=== PATIENT | female | born 1965 | race Caucasian/White ===

== ENCOUNTER 2023-06-09 09:38 | Outpatient (CLI) | payer BC, SELFPAY | END 2023-06-09 09:39 | disposition home or self-care (01) | LOC: AMB 07-14 14:54 | PROVIDERS: Visit Provider Emergency Medicine | DX: R10.9 Unspecified abdominal pain (principal) | CPT/HCPCS: A0425; A0433 ==

== ENCOUNTER 2023-11-09 19:38 | Emergency (ER) | payer BC, SELFPAY ==
[2023-11-09 19:45] VITALS: BP 164/90; PULSE 73; RESP 18; TEMP 37.6; O2SAT 96; BMI 34.8
--- NOTE | 2023-11-09 20:10 | ED_ITS ---
HPI - General Adult General Chief complaint: Nausea/Vomiting Stated complaint: vomiting Time Seen by Provider: 11/09/23 19:54 Source: patient Mode of arrival: ambulatory Limitations: no limitations History of Present Illness HPI narrative: Female presents the emergency department with significant other. Reports that she has had nausea vomiting since 0830 this morning. Did not have her phone by her and could not call her family for assistance. Significant other reports that he came home from work to find her with vomit all over the house in a path from the bed to the bathroom as well as loose stool. Have right-sided patient had a similar episode back in May where she was hospitalized for intractable nausea and vomiting at [facility] and was ultimately discharged. Was then admitted up at [facility] under similar circumstances a few days later. It sounds as though she had an endoscopy, followed up with GI, had a small bowel capsule endoscopy was diagnosed with Crohn's disease but it did not seem as though that was necessarily the cause for nausea and vomiting. She is a regular marijuana user and does have prescription marijuana for chronic pain related to breast cancer. Reports that she just returned from the [facility]. Denies blood in her vomit or stools. Reports that she does take blood thinners for history of blood clots, is not able to list her medications for me. Reports that she has a list at the nurse's station that they are still entering into the computer. We do not have much for outside records on her. Her only prior abdominal surgery is a hysterectomy related to her previous breast cancer. Denies history of other GI surgeries. Denies blood in her stools, bloody vomit. Is uncertain what medications have worked for her for this condition in the past. States her past medical history is notable for hypertension, prior blood clot, breast cancer. Related Data Home Medications Medication Instructions Recorded Confirmed amlodipine 5 mg tablet 5 mg PO DAILY 11/09/23 11/09/23 apixaban 5 mg tablet (Eliquis) 5 mg PO BID 11/09/23 11/09/23 atenolol 100 mg tablet 100 mg PO DAILY 11/09/23 11/09/23 dicyclomine 10 mg capsule 10 mg PO 3XD 11/09/23 11/09/23 exemestane 25 mg tablet 25 mg PO DAILY 11/09/23 11/09/23 gabapentin 300 mg capsule 600 mg PO 3XD 11/09/23 11/09/23 lansoprazole 30 mg capsule,delayed 30 mg PO DAILY 11/09/23 11/09/23 release lisinopril 40 mg tablet 40 mg PO DAILY 11/09/23 11/09/23 methocarbamol 500 mg tablet 500 mg PO Q6H 11/09/23 11/09/23 olanzapine 5 mg disintegrating PO 11/09/23 tablet oxycodone-acetaminophen 5 mg-325 1 tab PO Q4-6H chronic pain 11/09/23 11/09/23 mg tablet prochlorperazine maleate 10 mg PO 11/09/23 tablet sertraline 100 mg tablet 100 mg PO BID 11/09/23 11/09/23 sumatriptan succinate 100 mg tablet 100 mg PO Q2-4H PRN 11/09/23 11/09/23 valacyclovir 1 gram tablet PO 11/09/23 Previous Rx's Medication Instructions Recorded olanzapine 5 mg tablet 5 - 10 mg (1 - 2 x 5 mg) PO QHS 11/09/23 PRN #30 tabs prochlorperazine maleate 5 mg 5 mg PO TID PRN nausea #30 tabs 11/09/23 tablet (Compazine) Allergies Allergy/AdvReac Type Severity Reaction Status Date / Time No Known Drug Allergies Allergy Verified 11/09/23 19:51 PFSH PFS Social History Smoking Status: Current some day smoker Non-prescribed substance use: marijuana (any form) Exam Const: Vital Signs, click to edit/add: Vital Signs - 24 hr 11/09/23 19:45 11/09/23 21:20 Temperature 99.7 F H Pulse Rate [Pulse Oximeter] 73 92 Respiratory Rate 18 Blood Pressure [Le ft Upper Arm] 164/90 H 110/70 Pulse Oximetry 96 94 Oxygen Delivery Me thod Room Air Room Air Documenting provider has reviewed patient's vital signs: yes Common normals: alert General appearance: well kempt Orientation/consciousness: Yes awake Other: Restless but fully alert. Retching but no active vomiting at the time my exam. Does have an emesis bag with about 150 mL of serous appearing vomit, no food particles. Anxious. HENMT: Common normals: normocephalic Head and scalp: normocephalic Face and sinus: normal facial exam Mouth: oral and palatal mucosa normal Throat: posterior oropharynx normal Eye: Common normals: conjunctivae normal General eye: normal appearance of both eyes Conjunctiva: conjunctiva(e) normal Neck & C-Spine: Common normals: full ROM and no lymphadenopathy Resp: Common normals: normal respiratory effort, no use of accessory muscles and clear to auscultation bilaterally Effort & inspection: able to speak in complete sentences Auscultation: clear to auscultation bilaterally Cardio: Common normals: regular rate, regular rhythm, S1 normal heart sound and S2 normal heart sound Rate: regular rate Rhythm: regular rhythm Heart sounds: S1 normal and S2 normal GI: Other: Abdomen appears nondistended. No significant scarring, bruising or signs of trauma. Bowel sounds do sound normoactive throughout. Belly is diffusely soft, mildly diffusely tender but I cannot elicit any focal tenderness. No rebound tenderness or guarding. Organs do not seem enlarged, no obvious mass. Extremity: Common normals: normal to inspection, normal capillary refill and no pedal edema Neuro: Sensorium/orientation: awake and alert Motor exam: strength 5/5 throughout and no movement abnormalities noted Psych: Common normals: speech normal Appearance: well kempt Speech: normal speech Other: Anxious and a bit irritable. Insight and judgment seem fair. Skin: Common normals: no rashes or lesions noted General skin exam: no rashes or lesions noted Course Course ED Course: Intractable nausea and vomiting with history of Crohn's disease, does have a low-grade fever. There are no signs of hypotension or tachycardia. Similar previous episodes are suspicious for cyclic vomiting syndrome based on her description. I am somewhat reassured by the fact that she reports she prior GI workup, endoscopy and small bowel workup. I recommend starting with a L of normal saline, 4 mg of Zofran, 0.5 mg of lorazepam and 5 mg of Zyprexa. Basic labs to look for pancreatitis, years signs of bleeding, electrolyte abnormalities, kidney disease. I am going to hold off on imaging, await clinical response and findings from blood work 1st. Initial exam is not suggestive of obstruction, bacterial infection, pancreatitis, gallbladder disease or appendicitis. Reevaluation(s) Time of Reevaluation #1: 21:28 Reevaluation #1: Counseled patient on lab findings. Her AST is a little elevated, especially compared to ALT. Her bili is normal. I suspect that this is related to alcohol use. She states that she just returned from [facility] and has been drinking quite heavily socially for the last few days. She is feeling markedly better from the Zyprexa and lorazepam and does not think that we need to pursue additional imaging. I discussed this with her and she does not think that looking at her gallbladder, biliary tree or liver more closely will be helpful. She is thankful to be feeling much better. We discussed cyclic vomiting synd estiven. She was surprised by this diagnosis and did not seem very accepting of it but was not agitated or argumentative about the diagnosis. Counseled that I do suspect other providers have suspected this as well seeing as she has a prescription for Zyprexa on her paperwork. Counseled patient that the only prevention for this for most patients is complete elimination of all cannabis. She does not think she wants to do that at this time as she has been using marijuana for decades and is only now having vomiting episodes. I did deputy general counsel her that this is often the case. I will be giving a 2 L of IV fluid, this time LR to correct for the mild acid- base abnormalities and hypokalemia. Counseled on Zyprexa nightly for to help prevent nausea and vomiting for the next 5 nights. Compazine as needed for nausea and vomiting, pushing fluids. Hot showers for symptomatic relief. Alarm symptoms reviewed that would warrant ED presentation, especially any signs of GI bleeding. She is tolerating liquids after medications here in the ED. she is now calm. Significant other does seem receptive to diagnosis. She has previously had endoscopy and a small-bowel workup for this condition. This is a lso encouraging. I would encourage her to make a follow-up appointment to have her liver enzymes rechecked in about a month with her primary care team. Vital Signs Vital signs: Initial Vital Signs Temperature 99.7 F H 11/09/23 19:45 Temperature Source Temporal Artery Scan 11/09/23 19:45 Pulse Rate 73 11/09/23 19:45 Respiratory Rate 18 11/09/23 19:45 Blood Pressure 164/90 H 11/09/23 19:45 Blood Pressure Mean 114 H 11/09/23 19:45 Blood Pressure Position Supine 11/09/23 19:45 Pulse Oximetry 96 11/09/23 19:45 Oxygen Delivery Method Room Air 11/09/23 19:45 Vital Signs Temperature 99.7 F H 11/09/23 19:45 Pulse Rate 73 11/09/23 19:45 Respiratory Rate 18 11/09/23 19:45 Blood Pressure 164/90 H 11/09/23 19:45 Pulse Oximetry 96 11/09/23 19:45 Oxygen Delivery Method Room Air 11/09/23 19:45 Temperature 99.7 F H 11/09/23 19:45 Pulse Rate 92 11/09/23 21:20 Respiratory Rate 18 11/09/23 19:45 Blood Pressure 110/70 11/09/23 21:20 Pulse Oximetry 94 11/09/23 21:20 Oxygen Delivery Method Room Air 11/09/23 21:20 Medications Administered Medications: Generic Name Dose Route Start Last Admin Trade Name Freq PRN Reason Stop Dose Admin Gabapentin 600 mg 11/09/23 21:27 11/09/23 21:41 Gabapentin 300 Mg Capsule PO 11/09/23 21:28 Not Given ONCE ONE Lactated Ringer's 1,000 mls @ 1,000 mls/hr 11/09/23 21:19 11/09/23 21:30 Lactated Ringers 1000 Ml IV 11/09/23 22:18 1,000 mls/hr .Q1H ONE Administration Oxycodone HCl 5 mg 11/09/23 21:27 11/09/23 21:40 Oxycodone 5 Mg Tablet PO 11/09/23 21:28 5 mg ONCE ONE Administration Discontinued Medications Generic Name Dose Route Start Last Admin Trade Name Freq PRN Reason Stop Dose Admin Sodium Chloride 1,000 mls @ 1,000 mls/hr 11/09/23 20:07 11/09/23 21:30 0.9 % Sodium Chloride 1000 Ml IV 11/09/23 21:06 Infused .Q1H JUANI Infusion Lorazepam 0.5 mg 11/09/23 20:08 11/09/23 20:15 Lorazepam 2 Mg/Ml Inj IVP 11/09/23 20:09 0.5 mg ONCE ONE Administration Olanzapine 5 mg 11/09/23 20:07 11/09/23 20:45 Olanzapine 5 Mg/Ml Inj IVP 11/09/23 20:08 5 mg ONCE ONE Administration Ondansetron HCl 4 mg 11/09/23 20:07 11/09/23 20:15 Ondansetron 2 Mg/Ml Inj IVP 11/09/23 20:08 4 mg ONCE ONE Administration Medical Decision Making Lab Data Lab results reviewed: Yes I reviewed the patient's lab results Lab results narrative: Mild leukocytosis and elevation of AST. No signs of biliary obstruction with elevated bilirubin. Lactate is elevated consistent with dehydration. C- reactive protein normal. Labs: Lab Results 11/09/23 Range/Units 20:00 WBC 12.70 H (4.50-11.00) K/uL RBC 4.98 (4.00-5.20) m/uL Hgb 14.8 (12.0-16.0) gm/dL Hct 45.3 (33.0-51.0) % MCV 91 (80-100) fL MCH 30 (26-34) pg MCHC 33 (32-36) gm/dL RDW Coeff of Betsy 16.2 H (11.5-15.5) % Plt Count 382 (140-440) K/uL Neut % (Auto) 91.2 H (42.0-72.0) % Lymph % (Auto) 6.0 L (20-44) % Tama % (Auto) 1.8 (0.0-11.0) % Eos % (Auto) 0.0 (0.0-7.0) % Baso % (Auto) 0.1 (0.0-3.0) % Neut # (Auto) 11.60 H (1.7-7.0) K/uL Lymph # (Auto) 0.80 L (0.90-2.90) K/uL Tama # (Auto) 0.20 (0.00-0.90) K/UL Eos # (Auto) 0.00 (0.00-0.50) K/uL Baso # (Auto) 0.00 (0.00-0.30) K/uL Abs Immat Gran (auto) 0.10 (0.00-0.30) K/uL Imm/Tot Granulo (auto) 0.9 % Sodium 145 (135-149) mmol/L Potassium 3.7 (3.6-5.1) mmol/L Chloride 108 (96-114) mmol/L Carbon Dioxide 19 L (20-32) mmol/L Anion Gap 18 H (7-15) mEq/L BUN 15 (7-30) mg/dL Creatinine 0.9 (0.5-1.5) mg/dL Estimated Creat Clear 53.23 Estimated GFR 74 ml/min Glucose 139 H (60-115) mg/dL Lactate 3.4 H (0.5-1.9) mmol/L Calcium 10.6 (8.4-10.6) mg/dL Total Bilirubin 1.0 (0.1-1.5) mg/dL AST 222 H (12-35) U/L ALT 56 H (4-35) U/L Alkaline Phosphatase 72 (40-150) U/L C-Reactive Protein 0.7 (0.5-1.0) mg/dL Total Protein 8.0 (6.0-8.3) g/dL Albumin 4.7 (3.3-5.0) g/dL Lipase 59 (23-300) U/L Discharge Plan Discharge Clinical Impression: Cyclic vomiting syndrome Patient Disposition: Home w/ Parent or Adult Condition: Improved Instructions: Cyclic Vomiting Syndrome (ED) Additional Instructions: As we discussed, your symptoms seem consistent with cyclic vomiting syndrome, also known as cannabis emesis syndrome. These are intense bouts of vomiting that come on suddenly and tend to last for 3-5 days and are often associated with chronic marijuana use. This is not a condition that begins suddenly after starting to use marijuana but tends to be something that people age into and once it starts, is very difficult to treat. The only real treatment is complete elimination of all THC, cannabis and similar products from your life. I suspect that your other providers may have also suspected this conditions since they prescribed you olanzapine, also known as Zyprexa at some point. You can decide if elimination of cannabis from your chronic pain regimen is right for you. As we discussed, Zofran does not tend to be terribly effective for this. I recommend using olanzapine every night at bedtime for the next 5 nights to help prevent these episodes. This does not work to treat acute nausea and vomiting but is a better medication used for preventing. You may use 1-2 tablets at bedt alvina. For acute nausea and vomiting, I will give you a prescription for some Compazine. You may use this up to every 8 hours. Drink lots of fluids. Your likely be symptomatic for the next 3-5 days. Very hot showers often help. Patients with this condition will find taking hot showers 2-3 times per day markedly helpful. Follow-up with your GI doctor if you continue to have symptoms. And as yolanda coulter, consider complete elimination of cannabis. I would recommend that you make a follow-up appointment with your primary care team in 3-4 weeks to recheck your liver enzymes and to further discuss symptomatic treatment for these episodes for you to have at home. You may need refills on the medications that I have provided if these are helpful. You should ask their in site regarding the marijuana use as well. They will have your complete medical records which I am not privy to. If you start having bloody stools, bloody vomit, please come back to the emergency department. You may continue all of your other medications as prescribed. Activity Level: Activity as Tolerated Discharge Diet: Regular Prescriptions: New olanzapine 5 mg tablet 5 - 10 mg PO QHS PRNQty: 30 0RF prochlorperazine maleate [Compazine] 5 mg tablet 5 mg PO TID PRN (Reason: nausea) Qty: 30 0RF No Action atenolol 100 mg tablet 100 mg PO DAILY valacyclovir 1 gram tablet PO sertraline 100 mg tablet 100 mg PO BID amlodipine 5 mg tablet 5 mg PO DAILY prochlorperazine maleate 10 mg tablet PO oxycodone-acetaminophen 5-325 mg tablet 1 tab PO Q4-6H exemestane 25 mg tablet 25 mg PO DAILY lansoprazole 30 mg capsule,delayed release(DR/EC) 30 mg PO DAILY lisinopril 40 mg tablet 40 mg PO DAILY olanzapine 5 mg tablet,disintegrating PO Eliquis 5 mg tablet 5 mg PO BID methocarbamol 500 mg tablet 500 mg PO Q6H sumatriptan succinate 100 mg tablet 100 mg PO Q2-4H PRN Rx Instructions: do not exceed 2 doses per 24 hrs dicyclomine 10 mg capsule 10 mg PO 3XD gabapentin 300 mg capsule 600 mg PO 3XD Follow Up/Referrals: Provider,Not a Local [Primary Care Provider] - Stand Alone Forms: [employer] Info Instructions
[2023-11-09] MEDS: LORazepam 2 MG/ML inj 0.5 MG IVP (20:15)
[2023-11-09] MEDS: ONDANSETRON 2 MG/ML inj 4 MG IVP (20:15)
[2023-11-09] MEDS: 0.9 % SODIUM CHLORIDE 1000 ml 1,000 ML IV (20:20)
[2023-11-09 20:31] LABS: Lactate* 3.4 mmol/L (0.5-1.9)
[2023-11-09 20:32] LABS: Albumin* 4.7 g/dL (3.3-5.0); Chloride* 108 mmol/L (96-114); Sodium* 145 mmol/L (135-149)
[2023-11-09 20:33] LABS: Potassium* 3.7 mmol/L (3.6-5.1)
[2023-11-09 20:35] LABS: Anion Gap 18 mEq/L (7-15); Carbon Dioxide* 19 mmol/L (20-32); Creatinine* 0.9 mg/dL (0.5-1.5); Est. Creatinine Clearance* 53.23; Estimated Glomerular Filt Rate 74 ml/min
[2023-11-09 20:36] LABS: Alanine Aminotransferase* 56 U/L (4-35); Alkaline Phosphatase* 72 U/L (40-150); Aspartate Amino Transferase* 222 U/L (12-35); Blood Urea Nitrogen* 15 mg/dL (7-30); Calcium* 10.6 mg/dL (8.4-10.6); Glucose* 139 mg/dL (60-115); Lipase* 59 U/L (23-300)
[2023-11-09 20:39] LABS: C Reactive Protein* 0.7 mg/dL (0.5-1.0)
[2023-11-09] MEDS: OLANZapine 5 MG/ML inj IVP (20:45)
[2023-11-09 20:47] LABS: Basophils Percent Auto 0.1 % (0.0-3.0); Hematocrit 45.3 % (33.0-51.0); Hemoglobin* 14.8 gm/dL (12.0-16.0); Immature Granulocytes Pct Auto 0.9 %; Mean Corpuscular HGB Conc 33 gm/dL (32-36); Mean Corpuscular Hemoglobin 30 pg (26-34); Mean Corpuscular Volume 91 fL (80-100); Monocytes Percent Auto 1.8 % (0.0-11.0); Neutrophils Percent Auto 91.2 % (42.0-72.0); Platelet Count* 382 K/uL (140-440); RDW Coefficient of Variation % 16.2 % (11.5-15.5); Red Blood Count 4.98 m/uL (4.00-5.20)
[2023-11-09 20:49] LABS: Slide Review Reflex No
[2023-11-09 21:20] VITALS: BP 110/70; PULSE 92; O2SAT 94
[2023-11-09] MEDS: LACTATED RINGERS 1000 ML 1,000 ML IV (21:30)
[2023-11-09] MEDS: OXYCODONE 5 MG TABLET PO (21:40)
== END 2023-11-09 22:43 | disposition home or self-care (01) ==
PROVIDERS: Emergency Provider Family Medicine
DX: R11.15 Cyclical vomiting syndrome unrelated to migraine (principal)
CPT/HCPCS: 36415; 80053; 80306; 81003; 83605; 83690; 85025; 86140; 96374; 96375; 99283; 99284; A9270; J2060; J2405; J7030; J7120

== ENCOUNTER 2025-07-04 12:18 | Outpatient (CLI) | payer OTHER, SELFPAY | END 2025-07-04 12:19 | disposition home or self-care (01) | LOC: AMB 07-05 10:25 | PROVIDERS: Visit Provider Family Medicine | DX: R11.2 Nausea with vomiting, unspecified (principal) | CPT/HCPCS: A0425; A0427 ==

== ENCOUNTER 2025-07-04 12:45 | Emergency (ER) | payer OTHER, SELFPAY ==
[2025-07-04] VITALS (41 sets, daily range): BP systolic 101–190; BP diastolic 62–99; PULSE 59–80; RESP 12–18; TEMP 37.5; O2SAT 86–99; BMI 30.2
--- NOTE | 2025-07-04 13:19 | ED.GENADULT ---
HPI - General Adult General Chief complaint: Nausea/Vomiting Stated complaint: Nausea, vomiting Time Seen by Provider: 07/04/25 13:01 Source: patient Mode of arrival: EMS Limitations: no limitations History of Present Illness HPI narrative: 59-year-old female presenting today with vomiting going on for 4 days. Patient has history of Crohn's disease and cyclic vomiting syndrome. She was last in the ER in October of 2023 for this. She states that between then and now she has had shorter episodes of vomiting that have resolved without needing intervention. His patient denies fevers but does feel chills. No blood in her vomit. She does have chronic diarrhea which is unchanged. No urinary symptoms. She has had a thorough GI workup in the past. Past milk history significant for hypertension, breast cancer and previous blood clot. She is anticoagulated. And she is a chronic marijuana user secondary to pain-has been using marijuana for several years. Related Data Home Medications ?Medication ?Instructions ?Recorded ?Confirmed amlodipine 5 mg tablet 5 mg PO DAILY 11/09/23 07/04/25 Held on 07/04/25. Instructions: Doctor's Order apixaban 5 mg tablet (Eliquis) 5 mg PO BID 11/09/23 11/09/23 atenolol 100 mg tablet 100 mg PO DAILY 11/09/23 07/04/25 Held on 07/04/25. Instructions: Doctor's Order dicyclomine 10 mg capsule 10 mg PO 3XD 11/09/23 07/04/25 Held on 07/04/25. Instructions: Doctor's Order exemestane 25 mg tablet 25 mg PO DAILY 11/09/23 11/09/23 gabapentin 300 mg capsule 600 mg PO 3XD 11/09/23 11/09/23 lansoprazole 30 mg capsule,delayed 30 mg PO DAILY 11/09/23 11/09/23 release lisinopril 40 mg tablet 40 mg PO DAILY 11/09/23 07/04/25 Held on 07/04/25. Instructions: Doctor's Order methocarbamol 500 mg tablet 500 mg PO Q6H 11/09/23 11/09/23 olanzapine 5 mg disintegrating PO 11/09/23 tablet oxycodone-acetaminophen 5 mg-325 1 tab PO Q4-6H chronic pain 11/09/23 11/09/23 mg tablet prochlorperazine maleate 10 mg PO 11/09/23 tablet sertraline 100 mg tablet 100 mg PO BID 11/09/23 11/09/23 sumatriptan succinate 100 mg tablet 100 mg PO Q2-4H PRN 11/09/23 11/09/23 valacyclovir 1 gram tablet PO 11/09/23 Previous Rx's ?Medication ?Instructions ?Recorded olanzapine 5 mg tablet 5 - 10 mg (1 - 2 x 5 mg) PO QHS 11/09/23 PRN #30 tabs prochlorperazine maleate 5 mg 5 mg PO TID PRN nausea #30 tabs 11/09/23 tablet (Compazine) ondansetron 4 mg disintegrating 4 mg PO Q8H PRN nausea and 07/04/25 tablet vomiting #10 tabs Allergies Allergy/AdvReac Type Severity Reaction Status Date / Time No Known Drug Allergies Allergy Verified 07/04/25 12:58 Review of Systems Status of ROS: Reports: 10 or more systems reviewed and unremarkable except as noted in History and below PFSH PFS Social History Smoking Status: Current some day smoker How often do you have a drink containing alcohol: never AUDIT-C Alcohol total score: 0 Non-prescribed substance use: marijuana (any form) Exam Narrative: Exam Narrative: Well-nourished well-developed patient in no acute distress. Significant other does all of the talking for her. HEENT: Normocephalic atraumatic. Pupils are equally round reactive to light. Extraocular muscles are intact. Conjunctivae are moist without any icterus noted. Dry mucous membranes. Neck is supple. Cardiovascular: Heart is regular rate and rhythm. Lungs: Clear to auscultation bilaterally no wheezes rhonchi or rales are appreciated. Patient takes deep breaths without any discomfort. Abdomen: Soft and nontender nondistended with normal bowel sounds. No guarding or rebound. Extremities: Bilateral lower extremities are without edema. Skin: Well perfused without any obvious rashes. Const: Vital Signs, click to edit/add: Vital Signs - 24 hr 07/04/25 12:52 07/04/25 13:07 07/04/25 13:15 Temperature 99.5 F Pulse Rate 74 64 Pulse Rate [Right Pulse Oximeter] 71 Respiratory Rate 18 Blood Pressure Blood Pressure [Le ft Upper Arm] 178/96 H Pulse Oximetry 96 97 99 Oxygen Delivery Me thod Room Air Oxygen Flow Rate 07/04/25 13:21 07/04/25 13:37 07/04/25 13:42 Temperature Pulse Rate 66 67 Pulse Rate [Right Pulse Oximeter] Respiratory Rate Blood Pressure 190/99 H Blood Pressure [Le ft Upper Arm] Pulse Oximetry 96 95 90 Oxygen Delivery Me thod Oxygen Flow Rate 07/04/25 13:45 07/04/25 13:58 07/04/25 13:59 Temperature Pulse Rate 65 72 73 Pulse Rate [Right Pulse Oximeter] Respiratory Rate 16 Blood Pressure Blood Pressure [Le ft Upper Arm] Pulse Oximetry 97 95 94 Oxygen Delivery Me thod Oxygen Flow Rate 07/04/25 14:00 07/04/25 14:01 07/04/25 14:02 Temperature Pulse Rate 60 61 65 Pulse Rate [Right Pulse Oximeter] Respiratory Rate 12 12 Blood Pressure 150/88 H 159/98 H Blood Pressure [Le ft Upper Arm] Pulse Oximetry 97 97 96 Oxygen Delivery Me thod Oxygen Flow Rate 07/04/25 14:13 07/04/25 14:14 07/04/25 14:15 Temperature Pulse Rate Pulse Rate [Right Pulse Oximeter] Respiratory Rate Blood Pressure Blood Pressure [Le ft Upper Arm] Pulse Oximetry 86 L 94 96 Oxygen Delivery Me thod Room Air Nasal Cannula Nasal Cannula Oxygen Flow Rate 2 2 07/04/25 14:15 07/04/25 14:22 07/04/25 14:30 Temperature Pulse Rate 64 75 66 Pulse Rate [Right Pulse Oximeter] Respiratory Rate 15 13 12 Blood Pressure 111/62 Blood Pressure [Le ft Upper Arm] Pulse Oximetry 99 99 98 Oxygen Delivery Me thod Oxygen Flow Rate 07/04/25 14:42 07/04/25 14:45 07/04/25 15:00 Temperature Pulse Rate 66 80 73 Pulse Rate [Right Pulse Oximeter] Respiratory Rate 12 17 Blood Pressure 101/62 Blood Pressure [Le ft Upper Arm] Pulse Oximetry 97 97 96 Oxygen Delivery Me thod Oxygen Flow Rate 07/04/25 15:02 07/04/25 15:15 07/04/25 16:38 Temperature Pulse Rate 75 66 Pulse Rate [Right Pulse Oximeter] Respiratory Rate 13 17 Blood Pressure 115/75 131/69 Blood Pressure [Le ft Upper Arm] Pulse Oximetry 98 98 Oxygen Delivery Me thod Oxygen Flow Rate 07/04/25 16:40 07/04/25 16:42 07/04/25 16:45 Temperature Pulse Rate 76 66 66 Pulse Rate [Right Pulse Oximeter] Respiratory Rate Blood Pressure 126/68 Blood Pressure [Le ft Upper Arm] Pulse Oximetry 95 95 95 Oxygen Delivery Me thod Oxygen Flow Rate 07/04/25 17:00 07/04/25 17:02 Temperature Pulse Rate 68 70 Pulse Rate [Right Pulse Oximeter] Respiratory Rate 12 Blood Pressure 121/74 Blood Pressure [Le ft Upper Arm] Pulse Oximetry 96 96 Oxygen Delivery Me thod Nasal Cannula Oxygen Flow Rate 2 Course Course ED Course: Patient is no longer vomiting. She did receive 500 mL of normal saline and droperidol in the ambulance. One L of normal saline and IV Zofran ordered. Lactate is elevated at 2.9. EKG, read by me, shows normal sinus rhythm with a pulse of 64. Normal QRS, QTC and VT intervals. CBC appears to be hemoconcentrated. Potassium is low at 2.5 and magnesium is low at 1.3-both will be replenished today. 1 g of IV magnesium ordered as well as 3 bumps of 10 mEq of potassium. LFTs are elevated with an AST of 143 and ALT of 136. This is not necessarily new for the patient. Normal CRP. Normal lipase and procalcitonin. Urine drug screen positive for oxycodone and marijuana. Negative for acetaminophen, alcohol or salicylates. Urinalysis showing trace leukocyte esterase. Will await urine cultures at this time but patient is asymptomatic from a urinary symptom standpoint. Patient was feeling significantly better after treatment. She was tolerating p.o. liquids without vomiting. Patient will be discharged home at this time with oral disintegrating Zofran. She states that the meds she has gotten in the past when she has this do not stay down so they do not work. Vital Signs Vital signs: Initial Vital Signs Temperature 99.5 F 07/04/25 12:52 Temperature Source Temporal Artery Scan 07/04/25 12:52 Pulse Rate 71 07/04/25 12:52 Respiratory Rate 18 07/04/25 12:52 Blood Pressure 178/96 H 07/04/25 12:52 Blood Pressure Mean 123 H 07/04/25 12:52 Blood Pressure Position Semi-Fowlers 07/04/25 12:52 Pulse Oximetry 96 07/04/25 12:52 Oxygen Delivery Method Room Air 07/04/25 12:52 Vital Signs Temperature 99.5 F 07/04/25 12:52 Pulse Rate 71 07/04/25 12:52 Respiratory Rate 18 07/04/25 12:52 Blood Pressure 178/96 H 07/04/25 12:52 Pulse Oximetry 96 07/04/25 12:52 Oxygen Delivery Method Room Air 07/04/25 12:52 Temperature 99.5 F 07/04/25 12:52 Pulse Rate 70 07/04/25 17:02 Respiratory Rate 12 07/04/25 17:02 Blood Pressure 121/74 07/04/25 17:02 Pulse Oximetry 96 07/04/25 17:02 Oxygen Delivery Method Nasal Cannula 07/04/25 17:02 Oxygen Flow Rate 2 07/04/25 17:02 Medications Administered Medications: Discontinued Medications Generic Name Dose Route Start Last Admin Trade Name Freq PRN Reason Stop Dose Admin Sodium Chloride 1,000 mls @ 1,000 mls/hr 07/04/25 13:15 07/04/25 17:03 0.9 % Sodium Chloride 1000 Ml IV 07/04/25 14:14 Infused .Q1H JUANI Infusion Potassium Chloride 10 meq in 100 mls @ 100 mls/hr 07/04/25 14:45 07/04/25 18:48 Potassium Chloride IVPB 07/04/25 18:44 100 mls/hr Q90M JUANI Administration Magnesium Sulfate/Dextrose 1 gm in 100 mls @ 100 mls/hr 07/04/25 15:23 07/04/25 17:43 Magnesium Sulf 1 G/100 Ml IVPB 07/04/25 16:22 Infused ONCE ONE Infusion Ondansetron HCl 4 mg 07/04/25 13:08 07/04/25 13:48 Ondansetron 2 Mg/Ml Inj IVP 07/04/25 13:09 4 mg ONCE ONE Administration Medical Decision Making MDM Narrative Medical decision making narrative: 59-year-old female with vomiting. Treatment per above. Lab Data Lab results reviewed: Yes I reviewed the patient's lab results Labs: Lab Results 07/04/25 07/04/25 07/04/25 Range/Units 13:34 13:46 Unknown WBC 7.68 (4.50-11.00) K/uL RBC 5.66 H (4.00-5.20) m/uL Hgb 16.6 H (12.0-16.0) gm/dL Hct 50.9 (33.0-51.0) % MCV 90 (80-100) fL MCH 29 (26-34) pg MCHC 33 (32-36) gm/dL RDW Coeff of Betsy 12.8 (11.5-15.5) % Plt Count 292 (140-440) K/uL Neut % (Auto) 89.0 H (42.0-72.0) % Lymph % (Auto) 8.1 L (20-44) % [place] % (Auto) 2.3 (0.0-11.0) % Eos % (Auto) 0.0 (0.0-7.0) % Baso % (Auto) 0.3 (0.0-3.0) % Neut # (Auto) 6.80 (1.7-7.0) K/uL Lymph # (Auto) 0.60 L (0.90-2.90) K/uL [place] # (Auto) 0.20 (0.00-0.90) K/UL Eos # (Auto) 0.00 (0.00-0.50) K/uL Baso # (Auto) 0.02 (0.00-0.30) K/uL Abs Immat Gran (auto) 0.02 (0.00-0.30) K/uL Imm/Tot Granulo (auto) 0.3 % ESR 5 (2-20) mm/hr Sodium 140 (135-149) mmol/L Potassium 2.5 L* (3.6-5.1) mmol/L Chloride 103 (96-114) mmol/L Carbon Dioxide 27 (20-32) mmol/L Anion Gap 10 (7-15) mEq/L BUN 14 (7-30) mg/dL Creatinine 0.8 (0.5-1.5) mg/dL Estimated Creat Clear 59.15 Estimated GFR 84 ml/min Glucose 106 (60-115) mg/dL Lactate 2.9 H (0.5-1.9) mmol/L Calcium 9.4 (8.4-10.6) mg/dL Magnesium 1.3 L (1.5-2.6) mg/dL Total Bilirubin 0.9 (0.1-1.5) mg/dL Direct Bilirubin 0.4 (0.0-0.5) mg/dL AST 143 H (12-35) U/L ALT 136 H (4-35) U/L Alkaline Phosphatase 88 (40-150) U/L Troponin I < 0.01 (0.01-0.04) ng/mL C-Reactive Protein < 0.5 L (0.5-1.0) mg/dL Total Protein 7.1 (6.0-8.3) g/dL Albumin 4.0 (3.3-5.0) g/dL Lipase 188 (23-300) U/L Procalcitonin 0.06 (<0.50) ng/mL Urine Color Yellow (Yellow) Urine Appearance Clear (Clear) Urine pH 7.5 (5.0-8.5) Ur Specific [place] 1.020 (1.000-1.030) Urine Protein Negative (Negative) Urine Glucose (UA) Negative (Negative) Urine Ketones Trace A (Negative) Urine Blood Trace-intact A (Negative) Urine Nitrite Negative (Negative) Urine Bilirubin Negative (Negative) Urine Urobilinogen 0.2 (0.2-1.0) Ur Leukocyte Esterase Trace A (Negative) Urine RBC 0-2 (0-2) Urine WBC 2-5 (0-5) Ur Squamous Epith Cells Few (None-Few) Urine Bacteria None (None) Urine Mucus Few A (None) Salicylates < 1.0 L (1.0-10) mg/dL Urine Opiates Screen Negative (Negative) Ur Oxycodone Screen POSITIVE A (Negative) Urine Methadone Screen Negative (Negative) Acetaminophen < 10.0 (10.0-30.0) ug/mL Ur Barbiturates Screen Negative (Negative) U Tricyclic Antidepress Negative (Negative) Ur Phencyclidine Scrn Negative (Negative) Ur Amphetamines Screen Negative (Negative) U Methamphetamines Scrn Negative (Negative) U Benzodiazepines Scrn Negative (Negative) Urine Cocaine Screen Negative (Negative) U Marijuana (THC) Screen POSITIVE A (Negative) Ur Drug Screen Comment See Note Ethyl Alcohol < 0.01 (0.01-0.03) % ECG Data Attestation: I personally reviewed and interpreted this ECG as follows: Discharge Plan Discharge Clinical Impression: Vomiting, Dehydration, Hypokalemia, Hypomagnesemia Patient Disposition: Home, Self-Care Condition: Improved Additional Instructions: Follow-up as needed. Prescriptions: New ondansetron 4 mg tablet,disintegrating 4 mg PO Q8H PRN (Reason: nausea and vomiting) Qty: 10 0RF No Action atenolol 100 mg tablet 100 mg PO DAILY valacyclovir 1 gram tablet PO sertraline 100 mg tablet 100 mg PO BID amlodipine 5 mg tablet 5 mg PO DAILY prochlorperazine maleate 10 mg tablet PO oxycodone-acetaminophen 5-325 mg tablet 1 tab PO Q4-6H exemestane 25 mg tablet 25 mg PO DAILY lansoprazole 30 mg capsule,delayed release(DR/EC) 30 mg PO DAILY lisinopril 40 mg tablet 40 mg PO DAILY olanzapine 5 mg tablet,disintegrating PO Eliquis 5 mg tablet 5 mg PO BID methocarbamol 500 mg tablet 500 mg PO Q6H sumatriptan succinate 100 mg tablet 100 mg PO Q2-4H PRN Rx Instructions: do not exceed 2 doses per 24 hrs dicyclomine 10 mg capsule 10 mg PO 3XD gabapentin 300 mg capsule 600 mg PO 3XD olanzapine 5 mg tablet 5 - 10 mg PO QHS PRNQty: 30 0RF prochlorperazine maleate [Compazine] 5 mg tablet 5 mg PO TID PRN (Reason: nausea) Qty: 30 0RF Follow Up/Referrals: Provider,Not a Local [Primary Care Provider, Family Practice] Stand Alone Forms: [employer] Info Instructions
[2025-07-04 13:36] LABS: Appearance Urine Clear (Clear)
[2025-07-04 13:42] LABS: Lactate* 2.9 mmol/L (0.5-1.9)
[2025-07-04 13:46] LABS: Cannabinoid Screen Urine POSITIVE (Negative); Methamphetamines Screen Urine Negative (Negative); Tricyclic Antidepressant Urine Negative (Negative)
[2025-07-04] MEDS: ONDANSETRON 2 MG/ML inj 4 MG IVP (13:48)
[2025-07-04 14:00] LABS: Hematocrit* 50.9 % (33.0-51.0); Hemoglobin* 16.6 gm/dL (12.0-16.0); Immature Granulocytes Abs Auto 0.02 K/uL (0.00-0.30); Immature Granulocytes Pct Auto 0.3 %; Mean Corpuscular HGB Conc 33 gm/dL (32-36); Mean Corpuscular Hemoglobin 29 pg (26-34); Mean Corpuscular Volume 90 fL (80-100); RDW Coefficient of Variation % 12.8 % (11.5-15.5); Red Blood Count* 5.66 m/uL (4.00-5.20); White Blood Count* 7.68 K/uL (4.50-11.00)
[2025-07-04 14:05] LABS: Lymphocytes Absolute Auto 0.60 K/uL (0.90-2.90); Slide Review Reflex No
--- OUTSIDE RECORDS SUMMARY | 2025-07-04 14:22 | XMS_ITS | Encounter Summary ---
Author Organization [place] Address [address] [facility] [place] [address] Care Team Providers Care Low Vision Therapist Name Role Phone Tyesha Perez PA-C Unavailable [phone] Grace Jewell PA-C Primary Care Provid er Fermin Rainey MD Unavailable [phone] Tyesha Perez PA-C Unavailable [phone] Tyesha Perez PA-C Unavailable [phone] Fermin Rainey MD Unavailable [phone] Encounter Details Date Type Department Care Team (Late st Contact Info) Description 07/11/2024 [facility] [facility] [place] [address] [address] Tess Bae, RN Social History Tobacco Use Types Packs/Day Years Used Date Smoking Tobacco: Never Smokeless Tobacco: Never Alcohol Use Standard Drinks/Week Comments Yes 0 (1 standard drink = 0.6 oz pur e alcohol) socially--3x week PHQ-2 Answer Date Recorded PHQ-2 Score 0 06/28/2024 Adolescent Education Answer Date Record ed Getting School Help Needed Not on file 06/12 Comments No Sex and Gender Information Value Date Recorded Sex Assigned at Not on file 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 Gender Identity Not on file Sexual Orientation Not on file documented as of this encounter Plan of Treatment Not on file documented as of this encounter Visit Diagnoses Not on filedocumented in this encounter Care Teams Low Vision Therapist Relationship Specialty Start Date End Date Grace Jewell PA-C [address] [facility] [address] [address] PCP - General 11/12/23 Tyesha Perez PA-C [address] [place] [address] Physician Teenage Program Director Dermatology 04/21/23 Fermin Rainey MD [address] [place] [address] Assigned Surgical Provider 01/12/24 Tyesha Perez PA-C [address] [place] [id number] Assigned Surgical Provider 07/13/24 Tyesha Perez PA-C [address] [place] [address] Assigned Dermatology Provider 12/11/24 03/12/25 Fermin Rainey MD [address] [place] [address] Assigned Dermatology Provider 03/13/25 documented as of this encounter
--- OUTSIDE RECORDS SUMMARY | 2025-07-04 14:22 | XMS_ITS | Encounter Summary ---
Author Organization [facility] Address [address] [place] [address] Care Team Providers Care Organic Extractions Technician Name Role Phone [facility] Pr ovider Deirdre Cao Primary Care Provider Unavaila ble Tyesha Perez PA-C Unavailable Grace Jewell PA-C Primary Care Provid er Tyesha Perez PA-C Unavailable [phone] Fermin Rainey MD Unavailable [phone] Tyesha Perez PA-C Unavailable [phone] Tyesha Perez PA-C Unavailable [phone] Fermin Rainey MD Unavailable [phone] Encounter Details Date Type Department Care Team (Late st Contact Info) Description 05/09/2015 Abstract [facility] [place] [address] [place] [address] Fermin Reyna MD [facility] [address] [facility] [address] [place] [address] [facility], OPERATIVE NOTE, 05/09/15 Social History Tobacco Use Types Packs/Day Years Used Date Smoking Tobacco: Never Alcohol Use Standard Drinks/Week Comments Yes 0 (1 standard drink = 0.6 oz pur e alcohol) socially Comments No Sex and Gender Information Value Date Recorded Sex Assigned at Not on file 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 [address] PCP - General 10/12/14 08/31/17 Deirdre Cao [address] [facility] [place] [address] PCP - General 09/01/17 11/11/23 Grace Jewell PA-C [address] [place] [address] PCP - General 11/12/23 Tyesha Perez PA-C [address] [place] [address] Physician Zone Maintenance Technician Dermatology 04/21/23 Tyesha Perez PA-C [address] [place] [id number] Assigned Surgical Provider 12/04/23 Fermin Rainey MD [address] [place] [id number] Assigned Surgical Provider 01/12/24 Tyesha Perez PA-C [address] [place] [address] Assigned Surgical Provider 07/13/24 Tyesha Perez PA-C [address] [address] Assigned Dermatology Provider 12/11/24 03/12/25 Fermin Rainey MD [facility] [place] [address] Assigned Dermatology Provider 03/13/25 documented as of this encounter
--- OUTSIDE RECORDS SUMMARY | 2025-07-04 14:22 | XMS_ITS | Clinical Summary ---
Author Organization [facility] Address [address] [place] [address] Care Team Providers Care Geological Specialist Name Role Phone Deirdre Grant PA-C Primary Care Provider Source Comments You are receiving this document as you are listed as the primary care provider,follow-up provider, or the patient has been referred to you for consultation.This is in compliance with the Medicare andMedicaid EHR Incentive Program,which states Providers who transition their patient to another setting of careor provider of care or refers their patient to another provider of care shouldprovide summary care record for each transition of care or referral. [facility] Allergies Active Allergy Reactions Criticality Noted Date Comments Hydrocodone Itching 08/15/2015 Medications triamcinolone acetonide (AKA KENALOG) 0.1 % cream Apply 1 Application topically 3 times daily. for eczema. 80 g 3 5 Active Fexofenadine-Pse udoephedrine (FEXOFENADINE-PS EUDOEPHED ER OR)Indications:O ther seasonal allergic rhinitis Take 1 tablet by mouth daily (every 24 hours). 100 tablet 1 5 Active hydrochlorothiaz lanette 12.5 MG capsuleIndicatio ns:Essential hypertension (HRC) Take 1 capsule by mouth daily (every 24 hours). 90 capsule 4 5 Active naproxen (AKA NAPROSYN) 500 MG tabletIndication s:Right knee pain Take 1 tablet by mouth 2 times daily (with meals). 180 tablet 3 5 Active Additional Information Patient not taking.Reported on 07/23/2022 triamcinolone acetonide (AKA KENALOG) 0.1 % cream APPLY TO AFFECTED AREA(S) THREE TIMES A DAY FOR ECZEMA 80 g 3 6 Active Additional Information Patient not taking.Reported on 07/23/2022 ATENolol (TENORMIN) 100 MG tablet TAKE ONE TABLET BY MOUTH ONCE DAILY 90 tablet 2 6 Active omeprazole (PRILOSEC) 40 MG capsule Take 1 capsule by mouth daily (every 24 hours). 90 capsule 0 6 Active LORazepam (ATIVAN) 0.5 MG tabletIndication s:Situational anxiety (HRC) Take 1 tablet by mouth every 8 hours as needed for Anxiety. 20 tablet 0 6 Active Additional Information Patient not taking.Reported on 07/23/2022 SUMAtriptan (IMITREX) 100 MG tablet TAKE 1 TABLET BY MOUTH AT ONSET OF MIGRAINE. MAY REPEAT AFTER 2 HOURS IF NEEDED. MAXIMUM OF 2 TABS/24 HOURS AND 9 DAYS/MONTH. 27 Tab 0 6 Active valACYclovir (VALTREX) 1 G tablet Take 2 Tabs by mouth two times daily as needed. 12 Tab 0 7 Active hydroCHLOROthiaz lanette (ORETIC) 12.5 MG tablet Take 1 Tab by mouth every morning. 30 Tab 7 Active Additional Information Patient not taking.Reported on 07/23/2022 morphine (MS IR) 15 MG tablet Take 15 mg by mouth daily as needed. 2 Active methocarbamol (ROBAXIN) 750 MG tablet Take 750 mg by mouth. 2 Active lisinopril (ZESTRIL) 10 MG tablet Take 10 mg by mouth daily. 2 Active anastrozole (ARIMIDEX) 1 MG tablet Take 1 mg by mouth daily. 2 Active Active Problems Problem Noted Date Diagnosed Date Colon polyp 11/08/2015 Overview (04/24/2016): [place] - multiple polyps. erosions in the terminal ileum Pap smear of cervix shows high risk HPV present 06/06/2015 Overview (04/24/2016): Redo Pap in 05/2016; patient refuses colposcopy Right knee pain 08/18/2014 CTS (carpal tunnel syndrome) 11/28/2013 Melanoma 07/17/2011 Eczema 07/17/2011 Anxiety 07/17/2011 Migraines 07/07/2011 HTN (hypertension) 07/07/2011 Allergic rhinitis 02/25/2003 Overview (05/13/2017): Rhinitis Allergic NOS Resolved Problems Problem Noted Date Diagnosed Date Resolved Date Yeast infection of the skin 07/17/2011 11/28/2013 Major depressive disorder, single episode 08/18/2008 04/05/2012 Overview (05/13/2017): Depression Major NOS Herpes simplex virus (HSV) infection 08/18/2008 07/17/2011 Overview (05/13/2017): Herpes Simplex Labialis Obesity 02/25/2003 08/18/2014 Immunizations Immunization Administration Dates Next Due Flu Vac Preserv Free (3+yrs) 06/25/2012,07/03/20 11,08/18/2008 Influenza IIV4 (Quadrivalent) 0.5mL (72459) 05/23,06/05/2014,07/01/2013 TDAP (BOOSTRIX) 07/01/2013 Td 05/13/2004 Family History * Patient is adopted Medical History Relation Name Comments DVT/PE Negative Family History Relation Name Status Comments Father adoptive Mother adoptive Daughter Alive Son Alive Social History Tobacco Use Types Packs/Day Years Used Date Smoking Tobacco: Never Smokeless Tobacco: Never Tobacco Cessation:Counseling Given: Not Answered Alcohol Use Standard Drinks/Week Comments Yes 2 (1 standard drink = 0.6 oz pur e alcohol) Comments No Sex and Gender Information Value Date Recorded Sex Assigned at Not on file Legal Sex Female 4:56 AM CDT Gender Identity Not on file Sexual Orientation Not on file Occupation Industry Job Start Date Job End Date [employer] Not on file Not on file Not on file Last Filed Vital Signs Vital Sign Reading Time Taken Comments Blood Pressure 137/94 07/23/2022 8:02 AM CDT Pulse 74 07/23/2022 8:02 AM CDT Temperature 36.7 C (98 F) 07/23/2022 8:02 AM CDT Respiratory Rate 17 07/23/2022 8:02 AM CDT Oxygen Saturation 98% 07/23/2022 8:02 AM CDT Inhaled Oxygen Concentration - - Weight 89.6 kg (197 lb 8 oz) 08/28/2015 9:10 AM FIRE EXTINGUISHER TECHNICIAN Height 157 cm (5' 1.8) 08/28/2015 9:10 AM FIRE EXTINGUISHER TECHNICIAN Body Mass Index 36.36 08/28/2015 9:10 AM FIRE EXTINGUISHER TECHNICIAN Plan of Treatment Health Maintenance Due Date Last Done Comments Hep C Screening (Preventive Services) 1964 HIV Screening (Preventive Services) 1980 Adult Preventive Visit 1982 Pneumococcal Vaccine 50+ Yrs (1 of 1 - PCV) 2014 Cervical Cancer Screening Due 06/07/2015 06/06/2015, 04/01/2012, 08/18/2008, Additional history exists Colonoscopy 11/08/2018 11/08/2015 (Completed) Mammogram 07/16/2019 07/16/2018, 01/2016 (Completed), 08/15/2014, Additional history exists Cholesterol 06/06/2020 06/06/2015, 06/22, 08/18/2008, Additional history exists DTaP/Tdap/Td Vaccine (2 - Tdap) 07/01/2023 07/01/2013, 05/13/2004 COVID-19 Vaccine ( - season) 2025 03/06/2022, 06/27/2021, 12/26/2020, Additional history exists Influenza Vaccine (#1) 2025 , 08/08/2020, 06/16/2019, Additional history exists RSV Vaccine (1 - 1-dose 75+ series) 2039 Zoster/Shingles Vaccine Completed 11/19/2018, 09/16 HepA Vaccine Aged Out No longer eligi ble based on patient's age to complete this topic HepB Vaccine Aged Out No longer eligi ble based on patient's age to complete this topic Hib Vaccine Aged Out No longer eligi ble based on patient's age to complete this topic IPV (Polio) Vaccine Aged Out No longe r eligible based on patient's age to complete this topic MCV4 Vaccine Aged Out No longer eligi ble based on patient's age to complete this topic Meningococcal B Vaccine Aged Out No l onger eligible based on patient's age to complete this topic Procedures Procedure Name Priority Date/Time Associated Diagnosis Comments LIPID PANEL & DIRECT LDL (IF NEEDED) Routine 06/06/2015 12:15 PM CDT Routine general medical examination at a health care facility ANATOMICAL PATH LIQUID BASED Routine 06/06/2015 11:46 AM CDT MM MAMMOGRAM SCREENING BILAT W CAD Routine 08/15/2014 1:05 PM FIRE EXTINGUISHER TECHNICIAN Other screening mammogram from Last 3 Months or Most Recently Relevant to Health Maintenance Results * Lipid Panel and Direct LDL(If Needed) (06/06/2015 12:15 PM CDT) Cholesterol 164 0 - 200 mg/dL HP CONVERSION Triglycerides 109 0 - 149 mg/dL HP CONVERSION HDL Cholesterol 49 >39 mg/dL HP CONVERSION Cholesterol/HDL Ratio Screen 3.3 HP CONVERSION LDL Calculated 93 19 - 130 mg/dL HP CONVERSION Hours Fasting 17.0 HP CONVERSION 06/06/2015 12:1 5 PM CDT 06/06/2015 2:47 PM CDT Narrative HP CONVERSION - 06/06/2015 3:41 PM CDT Performed at [facility], [address] [place] [address] Jenny Morin PA-C LAB_[email or web address] Final Resu lt HP CONVERSION * Pap Smear (06/06/2015 11:46 AM CDT) 06/06/2015 11:4 6 AM CDT Narrative HP CONVERSION - 06/11/2015 2:47 PM CDT Performed at [facility] [id number] FINAL GYNECOLOGICAL CYTOLOGY REPORT Pathology #: [id number] Date Obtained: 06/06/2015 Date Received: 06/07/2015 INTERPRETATION/RESULTS: Negative for Intraepithelial Lesion or Malignancy. SPECIMEN ADEQUACY: Satisfactory for Evaluation. Endocervical cells/transformation zone component present. Verified on 06/11/2015 by DILIA SINHA(ASCP) (electronic signature) CLINICAL NOTES: Abnormal bleeding: No, LMP: amenorrheic on , Menstrual status: None Apply, Current form of therapy: Hormone Therapy LIQUID BASED PAP SMEAR SPECIMEN TYPE: ROUTINE CERVICAL PAP TEST PLEASE NOTE: The pap smear is a screening test designed to aid in the detection of cervical cancer and its precursor lesions. It is not a diagnostic procedure and should not be used as the sole means of detecting cervical cancer. Both false-positive and false-negative reports may occur. End of Report Transcriptions 10/30/2016 3:18 AM CSTNotes Recorded by Patria Hoyos RN on 06/15/2015 at 10:05 AMPhone note started 06/15 us Jenny Morin PA-C LAB_1 Final Resu lt HP CONVERSION * MM Mammogram Screening Bilat W CAD (08/15/2014 1:05 PM FIRE EXTINGUISHER TECHNICIAN) Anatomical Region Laterality Modality Breast Bilateral Mammography Impressions 08/15/2014 1:45 PM FIRE EXTINGUISHER TECHNICIAN : BIRADS 1 Negative (overall) Follow Up Mammogram in 1 year - Bilateral The results and recommendations of this examination will be communicated to the patient by the [facility] and we will attempt to schedule any recommended imaging follow up with the patient. Narrative 08/15/2014 1:45 PM FIRE EXTINGUISHER TECHNICIAN Compared to: 09/19/2013 MM Mammogram Screening Bilateral W Cad, 08/24/2008 MM MAMMOGRAM SCREENING W CAD, 07/04/2004 MM MAMMOGRAM SCREENING W CAD Bilateral Breast Findings: There are scattered fibroglandular densities (25-50%) in the breasts. No significant mass, calcifications or other abnormalities are seen in either breast. Procedure Note India Kendrick MD - 05/21/2016 Compared to: 09/19/2013 MM Mammogram Screening Bilateral W Cad,08/24/2008 MM MAMMOGRAM SCREENING W CAD, 07/04/2004 MM MAMMOGRAM SCREENING W CAD Bilateral Breast Findings: There are scattered fibroglandular densities (25-50%) in the breasts. No significant mass, calcifications or other abnormalities are seen in either breast. IMPRESSION : BIRADS 1 Negative (overall) Follow Up Mammogram in 1 year - Bilateral The results and recommendations of this examination will be communicated to the patient by the [facility] and we will attempt to schedule any recommended imaging follow up with the patient. Jenny Morin PA-C RAD M[facility] Final Resu lt from Last 3 Months or Most Recently Relevant to Health Maintenance Insurance [facility] Advance Directives * Full Code (Latest Code Status on File) Date Activated Date Inactivated Comments 12/09/2013 4:23 PM 12/09/2013 8:27 PM Care Teams Geological Specialist Relationship Specialty Start Date End Date Deirdre Grant PA-C [address] [facility] [address] [id number] PCP - General Physician Refrigeration Supervisor 07/21/18
--- OUTSIDE RECORDS SUMMARY | 2025-07-04 14:22 | XMS_ITS | Encounter Summary ---
Author Organization [facility] Address [address] [facility] [place] [address] Care Team Providers Care Interactive Media Project Manager Name Role Phone Tyesha Perez PA-C Unavailable Grace Jewell PA-C Primary Care Provid er Tyesha Perez PA-C Unavailable [phone] Fermin Rainey MD Unavailable Tyesha Perez PA-C Unavailable Tyesha Perez PA-C Unavailable Fermin Rainey MD Unavailable Encounter Details Date Type Department Care Team (Late st Contact Info) Description 11/20/2023 [facility]ice [facility] [address] [phone] Tyesha Perez PA-C [address] [place] [address] Social History Tobacco Use Types Packs/Day Years Used Date Smoking Tobacco: Never Smokeless Tobacco: Never Alcohol Use Standard Drinks/Week Comments Yes 0 (1 standard drink = 0.6 oz pur e alcohol) socially--3x week Adolescent Education Answer Date Record ed Getting School Help Needed Not on file 06/12 Comments No Sex and Gender Information Value Date Recorded Sex Assigned at Not on file Legal Sex Female 2:58 AM PRISON GUARD SUPERVISOR Gender Identity Not on file Sexual Orientation Not on file documented as of this encounter Plan of Treatment Not on file documented as of this encounter Visit Diagnoses Not on filedocumented in this encounter Care Teams Interactive Media Project Manager Relationship Specialty Start Date End Date Grace Jewell PA-C [address] [address] PCP - General 11/12/23 Tyesha Perez PA-C [address] [place] [address] Physician Horticultural Specialty Grower Dermatology 04/21/23 Tyesha Perez PA-C [address] [place] [address] Assigned Surgical Provider 12/04/23 Fermin Rainey MD [address] [place] [address] Assigned Surgical Provider 01/12/24 Tyesha Perez PA-C [address] [place] [address] Assigned Surgical Provider 07/13/24 Tyesha Perez PA-C [address] [place] [address] Assigned Dermatology Provider 12/11/24 03/12/25 Fermin Rainey MD [address] [place] [address], [place] [address] Assigned Dermatology Provider 03/13/25 documented as of this encounter
--- OUTSIDE RECORDS SUMMARY | 2025-07-04 14:22 | XMS_ITS | Encounter Summary ---
Author Organization [facility] Address [address] [place] [address] Care Team Providers Care Sewing Machine Adjuster Name Role Phone [facility], [facility] Primary Care Pr ovider Deirdre Cao Primary Care Provider Unavaila ble Tyesha ePrez PA-C Unavailable Grace Jewell PA-C Primary Care Provid er Tyesha Perez PA-C Unavailable [phone] Fermin Rainey MD Unavailable [phone] Tyesha Perez PA-C Unavailable [phone] Tyesha Perez PA-C Unavailable [phone] Fermin Rainey MD Unavailable [phone] Encounter Details Date Type Department Care Team (Late st Contact Info) Description 03/14/2015 Abstract M [facility] [address] [place], [place] [id number] Fermin Reyna MD [facility] [place] [address] [facility] [address] [place] [address] [facility], OPERATIVE REPORT, 03/14/15 Social History Tobacco Use Types Packs/Day Years Used Date Smoking Tobacco: Never Alcohol Use Standard Drinks/Week Comments Yes 0 (1 standard drink = 0.6 oz pur e alcohol) socially Comments No Sex and Gender Information Value Date Recorded Sex Assigned at Not on file Legal Sex Female 2:58 AM MAINSPRING STRIP INSPECTOR Gender Identity Not on file Sexual Orientation Not on file documented as of this encounter Plan of Treatment Not on file documented as of this encounter Visit Diagnoses Not on filedocumented in this encounter Care Teams Sewing Machine Adjuster Relationship Specialty Start Date End Date Clinic, [facility] [address] [place] [address] PCP - General 10/12/14 08/31/17 Deirder Cao [address] [facility] [place] [address] PCP - General 09/01/17 11/11/23 Grace Jewell PA-C [address] [place] [address] PCP - General 11/12/23 Tyesha Perez PA-C [address] [place] [address] Physician Abrading Machine Tender Dermatology 04/21/23 Tyesha Perez PA-C [address] [place] [address] Assigned Surgical Provider 12/04/23 Fermin Rainey MD [address] [place] [address] Assigned Surgical Provider 01/12/24 Tyesha Perez PA-C [address] [place] [address] Assigned Surgical Provider 07/13/24 Tyesha Perez PA-C [address] [address] Assigned Dermatology Provider 12/11/24 03/12/25 Fermin Rainey MD [facility] [place] [address] Assigned Dermatology Provider 03/13/25 documented as of this encounter
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
--- OUTSIDE RECORDS SUMMARY | 2025-07-04 14:22 | XMS_ITS | Encounter Summary ---
Author Organization [place] Address [address] [place] [address] Care Team Providers Care Hot Press Operator Name Role Phone Clinic, [facility] Pr ovider Deirdre Cao Primary Care Provider Unavaila ble Tyesha Perez PA-C Unavailable Grace Jewell PA-C Primary Care Provid er Tyesha Perez PA-C Unavailable [phone] Fermin Rainey MD Unavailable [phone] Tyesha Perez PA-C Unavailable [phone] Tyesha Perez PA-C Unavailable [phone] Fermin Rainey MD Unavailable [phone] Encounter Details Date Type Department Care Team (Late st Contact Info) Description 03/14/2015 Abstract [facility] [place] [address] [place] [address] [place], [place] [address] Fermin Reyna MD [facility] [place] [address] [facility] [address] [place] [address] [facility], OP REPORT, 03/14/15 Social History Tobacco Use Types Packs/Day Years Used Date Smoking Tobacco: Never Alcohol Use Standard Drinks/Week Comments Yes 0 (1 standard drink = 0.6 oz pur e alcohol) socially Comments No Sex and Gender Information Value Date Recorded Sex Assigned at Not on file Legal Sex Female 2:58 AM REGULAR SENIOR CARE PROVIDER Gender Identity Not on file Sexual Orientation Not on file documented as of this encounter Plan of Treatment Not on file documented as of this encounter Visit Diagnoses Not on filedocumented in this encounter Care Teams Hot Press Operator Relationship Specialty Start Date End Date Clinic, [facility] [address] [facility] [place] [address] PCP - General 10/12/14 08/31/17 Deirdre Cao [address] [facility] [place] [address] PCP - General 09/01/17 11/11/23 Grace Jewell PA-C [address] [place] [address] PCP - General 11/12/23 Tyesha Perez PA-C [address] [place] [address] Physician Manager [facility] 04/21/23 Tyesha Perez PA-C [address] [place] [address] Assigned Surgical Provider 12/04/23 Fermin Rainey MD [address] [place] [address] Assigned Surgical Provider 01/12/24 Tyesha Perez PA-C [address] [place] [address] Assigned Surgical Provider 07/13/24 Tyesha Perez PA-C [address] [address] Assigned Dermatology Provider 12/11/24 03/12/25 Fermin Rainey MD [facility] [place] [address] Assigned Dermatology Provider 03/13/25 documented as of this encounter
--- OUTSIDE RECORDS SUMMARY | 2025-07-04 14:22 | XMS_ITS | Clinical Summary ---
Author Organization [place] Address [facility] [place] [address] Care Team Providers Care Certified Orthotist Practice Manager Name Role Phone Tyesha Perez PA-C Unavailable [phone] Grace Jewell PA-C Primary Care Provid er Fermin Rainey MD Unavailable [phone] Allergies Active Allergy Reactions Criticality Noted Date Comments Hydrocodone Itching 08/20/2015 Nsaids GI Disturbance 09/04/2017 Medications ValACYclovir HCl (VALTREX PO) Take 1,000 mg by mouth 2 times daily as needed (cold sores) Active triamcinolone (KENALOG) 0.1 % cream Apply topically 3 times daily as needed Active ATENOLOL PO Take 100 mg by mouth daily Active HYDROCHLOROTHIAZID E PO Take 12.5 mg by mouth daily Active SUMAtriptan (IMITREX) 100 MG tablet Take 100 mg by mouth at onset of headache for migraine Active Cholecalciferol (VITAMIN D3 PO) Take 1 tablet by mouth daily Active fexofenadine-pseud oePHEDrine (MIGUEL-D) 60-120 MG per 12 hr tablet Take 1 tablet by mouth daily as needed Active CYCLOBENZAPRINE HCL PO Take 10 mg by mouth nightly as needed for muscle spasms Active LANSOPRAZOLE PO Take 30 mg by mouth daily Active Ondansetron (ZOFRAN ODT PO) Take 4 mg by mouth every 8 hours as needed for nausea Active SERTRALINE HCL PO Take 50 mg by mouth daily Active Ferrous Sulfate (IRON SUPPLEMENT PO) Take 1 tablet by mouth daily Active Ascorbic Acid (VITAMIN C PO) Take 1 tablet by mouth daily Active oxyCODONE IR (ROXICODONE) 5 MG tabletIndications: Total knee replacement status, right 1 every 4 Hrs 1 - 2 Every 6 Hrs prn 80 tablet 7 Active acetaminophen (TYLENOL) 325 MG tabletIndications: Total knee replacement status, right Take 3 tablets (975 mg) by mouth every 8 hours 100 tablet 7 Active senna-docusate (SENOKOT-S;PERICOL RENETTA) 8.6-50 MG per tabletIndications: Total knee replacement status, right Take 1-2 tablets by mouth 2 times daily 100 tablet 7 Active cyclobenzaprine (FLEXERIL) 5 MG tabletIndications: Total knee replacement status, right Take 1 tablet (5 mg) by mouth 2 times daily as needed for muscle spasms 30 tablet 7 Active potassium chloride SA (K-DUR/KLOR-CON M) 10 MEQ CR tabletIndications: Hypokalemia Take 1 tablet (10 mEq) by mouth daily 30 tablet 1 7 Active warfarin (COUMADIN) 2.5 MG tabletIndications: Total knee replacement status, right Dose 5mg thu, And Thursday This weeknend , 2.5 Mg thu , thu Then Call office Wed For New dosing Based on inr 40 tablet 7 Active amLODIPine (NORVASC) 5 MG tablet Take 1 tablet by mouth daily 3 Active dicyclomine (BENTYL) 10 MG capsule Take 10 mg by mouth 4 Active apixaban ANTICOAGULANT (ELIQUIS) 5 MG tablet Take 5 mg by mouth 4 Active exemestane (AROMASIN) 25 MG tablet Take 25 mg by mouth 3 Active ketoconazole (NIZORAL) 2 % external shampoo Apply topically. 2 Active lisinopril (ZESTRIL) 40 MG tablet Take 1 tablet by mouth daily 3 Active methocarbamol (ROBAXIN) 500 MG tablet Take 1,000 mg by mouth 2 Active morphine (MSIR) 15 MG IR tablet Take 15 mg by mouth at bedtime Active oxyCODONE-acetamin ophen (PERCOCET) 5-325 MG tablet TAKE ONE TABLET BY MOUTH EVERY 4 TO 6 HOURS FOR CHRONIC PAIN. MAX 4 PER DAY. Active prochlorperazine (COMPAZINE) 10 MG tablet Take 10 mg by mouth 3 Active sertraline (ZOLOFT) 100 MG tablet 4 Active ketoconazole (NIZORAL) 2 % external creamIndications:P erleche Apply to corners of mouth BID PRN 15 g 5 4 Active clobetasol propionate (CLOBEX) 0.05 % external shampooIndications :Psoriasis Use 1-2 times weekly 118 mL 5 4 Active fluocinolone acetonide (DERMA SMOOTHE/FS BODY) 0.01 % external oilIndications:Pso riasis Apply to scalp at bedtime x 1-2 weeks then PRN 118 mL 5 4 Active valACYclovir (VALTREX) 1000 mg tabletIndications: HSV infection 2 tabs at sx onset; 2 more 12 hours later PRN cold sores 30 tablet 3 4 Active COMPOUNDED NON-CONTROLLED SUBSTANCE (CMPD RX) - PHARMACY TO MIX COMPOUNDED MEDICATIONIndicati ons:Verruca plantaris Wart peel in remedium sig apply to warts at HS as tolerated 5 g 5 4 Active triamcinolone (KENALOG) 0.1 % external creamIndications:P soriasis Apply to AA BID x 1-2 week then PRN only 80 g 2 5 Active Active Problems Problem Noted Date Diagnosed Date Total knee replacement status, right 09/07/2017 Abdominal pain 10/16/2015 Immunizations Immunization Administration Dates Next Due COVID-19 MONOVALENT 12+ ([place]) 06/27/2021,04/0 03/2021,12/05/2020 Family History Medical History Relation Comments Unknown/Adopted Brother Unknown/Adopted Daughter Unknown/Adopted Father Unknown/Adopted Maternal Grandfather Unknown/Adopted Maternal Grandmother Unknown/Adopted Maternal Half-Brother Unknown/Adopted Maternal Half-Sister Unknown/Adopted Mother Unknown/Adopted Paternal Grandfather Unknown/Adopted Paternal Grandmother Unknown/Adopted Paternal Half-Brother Unknown/Adopted Sister Unknown/Adopted Son Relation Status Comments Brother Daughter Father Maternal Grandfather Maternal Grandmother Maternal Half-Brother Maternal Half-Sister Mother Paternal Grandfather Paternal Grandmother Paternal Half-Brother Sister Son Social History Tobacco Use Types Packs/Day Years Used Date Smoking Tobacco: Never Smokeless Tobacco: Never Tobacco Cessation:Counseling Given: Yes Alcohol Use Standard Drinks/Week Comments Yes 0 (1 standard drink = 0.6 oz pur e alcohol) socially--3x week PHQ-2 Answer Date Recorded PHQ-2 Score 0 12/30/2024 Adolescent Education Answer Date Record ed Getting School Help Needed Not on file 06/12 Comments No Sex and Gender Information Value Date Recorded Sex Assigned at Not on file Legal Sex Female 2:58 AM BEHAVIORAL SCIENCES DEPARTMENT CHAIR Gender Identity Not on file Sexual Orientation Not on file Last Filed Vital Signs Vital Sign Reading Time Taken Comments Blood Pressure 123/77 09/09/2017 11:00 AM BEHAVIORAL SCIENCES DEPARTMENT CHAIR Pulse 69 09/08/2017 11:28 PM BEHAVIORAL SCIENCES DEPARTMENT CHAIR Temperature 36.7 C (98.1 F) 09/09/2017 7:46 AM BEHAVIORAL SCIENCES DEPARTMENT CHAIR Respiratory Rate 16 09/09/2017 7:46 AM BEHAVIORAL SCIENCES DEPARTMENT CHAIR Oxygen Saturation 96% 09/09/2017 7:46 AM BEHAVIORAL SCIENCES DEPARTMENT CHAIR Inhaled Oxygen Concentration - - Weight 91.6 kg (202 lb) 09/07/2017 9:04 AM BEHAVIORAL SCIENCES DEPARTMENT CHAIR Height 157.5 cm (5' 2) 09/07/2017 9:20 AM BEHAVIORAL SCIENCES DEPARTMENT CHAIR Body Mass Index 36.95 09/07/2017 9:04 AM BEHAVIORAL SCIENCES DEPARTMENT CHAIR Plan of Treatment Health Maintenance Due Date Last Done Comments ADVANCE CARE PLANNING 1965 ANNUAL REVIEW OF HM ORDERS 1965 CT COLONOGRAPHY 1965 FIT 1965 FLEX SIG 1965 sDNA (Cologuard) 1965 LIPID 2004 PAP 05/14/2019 05/14/2016 DIABETES SCREENING 09/09/2020 09/09/2017, 1 11/09/2016, 10/18/2015, Additional history exists YEARLY PREVENTIVE VISIT 08/08/2021 08/08/2020 MAMMO SCREENING 08/21/2022 08/21/2020, 07/24, 07/23/2019, Additional history exists COVID-19 VACCINE ( season) 2025 09/01/2024, 08/26/2022, 03/06/2022, Additional history exists INFLUENZA VACCINE (#1) 2025 , 08/26/2022, 08/06/2021, Additional history exists COLONOSCOPY 11/08/2025 11/08/2015, 10/22, 11/08/2015 COLORECTAL CANCER SCREENING 11/08/2025 DTAP/TDAP/TD VACCINE (3 - Td or Tdap) 09/01/2034 09/01/2024, 07/01/2013, 05/13/2004 HEPATITIS C SCREENING Completed 05/14/2016 ZOSTER VACCINE Completed 11/19/2018, 09/16/2018 HIV SCREENING Completed 09/01/2024 PNEUMOCOCCAL VACCINE 50+ YEARS Completed 12/26/2024 RSV VACCINE Completed 12/26/2024 PHQ-2 (once per calendar year) Completed 12/30/2024, 06/28/2024 HPV VACCINE (No Doses Required) Completed MENINGITIS VACCINE Aged Out No longer eligible based on patient's age to complete this topic Medical Devices Implanted Type Area Assembly Machine Tool Setter Device Identifier Shelf Expiration Date Model / Serial / Lot Bone Cement Simplex W/Gentamicin 6195-1-001 Implanted:Qty: 1 on 09/07/2017 by Logan Viera MD at [facility] Cement, Bone Right: Knee [employer] 02/18/2019 6195-1-001 / / [id number] Imp Comp Tibial Knee Ascent 67mm [id number] Implanted:Qty: 1 on 09/07/2017 by Logan Viera MD at [facility] Total Joint Component /Insert Right: Knee [employer] 06/01/2027 [id number] / / [id number] Imp Comp Femoral Vangard Biom Ps Rt 60mm [id number] Implanted:Qty: 1 on 09/07/2017 by Logan Viera MD at [facility] Total Joint Component /Insert Right: Knee [employer] 12/25/2026 [id number] / / [id number] Imp Comp Femoral Vangard Bi[employer] Fixation [id number] Implanted:Qty: 1 on 09/07/2017 by Logan Viera MD at [facility] Total Joint Component /Insert Right: Knee [employer] 07/29/2027 [id number] / / [id number] Imp Comp Patella Biom 3 Peg 31mm Std [id number] Implanted:Qty: 1 on 09/07/2017 by Logan Viera MD at [facility] Total Joint Component /Insert Right: Knee [employer] 07/07/2022 [id number] / / [id number] Vanguard Tibial Bearing, 16mm Ps+ Implanted:Qty: 1 on 09/07/2017 by Logan Viera MD at [facility] Right: Knee 04/20/2019 -[id number] / / [id number] Procedures Procedure Name Priority Date/Time Associated Diagnosis Comments GLUCOSE Routine 09/09/2017 7:12 AM BEHAVIORAL SCIENCES DEPARTMENT CHAIR Hypokalemia COLONOSCOPY Routine 11/08/2015 7:27 AM BEHAVIORAL SCIENCES DEPARTMENT CHAIR from Last 3 Months or Most Recently Relevant to Health Maintenance Results * (ABNORMAL) Glucose (09/09/2017 7:12 AM BEHAVIORAL SCIENCES DEPARTMENT CHAIR) Glucose 112(H) 70 - 99 mg/dL 09/09/2017 7:47 AM BEHAVIORAL SCIENCES DEPARTMENT CHAIR [facility] Blood specimen (specimen) 09/09/2017 7:12 AM BEHAVIORAL SCIENCES DEPARTMENT CHAIR 09/09/2017 7:27 AM BEHAVIORAL SCIENCES DEPARTMENT CHAIR Logan Viera MD LAB - BLOOD ORDERABLES Final Result [facility] [address] [place] [address], [facility] [phone] * COLONOSCOPY (11/08/2015 7:27 AM BEHAVIORAL SCIENCES DEPARTMENT CHAIR) COLONOSCOPY [facility] Patient Name: Michael Palacio Procedure Date: 11/08/2015 7:27 AM Date of : 1965 Admit Type: Outpatient Age: 50 Gender: Female Attending MD: Deshawn Mcallister MD Instrument Name: [id number] Procedure: Colonoscopy Indications: Abnormal CT of the GI tract Providers: Deshawn Mcallister MD, Sebastien Cummins RN (Nurse) Referring MD: Elizabeth Mahan [facility] Medicines: Propofol per Anesthesia Complications: No immediate complications. Procedure: Pre-Anesthesia Assessment: - Prior to the procedure, a History and Physical was performed, and patient medications and allergies were reviewed. The patient is competent. The risks and benefits of the procedure and the sedation options and risks were discussed with the patient. All questions were answered and informed consent was obtained. Patient identification and proposed procedure were verified by the physician in the pre-procedure area. Mental Status Examination: alert and oriented. Airway Examination: normal oropharyngeal airway and neck mobility. Respiratory Examination: clear to auscultation. CV Examination: normal. Prophylactic Antibiotics: The patient does not require prophylactic antibiotics. Prior Anticoagulants: The patient has taken no previous anticoagulant or antiplatelet agents. ASA Grade Assessment: III - A patient with severe systemic disease. After reviewing the risks and benefits, the patient was deemed in satisfactory condition to undergo the procedure. The anesthesia plan was to use monitored anesthesia care (MAC). Immediately prior to administration of medications, the patient was re-assessed for adequacy to receive sedatives. The heart rate, respiratory rate, oxygen saturations, blood pressure, adequacy of pulmonary ventilation, and response to care were monitored throughout the procedure. The physical status of the patient was re-assessed after the procedure. After obtaining informed consent, the colonoscope was passed under direct vision. Throughout the procedure, the patient's blood pressure, pulse, and oxygen saturations were monitored continuously. The [id number] was introduced through the anus and advanced to the cecum, identified by appendiceal orifice and ileocecal valve. The colonoscopy was performed without difficulty. Findings: The perianal exam was abnormal. Findings include a skin tag. The terminal ileum contained a few scattered non-bleeding erosions. Biopsies were taken with a cold forceps for histology. The terminal ileum contained multiple diffuse pedunculated, non-bleeding polyps. The polyps were 3 to 8 mm in diameter. These polyps were removed with a hot snare. Resection and retrieval were complete. The terminal ileum contained multiple diffuse pedunculated polyps. Fulguration to stop the bleeding that was caused by the procedure by snare was successful. A sessile polyp was found in the descending colon. The polyp was 2 mm in size. The polyp was removed with a hot snare. Resection and retrieval were complete. A few small-mouthed diverticula were found in the sigmoid colon. The retroflexed view of the distal rectum and anal verge was normal and showed no anal or rectal abnormalities. Impression: - Perianal skin tag found on perianal exam. - A few erosions in the terminal ileum. Biopsied. - Multiple polyps in the terminal ileum. Resected and retrieved. - Multiple polyps in the terminal ileum. Treated by fulguration. - One 2 mm polyp in the descending colon. Resected and retrieved. - Diverticulosis in the sigmoid colon. - The distal rectum and anal verge are normal on retroflexion view. Recommendation: - Discharge patient to home (ambulatory). - Use fiber, for example Citrucel, Fibercon, Konsyl or Metamucil. - Await pathology results. - Repeat colonoscopy (date not yet determined) for surveillance based on pathology results. Procedure Code(s): --- Professional --- 98826, Colonoscopy, flexible, proximal to splenic flexure; with removal of tumor(s), polyp(s), or other lesion(s) by snare technique [id number], 59, Colonoscopy, flexible, proximal to splenic flexure; with biopsy, single or multiple CPT copyright 2013 [employer]. All rights reserved. The codes documented in this report are preliminary and upon ciaio lumite injector review may be revised to meet current compliance requirements. Deshawn Mcallister MD 11/08/2015 8:37 AM I was physically present for the entire viewing portion of the exam. Number of Addenda: 0 Note Initiated On: 11/08/2015 7:27 AM Procedure Date: 11/08/2015 7:27:45 AM Scope Withdrawal Time: 0 hours 29 minutes 43 seconds Total Procedure Duration: 0 hours 35 minutes 27 seconds Estimated Blood Loss: Scope In: 7:51:32 AM Scope Out: 8:26:59 AM RADIOLOGY RESULTS 11/08/2015 7:27 AM BEHAVIORAL SCIENCES DEPARTMENT CHAIR Elizabeth Mahan [facility] PROCEDURES Edited Result - Final RADIOLOGY RESULTS from Last 3 Months or Most Recently Relevant to Health Maintenance Insurance [facility] [place] Directives For more information, please contact: [phone] Documents on File Type Date Recorded Patient Spd Manager Expl anation Advance Directives and Living Will 09/07/2017 4:49 PM Health Care Directiv e 09/07/17 * Full Code (Latest Code Status on File) Date Activated Date Inactivated Comments 09/07/2017 4:13 PM 09/09/2017 5:25 PM * Full Code Date Activated Date Inactivated Comments 10/19/2015 10:54 AM 09/07/2017 4:13 PM * Full Code Date Activated Date Inactivated Comments 10/16/2015 4:41 PM 10/19/2015 10:54 AM Care Teams Certified Orthotist Practice Manager Relationship Specialty Start Date End Date Grace Jewell PA-C [address] [address] [place] [address] PCP - General 11/12/23 Tyesha Perez PA-C [address] [place] [address] Physician Pipe Fitter Dermatology 04/21/23 Fermin Rainey MD [address] [place] [address] Assigned Dermatology Provider 03/13/25
[2025-07-04 14:36] LABS: Albumin* 4.0 g/dL (3.3-5.0); Chloride* 103 mmol/L (96-114); Sodium* 140 mmol/L (135-149)
[2025-07-04 14:38] LABS: Blood Urea Nitrogen* 14 mg/dL (7-30); Creatinine* 0.8 mg/dL (0.5-1.5); Est. Creatinine Clearance* 59.15; Estimated Glomerular Filt Rate 84 ml/min
[2025-07-04 14:39] LABS: Alanine Aminotransferase* 136 U/L (4-35); Alkaline Phosphatase* 88 U/L (40-150); Anion Gap 10 mEq/L (7-15); Aspartate Amino Transferase* 143 U/L (12-35); Bilirubin Direct* 0.4 mg/dL (0.0-0.5); Bilirubin Total* 0.9 mg/dL (0.1-1.5); Calcium* 9.4 mg/dL (8.4-10.6); Carbon Dioxide* 27 mmol/L (20-32); Glucose* 106 mg/dL (60-115); Total Protein* 7.1 g/dL (6.0-8.3)
[2025-07-04 14:43] LABS: Potassium* 2.5 mmol/L (3.6-5.1)
--- NOTE | 2025-07-04 14:57 | ED.NURSE ---
Call from lab, critical K. Care nurse and MD notified.
[2025-07-04 15:09] LABS: Procalcitonin* 0.06 ng/mL (<0.50)
[2025-07-04 15:21] LABS: Acetaminophen* < 10.0 ug/mL (10.0-30.0); Ethanol* < 0.01 % (0.01-0.03); Salicylate* < 1.0 mg/dL (1.0-10)
[2025-07-04 15:39] LABS: Erythrocyte SedimentationRate* 5 mm/hr (2-20)
[2025-07-04] MEDS: POTASSIUM CHLORIDE 10 MEQ/100 ML PIGGYBACK 100 MEQ IVPB ×3 (16:37→18:48)
[2025-07-04] MEDS: MAGNESIUM SULF 1 G/100 ML 1 GM/100 ML PIGGYBACK IVPB (16:38)
== END 2025-07-04 20:00 | disposition home or self-care (01) ==
PROVIDERS: Emergency Provider Family Medicine
DX: R11.2 Nausea with vomiting, unspecified (principal); E86.0 Dehydration; E87.6 Hypokalemia; E83.42 Hypomagnesemia; F17.210 Nicotine dependence, cigarettes, uncomplicated
CPT/HCPCS: 36415; 80048; 80076; 80143; 80179; 80306; 81001; 82077; 83605; 83690; 83735; 84145; 84484; 85025; 85651; 86140; 87086; 93005; 94761; 96361; 96365; 96368; 96375; 99285; J2405; J3475; J3480; J7030

== ENCOUNTER 2025-09-18 23:27 | Emergency (ER) | payer OTHER, SELFPAY ==
--- OUTSIDE RECORDS SUMMARY | 2024-07-15 02:13 | XMS_ITS | Continuity of Care Document ---
Author Organization [facility] Address [address] [place] [id number] Care Team Providers Care Foreman Or Supervisor And Operator Name Role Phone Jaylon Wheeler CRNA Unavailable Unavailable Procedures Procedure Date ANESTH, HEAD/NECK/PTRUNK Percutaneous Image guided neuromodulatio n or intra Advance Directives Directive Yes / No Effective Date File Name No Information Encounters Encounter Description Practice Location Reason(s) For Visit Diagnoses Date Provider Providers Copied on Encounter [facility], [address] [place] [address], [id number], [facility] No Information 4 Liam Iyer. [address] [place] [address] [place], [id number] , . [phone] Referring Provider: Madina Spicer, [address] [place], [address] . tel:[phone] [facility], [address] [place] [address], [id number], [facility] No Information 4 Liam Iyer. [address], [place], [place], [id number] , . [phone] Referring Provider: Madina Spicer, [address] [place] [address], [id number] . tel:[phone] Family History Family Member Type Diagnosis Age At Onset No Information Payers Payer name Insurance type Covered democrat ID Authoriza timichael(s) No Information Social History Type Description Quantity Date Captured Comments Sex Female Smoking Status No Information Chief Complaint And Reason For Visit No Information Reason For Referral Reason For Referral No Information History Of Present Illness Encounter Date Complaint History Of Prese nt Illness No Information Functional Status Date Functional Assessmen t No Information Instructions Date Instruction Additional Infor mation No Information Assessments Type Assessment Date No Information Patient Care Teams Name Effective Dates (start - stop) Status Members No Information
--- OUTSIDE RECORDS SUMMARY | 2025-08-23 12:20 | XMS_ITS | Encounter Summary ---
Author Organization [facility] Address [address] [place] [address] Care Team Providers Care Material Mixer Name Role Phone Deirdre Grant PA-C Primary Care Provider Reason for Referral * Procedure/Equipment (Routine) - IncompleteSpecialtyDiagnoses / Procedures Referred By ContactReferred To Contact Diagnoses Pain of right upper extremity Procedures XR Forearm Rt 2 Views Eduarda Cristobal PA-C [address] [place] [address] Phone: tel: fax: Referral IDStatusReasonStart DateExpiration DateVisits RequestedVisits [id number]/3/20253/ TESY BOOTH CASHIER Reason for Visit * ReasonCommentsANIMAL BITE--DOG--EDInfection (Suspected) Encounter Details DateTypeDepartmentCare Team (Latest Contact Info)Rkfmikzcqbl38/03/2025 12:20 PM CSTOffice Visit [facility] [address] [place] [address] Eduarda Cristobal PA-C [address] [place] [address] Closed fracture of right forearm, initial encounter; Dog bite, initial encounter Social History Tobacco UseTypesPacks/DayYears UsedDateSmoking Tobacco: NeverSmokeless Tobacco: NeverAlcohol UseStandard Drinks/WeekCommentsYes2 (1 standard drink = 0.6 oz pure alcohol)CommentsNoSex and Gender InformationValueDate RecordedSex Assigned at BirthNot on fileLegal PfzUszvzn03/10/2012 4:56 AM CDTGender Identity Not on fileSexual OrientationNot on fileOccupationIndustryJob Start DateJob End DateVFWNot on fileNot on fileNot on filedocumented as of this encounter Last Filed Vital Signs Vital SignReadingTime TakenCommentsBlood Cjngeoeq218/9232108/23/2025 12:03 PM COURTESY BOOTH CASHIER Szsqo238208/23/2025 12:03 PM AVNRnpgompqwvg37.8 ??C (98.2 ??F)08/23/2025 12:03 PM CSTRespiratory Ljim276710/24/2024 12:03 PM CSTOxygen Mxjrxdlolk563%08/23/2025 12:03 PM CSTInhaled Oxygen Concentration--Weight--Height--Body Mass Index-- [...] History: Family History[2] Smoking or Smoke Exposure: [facility][3] Adverse Drug Reactions: Allergies Allergen Reactions Hydrocodone [...] Resource Strain: Low Risk (06/22/2023) Received from [facility] Financial Resource Strain Difficulty of Paying Living Expenses: 3 Food Insecurity: No Food Insecurity (04/11/2024) [facility] Food Insecurity Do you worry your food will run out before you are able to buy more?: 1 Transportation Needs: No Transportation Needs (04/11/2024) [facility] Transportation Needs Does lack of transportation keep you from medical appointments?: 1 Does lack of transportation keep you from work, meetings or getting things that you need?: 1 Social Connections: Socially Integrated (04/11/2024) [facility] Social Connections Do you often feel lonely or isolated from those around you?: 0 Depression: Not at risk (05/24/2024) Re[facility] from [facility] PHQ-2 PHQ-2 TOTAL SCORE: 1 Housing Stability: Low Risk (04/11/2024) [facility] Housing Stability What is your housing situation today?: 1 Utilities: Not At Risk (04/11/2024) [facility] Utilities Do you have trouble paying [...] No current facility-administered medications for this visit. TESY BOOTH CASHIER documented in this encounter Nursing Notes * Priscilla Zhang RN - 08/23/2025 12:20 PM CST Michael Palacio is a 59 y.o.female presents to the Urgent Care for ANIMAL BITE--DOG--ED . Pt bit by her dog 08/14/25 in her right forearm. Pt now had increased swelling, and pain. Pt has swelling from her wrist to elbow. Pt denies fever. TESY BOOTH CASHIER documented in this encounter Plan of Treatment DateTypeDepartmentCare Team (Latest Contact Info)Qqkarlbzawv15/20/2026 8:30 AM CSTAppointment [facility] [address] [place] [id number] Nereida Butcher MD [address] [place] [address] documented as of this encounter Results * XR Forearm Rt 2 Views (08/23/2025 12:51 PM COURTESY BOOTH CASHIER)Anatomical RegionLaterality ModalityUpper Extremity, Forearm, ArmDigital RadiographySpecimen (Source) Anatomical Location / LateralityCollection Method / VolumeCollection Time Received Time Narrative 08/23/2025 1:06 PM COURTESY BOOTH CASHIER EXAM: XR FOREARM RT 2 VIEWS INDICATION: [...] Date Deirdre Grant PA-C [address] [place] [address] [place] [address] PCP - GeneralPhysician Dwoakvxny93/31/18documented as of this encounter
--- OUTSIDE RECORDS SUMMARY | 2025-08-23 12:20 | XMS_ITS | Encounter Summary ---
Author Organization [facility] Address [address] [place] [address] Care Team Providers Care Interstate Planner Name Role Phone Deirdre Grant PA-C Primary Care Provider Reason for Referral * Procedure/Equipment (Routine) - IncompleteSpecialtyDiagnoses / Procedures Referred By ContactReferred To Contact Diagnoses Pain of right upper extremity Procedures XR Forearm Rt 2 Views Eduarda Cristobal PA-C [address] [place] [address] Phone: tel: fax: Referral IDStatusReasonStart DateExpiration DateVisits RequestedVisits [id number]/3/20253/ ICAL AIDE Reason for Visit * ReasonCommentsANIMAL BITE--DOG--EDInfection (Suspected) Encounter Details DateTypeDepartmentCare Team (Latest Contact Info)Lfcvaudsjiu18/03/2025 12:20 PM CSTOffice Visit [facility] [address] [place] [address] Eduarda Cristobal PA-C [address] [place] [address] Closed fracture of right forearm, initial encounter; Dog bite, initial encounter Social History Tobacco UseTypesPacks/DayYears UsedDateSmoking Tobacco: NeverSmokeless Tobacco: NeverAlcohol UseStandard Drinks/WeekCommentsYes2 (1 standard drink = 0.6 oz pure alcohol)CommentsNoSex and Gender InformationValueDate RecordedSex Assigned at BirthNot on fileLegal KdzCtlnry09/10/2012 4:56 AM CDTGender Identity Not on fileSexual OrientationNot on fileOccupationIndustryJob Start DateJob End DateVFWNot on fileNot on fileNot on filedocumented as of this encounter Last Filed Vital Signs Vital SignReadingTime TakenCommentsBlood Wlfxwqns299/1476408/23/2025 12:03 PM SURGICAL AIDE Hvzwy637508/23/2025 12:03 PM EMFUihddzcqfec01.8 ??C (98.2 ??F)08/23/2025 12:03 PM CSTRespiratory Jwpz843610/24/2024 12:03 PM CSTOxygen Ojmipmmuye737%08/23/2025 12:03 PM CSTInhaled Oxygen Concentration--Weight--Height--Body Mass Index-- [...] History: Family History[2] Smoking or Smoke Exposure: [facility][3] Adverse Drug Reactions: Allergies Allergen Reactions Hydrocodone [...] Resource Strain: Low Risk (06/22/2023) Received from [facility] Financial Resource Strain Difficulty of Paying Living Expenses: 3 Food Insecurity: No Food Insecurity (04/11/2024) [facility] Insecurity Do you worry your food will run out before you are able to buy more?: 1 Transportation Needs: No Transportation Needs (04/11/2024) [facility] Transportation Needs Does lack of transportation keep you from medical appointments?: 1 Does lack of transportation keep you from work, meetings or getting things that you need?: 1 Social Connections: Socially Integrated (04/11/2024) [facility] Social Connections Do you often feel lonely or isolated from those around you?: 0 Depression: Not at risk (05/24/2024) [facility] PHQ-2 PHQ-2 TOTAL SCORE: 1 Housing Stability: Low Risk (04/11/2024) [facility] Housing Stability What is your housing situation today?: 1 Utilities: Not At Risk (04/11/2024) [facility] Utilities Do you have trouble paying [...] No current facility-administered medications for this visit. ICAL AIDE documented in this encounter Nursing Notes * Priscilla Zhang RN - 08/23/2025 12:20 PM CST Michael Palacio is a 59 y.o.female presents to the Urgent Care for ANIMAL BITE--DOG--ED . Pt bit by her dog 08/14/25 in her right forearm. Pt now had increased swelling, and pain. Pt has swelling from her wrist to elbow. Pt denies fever. ICAL AIDE documented in this encounter Plan of Treatment DateTypeDepartmentCare Team (Latest Contact Info)Kzpaknfkide30/20/2026 8:30 AM CSTAppointment [facility] [address] [place] [address] Nereida Butcher MD [address] [place] [address] documented as of this encounter Results * XR Forearm Rt 2 Views (08/23/2025 12:51 PM SURGICAL AIDE)Anatomical RegionLaterality ModalityUpper Extremity, Forearm, ArmDigital RadiographySpecimen (Source) Anatomical Location / LateralityCollection Method / VolumeCollection Time Received Time Narrative 08/23/2025 1:06 PM SURGICAL AIDE EXAM: XR FOREARM RT 2 VIEWS INDICATION: [...] Date Deirdre Grant PA-C [address] [place] [address] [place] [address] PCP - GeneralPhysician Iemrvihef91/31/18documented as of this encounter
--- OUTSIDE RECORDS SUMMARY | 2025-08-23 12:40 | XMS_ITS | Encounter Summary ---
Author Organization [employer] Address [address] [place] [address] Care Team Providers Care Knifeman Name Role Phone Deirdre Grant PA-C Primary Care Provider Reason for Visit * Procedure/Equipment (Routine) - IncompleteSpecialtyDiagnoses / Procedures Referred By ContactReferred To Contact Diagnoses Pain of right upper extremity Procedures XR Forearm Rt 2 Views Eduarda Cristobal PA-C [address] [place] [address] Phone: tel: fax: Referral IDStatusReasonStart DateExpiration DateVisits RequestedVisits [id number]/3/20253/ Encounter Details DateTypeDepartmentCare Team (Latest Contact Info)Hekhedkqhts68/03/2025 12:40 PM CSTAncillary Procedure [facility] [address] Radiology [address] [place] [address] Eduarda Cristobal PA-C [address] [place] [address] Pain of right upper extremity Social History Tobacco UseTypesPacks/DayYears UsedDateSmoking Tobacco: NeverSmokeless Tobacco: NeverAlcohol UseStandard Drinks/WeekCommentsYes2 (1 standard drink = 0.6 oz pure alcohol)CommentsNoSex and Gender InformationValueDate RecordedSex Assigned at BirthNot on fileLegal JqtMscbjp26/10/2012 4:56 AM CDTGender Identity Not on fileSexual OrientationNot on fileOccupationIndustryJob Start DateJob End DateVFWNot on fileNot on fileNot on filedocumented as of this encounter Plan of Treatment DateTypeDepartmentCare Team (Latest Contact Info)Sgbfgwtrcnd29/20/2026 8:30 AM CSTAppointment [facility] Orthopedic [facility] [address] [place] [address] [place] [address] Nereida Butcher MD [address] [facility] [place] [address] documented as of this encounter Procedures Procedure NamePriorityDate/TimeAssociated DiagnosisCommentsXR FOREARM RT 2 VIEWS STAT110/24/2024 12:51 PM TURBO OPERATOR Pain of right upper extremity documented in this encounter Results * XR Forearm Rt 2 Views (08/23/2025 12:51 PM TURBO OPERATOR)Anatomical RegionLaterality ModalityUpper Extremity, Forearm, ArmDigital RadiographySpecimen (Source) Anatomical Location / LateralityCollection Method / VolumeCollection Time Received Time Narrative 08/23/2025 1:06 PM TURBO OPERATOR EXAM: XR FOREARM RT 2 VIEWS INDICATION: [...] 08/23/2025 1:06 PM Authorizing ProviderResult TypeResult StatusEduarda WHITTEN GDFinal Result documented in this encounter Visit Diagnoses Diagnosis Pain of right upper extremity documented in this encounter Care Teams Team MemberRelationshipSpecialtyStart DateEnd Date Deirdre Grant PA-C [address] [facility] [address] [place] [address] PCP - GeneralPhysician Uxefowjfd24/31/18documented as of this encounter
--- OUTSIDE RECORDS SUMMARY | 2025-08-23 12:40 | XMS_ITS | Encounter Summary ---
Author Organization [employer] Address [address] [place] [address] Care Team Providers Care Box Sealing Machine Feeder Name Role Phone Deirdre Grant PA-C Primary Care Provider Reason for Visit * Procedure/Equipment (Routine) - IncompleteSpecialtyDiagnoses / Procedures Referred By ContactReferred To Contact Diagnoses Pain of right upper extremity Procedures XR Forearm Rt 2 Views Eduarda Cristobal PA-C [address] [place] [address] Phone: tel: fax: Referral IDStatusReasonStart DateExpiration DateVisits RequestedVisits [id number]/3/20253/ Encounter Details DateTypeDepartmentCare Team (Latest Contact Info)Akoaqhstakv70/03/2025 12:40 PM CSTAncillary Procedure [facility] [address] Radiology [address] [place] [address] Eduarda Cristobal PA-C [address] [place] [address] Pain of right upper extremity Social History Tobacco UseTypesPacks/DayYears UsedDateSmoking Tobacco: NeverSmokeless Tobacco: NeverAlcohol UseStandard Drinks/WeekCommentsYes2 (1 standard drink = 0.6 oz pure alcohol)CommentsNoSex and Gender InformationValueDate RecordedSex Assigned at BirthNot on fileLegal AxaRtfzsu32/10/2012 4:56 AM CDTGender Identity Not on fileSexual OrientationNot on fileOccupationIndustryJob Start DateJob End DateVFWNot on fileNot on fileNot on filedocumented as of this encounter Plan of Treatment DateTypeDepartmentCare Team (Latest Contact Info)Dbzhkedvrad49/20/2026 8:30 AM CSTAppointment [facility] Orthopedic [facility] [address] [place] [address] [place] [address] Nereida Butcher MD [address] [facility] [place] [address] documented as of this encounter Procedures Procedure NamePriorityDate/TimeAssociated DiagnosisCommentsXR FOREARM RT 2 VIEWS STAT110/24/2024 12:51 PM PERSONNEL SPECIALIST Pain of right upper extremity documented in this encounter Results * XR Forearm Rt 2 Views (08/23/2025 12:51 PM PERSONNEL SPECIALIST)Anatomical RegionLaterality ModalityUpper Extremity, Forearm, ArmDigital RadiographySpecimen (Source) Anatomical Location / LateralityCollection Method / VolumeCollection Time Received Time Narrative 08/23/2025 1:06 PM PERSONNEL SPECIALIST EXAM: XR FOREARM RT 2 VIEWS INDICATION: [...] DateEnd Date Deirdre Grant PA-C [address] [facility] [address] [place] [address] PCP - GeneralPhysician Xyqkjjxih89/31/18documented as of this encounter
--- OUTSIDE RECORDS SUMMARY | 2025-08-23 13:10 | XMS_ITS | Encounter Summary ---
Author Organization [employer] Address [address] [place] [address] Care Team Providers Care Mechanical And Auto Body Car Checker Name Role Phone Deirdre Grant PA-C Primary Care Provider Reason for Referral * Consult/Transfer Care (Routine) - New RequestSpecialtyDiagnoses / Procedures Referred By ContactReferred To Contact Diagnoses Dog bite, initial encounter Puncture wound of multiple sites of right upper extremity, initial encounter Other closed fracture of distal end of right ulna, initial encounter Arya Lloyd MD [address] [place] [address] Phone: tel: fax: Referral IDStatusReasonStart DateExpiration DateVisits RequestedVisits [id number] Scheduling Instructions Your clinician has recommended an appointment with [facility]. You can quickly schedule your appointment by signing in to your online account at [email or web address] or through the text message you may have received. You can also make an appointment by calling [phone]. We also suggest you call your health insurance provider about your benefits and coverage for this appointment. QuestionAnswer Appointment Urgency? Non-Urgent Reason for visit? Right hand - bit by dog The patient should be seen by: Orthopaedic Surgeon Comments Scheduled with Ba STICK MAN Reason for Visit * ReasonCommentsARM PAINRight Arm FractureSeen at urgent care today 08/23/25DOI: 08/14/25MOI: Breaking up dogs fighting and got bit Encounter Details DateTypeDepartmentCare Team (Latest Contact Info)Aliantekgob11/03/2025 1:10 PM CSTOffice Visit [facility] [address] [address] [place] [phone] Arya Lloyd MD [address] [place] [address] Dog bite, initial encounter (Primary Dx); Puncture wound of multiple sites of right upper extremity, initial encounter; Other closed fracture of distal end of right ulna, initial encounter Social History Tobacco UseTypesPacks/DayYears UsedDateSmoking Tobacco: NeverSmokeless Tobacco: NeverAlcohol UseStandard Drinks/WeekCommentsYes2 (1 standard drink = 0.6 oz pure alcohol)CommentsNoSex and Gender InformationValueDate RecordedSex Assigned at BirthNot on fileLegal PvrBggmjh72/10/2012 4:56 AM CDTGender Identity Not on fileSexual OrientationNot on fileOccupationIndustryJob Start DateJob End DateVFWNot on fileNot on fileNot on filedocumented as of this encounter Last Filed Vital Signs Vital SignReadingTime TakenCommentsBlood Pressure--Pulse--Lcsmppqtfth48.8 ??C (98.2 ??F)08/23/2025 1:12 PM CSTRespiratory Rate--Oxygen Saturation--Inhaled Oxygen Concentration--Znkkqk99 kg (150 lb)08/23/2025 1:12 PM FYMLohpkb402.5 cm (5' 2)08/23/2025 1:12 PM CSTBody Mass Index27.44110/24/2024 1:12 PM HOT STICK MAN documented in this encounter Patient Instructions * Patient Instructions* Yissel Bullard RN - 08/23/2025 1:10 PM HOT STICK MAN Thank you for choosing [facility] for your health care visit today. Arya Lloyd MD Diagnosis: Encounter Diagnoses Name Primary? Dog bite, initial encounter Yes Puncture wound of multiple sites of right upper extremity, initial encounter Other closed fracture of distal end of right ulna, initial encounter Plan: Follow Up: Schedule an appointment with Jose Cosme, Hand Specialist, for further care. Scheduled for Aug 30 at 840a. Brace/DME: You were provided a Sugar Tong Splint in clinic today. Please use and care according to instructions given today. This item will be billed to your insurance. If insurance does not cover this item, you will be billed for any uncovered amount. You should wear your items as directed in clinic. Referral(s): You are being referred to Orthopedic surgeon for further care. Our office will help coordinate that appointment. If you have any questions regarding your visit or next steps, please contact us at [phone]. STICK MAN documented in this encounter Progress Notes * Arya Lloyd MD - 08/23/2025 1:10 PM CST [facility] 08/23/2025 Chief Complaint: Chief Complaint Patient presents with ARM PAIN Right Arm Fracture Seen at urgent care today 08/23/25 DOI: 08/14/25 LEIGHANN: Breaking up dogs fighting and got bit History of Present Illness: Michael Palacio is a 59 y.o. female who presents for evaluation of right arm injury. About 10 days ago patient was breaking up a fight between her 2 dogs, pit bull mix and was bit on the right forearm. Did not seek care until today when she went to the urgent care. At that time she was found to have healed puncture wounds without overlying erythema. She did have an exacerbation of the pain today and x-ray of the urgent care shows a distal ulna fracture. Patient denies numbness, tingling, weakness, fever, denies elbow pain. Right-hand dominant Past medical history, medications, allergies reviewed in epic. Physical Exam: Temp 36.8 ??C (98.2 ??F) (Oral) Ht 1.575 m (5' 2) Wt 68 kg (150 lb) LMP 03/16/2012 BMI 27.44 kg/m?? Skin: Healed puncture wounds the forearm without surrounding erythema. Mild soft tissue edema. Neuro: Intact sensation to light touch and motor function median, radial, ulnar nerves Cardiovascular: 2+ distal pulses Musculoskeletal: Right elbow: Nontender. Right wrist: Nontender proximal and distal carpal row. Nontender distal radius. Isolated tenderness to the distal ulna. Able to move wrists in all cardinal directions but limited due to pain. No appreciable instability of the DRUJ Imaging: XR Forearm Rt 2 Views EXAM: XR FOREARM RT 2 VIEWS INDICATION: swelling and pain, dogbite 10 days ago COMPARISON: None. FINDINGS: Transverse mildly displaced fracture of the distal ulnar diaphysis. Mild degenerative changes at the 1st CMC and triscaphe joints. No radiopaque foreign body. Signed by: Sumeet Louie 08/23/2025 1:06 PM I ordered, independently read and reviewed the radiographs above; the results were discussed with the patient. Assessment: ICD-10-CM 1. Dog bite, initial encounter W54.0XXA Orthopedic Consult-Adult/Peds 2. Puncture wound of multiple sites of right upper extremity, initial encounter S41.131A OrthopedicConsult-Adult/Peds Application Of Long Arm Splint Light, Adult 3. Other closed fracture of distal end of right ulna, initial encounter S52.691A Orthopedic Consult-Adult/Peds Application Of Long Arm Splint Light, Adult Plan: 59-year-old female with injury to the right forearm and wrist after a dog bite from a pit bull resulting in puncture wounds and a fracture to the distal ulna. Puncture wound with underlying fracture is of course concerning however at this time there are not any external exam features to suggest infection. Patient placed in a sugar-tong splint and will take OTC medication as needed. Follow up to hand surgery next week for repeat exam and x-rays, consult and definitive care. Arya Lloyd MD This note was transcribed using [employer], there might be some spelling errors or word substitutions that were not noticed on first review. This message is confidential, intended only for the named recipient(s) and may contain information that is privileged or exempt from disclosure under applicable law. If you are not the intended recipient(s), you are notified that the dissemination, distribution or copying of this information is strictly prohibited. If you received this message in error, please notify the sender then delete this message. STICK MAN STICK MAN documented in this encounter Plan of Treatment DateTypeDepartmentCare Team (Latest Contact Info)Mzacqmbymro56/20/2026 8:30 AM CSTAppointment [facility] [address] [place] [address] Nereida Butcher MD [address] [place] [address] NameTypePriorityAssociated DiagnosesOrder ScheduleOrthopedic Consult-Adult/Peds ReferralRoutine Dog bite, initial encounter Puncture wound of multiple sites of right upper extremity, initial encounter Other closed fracture of distal end of right ulna, initial encounter Ordered: 08/23/2025documented as of this encounter Visit Diagnoses Diagnosis Dog bite, initial encounter- Primary Puncture wound of multiple sites of right upper extremity, initial encounter Other closed fracture of distal end of right ulna, initial encounter documented in this encounter Care Teams Team MemberRelationshipSpecialtyStart DateEnd Date Deirdre Grant PA-C [address] [place] [address] [place] [address] PCP - GeneralPhysician Umfhgiyzk30/31/18documented as of this encounter
--- OUTSIDE RECORDS SUMMARY | 2025-08-23 13:10 | XMS_ITS | Encounter Summary ---
Author Organization [employer] Address [address] [place] [address] Care Team Providers Care Plush Brusher Name Role Phone Deirdre Grant PA-C Primary Care Provider Reason for Referral * Consult/Transfer Care (Routine) - New RequestSpecialtyDiagnoses / Procedures Referred By ContactReferred To Contact Diagnoses Dog bite, initial encounter Puncture wound of multiple sites of right upper extremity, initial encounter Other closed fracture of distal end of right ulna, initial encounter Arya Lloyd MD [address] [place] [address] Phone: tel: fax: Referral IDStatusReasonStart DateExpiration DateVisits RequestedVisits [id number] Scheduling Instructions Your clinician has recommended an appointment with [facility]. You can quickly schedule your appointment by signing in to your online account at [email or web address] or through the text message you may have received. You can also make an appointment by calling [phone]. We also suggest you call your health insurance provider about your benefits and coverage for this appointment. QuestionAnswer Appointment Urgency? Non-Urgent Reason for visit? Right hand - bit by dog The patient should be seen by: Orthopaedic Surgeon Comments Scheduled with Ba O VESSEL STEWARDESS Reason for Visit * ReasonCommentsARM PAINRight Arm FractureSeen at urgent care today 08/23/25DOI: 08/14/25MOI: Breaking up dogs fighting and got bit Encounter Details DateTypeDepartmentCare Team (Latest Contact Info)Ljqyakicaxw41/03/2025 1:10 PM CSTOffice Visit [facility] [address] [address] [place] [id number] Arya Lloyd MD [address] [place] [address] Dog bite, initial encounter (Primary Dx); Puncture wound of multiple sites of right upper extremity, initial encounter; Other closed fracture of distal end of right ulna, initial encounter Social History Tobacco UseTypesPacks/DayYears UsedDateSmoking Tobacco: NeverSmokeless Tobacco: NeverAlcohol UseStandard Drinks/WeekCommentsYes2 (1 standard drink = 0.6 oz pure alcohol)CommentsNoSex and Gender InformationValueDate RecordedSex Assigned at BirthNot on fileLegal NamXdsjxw99/10/2012 4:56 AM CDTGender Identity Not on fileSexual OrientationNot on fileOccupationIndustryJob Start DateJob End DateVFWNot on fileNot on fileNot on filedocumented as of this encounter Last Filed Vital Signs Vital SignReadingTime TakenCommentsBlood Pressure--Pulse--Qsovblqpfcb70.8 ??C (98.2 ??F)08/23/2025 1:12 PM CSTRespiratory Rate--Oxygen Saturation--Inhaled Oxygen Concentration--Hzumdo43 kg (150 lb)08/23/2025 1:12 PM YQIQloqbm222.5 cm (5' 2)08/23/2025 1:12 PM CSTBody Mass Index27.44110/24/2024 1:12 PM CARGO VESSEL STEWARDESS documented in this encounter Patient Instructions * Patient Instructions* Yissel Bullard RN - 08/23/2025 1:10 PM CARGO VESSEL STEWARDESS Thank you for choosing [facility] for your health care visit today. [...] or next steps, please contact us at [phone]. O VESSEL STEWARDESS documented in this encounter Progress Notes * Arya Lloyd MD - 08/23/2025 1:10 PM CST [facility] 08/23/2025 Chief Complaint: Chief Complaint Patient presents with ARM PAIN Right Arm Fracture Seen at urgent care today 08/23/25 DOI: 08/14/25 LEIGHANN: Breaking up dogs fighting and got bit History of Present Illness: Michael aPlacio is a 59 y.o. female who presents [...] Lloyd MD This note was transcribed using [employer], there might be some spelling errors or [...] notify the sender then delete this message. O VESSEL STEWARDESS O VESSEL STEWARDESS documented in this encounter Plan of Treatment DateTypeDepartmentCare Team (Latest Contact Info)Zulhybkppqn61/20/2026 8:30 AM CSTAppointment [facility] [address] [place] [address] Nereida Butcher MD [address] [place] [address] NameTypePriorityAssociated DiagnosesOrder ScheduleOrthopedic Consult-Adult/Peds ReferralRoutine Dog bite, [...] DateEnd Date Deirdre Grant PA-C [address] [place] [address] [place] [address] PCP - GeneralPhysician Fufwgitar02/31/18documented as of this encounter
--- OUTSIDE RECORDS SUMMARY | 2025-08-24 07:00 | XMS_ITS | Continuity of Care Document ---
Author Organization [facility] enter Address [address] [place] [address] Phone Care Team Providers Care Electrolytic Etcher Name Role Phone [facility] Unavailable Unava ilable Procedures Procedure Date INTERLAMINAR LMBR OR SAC INTERLAMINAR LMBR OR SAC IMPLANT NEUROELECTRODES INSRT/REDO SPINE N GENERATOR Implt neurostim elctr each Imp neurosti pls gn any type IMPLANT NEUROELECTRODES IMPLANT NEUROELECTRODES Implt neurostim elctr each INTERLAMINAR LMBR OR SAC Inj anes agt/steroid; gen ne br,w/guidan ce Major Joint Or Bursa Inj With Ultrasound Advance Directives Directive Yes / No Effective Date File Name No Information Encounters Encounter Description Practice Location Reason(s) For Visit Diagnoses Date Provider Providers Copied on Encounter [facility], [address] [place] [address], [id number], [place] tel:[phone] [facility] No Information [facility]. [address] [place] [address], [id number], [place]. tel:[phone] Referring Provider: Madina Spicer, [address] [facility] [place], [address] . tel:[phone] [place] [address], [address] [place] [address], [id number], [place] tel:[phone] [place] [address] No Information 0 5 [facility]. [address] [place] [address], [id number], [place]. tel:[phone] Referring Provider: Madina Spicer, [address] [place], [address] . tel:[phone] [place] [address], [address] [place] [address], [id number], [place] tel:[phone] [place] [address] No Information 4 [facility]. [address] [place] [address], [id number], [place]. tel:[phone] Referring Provider: Madina Spicer, [address] [place], [address] . tel:[phone] [place] [address], [address] [place] [address], [id number], [place] tel:[phone] [place] [address] No Information May-2 4 [facility]. [address] [place] [address], [id number], [place]. tel:[phone] Referring Provider: Madina Spicer, [address] [place], [address] . tel:[phone] [facility], [address] [place] [address], [id number], [place] tel:[phone] [address] [place] [address] No Information Sep-2 4 [facility]. [address] [place] [address], [id number], [place]. tel:[phone] Referring Provider: Madina Spicer, [address] [facility] [place], [address] . tel:[phone] [place] [address], [address] [place] [address], [id number], tel:[phone] [place] [address] No Information [facility]. [address] [place] [address], [id number], . tel:[phone] Referring Provider: Madina Spicer, [address] [facility] [place], [address] . tel:[phone] [facility], [address] [place] [address], [id number], tel:[phone] [place] [address] No Information [facility]. [address] [place] [address], [id number], . tel:[phone] Referring Provider: Freddy Naidu, [address] [facility] [place], [address] . tel:[phone] Family History Family Member Type Diagnosis Age At Onset No Information Payers Payer name Insurance type Covered alliance party ID Jorge alvarado(s) r CI [id number] Social History Type Description Quantity Date Captured [...]
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
--- OUTSIDE RECORDS SUMMARY | 2025-08-25 10:00 | XMS_ITS | Encounter Summary ---
Author Organization [facility] Address [address] [place] [address] Care Team Providers Care Chief Minister Name Role Phone Deirdre Grant PA-C Primary [...] dorsal forearm, right Mariya Retana PA-C [address] [facility] [place] [address] Phone: tel: fax: Referral IDStatusReasonStart DateExpiration DateVisits RequestedVisits [id number]/ RAL MILLING SUPERINTENDENT Reason for Visit * ReasonCommentsWrist/forearm Pain or Injury * Consult/Transfer Care (Routine) - New RequestSpecialtyDiagnoses / Procedures Referred By ContactReferred To Contact Diagnoses Dog bite, initial encounter Puncture wound of multiple sites of right upper extremity, initial encounter Other closed fracture of distal end of right ulna, initial encounter Arya Lloyd MD [address] [facility] [place] [address] Phone: tel: fax: Referral IDStatReneginSttaj DateExpiration DateVisits RequestedVisits [id number] Sshnman60/ Encounter Details DateTypeDepartmentCare Team (Latest Contact Info)Kojeetquhdm00/05/2025 10:00 AM CSTOffice Visit [facility] [place] [address] [place] [address] Mariya Retana PA-C [address] [place] [address] Other closed fracture of distal end of right ulna, initial encounter (Primary Dx); Lipoma of right upper extremity Social History Tobacco UseTypesPacks/DayYears UsedDateSmoking Tobacco: NeverSmokeless Tobacco: NeverAlcohol UseStandard Drinks/WeekCommentsYes2 (1 standard drink = 0.6 oz pure alcohol)PHQ-2AnswerDate RecordedPHQ-2 Rltfd65010/27/2024UDIT-CAnswerDate Recorded Q1: How often do you have a drink containing alcohol?Never08/28/2025verage Number of DrinksNot on file08/28/2025Frequency of Binge DrinkingNot on file 08/28/2025CommentsNoSex and Gender InformationValueDate RecordedSex Assigned at BirthNot on fileLegal EtqDzkepg29/10/2012 4:56 AM CDTGender Identity Not on fileSexual OrientationNot on fileOccupationIndustryJob Start DateJob End DateVFWNot on fileNot on fileNot on filedocumented as of this encounter Patient Instructions * Patient Instructions* Paula Watts LPN - 08/25/2025 10:00 AM GENERAL MILLING SUPERINTENDENT Thank you for Choosing [facility] for your health care visit today. Mariya Retana PA-C Hand and Upper Extremity Specialist Appt: [phone] Finance Admin [place] Cole: [phone] Medication Requests: Prescriptions are not filled on weekends or on weekdays after 3:00 PM. For all medication refills: Request a refill using [employer]ner[employer] or contact your pharmacy. What is Know Your Cost? Know Your Cost is a service for patients and patient/members to call and receive personalized cost information and estimates across our care group. The phone number is (COST) Thursday - Thursday 8 AM to 5 PM Advanced Imaging Scheduling: To schedule an MRI, Ultrasound, or Image guided injection at [facility] please call [phone]. To schedule an MRI or CT at a [facility] please call [phone]. [facility] Workers' Compensation [address] [place] [address] (Phone) Email: Release of Information: Radiology/Imaging [address] [place] [address] (Phone) Health Information Management [address] [place] [address] (Phone) Saberr RAL MILLING SUPERINTENDENT RAL MILLING SUPERINTENDENT documented in this encounter Progress Notes * Mariya Retana PA-C - 08/25/2025 10:00 AM CST [facility] Orthopaedic [place] [facility] Consultation 08/25/2025 Date of Service: [...] a past medical history of Anxiety ([facility]) (07/17/2011), Eczema (07/17/2011), HTN (hypertension) ([facility]) (07/07/2011), Melanoma ([facility]) [...] the patient; this islocated in [facility] in [facility]. Review of Systems: A complete [...] appearedpleased with the visit. Mariya Retana PA-C RAL MILLING SUPERINTENDENT documented in this encounter Plan of Treatment DateTypeDepartmentCare Team (Latest Contact Info)Arwbyomomjn85/20/2026 8:30 AM CSTAppointment [facility] Orthopedic [facility] [address] [facility] [place] [address] Nereida Butcher MD [address] [facility] [place] [address] documented as of this encounter Visit Diagnoses Diagnosis Other closed fracture of distal end of right ulna, initial encounter- Primary Lipoma of right upper extremity documented in this encounter Care Teams Team MemberRelationshipSpecialtyStart DateEnd Date Deirdre Grant PA-C [address] [place] [address] [place] [address] PCP - GeneralPhysician Hkgacbamb58/31/18documented as of this encounter
--- OUTSIDE RECORDS SUMMARY | 2025-08-26 09:00 | XMS_ITS | Encounter Summary ---
Author Organization [facility] Address [address] [place] [address] Care Team Providers Care Asphalt Coater Name Role Phone Deirdre Grant PA-C Primary Care Provider Reason for Visit * ReasonCommentsPRE-OP EXAMDOS: 08/29/25 OPEN REDUCTION INTERNAL FIXATION DISTAL ULNA FRACTUREEXCISION, LESION, SOFT TISSUE, UPPER EXTREMITY with BERNARD LEE at 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; Hypertension, unspecified type (HRC) Social History Tobacco UseTypesPacks/DayYears UsedDateSmoking Tobacco: NeverSmokeless Tobacco: NeverAlcohol UseStandard Drinks/WeekCommentsYes2 (1 standard drink = 0.6 oz pure alcohol)PHQ-2AnswerDate RecordedPHQ-2 Zvusk84910/27/2024UDIT-CAnswerDate Recorded Q1: How often do you have a drink containing alcohol?Never08/28/2025verage Number of DrinksNot on file08/28/2025Frequency of Binge DrinkingNot on file 08/28/2025CommentsNoSex and Gender InformationValueDate RecordedSex Assigned at BirthNot on fileLegal FnzEjmpie24/10/2012 4:56 AM CDTGender Identity Not on fileSexual OrientationNot on fileOccupationIndustryJob Start DateJob End DateVFWNot on fileNot on fileNot on filedocumented as of this encounter Last Filed Vital Signs Vital SignReadingTime TakenCommentsBlood Zdqvelrd297/8708/26/2025 8:54 AM PLASTIC SHEETING CUTTER Pkviq814808/26/2025 8:42 AM CSTTemperature--Respiratory Rate--Oxygen Saturation-- Inhaled Oxygen Concentration--Weight--Jluaxp159.5 cm (5' 2)08/26/2025 8:31 AM CSTBody Mass Index--documented in this encounter Patient Instructions * Patient Instructions* Yesy Solomon APRN, CRANBERRY BOG SUPERVISOR - 08/26/2025 9:00 AM PLASTIC SHEETING CUTTER apixaban (ELIQUIS) 5 MG tablet [[id number]] - Recommendations per ACC. LORazepam (ATIVAN) 0.5 MG tablet [[id number]], oxyCODONE-acetaminophen (PERCOCET) 5-325 MG tablet [[id number]] - Continue taking your usual dose of this medication. SUMAtriptan (IMITREX) 100 MG tablet [[id number]] - Do not take on the morning of procedure. Follow your individualized medication recommendations as described above. In addition, please stop all qpkd-oyh-ffspmyn medications including aspirin, ibuprofen (Advil, Motrin), naproxen [...] health-related equipment or devices you use daily TIC SHEETING CUTTER documented in this encounter OR Notes * [...] ulna 08/25/2025 Colon polyp 11/08/2015 Overview Note: [place] - multiple polyps. erosions in the terminal ileum Pap smear of cervix shows high risk HPV present 06/06/2015 Overview Note: Redo Pap in 05/2016; patient refuses colposcopy Right knee pain 08/18/2014 CTS (carpal tunnel syndrome) 11/28/2013 Melanoma ([facility]) 07/17/2011 Eczema 07/17/2011 Anxiety ([facility]) 07/17/2011 Migraines 07/07/2011 HTN (hypertension) ([facility]) 07/07/2011 Allergic rhinitis 02/25/2003 Overview Note: Rhinitis Allergic NOS Past Medical History: Diagnosis Date [place] 07/17/2011 Eczema 07/17/2011 HTN (hypertension) [place] 07/07/2011 Melanoma ([facility]) 1983 right christian Migraines 07/07/2011 Obesity 02/25/2003 Rhinitis Allergic 02/25/2003 [...] Blood Count-No Diff ECG 12 Lead (Clinical Car Racer to perform) Special risks: Thromboembolism elevated risk, recommend post operative prophylaxis. Patient's cardiovascular condition is medically managed and stable. Stress testing not indicated. Medication recommendations: Patient Instructions apixaban (ELIQUIS) 5 MG tablet [[id number]] - Recommendations per ACC. LORazepam (ATIVAN) 0.5 MG tablet [[id number]], oxyCODONE-acetaminophen (PERCOCET) 5-325 MG tablet [[id number]] - Continue taking your usual dose of this medication. SUMAtriptan (IMITREX) 100 MG tablet [[id number]] - Do not take on the morning of procedure. Follow your individualized medication recommendations as described above. In addition, please stop all iwmx-udq-axzuetn medications including aspirin, ibuprofen (Advil, Motrin), naproxen [...] Yesy Solomon APRN, CNP 08/26/2025, 8:52 AM TIC SHEETING CUTTER documented in this encounter Plan of Treatment DateTypeDepartmentCare Team (Latest Contact Info)Rfuaolnuwyz94/ 8:30 AM CSTAppointment [facility] Orthopedic [facility] [address] [place] [address] Bernard Lee MD [address] [facility] [place] [address] documented as of this encounter Procedures Procedure NamePriorityDate/TimeAssociated DiagnosisCommentsECG 12 LEAD OBMMGJTUBUAfikgnx39/06/2025 9:00 AM PLASTIC SHEETING CUTTER Preop examination documented in this encounter Results * Complete Blood Count-No Diff (08/26/2025 9:17 AM PLASTIC SHEETING CUTTER)ComponentValueRef Range Test MethodAnalysis TimePerformed AtPathologist SignatureWBC8.53.5 - 10.5 x10(9)/L110/27/2024 9:44 AM [facility] LABORATORYRBC4.533.90 - 5.03 x10(12)/L 08/26/2025 9:44 AM [facility] RVIEISMUWQBvgbbujaqv49.812.0 - 15.5 g/dL 08/26/2025 9:44 AM [facility] ZFXCHJARSNVRH21.334.9 - 44.5 %08/26/2025 9:44 AM [facility] CQEQTIRMYCSNE75.280.0 - 100.0 fL08/26/2025 9:44 AM [facility] EDOLWFRTGTGGR28.527.6 - 33.3 pg08/26/2025 9:44 AM [facility] NRVFBNLMTQGNIH47.431.5 - 35.2 g/dL08/26/2025 9:44 AM [facility] LABORATORY RDW13.011.9 - 15.5 %08/26/2025 9:44 AM [facility] JOKDBTIEKFEdexskifb501720 - 450 x10(9)/L110/27/2024 9:44 AM [facility] LABORATORYSpecimen (Source) Anatomical Location / LateralityCollection Method / VolumeCollection Time Received TimeBloodVenipuncture / Rqrovfb2008/26/2025 9:17 AM CST08/26/2025 9:17 AM PLASTIC SHEETING CUTTER Narrative Authorizing ProviderResult TypeResult StatusJennifer L Juanito JORDAN CNPLAB_1Final ResultPerforming OrganizationAddressCity/State/ZIP CodePhone Number [facility] CLIA: [id number] [place] [address], [facility] * ECG 12 Lead (Clinical Car Racer to perform) (08/26/2025 9:00 AM PLASTIC SHEETING CUTTER) ComponentValueRef RangeTest MethodAnalysis TimePerformed AtPathologist SignatureVentricular Mmst17ATIWGZS GHPAtrial Lojz01SKRXFZG GHPP-R Jhxuwhog152 msMUSE GHPQRS Pgqxpive56fpISHP LPLSI793fmFGUY EMBWEW956ybAJES GHPP Axis66 degreesMUSE GHPR Ukmm48jsjykdcUKGO GHPT Zlym93qrukwuzTBZR GHPSpecimen (Source) Anatomical Location / LateralityCollection Method / VolumeCollection Time Received Time08/26/2025 9:00 AM PLASTIC SHEETING CUTTER Narrative MUSE GHP - 08/26/2025 9:30 AM PLASTIC SHEETING CUTTER Sinus rhythm Normal ECG When compared with [...] ECG ORDERABLESFinal ResultPerforming OrganizationAddressCity/State/ZIP CodePhone Number MUSE [facility] [address] [place] [address] documented in this encounter Visit Diagnoses Diagnosis Other closed fracture of distal end of right ulna with delayed healing, subsequent encounter- Primary Preop examination Preoperative examination, unspecified 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 Personal history of venous thrombosis and embolism custodial 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
--- OUTSIDE RECORDS SUMMARY | 2025-08-26 09:00 | XMS_ITS | Encounter Summary ---
Author Organization [facility] Address [address] [place] [address] Care Team Providers Care Disintegrator Name Role Phone Deirdre Grant PA-C Primary Care Provider Reason for Visit * ReasonCommentsPRE-OP EXAMDOS: 08/29/25 OPEN REDUCTION INTERNAL FIXATION DISTAL ULNA FRACTUREEXCISION, LESION, SOFT TISSUE, UPPER EXTREMITY with BERNARD LEE at [facility] Anesthesia: INTRASCALENE BLOCKINTRASCALENE BLOCK Encounter Details DateTypeDepartmentCare Team (Latest Contact Info)Kibjwxqnlfh43/06/2025 9:00 AM CSTPre-Op Visit [address] [address] [place] [address] Yesy Solomon, AIRPORT TOWER CONTROLLER, MASKING MACHINE OPERATOR [address] [place] [address] Other closed fracture of distal end of right ulna with delayed healing, subsequent encounter (Primary Dx); Preop examination; 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; 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; Hypertension, unspecified type (HRC) Social History Tobacco UseTypesPacks/DayYears UsedDateSmoking Tobacco: NeverSmokeless Tobacco: NeverAlcohol UseStandard Drinks/WeekCommentsYes2 (1 standard drink = 0.6 oz pure alcohol)PHQ-2AnswerDate RecordedPHQ-2 Vsfeu46310/27/2024UDIT-CAnswerDate Recorded Q1: How often do you have a drink containing alcohol?Never08/28/2025verage Number of DrinksNot on file08/28/2025Frequency of Binge DrinkingNot on file 08/28/2025CommentsNoSex and Gender InformationValueDate RecordedSex Assigned at BirthNot on fileLegal KikWcmdyj46/10/2012 4:56 AM CDTGender Identity Not on fileSexual OrientationNot on fileOccupationIndustryJob Start DateJob End DateVFWNot on fileNot on fileNot on filedocumented as of this encounter Last Filed Vital Signs Vital SignReadingTime TakenCommentsBlood Xeuszttm555/8708/26/2025 8:54 AM LANGUAGE INTERPRETER Biqyu735008/26/2025 8:42 AM CSTTemperature--Respiratory Rate--Oxygen Saturation-- Inhaled Oxygen Concentration--Weight--Hwebcl944.5 cm (5' 2)08/26/2025 8:31 AM CSTBody Mass Index--documented in this encounter Patient Instructions * Patient Instructions* Yesy Solomon APRN, MASKING MACHINE OPERATOR - 08/26/2025 9:00 AM LANGUAGE INTERPRETER apixaban (ELIQUIS) 5 MG tablet [[id number]] - Recommendations per ACC. LORazepam (ATIVAN) 0.5 MG tablet [[id number]], oxyCODONE-acetaminophen (PERCOCET) 5-325 MG tablet [[id number]] - Continue taking your usual dose of this medication. SUMAtriptan (IMITREX) 100 MG tablet [[id number]] - Do not take on the morning of procedure. Follow your individualized medication recommendations as described above. In addition, please stop all sigj-ffe-ogyqosw medications including aspirin, ibuprofen (Advil, Motrin), naproxen [...] health-related equipment or devices you use daily UAGE INTERPRETER documented in this encounter OR Notes * [...] ulna 08/25/2025 Colon polyp 11/08/2015 Overview Note: [place] - multiple polyps. erosions in the terminal ileum Pap smear of cervix shows high risk HPV present 06/06/2015 Overview Note: Redo Pap in 05/2016; patient refuses colposcopy Right knee pain 08/18/2014 CTS (carpal tunnel syndrome) 11/28/2013 Melanoma ([facility]) 07/17/2011 Eczema 07/17/2011 Anxiety ([facility]) 07/17/2011 Migraines 07/07/2011 HTN (hypertension) ([facility]) 07/07/2011 Allergic rhinitis 02/25/2003 Overview Note: Rhinitis Allergic NOS Past Medical History: Diagnosis Date An[place] 07/17/2011 Eczema 07/17/2011 HTN (hypertension) ([facility]) 07/07/2011 Melanoma ([facility]) 1983 right holiness Migraines 07/07/2011 Obesity 02/25/2003 Rhinitis Allergic 02/25/2003 [...] Blood Count-No Diff ECG 12 Lead (Clinical Button Decorating Machine Operator to perform) Special risks: Thromboembolism elevated risk, recommend post operative prophylaxis. Patient's cardiovascular condition is medically managed and stable. Stress testing not indicated. Medication recommendations: Patient Instructions apixaban (ELIQUIS) 5 MG tablet [[id number]] - Recommendations per ACC. LORazepam (ATIVAN) 0.5 MG tablet [[id number]], oxyCODONE-acetaminophen (PERCOCET) 5-325 MG tablet [[id number]] - Continue taking your usual dose of this medication. SUMAtriptan (IMITREX) 100 MG tablet [[id number]] - Do not take on the morning of procedure. Follow your individualized medication recommendations as described above. In addition, please stop all hgvp-dvi-reirqqt medications including aspirin, ibuprofen (Advil, Motrin), naproxen [...] Yesy Solomon APRN, CNP 08/26/2025, 8:52 AM UAGE INTERPRETER documented in this encounter Plan of Treatment DateTypeDepartmentCare Team (Latest Contact Info)Zypnqfnkwgi78/ 8:30 AM CSTAppointment [facility] Orthopedic [facility] [place] [address] [place] [address] Bernard Lee MD [address] [facility] [place] [address] documented as of this encounter Procedures Procedure NamePriorityDate/TimeAssociated DiagnosisCommentsECG 12 LEAD TGOHUINWQFCxdweun34/06/2025 9:00 AM LANGUAGE INTERPRETER Preop examination documented in this encounter Results * Complete Blood Count-No Diff (08/26/2025 9:17 AM LANGUAGE INTERPRETER)ComponentValueRef Range Test MethodAnalysis TimePerformed AtPathologist SignatureWBC8.53.5 - 10.5 x10(9)/L110/27/2024 9:44 AM [facility] LABORATORYRBC4.533.90 - 5.03 x10(12)/L 08/26/2025 9:44 AM [facility] VCZVUGNENFFfdkceqxaz01.812.0 - 15.5 g/dL 08/26/2025 9:44 AM [facility] IDNHKEGOQJGZO69.334.9 - 44.5 %08/26/2025 9:44 AM [facility] VZJVOFVZAZUXJ13.280.0 - 100.0 fL08/26/2025 9:44 AM [facility] NHHTUWXGBPSWM91.527.6 - 33.3 pg08/26/2025 9:44 AM [facility] ERSKSNZZYTEEZQ68.431.5 - 35.2 g/dL08/26/2025 9:44 AM [facility] LABORATORY RDW13.011.9 - 15.5 %08/26/2025 9:44 AM [facility] OYYYKZHAFNNydwudkcc485963 - 450 x10(9)/L110/27/2024 9:44 AM [facility] LABORATORYSpecimen (Source) Anatomical Location / LateralityCollection Method / VolumeCollection Time Received TimeBloodVenipuncture / Feasart1908/26/2025 9:17 AM CST08/26/2025 9:17 AM LANGUAGE INTERPRETER Narrative Authorizing ProviderResult TypeResult StatusJennifer L Juanito JORDAN CNPLAB_1Final ResultPerforming OrganizationAddressCity/State/ZIP CodePhone Number JOSÉ [facility] CLIA: [id number] [place] [address], [facility] * ECG 12 Lead (Clinical Button Decorating Machine Operator to perform) (08/26/2025 9:00 AM LANGUAGE INTERPRETER) ComponentValueRef RangeTest MethodAnalysis TimePerformed AtPathologist SignatureVentricular Qeng72MGYWLGI GHPAtrial Decz25HJGAHBA GHPP-R Ydwtxwmk903 msMUSE GHPQRS Qpcbddpi80cfDYRL TAREK833bzSNNX LVUEMW824owOOSE GHPP Axis66 degreesMUSE GHPR Cnxv90brvujybKQWW GHPT Usdw04kgsjwpqGTUU GHPSpecimen (Source) Anatomical Location / LateralityCollection Method / VolumeCollection Time Received Time08/26/2025 9:00 AM LANGUAGE INTERPRETER Narrative MUSE [facility] - 08/26/2025 9:30 AM LANGUAGE INTERPRETER Sinus rhythm Normal ECG When compared with [...] ECG ORDERABLESFinal ResultPerforming OrganizationAddressCity/State/ZIP CodePhone Number MUSE [facility] [address] [place] [address] documented in this encounter Visit Diagnoses Diagnosis Other closed fracture of distal end of right ulna with delayed healing, subsequent encounter- Primary Preop examination Preoperative examination, unspecified 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 Personal history of venous thrombosis and embolism penitentiary current use of anticoagulant Encounter for long-term (current) use of anticoagulants Hypertension, unspecified type (HRC) documented in this encounter Care Teams Team MemberRelationshipSpecialtyStart DateEnd Date Deirdre Grant PA-C [address] [facility] [address] [place] [address] PCP - GeneralPhysician Bsinhbded75/31/18documented as of this encounter
--- OUTSIDE RECORDS SUMMARY | 2025-08-26 09:40 | XMS_ITS | Encounter Summary ---
Author Organization [facility] Address [address] [place] [address] Care Team Providers Care Biochemical Development Engineer Name Role Phone Deirdre Grant PA-C Primary Care Provider Encounter Details DateTypeDepartmentCare Team (Latest Contact Info)Ukxqeepkzia88/06/2025 9:40 AM CSTLab Visit [address] [address] Preop examination Social History Tobacco UseTypesPacks/DayYears UsedDateSmoking Tobacco: NeverSmokeless Tobacco: NeverAlcohol UseStandard Drinks/WeekCommentsYes2 (1 standard drink = 0.6 oz pure alcohol)PHQ-2AnswerDate RecordedPHQ-2 Dlocg68810/27/2024UDIT-CAnswerDate Recorded Q1: How often do you have a drink containing alcohol?Never08/28/2025verage Number of DrinksNot on file08/28/2025Frequency of Binge DrinkingNot on file 08/28/2025CommentsNoSex and Gender InformationValueDate RecordedSex Assigned at BirthNot on fileLegal TcuXqzrlt91/10/2012 4:56 AM CDTGender Identity Not on fileSexual OrientationNot on fileOccupationIndustryJob Start DateJob End DateVFWNot on fileNot on fileNot on filedocumented as of this encounter Plan of Treatment DateTypeDepartmentCare Team (Latest Contact Info)Iamyisicogy23/20/2026 8:30 AM CSTAppointment [facility] Orthopedic [facility] [address] [facility] [place] [address] Nereida Butcher MD [address] [facility] [place] [address] documented as of this encounter Procedures Procedure NamePriorityDate/TimeAssociated DiagnosisCommentsCOMPLETE BLOOD COUNT- NO NMWDGvwnbix99/06/2025 9:17 AM WELDER OPERATOR Preop examination documented in this encounter Results * Complete Blood Count-No Diff (08/26/2025 9:17 AM WELDER OPERATOR)ComponentValueRef Range Test MethodAnalysis TimePerformed AtPathologist SignatureWBC8.53.5 - 10.5 x10(9)/L110/27/2024 9:44 AM [facility] LABORATORYRBC4.533.90 - 5.03 x10(12)/L 08/26/2025 9:44 AM [facility] IERPELCVSBNtsawvpgrn73.812.0 - 15.5 g/dL 08/26/2025 9:44 AM [facility] MNUJCKQCNIECH50.334.9 - 44.5 %08/26/2025 9:44 AM [facility] ONHPAJZDUMAUM70.280.0 - 100.0 fL08/26/2025 9:44 AM [facility] HCBLCWMMYIKFR41.527.6 - 33.3 pg08/26/2025 9:44 AM [facility] SGVPBAHFUIHKJU53.431.5 - 35.2 g/dL08/26/2025 9:44 AM [facility] LABORATORY RDW13.011.9 - 15.5 %08/26/2025 9:44 AM [facility] EEGQCJCSNHWpwgbgdhu961005 - 450 x10(9)/L110/27/2024 9:44 AM [facility] LABORATORYSpecimen (Source) Anatomical Location / LateralityCollection Method / VolumeCollection Time Received TimeBloodVenipuncture / Ygjlwof2108/26/2025 9:17 AM CST08/26/2025 9:17 AM WELDER OPERATOR Narrative Authorizing ProviderResult TypeResult StatusJecheryl Solomon APRN, CNPLAB_1Final ResultPerforming OrganizationAddressCity/State/ZIP CodePhone Number [facility] CLIA: [id number] [phone] [place] [address], [facility] documented in this encounter Visit Diagnoses Diagnosis Preop examination Preoperative examination, unspecified documented in this encounter Care Teams Team MemberRelationshipSpecialtyStart DateEnd Date Deirdre Grant PA-C [address] [address] [place] [address] PCP - GeneralPhysician Guxddyieg39/31/18documented as of this encounter
--- OUTSIDE RECORDS SUMMARY | 2025-08-26 09:40 | XMS_ITS | Encounter Summary ---
Author Organization [facility] Address [address] [place] [address] Care Team Providers Care Software Technical Lead Name Role Phone Deirdre Grant PA-C Primary Care Provider Encounter Details DateTypeDepartmentCare Team (Latest Contact Info)Heodcahhvnf31/06/2025 9:40 AM CSTLab Visit [address] [address] Preop examination Social History Tobacco UseTypesPacks/DayYears UsedDateSmoking Tobacco: NeverSmokeless Tobacco: NeverAlcohol UseStandard Drinks/WeekCommentsYes2 (1 standard drink = 0.6 oz pure alcohol)PHQ-2AnswerDate RecordedPHQ-2 Dthlm43510/27/2024UDIT-CAnswerDate Recorded Q1: How often do you have a drink containing alcohol?Never08/28/2025verage Number of DrinksNot on file08/28/2025Frequency of Binge DrinkingNot on file 08/28/2025CommentsNoSex and Gender InformationValueDate RecordedSex Assigned at BirthNot on fileLegal TgtDfljuu67/10/2012 4:56 AM CDTGender Identity Not on fileSexual OrientationNot on fileOccupationIndustryJob Start DateJob End DateVFWNot on fileNot on fileNot on filedocumented as of this encounter Plan of Treatment DateTypeDepartmentCare Team (Latest Contact Info)Kcleathxlew96/20/2026 8:30 AM CSTAppointment [facility] Orthopedic [facility] [address] [facility] [place] [address] Nereida Butcher MD [address] [facility] [place] [address] documented as of this encounter Procedures Procedure NamePriorityDate/TimeAssociated DiagnosisCommentsCOMPLETE BLOOD COUNT- NO CMPLFwqkbko65/06/2025 9:17 AM ZOO DIRECTOR Preop examination documented in this encounter Results * Complete Blood Count-No Diff (08/26/2025 9:17 AM ZOO DIRECTOR)ComponentValueRef Range Test MethodAnalysis TimePerformed AtPathologist SignatureWBC8.53.5 - 10.5 x10(9)/L110/27/2024 9:44 AM [facility] LABORATORYRBC4.533.90 - 5.03 x10(12)/L 08/26/2025 9:44 AM [facility] ECADJWPEKIIcmqhtqmcz69.812.0 - 15.5 g/dL 08/26/2025 9:44 AM [facility] ECZTIUKTFXEJT49.334.9 - 44.5 %08/26/2025 9:44 AM [facility] RHNGCTGFSTKTG66.280.0 - 100.0 fL08/26/2025 9:44 AM [facility] IVSMMTNFHOJPM58.527.6 - 33.3 pg08/26/2025 9:44 AM [facility] VGASLUSXBCYRWU31.431.5 - 35.2 g/dL08/26/2025 9:44 AM [facility] LABORATORY RDW13.011.9 - 15.5 %08/26/2025 9:44 AM [facility] EBTCSFROSFDatpdfqtk732582 - 450 x10(9)/L110/27/2024 9:44 AM [facility] LABORATORYSpecimen (Source) Anatomical Location / LateralityCollection Method / VolumeCollection Time Received TimeBloodVenipuncture / Wrgcnde4608/26/2025 9:17 AM CST08/26/2025 9:17 AM ZOO DIRECTOR Narrative Authorizing ProviderResult TypeResult StatusJecheryl Solomon APRN, CNPLAB_1Final ResultPerforming OrganizationAddressCity/State/ZIP CodePhone Number [facility] CLIA: [id number] [phone] [place] [address], [facility] documented in this encounter Visit Diagnoses Diagnosis Preop examination Preoperative examination, unspecified documented in this encounter Care Teams Team MemberRelationshipSpecialtyStart DateEnd Date Deirdre Grant PA-C [address] [address] [place] [address] PCP - GeneralPhysician Omwqiuist56/31/18documented as of this encounter
--- OUTSIDE RECORDS SUMMARY | 2025-08-29 06:00 | XMS_ITS | Encounter Summary ---
Author Organization [facility] Address [address] [place] [address] Care Team Providers Care Photography Teacher Name Role Phone Deirdre Grant PA-C Primary Care Provider Encounter Details DateTypeDepartmentCare Team (Latest Contact Info)Mrdbvwuvgnf74/09/2025 6:00 AM CSTAncillary Procedure [facility] [address] [place] [address] Nereida Butcher MD [address] [place] [address] Surgery, elective Social History Tobacco UseTypesPacks/DayYears UsedDateSmoking Tobacco: NeverSmokeless Tobacco: NeverAlcohol UseStandard Drinks/WeekCommentsYes2 (1 standard drink = 0.6 oz pure alcohol)PHQ-2AnswerDate RecordedPHQ-2 Ftqrf92210/27/2024UDIT-CAnswerDate Recorded Q1: How often do you have a drink containing alcohol?Never08/28/2025verage Number of DrinksNot on file08/28/2025Frequency of Binge DrinkingNot on file 08/28/2025CommentsNoSex and Gender InformationValueDate RecordedSex Assigned at BirthNot on fileLegal WiiXirdyj00/10/2012 4:56 AM CDTGender Identity Not on fileSexual OrientationNot on fileOccupationIndustryJob Start DateJob End DateVFWNot on fileNot on fileNot on filedocumented as of this encounter Plan of Treatment DateTypeDepartmentCare Team (Latest Contact Info)Jovqkmyajmi91/20/2026 8:30 AM CSTAppointment [facility] [address] [facility] [place] [address] Nereida Butcher MD [address] [facility] [place] [address] documented as of this encounter Procedures Procedure NamePriorityDate/TimeAssociated DiagnosisCommentsSUR FLUOROSCOPY UP TO 1 MTBBQuansbq18/09/2025 1:13 PM DEPUTY DIRECTOR Surgery, elective documented in this encounter Results * [place]INO Fluoroscopy Up To 1 Hour (08/29/2025 1:13 PM DEPUTY DIRECTOR)Anatomical Region LateralityModalityRadiographic ImagingSpecimen (Source)Anatomical Location / LateralityCollection Method / VolumeCollection TimeReceived Time Narrative 08/29/2025 1:14 PM DEPUTY DIRECTOR These images were obtained during a surgical procedure. Authorizing ProviderResult TypeResult StatusYvonndora Butcher MDRAD NON-REPORTABLESFinal Result documented in this encounter Visit Diagnoses Diagnosis Surgery, elective Unspecified elective surgery for purposes other than remedying health states documented in this encounter Care Teams Team MemberRelationshipSpecialtyStart DateEnd Date Deirdre Grant PA-C [address] [place] [address] [place] [address] PCP - GeneralPhysician Dbqsbwxxl93/31/18documented as of this encounter
--- OUTSIDE RECORDS SUMMARY | 2025-08-29 06:00 | XMS_ITS | Encounter Summary ---
Author Organization [facility] Address [address] [place] [address] Care Team Providers Care Rover Tender Name Role Phone Deirdre Grant PA-C Primary Care Provider Encounter Details DateTypeDepartmentCare Team (Latest Contact Info)Fozocpasvuk98/09/2025 6:00 AM CSTAncillary Procedure [facility] [address] [place] [address] Nereida Butcher MD [address] [place] [address] Surgery, elective Social History Tobacco UseTypesPacks/DayYears UsedDateSmoking Tobacco: NeverSmokeless Tobacco: NeverAlcohol UseStandard Drinks/WeekCommentsYes2 (1 standard drink = 0.6 oz pure alcohol)PHQ-2AnswerDate RecordedPHQ-2 Bcnkl67810/27/2024UDIT-CAnswerDate Recorded Q1: How often do you have a drink containing alcohol?Never08/28/2025verage Number of DrinksNot on file08/28/2025Frequency of Binge DrinkingNot on file 08/28/2025CommentsNoSex and Gender InformationValueDate RecordedSex Assigned at BirthNot on fileLegal CkaBzpknm49/10/2012 4:56 AM CDTGender Identity Not on fileSexual OrientationNot on fileOccupationIndustryJob Start DateJob End DateVFWNot on fileNot on fileNot on filedocumented as of this encounter Plan of Treatment DateTypeDepartmentCare Team (Latest Contact Info)Eidjluapeun34/20/2026 8:30 AM CSTAppointment [facility] [address] [facility] [place] [address] Nereida Butcher MD [address] [facility] [place] [address] documented as of this encounter Procedures Procedure NamePriorityDate/TimeAssociated DiagnosisCommentsSUR FLUOROSCOPY UP TO 1 AWVELgnhwta77/09/2025 1:13 PM CERTIFIED CREDIT COUNSELOR Surgery, elective documented in this encounter Results * [place] Fluoroscopy Up To 1 Hour (08/29/2025 1:13 PM CERTIFIED CREDIT COUNSELOR)Anatomical Region LateralityModalityRadiographic ImagingSpecimen (Source)Anatomical Location / LateralityCollection Method / VolumeCollection TimeReceived Time Narrative 08/29/2025 1:14 PM CERTIFIED CREDIT COUNSELOR These images were obtained during a surgical procedure. Authorizing ProviderResult TypeResult StatusYvonndora Butcher MDRAD NON-REPORTABLESFinal Result documented in this encounter Visit Diagnoses Diagnosis Surgery, elective Unspecified elective surgery for purposes other than remedying health states documented in this encounter Care Teams Team MemberRelationshipSpecialtyStart DateEnd Date Deirdre Grant PA-C [address] [place] [address] [place] [address] PCP - GeneralPhysician Nyxooekdb38/31/18documented as of this encounter
--- OUTSIDE RECORDS SUMMARY | 2025-08-29 10:15 | XMS_ITS | Encounter Summary ---
Author Organization [facility] Address [address] [place] [address] Care Team Providers Care Timber Trimmer Name Role Phone Deirdre Grant PA-C Primary Care Provider Reason for Referral * (Routine) - IncompleteSpecialtyDiagnoses / ProceduresReferred By Contact Referred To Contact Procedures US Anesthesia Guided Block Fermin Baca MD [address] [place] [address] Phone: tel: fax: Referral IDStatusReasonStart DateExpiration DateVisits RequestedVisits [id number]/[id number]/ ICAL NURSE PRACTITIONER Reason for Visit * Auth/CertSpecialtyDiagnoses / ProceduresReferred By ContactReferred To Contact Diagnoses Other closed fracture of distal end of right ulna, initial encounter Procedures EXC RAUL LES TRNK ARM/LEG;2.1-3.0 CM OPEN TX ULNAR SHAFT FX W/WO FIX EXC ARM/ELBOW LES SC = 3 CM Open reduction internal fixation distal ulna fracture Open reduction internal fixation distal ulna fracture Right wrist; Lipoma excision lateral dorsal forearm, right Referral IDStatusReasonStart DateExpiration DateVisits RequestedVisits [id number] Encounter Details DateTypeDepartmentCare Team (Latest Contact Info)Sfhqrnamoos10/05/2025 10:15 AM SURGICAL NURSE PRACTITIONER - 08/29/2025 2:06 PM CSTHospital Encounter [facility] [address] [place] [address] Bernard Lee MD [address] [facility] [place] [address] Other closed fracture of distal end of right ulna, initial encounter Discharge Disposition: Home Social History Tobacco UseTypesPacks/DayYears UsedDateSmoking Tobacco: NeverSmokeless Tobacco: NeverAlcohol UseStandard Drinks/WeekCommentsYes2 (1 standard drink = 0.6 oz pure alcohol)PHQ-2AnswerDate RecordedPHQ-2 Ipqid50310/27/2024UDIT-CAnswerDate Recorded Q1: How often do you have a drink containing alcohol?Never08/28/2025verage Number of DrinksNot on file08/28/2025Frequency of Binge DrinkingNot on file 08/28/2025CommentsNoSex and Gender InformationValueDate RecordedSex Assigned at BirthNot on fileLegal EpvNhoxrj33/10/2012 4:56 AM CDTGender Identity Not on fileSexual OrientationNot on fileOccupationIndustryJob Start DateJob End DateVFWNot on fileNot on fileNot on filedocumented as of this encounter Last Filed Vital Signs Vital SignReadingTime TakenCommentsBlood Nafkfgvt712/7508/29/2025 1:58 PM SURGICAL NURSE PRACTITIONER Cmanp607108/29/2025 1:58 PM QAWPvzbstivsnq03.1 ??C (96.9 ??F)08/29/2025 1:27 PM CSTRespiratory Dshs802810/30/2024 1:58 PM CSTOxygen Rjfunjcmds96%08/29/2025 1:58 PM CSTInhaled Oxygen Concentration--Weight--Height--Body Mass Index--documented in this encounter Functional Status * Alcohol UseQuestionAnswerDate of AssessmentAuthorQ1: How often do you have a drink containing alcohol?Never08/28/2025 10:45 AM Mely Morrison RN documented as of this encounter Mental Status * Hand Neonatal Nurse/Ankle StrengthQuestionAnswerEntry DateAuthorHand Neonatal Nurse, Rightabsent 08/29/2025 1:58 PM Kailey Bobby RN * Cognitive/NeuroQuestionAnswerEntry DateAuthorLevel of Consciousnessalert 08/29/2025 1:27 PM Kailey Bobby RN documented in this encounter Discharge Instructions * Discharge Instructions* Bernard Lee MD - 08/29/2025 1:14 PM SURGICAL NURSE PRACTITIONER Expectations after surgery: Pain, swelling, and bruising are not unusual for the first 2 weeks after surgery. Your pain should lessen each day. Pain Control: Your anesthetic will usually last 8-12 hours. The amount of time your surgical area is numb varies significantly for each patient. Do not be concerned if the numbness persists for up to 24 hours. Your arm may feel very heavy during this time. You must wear your sling until you have full control of your arm. Applying an ice pack to the extremity may be helpful in controlling your pain. If you are able to tolerate over the counter medications, take acetaminophen (Tylenol), ibuprofen (Advil or Motrin), or naproxen (Aleve) to control your pain. Follow the directions on the bottle. If you received a prescription for pain medication, take as directed. Take prescription pain medications with food to avoid an upset stomach. Do not drink alcohol or drive if you are taking a prescription pain medication. As your pain decreases, switch to the over the counter medications. Call if you develop a rash, hives, or intolerance to your pain medication. Stop taking your medication. To refill your prescription pain medications, call your pharmacy on a weekday before 3 pm. Prescription pain medications will not be refilled in the evenings or on weekends. Dressing and wound cares: Wash your hands before and after caring for your incision. Keep your splint clean,dry, and intact. During this time, cover your dressing with plastic wrap, a plastic bag or a cast cover to shower. Shower with your hand up to avoid getting your dressing wet. Once the splint is removed you may let water run over incision but do not soak the wound or go intolake, pool or hot tub until sutures are removed and the incision is well healed. The sutures will be removed, if necessary, at your follow-up appointment in 10-14 days. Diet: Drink plenty of fluids. If you are taking pain medications, do not drink alcohol. Start by drinking small amounts of fluids, such as water, clear carbonated beverages, tea or soup. Start with light meals, resuming your regular diet as you feel comfortable. If you are taking prescription pain medications, they can cause constipation. Eat fiber (fruits andvegetables) and drink plenty of fluids. Activity: Elevate your operative hand or wrist on 1-2 pillows with hand higher than elbow for 1-2 days to help minimize swelling. You should move your fingers, hand, and wrist through a gentle range of motion as allowed by your operative dressing. Light activites of daily living are encouraged. Avoid heavy buildings and grounds director and grasp activities and do not lift greater than 2 pounds with your operative hand until sutures are removed. Assistance or questions: Call Dr. Lee's office if you are experiencing any of these symptoms: Fever of 101 F (38C) or higher Severe pain not relieved with pain medication or ice Excessive bleeding or fluid from the surgical site Increased or foul-smelling drainage from surgical site Significant redness, tenderness, or swelling around the incision Separation of skin closures Contact information: Dr. Bernard Lee MD Hand & Upper Extremity Surgeon [employer] Department Head: Please call [phone] for all surgery scheduling and administrative questions Hand Nurse: Please contact nurse triage for all medical related questions at [phone] ICAL NURSE PRACTITIONER * Discharge Instr - Non RX Meds* Kailey Dang RN - 08/29/2025 1:39 PM SURGICAL NURSE PRACTITIONER Discharge Information The following was provided to the patient - Instruction sets: Caring for yourself after surgery Collateral information: How to prevent and treat constipation after surgery Prescription Opioid Pain Medication Recover Well Understanding Pain Patient take-homes: Ice pack(s) Sling ICAL NURSE PRACTITIONER documented in this encounter Medications at Time of Discharge MedicationSigDispense QuantityRefillsLast FilledStart DateEnd Date apixaban (ELIQUIS) 5 MG tablet Take 2 Tablets (10 mg) by mouth every morning.09/21/2023 LORazepam (ATIVAN) 0.5 MG tablet Indications:Situational anxiety (HRC)Take 1 tablet by mouth every 8 hours as needed for Anxiety. 20 tablet methocarbamol (ROBAXIN) 750 MG tablet Take 1 Tablet (750 mg) by mouth.03/07/2022 omeprazole (PRILOSEC) 40 MG capsule Take 1 capsule by mouth daily (every 24 hours). 90 capsule ondansetron (ZOFRAN-ODT) 4 MG disintegrating tablet Take 1 Tablet (4 mg) by mouth every 8 hours as needed.07/05/2025 oxyCODONE-acetaminophen (PERCOCET) 5-325 MG tablet Indications:Other closed fracture of distal end of right ulna, initial encounter Take 2 Tablets by mouth every 4 hours as needed for Pain. 15 Tablet 08/29/2025 sertraline (ZOLOFT) 100 MG tablet Take 2 Tablets (200 mg) by mouth.06/09/2025 SUMAtriptan (IMITREX) 100 MG tablet TAKE 1 TABLET BY MOUTH AT ONSET OF MIGRAINE. MAY REPEAT AFTER 2 HOURS IF NEEDED. MAXIMUM OF 2 TABS/24 HOURS AND 9 DAYS/MONTH. 27 Tab triamcinolone acetonide (AKA KENALOG) 0.1 % cream Apply 1 Application topically 3 times daily. for eczema. 80 g valACYclovir (VALTREX) 1 G tablet Take 2 Tabs by mouth two times daily as needed. 12 Tab documented as of this encounter Procedure Notes * Bernard Lee MD - 08/29/2025 12:00 AM CST NAME: [facility]: [id number] OPERATIVE REPORT DATE OF SURGERY: 08/29/2025 : 1965 SURGEON: BERNARD LEE MD PREOPERATIVE DIAGNOSES: 1. Right distal ulnar shaft fracture. 2. Right forearm mass. POSTOPERATIVE DIAGNOSES: 1. Right distal ulnar shaft fracture. 2. Right forearm mass. PROCEDURES PERFORMED: 1. Right ulnar open reduction and internal fixation. 2. Right forearm mass excisional biopsy. SEARCH ENGINE OPTIMIZATION ANALYST: JOHNATHAN Gupta. ANESTHETIC: Block. ESTIMATED BLOOD LOSS: 3. COMPLICATIONS: None. FINDINGS: The mass appeared to be an old hematoma or blood-containing structure. OPERATIVE IMPLANT: [employer] ulnar straight plate. OPERATIVE COURSE: After informed consent was obtained, surgical site was marked and patient was positively identified. A block was administered by the Anesthesia Department in the preoperative area. The patient was then brought to the operating room and placed into a supine position on the operating room table. Upper arm tourniquet was applied and the patient was prepped and draped in standard surgical fashion. A pause for the cause was performed prior to initiation of procedure. Procedure was performed after a 3.5 loupe magnification. The limb was elevated. The tourniquet was inflated. A 6 cm incision was made between ECU and FCU interval extending from the ulnar styloid proximally. Sharp dissection was carried down through the skin and subcutaneous tissue. The ECU and FCU interval was split and the fracture site was identified. There had been a little bit of initial healing noted, thickening around the fracture site, but the fracture showed no signs of healing. Fracture was disimpacted. Interposed soft tissue was removed. A Rickman was brought in to use as a lever and we were able to lever the bone back into place. A 7-hole straight plate was chosen and bent slightly to fit along the curve of the distal ulna. Overall, I placed 1 screw proximally, 1 screw distally, but the fracture was still lost reduction while I was attempting to take an x-ray. Additional screws were placed and the fracture was well aligned. Imaging showed acceptable overall alignment, positioning, and reduction. A total of 6 screws were placed in the shaft. The area was copiously irrigated. The ECU and FCU interval was closed. The skin was closed in layers. Steri-Strips, sterile dressing, and a Tegaderm were placed. A mini pause was performed and attention was focused on the mass, which was on the lateral border of the dorsal forearm. There was an area of scar tissue formation proximally. An incision was made initially about 1.5 cm long just adjacent to this scabbed area, but then it did appear that the scabbed area may be involved with the mass, so an elliptical incision was made around the sca bbed area. Sharp dissection was carried down through the skin and subcutaneous tissue. It was then realized that the mass itself was actually a little further down. It looked like old clotted hematoma. The mass was sent for permanent pathological analysis. The area that had been ellipsed out on theskin was discarded. Tourniquet was deflated. Copious irrigation was performed. Skin was closed withinterrupted nylon stitches. A sterile dressing was applied. Patient was placed in a short-arm splint and a volar splint was applied. She will be switched to a short-arm volar splint. Flexion and extension encouraged. She should avoid any vigorous pronation and supination. New x-rays will be taken at 2 and 6 weeks postoperatively. Patient tolerated the procedure well and was returned to recovery room in stable condition. MD Peter FAYG/AQS /[id number] ICAL NURSE PRACTITIONER documented in this encounter Plan of Treatment DateTypeDepartmentCare Team (Latest Contact Info)Festflllpcn35/20/2026 8:30 AM CSTAppointment [facility] [address] [place] [id number] Bernard Lee MD [address] [place] [id number] documented as of this encounter Procedures Procedure NamePriorityDate/TimeAssociated DiagnosisCommentsSURGICAL PATHOLOGY Yjiojbr0208/29/2025 1:08 PM SURGICAL NURSE PRACTITIONER Other closed fracture of distal end of right ulna, initial encounter Exc Arm/Elbow Les Sc = 3 Cm08/29/2025 12:01 PM SURGICAL NURSE PRACTITIONER Other closed fracture of distal end of right ulna, initial encounter Open Tx Ulnar Shaft Fx W/Wo Fix08/29/2025 12:01 PM SURGICAL NURSE PRACTITIONER Other closed fracture of distal end of right ulna, initial encounter Exc Raul Les Trnk Arm/Leg;2.1-3.0 Cm08/29/2025 12:01 PM SURGICAL NURSE PRACTITIONER Other closed fracture of distal end of right ulna, initial encounter US ANESTHESIA GUIDED TWFLVXhtdbby86/09/2025 10:34 AM SURGICAL NURSE PRACTITIONER documented in this encounter Results * Surgical Path (08/29/2025 1:08 PM SURGICAL NURSE PRACTITIONER)ComponentValueRef RangeTest Method Analysis TimePerformed AtPathologist SignatureCase ReportSurgical Pathology ?Case: [id number] ? Authorizing Provider: ??Bernard Lee MD ? Collected: ? 08/29/2025 1308 ? Ordering Location: ? [facility] ?Received: ?08/29/2025 1318 ? Pathologist: ? Sven Millan MBBS ? Specimen: ?Forearm, right, right forearm mass ? 09/01/2025 12:45 PM [facility]ATORYFINAL DIAGNOSISSoft tissue, forearm, right, excision: - Organizing wcxzepdc40/12/2025 12:45 PM [facility] at 1245 CSTClinical InformationOther closed fracture of distal end of right ulna, initial encounter 09/01/2025 12:45 PM [facility]ORATORYMicroscopic Description Microscopic examination is performed.09/01/2025 12:45 PM [facility]ORATORYGross DescriptionA: The specimen is received in formalin and labeled with the patient's name and Forearm, right, rightforearm mass. The specimen consists of a 0.8 x 0.5 x 0.5 cm portion of mcmahan-yellow, focally hemorrhagic soft tissue. The specimen is bisected and entirely submitted in 1 block. AW 09/01/2025 12:45 PM [facility] LABORATORYEmbedded Vbugau6909/01/2025 12:45 PM [facility] LABORATORYSpecimen (Source)Anatomical Location / LateralityCollection Method / VolumeCollection TimeReceived TimeTissueENTIRE RIGHT FOREARM / Kpfdwbw1708/29/2025 1:08 PM CST08/29/2025 1:18 PM SURGICAL NURSE PRACTITIONER Narrative Authorizing ProviderResult TypeResult StatusBernard STAPLETON PATHOLOGYFinal ResultPerforming OrganizationAddressCity/State/ZIP CodePhone Number [facility] CLIA: [id number] [address] [employer] [address] * US Anesthesia Guided Block (08/29/2025 10:34 AM SURGICAL NURSE PRACTITIONER)Anatomical Region LateralityModalityUltrasoundSpecimen (Source)Anatomical Location / Laterality Collection Method / VolumeCollection TimeReceived Time Narrative 08/29/2025 10:34 AM SURGICAL NURSE PRACTITIONER If an Anesthesia block was performed please see the Anesthesia encounter for documentation. ??This procedure was performed and interpreted by the performing provider. ?? Authorizing ProviderResult TypeResult StatusFermin LEONEAD USFinal Result documented in this encounter Visit Diagnoses Diagnosis Closed fracture of lower end of right ulna- Primary Closed fracture of distal end of ulna (alone) Other closed fracture of distal end of right ulna, initial encounter documented in this encounter Admitting Diagnoses Diagnosis Closed fracture of lower end of right ulna Closed fracture of distal end of ulna (alone) documented in this encounter Administered Medications Medication OrderMAR ActionAction DateDoseRateSite dextrose 5 % infusion Intravenous, at 250 mL/hr, ONCE PRN, Other, Nausea, Starting on Thu08/29/25 at 1032, For 1 dose, Give if all other options have failed and patient does not have diabetes., PACU/Recovery fat emulsion 20 % infusion 187.9 mL 187.9 mL (rounded from 187.875 mL = 3.75 mL/kg ?? 50.1 kg [place] weight), Intravenous, at 751.6 mL/hr, Q15MIN PRN, Administer over 15 Minutes, Other, Lipid Rescue for Local Anesthetic Systemic Toxicity (LAST): Start infusion doses after push bolus dose(s) given. Administer each infusion dose over 15minutes as directed by Attending or REGIONAL EDUCATION MANAGER/Code team for ongoing hemodynamic instability., Starting onTue 08/29/25 at 1034, Until Thu08/29/25 at 1606, For 3 doses, INFUSION to be started after bolus dose(s), hang bag of lipids and infuse per pump settings as ordered. Dose: 3.75mL/kg = 0.25mL/kg/min over 15 minutes. Max dose: 250 mL every 15 minutes (max rate on pump: 999 mL/hr). Lipid rescue order -give ONLY if directed by Attending or REGIONAL EDUCATION MANAGER/Code team., Pre-op fat emulsion 20 % infusion 75.2 mL 75.2 mL (rounded from 75.15 mL = 1.5 mL/kg ?? 50.1 kg [place] weight), Intravenous, at 4,512 mL/hr, [id number], Administer over 1 Minutes, Other, Lipid rescue boluses for Local Anesthetic Systemic Toxicity (LAST): may repeat dose 5 minutes after initial bolus as directed by Attending or REGIONAL EDUCATION MANAGER/Code team for hemodynamic instability., Starting on Thu08/29/25 at 1034, Until Thu08/29/25 at 1606, For 2 doses, Lipid rescue boluses, may repeat dose 5 minutes after initial bolus as directed by Attending or REGIONAL EDUCATION MANAGER/Code team for hemodynamic instability. Draw up dose in 50 mL syringes and administer STAT. 1.5 mL/kg (IBW) IV x1 over 1 minute, may repeat x1 as directed. Max dose: 100 mL, Pre-op fentaNYL (SUBLIMAZE) injection 25-50 mcg 25-50 mcg, Intravenous, [id number], Pain, the immediate postop period when longer acting agent is desired, Starting on Thu08/29/25 at 1032, Until Thu08/29/25 at 1606, Use fentanyl as first line short acting agent for treatment of acute post operative pain. May use for breakthrough pain in conjunctionwith a longer acting agent (hydromorphone or morphine). Max cumulative dose: 250 mcg. Call anesthesia if additional or greater doses needed. For patients with a regional, spinal, or local anesthetic,may give for anticipated pain as the anesthetic wears off. Respiratory rate must be greater than 10to administer medications., PACU/Recovery fentaNYL (SUBLIMAZE) injection 25-50 mcg 25-50 mcg, Intravenous, [id number], Pain, Procedure, Starting on Thu08/29/25 at 1034, Until Thu08/29/25 at 1606, For 2 doses, As directed by anesthesiologist, Pre-op Given08/29/2025 11:10 AM CST50 mcg HYDROmorphone (DILAUDID) injection 0.25 mg 0.25 mg, Intravenous, Q10MIN PRN, Pain, The immediate postop period when longer acting agent is desired, Starting on Thu08/29/25 at 1032, Until Thu08/29/25 at 1606, Use hydromorphone if fentanyl is not adequately managing pain. May use fentanyl for breakthrough pain in conjunction with hydromorphone dosing. Maximum cumulative dose is 4 mg in PACU, call anesthesia if additional or greater doses needed. For patients with a regional, spinal, or local anesthetic, may give for anticipated pain as the anesthetic wears off., PACU/Recovery lactated ringers infusion Intravenous, at 30 mL/hr, CONTINUOUS, Starting on Thu08/29/25 at 1100, Pre-op Rate/Dose Chfawz8608/29/2025 1:25 PM NDBJvdbows04/09/2025 12:12 PM CSTStarted 08/29/2025 10:47 AM CST30 mL/hr meperidine (DEMEROL) injection 12.5 mg 12.5 mg, Intravenous, [id number], Shivering, Starting on Thu08/29/25 at 1032, Until Thu08/29/25 at 1606, For 2 doses, Maximum cumulative dose is 25 mg. Do not give to patients receiving MAO inhibitors (e.g. phenelzine (NARDIL), tranylcypromine (PARNATE), selegiline (ELDEPRYL))., PACU/Recovery midazolam (VERSED) injection 1-2 mg 1-2 mg, Intravenous, [id number], Sedation, Anxiety, Procedure, Starting on Thu08/29/25 at 1034, UntilTue 08/29/25 at 1606, As directed by anesthesiologist MAX Dose 2mg, Pre-op Given08/29/2025 11:10 AM CST1 mg ondansetron (ZOFRAN) injection 4 mg 4 mg, Intravenous, Q4H PRN, Nausea, Vomiting, Starting on Thu08/29/25 at 1032, Until Thu08/29/25 [id number], If multiple medications are ordered for nausea or vomiting - administer in the following priority based on medications ordered, effectiveness and availability: ondansetron (ZOFRAN) > prochlorperazine (COMPAZINE) > diphenhydrAMINE (BENADRYL) > hydrOXYzine HCl (VISTARIL)> ePHEDrine > scopolamine (TRANSDERM-SCOP)., PACU/Recovery scopolamine (TRANSDERM-SCOP) 1 mg/72 hours 1 Patch 1 Patch, Transdermal, Q72H, Administer over 72 Hours, First dose on Thu08/29/25 at 1130, Until Discontinued, Apply behind the ear. 1.5 mg patch delivers 1 mg scopolamine over 3 days., PACU & Post-op Patch Pyuozxe0908/29/2025 11:09 AM CST1 PatchRight Elbowdocumented in this encounter Active and Recently Administered Medications Times are shown in SURGICAL NURSE PRACTITIONER.Medication Order ceFAZolin (ANCEF) 2 g in sodium chloride 0.9 % 50 mL IVPB (COMPLETED) 2 g, Intravenous, Administer over 30 Minutes, ONCE, On Thu08/29/25 at 1100, For 1 dose, Infuse within 60 minutes prior to incision Allergy to penicillin; consult day of surgery, check reaction history, assess previous surgical Allergy to penicillin; consult day of surgery, check reaction history, assess previous surgical records, other antibiotics previously used by patient, & timeline of reactions if known: if reaction includes; rash, itching, GI disturbance, headache, hives, laryngeal edema, bronchospasm, angioedema, anaphylaxis, or a documented elevated serum tryptase after a reaction,or a vague reaction history: Administer ONLY cefazolin, DO NOT ADMINISTER ANY OTHER cephalosporin pre- operatively. Re-dose 1 gram IV every 4 hours after initial dose until incision closed., Pre-op * 1219 (Started - Provider: Lexis Mujica APRN, KHURRAM) scopolamine (TRANSDERM-SCOP) 1 mg/72 hours 1 Patch 1 Patch, Transdermal, Q72H, Administer over 72 Hours, First dose on Thu08/29/25 at 1130, Until Discontinued, Apply behind the ear. 1.5 mg patch delivers 1 mg scopolamine over 3 days., PACU & Post-op * 1109 (Patch Applied - Provider: Aicha Del Valle, TIGRE) Medication Order/ lactated ringers infusion Intravenous, at 30 mL/hr, CONTINUOUS, Starting on Thu08/29/25 at 1100, Pre-op * 1047 (Started - Provider: Urban Painting RN) * 1211 (Paused - Provider: Priscilla Zhang APRN, KHURRAM - Comment: Switch to gravity) * 1212 (Started - Provider: Priscilla Zhang APRN, KHURRAM) * 1309 (Canceled Entry - Provider: Priscilla Zhang APRN, CRNA - Comment: Switch to gravity) * 1310 (Canceled Entry - Provider: Priscilla Zhang APRN, KHURRAM) * 1316 (Anesthesia Fluid - Provider: Priscilla Zhang APRN, KHURRAM) * 1318 (Canceled Entry - Provider: Priscilla Zhang APRN, KHURRAM) * 1324 (Canceled Entry - Provider: Priscilla Zhang APRN, CRNA - Comment: Switch to gravity) * 1325 (Rate/Dose Change - Provider: Priscilla Zhang APRN, KHURRAM) * 1606 (Due: Order Ending - Provider: Inpatient Template Epicmd - Comment: [Order ends at this time. Document the following action when infusion is complete: Stopped]) Medication Order/ dextrose 5 % infusion Intravenous, at 250 mL/hr, ONCE PRN, Other, Nausea, Starting on Thu08/29/25 at 1032, For 1 dose, Give if all other options have failed and patient does not have diabetes., PACU/Recovery fat emulsion 20 % infusion 187.9 mL(Linked Group 1) 187.9 mL (rounded from 187.875 mL = 3.75 mL/kg ?? 50.1 kg [place] weight), Intravenous, at 751.6 mL/hr, Q15MIN PRN, Administer over 15 Minutes, Other, Lipid Rescue for Local Anesthetic Systemic Toxicity (LAST): Start infusion doses after push bolus dose(s) given. Administer each infusion dose over 15minutes as directed by Attending or REGIONAL EDUCATION MANAGER/Code team for ongoing hemodynamic instability., Starting onT08/29/25 at 1034, Until Thu08/29/25 at 1606, For 3 doses, INFUSION to be started after bolus dose(s), hang bag of lipids and infuse per pump settings as ordered. Dose: 3.75mL/kg = 0.25mL/kg/min over 15 minutes. Max dose: 250 mL every 15 minutes (max rate on pump: 999 mL/hr). Lipid rescue order -give ONLY if directed by Attending or REGIONAL EDUCATION MANAGER/Code team., Pre-op fat emulsion 20 % infusion 75.2 mL(Linked Group 1) 75.2 mL (rounded from 75.15 mL = 1.5 mL/kg ?? 50.1 kg [place] weight), Intravenous, at 4,512 mL/hr, [id number], Administer over 1 Minutes, Other, Lipid rescue boluses for Local Anesthetic Systemic Toxicity (LAST): may repeat dose 5 minutes after initial bolus as directed by Attending or REGIONAL EDUCATION MANAGER/Code team for hemodynamic instability., Starting on Thu08/29/25 at 1034, Until Thu08/29/25 at 1606, For 2 doses, Lipid rescue boluses, may repeat dose 5 minutes after initial bolus as directed by Attending or REGIONAL EDUCATION MANAGER/Code team for hemodynamic instability. Draw up dose in 50 mL syringes and administer STAT. 1.5 mL/kg (IBW) IV x1 over 1 minute, may repeat x1 as directed. Max dose: 100 mL, Pre-op fentaNYL (SUBLIMAZE) injection 25-50 mcg 25-50 mcg, Intravenous, [id number], Pain, the immediate postop period when longer acting agent is desired, Starting on Thu08/29/25 at 1032, Until Thu08/29/25 at 1606, Use fentanyl as first line short acting agent for treatment of acute post operative pain. May use for breakthrough pain in conjunctionwith a longer acting agent (hydromorphone or morphine). Max cumulative dose: 250 mcg. Call anesthesia if additional or greater doses needed. For patients with a regional, spinal, or local anesthetic,may give for anticipated pain as the anesthetic wears off. Respiratory rate must be greater than 10to administer medications., PACU/Recovery fentaNYL (SUBLIMAZE) injection 25-50 mcg 25-50 mcg, Intravenous, [id number], Pain, Procedure, Starting on Thu08/29/25 at 1034, Until Thu08/29/25 at 1606, For 2 doses, As directed by anesthesiologist, Pre-op * 1110 (Given - Provider: Rajni Ovalle RN) HYDROmorphone (DILAUDID) injection 0.25 mg 0.25 mg, Intravenous, Q10MIN PRN, Pain, The immediate postop period when longer acting agent is desired, Starting on Thu08/29/25 at 1032, Until Thu08/29/25 at 1606, Use hydromorphone if fentanyl is not adequately managing pain. May use fentanyl for breakthrough pain in conjunction with hydromorphone dosing. Maximum cumulative dose is 4 mg in PACU, call anesthesia if additional or greater doses needed. For patients with a regional, spinal, or local anesthetic, may give for anticipated pain as the anesthetic wears off., PACU/Recovery meperidine (DEMEROL) injection 12.5 mg 12.5 mg, Intravenous, [id number], Shivering, Starting on Thu08/29/25 at 1032, Until Thu08/29/25 at 1606, For 2 doses, Maximum cumulative dose is 25 mg. Do not give to patients receiving MAO inhibitors (e.g. phenelzine (NARDIL), tranylcypromine (PARNATE), selegiline (ELDEPRYL))., PACU/Recovery midazolam (VERSED) injection 1-2 mg 1-2 mg, Intravenous, [id number], Sedation, Anxiety, Procedure, Starting on Thu08/29/25 at 1034, UntilThu08/29/25 at 1606, As directed by anesthesiologist MAX Dose 2mg, Pre-op * 1110 (Given - Provider: Rajni Ovalle RN) ondansetron (ZOFRAN) injection 4 mg 4 mg, Intravenous, Q4H PRN, Nausea, Vomiting, Starting on Thu08/29/25 at 1032, Until Thu08/29/25 [id number], If multiple medications are ordered for nausea or vomiting - administer in the following priority based on medications ordered, effectiveness and availability: ondansetron (ZOFRAN) > prochlorperazine (COMPAZINE) > diphenhydrAMINE (BENADRYL) > hydrOXYzine HCl (VISTARIL)> ePHEDrine > scopolamine (TRANSDERM-SCOP)., PACU/Recovery Order Group 1: fat emulsion 20 % infusion 75.2 mLJump to med 75.2 mL (rounded from 75.15 mL = 1.5 mL/kg ?? 50.1 kg [place] weight), Intravenous, at 4,512 mL/hr, [id number], Administer over 1 Minutes, Other, Lipid rescue boluses for Local Anesthetic Systemic Toxicity (LAST): may repeat dose 5 minutes after initial bolus as directed by Attending or REGIONAL EDUCATION MANAGER/Code team for hemodynamic instability., Starting on Thu08/29/25 at 1034, Until Thu08/29/25 at 1606, For 2 doses, Lipid rescue boluses, may repeat dose 5 minutes after initial bolus as directed by Attending or REGIONAL EDUCATION MANAGER/Code team for hemodynamic instability. Draw up dose in 50 mL syringes and administer STAT. 1.5 mL/kg (IBW) IV x1 over 1 minute, may repeat x1 as directed. Max dose: 100 mL, Pre-op And fat emulsion 20 % infusion 187.9 mLJump to med 187.9 mL (rounded from 187.875 mL = 3.75 mL/kg ?? 50.1 kg [place] weight), Intravenous, at 751.6 mL/hr, Q15MIN PRN, Administer over 15 Minutes, Other, Lipid Rescue for Local Anesthetic Systemic Toxicity (LAST): Start infusion doses after push bolus dose(s) given. Administer each infusion dose over 15minutes as directed by Attending or REGIONAL EDUCATION MANAGER/Code team for ongoing hemodynamic instability., Starting onT08/29/25 at 1034, Until Thu08/29/25 at 1606, For 3 doses, INFUSION to be started after bolus dose(s), hang bag of lipids and infuse per pump settings as ordered. Dose: 3.75mL/kg = 0.25mL/kg/min over 15 minutes. Max dose: 250 mL every 15 minutes (max rate on pump: 999 mL/hr). Lipid rescue order -give ONLY if directed by Attending or REGIONAL EDUCATION MANAGER/Code team., Pre-op documented in this encounter Care Teams Team MemberRelationshipSpecialtyStart DateEnd Date Deirdre Grant PA-C [address] [facility] [address] [place] [address] PCP - GeneralPhysician Fyxujzvef06/31/18documented as of this encounter
--- OUTSIDE RECORDS SUMMARY | 2025-08-29 10:15 | XMS_ITS | Encounter Summary ---
Author Organization [facility] Address [address] [place] [address] Care Team Providers Care Carpet Loom Fixer Name Role Phone Deirdre Grant PA-C Primary Care Provider Reason for Referral * (Routine) - IncompleteSpecialtyDiagnoses / ProceduresReferred By Contact Referred To Contact Procedures US Anesthesia Guided Block Fermin Baca MD [address] [place] [address] Phone: tel: fax: Referral IDStatusReasonStart DateExpiration DateVisits RequestedVisits [id number]/9/20253/ PUSHER Reason for Visit * Auth/CertSpecialtyDiagnoses / ProceduresReferred [...] forearm, right Referral IDStatusReasonStart DateExpiration DateVisits RequestedVisits [id number] Encounter Details DateTypeDepartmentCare Team (Latest Contact Info)Ztyfkxpthkv33/05/2025 10:15 AM POT PUSHER - 08/29/2025 2:06 PM CSTHospital Encounter [facility] [address] [place] [address] Bernard Lee MD [address] [facility] [place] [address] Other closed fracture of distal end of right ulna, initial encounter Discharge Disposition: Home Social History Tobacco UseTypesPacks/DayYears UsedDateSmoking Tobacco: NeverSmokeless Tobacco: NeverAlcohol UseStandard Drinks/WeekCommentsYes2 (1 standard drink = 0.6 oz pure alcohol)PHQ-2AnswerDate RecordedPHQ-2 Tesae97010/27/2024UDIT-CAnswerDate Recorded Q1: How often do you have a drink containing alcohol?Never08/28/2025verage Number of DrinksNot on file08/28/2025Frequency of Binge DrinkingNot on file 08/28/2025CommentsNoSex and Gender InformationValueDate RecordedSex Assigned at BirthNot on fileLegal DvtOvprtz70/10/2012 4:56 AM CDTGender Identity Not on fileSexual OrientationNot on fileOccupationIndustryJob Start DateJob End DateVFWNot on fileNot on fileNot on filedocumented as of this encounter Last Filed Vital Signs Vital SignReadingTime TakenCommentsBlood Bsrcfepo475/7508/29/2025 1:58 PM POT PUSHER Revxk251508/29/2025 1:58 PM IMJTkorytutjdz52.1 ??C (96.9 ??F)08/29/2025 1:27 PM CSTRespiratory Juup950410/30/2024 1:58 PM CSTOxygen Ifefdyfwrj39%08/29/2025 1:58 PM CSTInhaled Oxygen Concentration--Weight--Height--Body Mass Index--documented in this encounter Functional Status * Alcohol UseQuestionAnswerDate of AssessmentAuthorQ1: How often do you have a drink containing alcohol?Never08/28/2025 10:45 AM Mely Morrison RN documented as of this encounter Mental Status * Hand Body Die Maker/Ankle StrengthQuestionAnswerEntry DateAuthorHand Body Die Maker, Rightabsent 08/29/2025 1:58 PM Kailey Bobby RN * Cognitive/NeuroQuestionAnswerEntry DateAuthorLevel of Consciousnessalert 08/29/2025 1:27 PM Kailey Bobby RN documented in this encounter Discharge Instructions * Discharge Instructions* Bernard Lee MD - 08/29/2025 1:14 PM POT PUSHER Expectations after surgery: Pain, swelling, and bruising [...] of daily living are encouraged. Avoid heavy c developer and grasp activities and do not lift [...] Lee MD Hand & Upper Extremity Surgeon Trauma Counsellor: Please call [phone] for all surgery scheduling and administrative questions Hand Nurse: Please contact nurse triage for all medical related questions at [phone] PUSHER * Discharge Instr - Non RX Meds* Kailey Dang RN - 08/29/2025 1:39 PM POT PUSHER Discharge Information The following was provided to the patient - Instruction sets: Caring for yourself after surgery Collateral information: How to prevent and treat constipation after surgery Prescription Opioid Pain Medication Recover Well Understanding Pain Patient take-homes: Ice pack(s) Sling PUSHER documented in this encounter Medications at Time [...] 08/29/2025 12:00 AM CST NAME: FLACA PALACIO [facility]: [id number] OPERATIVE REPORT DATE OF SURGERY: 08/29/2025 : 1965 SURGEON: BERNARD LEE MD PREOPERATIVE DIAGNOSES: 1. Right distal ulnar shaft fracture. 2. Right forearm mass. POSTOPERATIVE DIAGNOSES: 1. Right distal ulnar shaft fracture. 2. Right forearm mass. PROCEDURES PERFORMED: 1. Right ulnar open reduction and internal fixation. 2. Right forearm mass excisional biopsy. VENEER TAPER: JOHNATHAN Gupta. ANESTHETIC: Block. ESTIMATED BLOOD LOSS: [...] disimpacted. Interposed soft tissue was removed. A [place] was brought in to use as a [...] room in stable condition. MD Peter FAYG/AQS /[phone] PUSHER documented in this encounter Plan of Treatment DateTypeDepartmentCare Team (Latest Contact Info)Tmpfehjbqdq84/20/2026 8:30 AM CSTAppointment [facility] [address] [place] [address] Bernard Lee MD [address] [place] [address] documented as of this encounter Procedures Procedure NamePriorityDate/TimeAssociated DiagnosisCommentsSURGICAL PATHOLOGY Bcczyss6408/29/2025 1:08 PM POT PUSHER Other closed fracture of distal end of right ulna, initial encounter Exc Arm/Elbow Les Sc = 3 Cm08/29/2025 12:01 PM POT PUSHER Other closed fracture of distal end of right ulna, initial encounter Open Tx Ulnar Shaft Fx W/Wo Fix08/29/2025 12:01 PM POT PUSHER Other closed fracture of distal end of right ulna, initial encounter Exc Raul Les Trnk Arm/Leg;2.1-3.0 Cm08/29/2025 12:01 PM POT PUSHER Other closed fracture of distal end of right ulna, initial encounter US ANESTHESIA GUIDED XLMFJTkwefyp92/09/2025 10:34 AM POT PUSHER documented in this encounter Results * Surgical Path (08/29/2025 1:08 PM POT PUSHER)ComponentValueRef RangeTest Method Analysis TimePerformed AtPathologist SignatureCase ReportSurgical Pathology ?Case: [id number] ? Authorizing Provider: ??Bernard Lee MD ? Collected: ? 08/29/2025 1308 ? Ordering Location: ? [facility] ?Received: ?08/29/2025 1318 ? Pathologist: ? Sven Millan MBBS ? Specimen: ?Forearm, right, right forearm mass ? 09/01/2025 12:45 PM [facility]ORYFINAL DIAGNOSISSoft tissue, forearm, right, excision: - Organizing hstqstac83/12/2025 12:45 PM [facility] at 1245 CSTClinical InformationOther closed fracture of distal end of right ulna, initial encounter 09/01/2025 12:45 PM [facility]ATORYMicroscopic Description Microscopic examination is performed.09/01/2025 12:45 PM [facility]ORATORYGross DescriptionA: The specimen is received in formalin and labeled with the patient's name and Forearm, right, rightforearm mass. The specimen consists of a 0.8 x 0.5 x 0.5 cm portion of mcmahan-yellow, focally hemorrhagic soft tissue. The specimen is bisected and entirely submitted in 1 block. AW 09/01/2025 12:45 PM [facility] LABORATORYEmbedded Derzvy5609/01/2025 12:45 PM [facility] LABORATORYSpecimen (Source)Anatomical Location / LateralityCollection Method / VolumeCollection TimeReceived TimeTissueENTIRE RIGHT FOREARM / Baydaiz4308/29/2025 1:08 PM CST08/29/2025 1:18 PM POT PUSHER Narrative Authorizing ProviderResult TypeResult StatusBernard STAPLETON PATHOLOGYFinal ResultPerforming OrganizationAddressCity/State/ZIP CodePhone Number [facility] CLIA: [id number] [address] * US Anesthesia Guided Block (08/29/2025 10:34 AM POT PUSHER)Anatomical Region LateralityModalityUltrasoundSpecimen (Source)Anatomical Location / Laterality Collection Method / VolumeCollection TimeReceived Time Narrative 08/29/2025 10:34 AM POT PUSHER If an Anesthesia block was performed please [...] mL = 3.75 mL/kg ?? 50.1 kg [place] weight), Intravenous, at 751.6 mL/hr, Q15MIN PRN, Administer over 15 Minutes, Other, Lipid Rescue for Local Anesthetic Systemic Toxicity (LAST): Start infusion doses after push bolus dose(s) given. Administer each infusion dose over 15minutes as directed by Attending or SILK SCREEN PRINTER/Code team for ongoing hemodynamic instability., Starting onTue [...] -give ONLY if directed by Attending or SILK SCREEN PRINTER/Code team., Pre-op fat emulsion 20 % infusion 75.2 mL 75.2 mL (rounded from 75.15 mL = 1.5 mL/kg ?? 50.1 kg [place] weight), Intravenous, at 4,512 mL/hr, [id number], Administer over 1 Minutes, Other, Lipid rescue boluses for Local Anesthetic Systemic Toxicity (LAST): may repeat dose 5 minutes after initial bolus as directed by Attending or SILK SCREEN PRINTER/Code team for hemodynamic instability., Starting on Thu08/29/25 at 1034, Until Thu08/29/25 at 1606, For 2 doses, Lipid rescue boluses, may repeat dose 5 minutes after initial bolus as directed by Attending or SILK SCREEN PRINTER/Code team for hemodynamic instability. Draw up dose in 50 mL syringes and administer STAT. 1.5 mL/kg (IBW) IV x1 over 1 minute, may repeat x1 as directed. Max dose: 100 mL, Pre-op fentaNYL (SUBLIMAZE) injection 25-50 mcg 25-50 mcg, Intravenous, H5SFXNFB, Pain, the immediate postop period when longer [...] (SUBLIMAZE) injection 25-50 mcg 25-50 mcg, Intravenous, F8NIZMKN, Pain, Procedure, Starting on Thu08/29/25 at 1034, [...] Starting on Thu08/29/25 at 1100, Pre-op Rate/Dose Xzdofj0608/29/2025 1:25 PM RIVYhjnhzh81/09/2025 12:12 PM CSTStarted 08/29/2025 10:47 AM CST30 mL/hr meperidine (DEMEROL) injection 12.5 mg 12.5 mg, Intravenous, [id number], Shivering, Starting on Thu08/29/25 at 1032, Until Thu08/29/25 at 1606, For 2 doses, Maximum cumulative dose is 25 mg. Do not give to patients receiving MAO inhibitors (e.g. phenelzine (NARDIL), tranylcypromine (PARNATE), selegiline (ELDEPRYL))., PACU/Recovery midazolam (VERSED) injection 1-2 mg 1-2 mg, Intravenous, [id number], Sedation, Anxiety, Procedure, Starting on Thu08/29/25 at 1034, UntilTue 08/29/25 at 1606, As directed by anesthesiologist MAX Dose 2mg, Pre-op Given08/29/2025 11:10 AM CST1 mg ondansetron (ZOFRAN) injection 4 mg 4 mg, Intravenous, Q4H PRN, Nausea, Vomiting, Starting on Thu08/29/25 at 1032, Until Thu08/29/25 ri2990, If multiple medications are ordered for nausea [...] over 3 days., PACU & Post-op Patch Mnleaou7008/29/2025 11:09 AM CST1 PatchRight Elbowdocumented in this encounter Active and Recently Administered Medications Times are shown in POT PUSHER.Medication Order ceFAZolin (ANCEF) 2 g in sodium [...] mL = 3.75 mL/kg ?? 50.1 kg [place] weight), Intravenous, at 751.6 mL/hr, Q15MIN PRN, Administer over 15 Minutes, Other, Lipid Rescue for Local Anesthetic Systemic Toxicity (LAST): Start infusion doses after push bolus dose(s) given. Administer each infusion dose over 15minutes as directed by Attending or SILK SCREEN PRINTER/Code team for ongoing hemodynamic instability., Starting onT08/29/25 [...] -give ONLY if directed by Attending or SILK SCREEN PRINTER/Code team., Pre-op fat emulsion 20 % infusion 75.2 mL(Linked Group 1) 75.2 mL (rounded from 75.15 mL = 1.5 mL/kg ?? 50.1 kg [place] weight), Intravenous, at 4,512 mL/hr, E1BEVAPB, Administer over 1 Minutes, Other, Lipid rescue boluses for Local Anesthetic Systemic Toxicity (LAST): may repeat dose 5 minutes after initial bolus as directed by Attending or SILK SCREEN PRINTER/Code team for hemodynamic instability., Starting on Thu08/29/25 at 1034, Until Thu08/29/25 at 1606, For 2 doses, Lipid rescue boluses, may repeat dose 5 minutes after initial bolus as directed by Attending or SILK SCREEN PRINTER/Code team for hemodynamic instability. Draw up dose in 50 mL syringes and administer STAT. 1.5 mL/kg (IBW) IV x1 over 1 minute, may repeat x1 as directed. Max dose: 100 mL, Pre-op fentaNYL (SUBLIMAZE) injection 25-50 mcg 25-50 mcg, Intravenous, L7FAACCJ, Pain, the immediate postop period when longer [...] (SUBLIMAZE) injection 25-50 mcg 25-50 mcg, Intravenous, E7PXEPVW, Pain, Procedure, Starting on Thu08/29/25 at 1034, [...] (DEMEROL) injection 12.5 mg 12.5 mg, Intravenous, H0SOFEDP, Shivering, Starting on Thu08/29/25 at 1032, Until Thu08/29/25 at 1606, For 2 doses, Maximum cumulative dose is 25 mg. Do not give to patients receiving MAO inhibitors (e.g. phenelzine (NARDIL), tranylcypromine (PARNATE), selegiline (ELDEPRYL))., PACU/Recovery midazolam (VERSED) injection 1-2 mg 1-2 mg, Intravenous, C3EWAXCO, Sedation, Anxiety, Procedure, Starting on Thu08/29/25 at 1034, UntilThu08/29/25 at 1606, As directed by anesthesiologist MAX Dose 2mg, Pre-op * 1110 (Given - Provider: Rajni Ovalle RN) ondansetron (ZOFRAN) injection 4 mg 4 mg, Intravenous, Q4H PRN, Nausea, Vomiting, Starting on Thu08/29/25 at 1032, Until Thu08/29/25 vy0000, If multiple medications are ordered for nausea or vomiting - administer in the following priority based on medications ordered, effectiveness and availability: ondansetron (ZOFRAN) > prochlorperazine (COMPAZINE) > diphenhydrAMINE (BENADRYL) > hydrOXYzine HCl (VISTARIL)> ePHEDrine > scopolamine (TRANSDERM-SCOP)., PACU/Recovery Order Group 1: fat emulsion 20 % infusion 75.2 mLJump to med 75.2 mL (rounded from 75.15 mL = 1.5 mL/kg ?? 50.1 kg [place] weight), Intravenous, at 4,512 mL/hr, [id number], Administer over 1 Minutes, Other, Lipid rescue boluses for Local Anesthetic Systemic Toxicity (LAST): may repeat dose 5 minutes after initial bolus as directed by Attending or SILK SCREEN PRINTER/Code team for hemodynamic instability., Starting on Thu08/29/25 at 1034, Until Thu08/29/25 at 1606, For 2 doses, Lipid rescue boluses, may repeat dose 5 minutes after initial bolus as directed by Attending or SILK SCREEN PRINTER/Code team for hemodynamic instability. Draw up dose in 50 mL syringes and administer STAT. 1.5 mL/kg (IBW) IV x1 over 1 minute, may repeat x1 as directed. Max dose: 100 mL, Pre-op And fat emulsion 20 % infusion 187.9 mLJump to med 187.9 mL (rounded from 187.875 mL = 3.75 mL/kg ?? 50.1 kg [place] weight), Intravenous, at 751.6 mL/hr, Q15MIN PRN, Administer over 15 Minutes, Other, Lipid Rescue for Local Anesthetic Systemic Toxicity (LAST): Start infusion doses after push bolus dose(s) given. Administer each infusion dose over 15minutes as directed by Attending or SILK SCREEN PRINTER/Code team for ongoing hemodynamic instability., Starting onT08/29/25 [...] -give ONLY if directed by Attending or SILK SCREEN PRINTER/Code team., Pre-op documented in this encounter Care Teams Team MemberRelationshipSpecialtyStart DateEnd Date Deirdre Grant PA-C [address] [facility] [address] [address] PCP - GeneralPhysician Ymgdwckzh01/31/18documented as of this encounter
--- OUTSIDE RECORDS SUMMARY | 2025-08-29 10:35 | XMS_ITS | Encounter Summary ---
Author Organization [facility] Address [address] [place] [address] Care Team Providers Care Pick Pulling Machine Operator Name Role Phone Deirdre Grant PA-C Primary Care Provider Reason for Visit * (Routine) - IncompleteSpecialtyDiagnoses / ProceduresReferred By Contact Referred To Contact Procedures US Anesthesia Guided Fermin Jones MD [address] [place] [address] Phone: tel: fax: Referral IDStatusReasonStart DateExpiration DateVisits RequestedVisits [id number]/9/38355/ Encounter Details DateTypeDepartmentCare Team (Latest Contact Info)Enwfeszygks03/09/2025 10:35 AM CSTAncillary Procedure Radiology PACS [address] [place] [address] Social History Tobacco UseTypesPacks/DayYears UsedDateSmoking Tobacco: NeverSmokeless Tobacco: NeverAlcohol UseStandard Drinks/WeekCommentsYes2 (1 standard drink = 0.6 oz pure alcohol)PHQ-2AnswerDate RecordedPHQ-2 Fogoo05310/27/2024UDIT-CAnswerDate Recorded Q1: How often do you have a drink containing alcohol?Never08/28/2025verage Number of DrinksNot on file08/28/2025Frequency of Binge DrinkingNot on file 08/28/2025CommentsNoSex and Gender InformationValueDate RecordedSex Assigned at BirthNot on fileLegal RqqIjdqep60/10/2012 4:56 AM CDTGender Identity Not on fileSexual OrientationNot on fileOccupationIndustryJob Start DateJob End DateVFWNot on fileNot on fileNot on filedocumented as of this encounter Plan of Treatment DateTypeDepartmentCare Team (Latest Contact Info)Crztajrzcvq27/20/2026 8:30 AM CSTAppointment [facility] [address] [place] [address] [place] [address] Nereida Butcher MD [address] [facility] [place] [id number] documented as of this encounter Procedures Procedure NamePriorityDate/TimeAssociated DiagnosisCommentsUS ANESTHESIA GUIDED YKXMIFijuvoe04/09/2025 10:34 AM BULLET CASTING OPERATOR documented in this encounter Results * US Anesthesia Guided Block (08/29/2025 10:34 AM BULLET CASTING OPERATOR)Anatomical Region LateralityModalityUltrasoundSpecimen (Source)Anatomical Location / Laterality Collection Method / VolumeCollection TimeReceived Time Narrative 08/29/2025 10:34 AM BULLET CASTING OPERATOR If an Anesthesia block was performed please see the Anesthesia encounter for documentation. ??This procedure was performed and interpreted by the performing provider. ?? Authorizing ProviderResult TypeResult StatusMichael P Phuong MDRAD USFinal Result documented in this encounter Visit Diagnoses Not on filedocumented in this encounter Care Teams Team MemberRelationshipSpecialtyStart DateEnd Date Deirdre Grant PA-C [address] [facility] [address] [place] [address] PCP - GeneralPhysician Judbunlqy92/31/18documented as of this encounter
--- OUTSIDE RECORDS SUMMARY | 2025-08-29 10:35 | XMS_ITS | Encounter Summary ---
Author Organization [facility] Address [address] [place] [address] Care Team Providers Care Credit And Loan Collections Supervisor Name Role Phone Deirdre Grant PA-C Primary Care Provider Reason for Visit * (Routine) - IncompleteSpecialtyDiagnoses / ProceduresReferred By Contact Referred To Contact Procedures US Anesthesia Guided Fermin Jones MD [address] [place] [address] Phone: tel: fax: Referral IDStatusReasonStart DateExpiration DateVisits RequestedVisits [id number]/9/14834/ Encounter Details DateTypeDepartmentCare Team (Latest Contact Info)Lgjvdymaijj94/09/2025 10:35 AM CSTAncillary Procedure Radiology PACS [address] [place] [address] Social History Tobacco UseTypesPacks/DayYears UsedDateSmoking Tobacco: NeverSmokeless Tobacco: NeverAlcohol UseStandard Drinks/WeekCommentsYes2 (1 standard drink = 0.6 oz pure alcohol)PHQ-2AnswerDate RecordedPHQ-2 Onrxc97310/27/2024UDIT-CAnswerDate Recorded Q1: How often do you have a drink containing alcohol?Never08/28/2025verage Number of DrinksNot on file08/28/2025Frequency of Binge DrinkingNot on file 08/28/2025CommentsNoSex and Gender InformationValueDate RecordedSex Assigned at BirthNot on fileLegal LbiYgosvg18/10/2012 4:56 AM CDTGender Identity Not on fileSexual OrientationNot on fileOccupationIndustryJob Start DateJob End DateVFWNot on fileNot on fileNot on filedocumented as of this encounter Plan of Treatment DateTypeDepartmentCare Team (Latest Contact Info)Kbfmvirzthf77/20/2026 8:30 AM CSTAppointment [facility] [address] [place] [address] [place] [address] Nereida Butcher MD [address] [facility] [place] [phone] documented as of this encounter Procedures Procedure NamePriorityDate/TimeAssociated DiagnosisCommentsUS ANESTHESIA GUIDED LVJASCnmwjyf98/09/2025 10:34 AM COMPOSITE ENGINEER documented in this encounter Results * US Anesthesia Guided Block (08/29/2025 10:34 AM COMPOSITE ENGINEER)Anatomical Region LateralityModalityUltrasoundSpecimen (Source)Anatomical Location / Laterality Collection Method / VolumeCollection TimeReceived Time Narrative 08/29/2025 10:34 AM COMPOSITE ENGINEER If an Anesthesia block was performed please see the Anesthesia encounter for documentation. ??This procedure was performed and interpreted by the performing provider. ?? Authorizing ProviderResult TypeResult StatusMichael P Phuong MDRAD USFinal Result documented in this encounter Visit Diagnoses Not on filedocumented in this encounter Care Teams Team MemberRelationshipSpecialtyStart DateEnd Date Deirdre Grant PA-C [address] [facility] [address] [place] [address] PCP - GeneralPhysician Bgkputuhc20/31/18documented as of this encounter
--- OUTSIDE RECORDS SUMMARY | 2025-08-29 11:45 | XMS_ITS | Encounter Summary ---
[facility] Address [address] [place] [address] Care Team Providers Care Production Specialist Name Role Phone Deirdre Grant PA-C Primary Care Provider Reason for Visit * Auth/CertSpecialtyDiagnoses / ProceduresReferred [...] forearm, right Referral IDStatusReasonStart DateExpiration DateVisits RequestedVisits [id number] Encounter Details DateTypeDepartmentCare Team (Latest Contact Info)Pkdhxrgvsst79/09/2025 11:45 AM RADIOLOGIC TECHNOLOGIST MAMMOGRAM - 08/29/2025 1:25 PM CSTSurgery [facility] [address] [place] [address] Bernard Lee MD [address] [facility] [place] [address] Open reduction internal fixation distal ulna fracture Social History Tobacco UseTypesPacks/DayYears UsedDateSmoking Tobacco: NeverSmokeless Tobacco: NeverAlcohol UseStandard Drinks/WeekCommentsYes2 (1 standard drink = 0.6 oz pure alcohol)PHQ-2AnswerDate RecordedPHQ-2 Fnoqe77610/27/2024UDIT-CAnswerDate Recorded Q1: How often do you have a drink containing alcohol?Never08/28/2025verage Number of DrinksNot on file08/28/2025Frequency of Binge DrinkingNot on file 08/28/2025CommentsNoSex and Gender InformationValueDate RecordedSex Assigned at BirthNot on fileLegal PjhEaisoy49/10/2012 4:56 AM CDTGender Identity Not on fileSexual OrientationNot on fileOccupationIndustryJob Start DateJob End DateVFWNot on fileNot on fileNot on filedocumented as of this encounter Last Filed Vital Signs Vital SignReadingTime TakenCommentsBlood Kocvfukm914/8208/29/2025 11:25 AM RADIOLOGIC TECHNOLOGIST MAMMOGRAM Mhbsn781308/29/2025 11:25 AM EXULejzsalegvn09.8 ??C (98.2 ??F)08/29/2025 10:46 AM CSTRespiratory Bmmz271910/30/2024 11:25 AM CSTOxygen Ktmlzvlies60%08/29/2025 11:25 AM CSTInhaled Oxygen Concentration--Weight--Height--Body Mass Index--documented in this encounter Functional Status * Alcohol UseQuestionAnswerDate of AssessmentAuthorQ1: How often do you have a drink containing alcohol?Never08/28/2025 10:45 AM Mely Morrison RN documented as of this encounter Mental Status * Hand Wire Inserter/Ankle StrengthQuestionAnswerEntry DateAuthorHand Wire Inserter, Rightabsent 08/29/2025 1:58 PM Kailey Bobby RN * Cognitive/NeuroQuestionAnswerEntry DateAuthorLevel of Consciousnessalert 08/29/2025 1:27 PM Kailey Bobby RN documented in this encounter Discharge Instructions * Discharge Instructions* Bernard Lee MD - 08/29/2025 1:14 PM RADIOLOGIC TECHNOLOGIST MAMMOGRAM Expectations after surgery: Pain, swelling, and bruising [...] of daily living are encouraged. Avoid heavy health teacher and grasp activities and do not lift [...] Lee MD Hand & Upper Extremity Surgeon Rent Control Office Manager: Please call [phone] for all surgery scheduling and administrative questions Hand Nurse: Please contact nurse triage for all medical related questions at [phone] OLOGIC TECHNOLOGIST MAMMOGRAM * Discharge Instr - Non RX Meds* Kailey Dang RN - 08/29/2025 1:39 PM RADIOLOGIC TECHNOLOGIST MAMMOGRAM Discharge Information The following was provided to the patient - Instruction sets: Caring for yourself after surgery Collateral information: How to prevent and treat constipation after surgery Prescription Opioid Pain Medication Recover Well Understanding Pain Patient take-homes: Ice pack(s) Sling OLOGIC TECHNOLOGIST MAMMOGRAM documented in this encounter Medications at Time [...] 08/29/2025 12:00 AM CST NAME: FLACA PALACIO CSN: [id number] OPERATIVE REPORT DATE OF SURGERY: 08/29/2025 : 1965 SURGEON: BERNARD LEE MD PREOPERATIVE DIAGNOSES: 1. Right distal ulnar shaft fracture. 2. Right forearm mass. POSTOPERATIVE DIAGNOSES: 1. Right distal ulnar shaft fracture. 2. Right forearm mass. PROCEDURES PERFORMED: 1. Right ulnar open reduction and internal fixation. 2. Right forearm mass excisional biopsy. BLACKTOP PAVER OPERATOR: JOHNATHAN Gupta. ANESTHETIC: Block. ESTIMATED BLOOD [...] disimpacted. Interposed soft tissue was removed. A Long Lane was brought in to use as a [...] the skin and subcutaneous tissue. It was thenrealized that the mass itself was actually a little further down. It looked like old clotted hematoma. The mass was sent for permanent pathological analysis. The area that had been ellipsed out on the skin was discarded. Tourniquet was deflated. Copious irrigation was performed. Skin was closed with interrupted nylon stitches. A sterile dressing was applied. [...] returned to recovery room in stable condition. BERNARD LEE MD YG/AQS /[id number] OLOGIC TECHNOLOGIST MAMMOGRAM documented in this encounter Plan of Treatment DateTypeDepartmentCare Team (Latest Contact Info)Kijhipzrtld27/20/2026 8:30 AM CSTAppointment [facility] [address] [place] [id number] Bernard Lee MD [address] [place] [address] documented as of this encounter Procedures Procedure NamePriorityDate/TimeAssociated DiagnosisCommentsSURGICAL PATHOLOGY Vfmsfah6108/29/2025 1:08 PM RADIOLOGIC TECHNOLOGIST MAMMOGRAM Other closed fracture of distal end of right ulna, initial encounter Exc Arm/Elbow Les Sc = 3 Cm08/29/2025 12:01 PM RADIOLOGIC TECHNOLOGIST MAMMOGRAM Other closed fracture of distal end of right ulna, initial encounter Open Tx Ulnar Shaft Fx W/Wo Fix08/29/2025 12:01 PM RADIOLOGIC TECHNOLOGIST MAMMOGRAM Other closed fracture of distal end of right ulna, initial encounter Exc Raul Les Trnk Arm/Leg;2.1-3.0 Cm08/29/2025 12:01 PM RADIOLOGIC TECHNOLOGIST MAMMOGRAM Other closed fracture of distal end of right ulna, initial encounter US ANESTHESIA GUIDED SNZWZLjsttty90/09/2025 10:34 AM RADIOLOGIC TECHNOLOGIST MAMMOGRAM documented in this encounter Results * Surgical Path (08/29/2025 1:08 PM RADIOLOGIC TECHNOLOGIST MAMMOGRAM)ComponentValueRef RangeTest Method Analysis TimePerformed AtPathologist SignatureCase ReportSurgical Pathology ?Case: [id number] ? Authorizing Provider: ??Bernard Lee MD ? Collected: ? 08/29/2025 1308 ? Ordering Location: ? [facility] ?Received: ?08/29/2025 1318 ? Pathologist: ? Sven Millan MBBS ? Specimen: ?Forearm, right, right forearm mass ? 09/01/2025 12:45 PM [facility]ATORYFINAL DIAGNOSISSoft tissue, forearm, right, excision: - Organizing pxfyuuax62/12/2025 12:45 PM [facility] at 1245 CSTClinical InformationOther closed fracture of distal end of right ulna, initial encounter 09/01/2025 12:45 PM [facility] LABORATORYMicroscopic Description Microscopic examination is performed.09/01/2025 12:45 PM [facility] LABORATORYGross DescriptionA: The specimen is received in formalin and labeled with the patient's name and Forearm, right, rightforearm mass. The specimen consists of a 0.8 x 0.5 x 0.5 cm portion of mcmahan-yellow, focally hemorrhagic soft tissue. The specimen is bisected and entirely submitted in 1 block. AW 09/01/2025 12:45 PM [facility]ORATORYEmbedded Efiwiq7509/01/2025 12:45 PM [facility] LABORATORYSpecimen (Source)Anatomical Location / LateralityCollection Method / VolumeCollection TimeReceived TimeTissueENTIRE RIGHT FOREARM / Vkajqyb2208/29/2025 1:08 PM CST08/29/2025 1:18 PM RADIOLOGIC TECHNOLOGIST MAMMOGRAM Narrative Authorizing ProviderResult TypeResult StatusBernard STAPLETON PATHOLOGYFinal ResultPerforming OrganizationAddressCity/State/ZIP CodePhone Number [facility] CLIA: [id number] [address] [place] * [place] Anesthesia Guided Block (08/29/2025 10:34 AM RADIOLOGIC TECHNOLOGIST MAMMOGRAM)Anatomical Region LateralityModalityUltrasoundSpecimen (Source)Anatomical Location / Laterality Collection Method / VolumeCollection TimeReceived Time Narrative 08/29/2025 10:34 AM RADIOLOGIC TECHNOLOGIST MAMMOGRAM If an Anesthesia block was performed please see the Anesthesia encounter for documentation. ??This procedure was performed and interpreted by the performing provider. ?? Authorizing ProviderResult TypeResult StatusFermin Baca MDRAD USFinal Result documented in this encounter Visit Diagnoses Diagnosis Closed fracture of lower end of right ulna- Primary Closed fracture of distal end of ulna (alone) Other closed fracture of distal end of right ulna, initial encounter Other closed fracture of distal [...] mL = 3.75 mL/kg ?? 50.1 kg [place] weight), Intravenous, at 751.6 mL/hr, Q15MIN PRN, Administer over 15 Minutes, Other, Lipid Rescue for Local Anesthetic Systemic Toxicity (LAST): Start infusion doses after push bolus dose(s) given. Administer each infusion dose over 15minutes as directed by Attending or MONOMER RECOVERY OPERATOR/Code team for ongoing hemodynamic instability., Starting onTue [...] -give ONLY if directed by Attending or MONOMER RECOVERY OPERATOR/Code team., Pre-op fat emulsion 20 % infusion 75.2 mL 75.2 mL (rounded from 75.15 mL = 1.5 mL/kg ?? 50.1 kg [place] weight), Intravenous, at 4,512 mL/hr, [id number], Administer over 1 Minutes, Other, Lipid rescue boluses for Local Anesthetic Systemic Toxicity (LAST): may repeat dose 5 minutes after initial bolus as directed by Attending or MONOMER RECOVERY OPERATOR/Code team for hemodynamic instability., Starting on Thu08/29/25 at 1034, Until Thu08/29/25 at 1606, For 2 doses, Lipid rescue boluses, may repeat dose 5 minutes after initial bolus as directed by Attending or MONOMER RECOVERY OPERATOR/Code team for hemodynamic instability. Draw up dose in 50 mL syringes and administer STAT. 1.5 mL/kg (IBW) IV x1 over 1 minute, may repeat x1 as directed. Max dose: 100 mL, Pre-op fentaNYL (SUBLIMAZE) injection 25-50 mcg 25-50 mcg, Intravenous, [id number], Pain, the immediate postop period when longer [...] (SUBLIMAZE) injection 25-50 mcg 25-50 mcg, Intravenous, D4HGCPLZ, Pain, Procedure, Starting on Thu08/29/25 at 1034, [...] Starting on Thu08/29/25 at 1100, Pre-op Rate/Dose Pmlymf2308/29/2025 1:25 PM JXYYhbwuma35/09/2025 12:12 PM CSTStarted 08/29/2025 10:47 AM CST30 mL/hr meperidine (DEMEROL) injection 12.5 mg 12.5 mg, Intravenous, M3UIVOEH, Shivering, Starting on Thu08/29/25 at 1032, Until Thu08/29/25 at 1606, For 2 doses, Maximum cumulative dose is 25 mg. Do not give to patients receiving MAO inhibitors (e.g. phenelzine (NARDIL), tranylcypromine (PARNATE), selegiline (ELDEPRYL))., PACU/Recovery midazolam (VERSED) injection 1-2 mg 1-2 mg, Intravenous, K0NQPXGS, Sedation, Anxiety, Procedure, Starting on Thu08/29/25 at 1034, UntilTue 08/29/25 at 1606, As directed by anesthesiologist MAX Dose 2mg, Pre-op Given08/29/2025 11:10 AM CST1 mg ondansetron (ZOFRAN) injection 4 mg 4 mg, Intravenous, Q4H PRN, Nausea, Vomiting, Starting on Thu08/29/25 at 1032, Until Thu08/29/25 [id number], If multiple medications are ordered for nausea [...] over 3 days., PACU & Post-op Patch Xjcarut7208/29/2025 11:09 AM CST1 PatchRight Elbowdocumented in this encounter Active and Recently Administered Medications Times are shown in RADIOLOGIC TECHNOLOGIST MAMMOGRAM.Medication Order ceFAZolin (ANCEF) 2 g in sodium [...] 1219 (Started - Provider: Lexis Mujica APRN, MOLD STACKER) scopolamine (TRANSDERM-SCOP) 1 mg/72 hours 1 Patch 1 Patch, Transdermal, Q72H, Administer over 72 Hours, First dose on Thu08/29/25 at 1130, Until Discontinued, Apply behind the ear. 1.5 mg patch delivers 1 mg scopolamine over 3 days., PACU & Post-op * 1109 (Patch Applied - Provider: Aicha Del Valle RN) Medication Order/ lactated ringers infusion Intravenous, at [...] mL = 3.75 mL/kg ?? 50.1 kg [place] weight), Intravenous, at 751.6 mL/hr, Q15MIN PRN, Administer over 15 Minutes, Other, Lipid Rescue for Local Anesthetic Systemic Toxicity (LAST): Start infusion doses after push bolus dose(s) given. Administer each infusion dose over 15minutes as directed by Attending or MONOMER RECOVERY OPERATOR/Code team for ongoing hemodynamic instability., Starting onTue [...] -give ONLY if directed by Attending or MONOMER RECOVERY OPERATOR/Code team., Pre-op fat emulsion 20 % infusion 75.2 mL(Linked Group 1) 75.2 mL (rounded from 75.15 mL = 1.5 mL/kg ?? 50.1 kg [place] weight), Intravenous, at 4,512 mL/hr, O1IIFARL, Administer over 1 Minutes, Other, Lipid rescue boluses for Local Anesthetic Systemic Toxicity (LAST): may repeat dose 5 minutes after initial bolus as directed by Attending or MONOMER RECOVERY OPERATOR/Code team for hemodynamic instability., Starting on Thu08/29/25 at 1034, Until Thu08/29/25 at 1606, For 2 doses, Lipid rescue boluses, may repeat dose 5 minutes after initial bolus as directed by Attending or MONOMER RECOVERY OPERATOR/Code team for hemodynamic instability. Draw up dose in 50 mL syringes and administer STAT. 1.5 mL/kg (IBW) IV x1 over 1 minute, may repeat x1 as directed. Max dose: 100 mL, Pre-op fentaNYL (SUBLIMAZE) injection 25-50 mcg 25-50 mcg, Intravenous, U4KKERES, Pain, the immediate postop period when longer [...] (SUBLIMAZE) injection 25-50 mcg 25-50 mcg, Intravenous, [id number], Pain, Procedure, Starting on Thu08/29/25 at 1034, [...] (DEMEROL) injection 12.5 mg 12.5 mg, Intravenous, [id number], Shivering, Starting on Thu08/29/25 at 1032, Until Thu08/29/25 at 1606, For 2 doses, Maximum cumulative dose is 25 mg. Do not give to patients receiving MAO inhibitors (e.g. phenelzine (NARDIL), tranylcypromine (PARNATE), selegiline (ELDEPRYL))., PACU/Recovery midazolam (VERSED) injection 1-2 mg 1-2 mg, Intravenous, B2QHCVQG, Sedation, Anxiety, Procedure, Starting on Thu08/29/25 at 1034, UntilThu08/29/25 at 1606, As directed by anesthesiologist MAX Dose 2mg, Pre-op * 1110 (Given - Provider: Rajni Ovalle RN) ondansetron (ZOFRAN) injection 4 mg 4 mg, Intravenous, Q4H PRN, Nausea, Vomiting, Starting on Thu08/29/25 at 1032, Until Thu08/29/25 [id number], If multiple medications are ordered for nausea or vomiting - administer in the following priority based on medications ordered, effectiveness and availability: ondansetron (ZOFRAN) > prochlorperazine (COMPAZINE) > diphenhydrAMINE (BENADRYL) > hydrOXYzine HCl (VISTARIL)> ePHEDrine > scopolamine (TRANSDERM-SCOP)., PACU/Recovery Order Group 1: fat emulsion 20 % infusion 75.2 mLJump to med 75.2 mL (rounded from 75.15 mL = 1.5 mL/kg ?? 50.1 kg [place] weight), Intravenous, at 4,512 mL/hr, [id number], Administer over 1 Minutes, Other, Lipid rescue boluses for Local Anesthetic Systemic Toxicity (LAST): may repeat dose 5 minutes after initial bolus as directed by Attending or MONOMER RECOVERY OPERATOR/Code team for hemodynamic instability., Starting on Thu08/29/25 at 1034, Until Thu08/29/25 at 1606, For 2 doses, Lipid rescue boluses, may repeat dose 5 minutes after initial bolus as directed by Attending or MONOMER RECOVERY OPERATOR/Code team for hemodynamic instability. Draw up dose in 50 mL syringes and administer STAT. 1.5 mL/kg (IBW) IV x1 over 1 minute, may repeat x1 as directed. Max dose: 100 mL, Pre-op And fat emulsion 20 % infusion 187.9 mLJump to med 187.9 mL (rounded from 187.875 mL = 3.75 mL/kg ?? 50.1 kg [place] weight), Intravenous, at 751.6 mL/hr, Q15MIN PRN, Administer over 15 Minutes, Other, Lipid Rescue for Local Anesthetic Systemic Toxicity (LAST): Start infusion doses after push bolus dose(s) given. Administer each infusion dose over 15minutes as directed by Attending or MONOMER RECOVERY OPERATOR/Code team for ongoing hemodynamic instability., Starting onT08/29/25 [...] -give ONLY if directed by Attending or MONOMER RECOVERY OPERATOR/Code team., Pre-op documented in this encounter Care Teams Team MemberRelationshipSpecialtyStart DateEnd Date Deirdre Grant PA-C [address] [facility] [address] [place] [address] PCP - GeneralPhysician Mstkhdaio31/31/18documented as of this encounter
--- OUTSIDE RECORDS SUMMARY | 2025-08-29 11:45 | XMS_ITS | Encounter Summary ---
[facility] Organization [facility] Address [address] [place] [address] Care Team Providers Care Volunteer Fire Fighter Name Role Phone Deirdre Grant PA-C Primary [...] forearm, right Referral IDStatusReasonStart DateExpiration DateVisits RequestedVisits [id number] Encounter Details DateTypeDepartmentCare Team (Latest Contact Info)Jeooodxrglv58/09/2025 11:45 AM REPEATER OPERATOR - 08/29/2025 1:25 PM CSTSurgery [facility] [address] [facility] [place] [address] Bernard Lee MD [address] [facility] [place] [address] Open reduction internal fixation distal ulna fracture Social History Tobacco UseTypesPacks/DayYears UsedDateSmoking Tobacco: NeverSmokeless Tobacco: NeverAlcohol UseStandard Drinks/WeekCommentsYes2 (1 standard drink = 0.6 oz pure alcohol)PHQ-2AnswerDate RecordedPHQ-2 Fibkl91710/27/2024UDIT-CAnswerDate Recorded Q1: How often do you have a drink containing alcohol?Never08/28/2025verage Number of DrinksNot on file08/28/2025Frequency of Binge DrinkingNot on file 08/28/2025CommentsNoSex and Gender InformationValueDate RecordedSex Assigned at BirthNot on fileLegal QioClubap63/10/2012 4:56 AM CDTGender Identity Not on fileSexual OrientationNot on fileOccupationIndustryJob Start DateJob End DateVFWNot on fileNot on fileNot on filedocumented as of this encounter Last Filed Vital Signs Vital SignReadingTime TakenCommentsBlood Cugtwbcj802/8208/29/2025 11:25 AM REPEATER OPERATOR Efdjh445308/29/2025 11:25 AM MOLPkftavmyosb03.8 ??C (98.2 ??F)08/29/2025 10:46 AM CSTRespiratory Gjyk504810/30/2024 11:25 AM CSTOxygen Qcrbbiryjb72%08/29/2025 11:25 AM CSTInhaled Oxygen Concentration--Weight--Height--Body Mass Index--documented in this encounter Functional Status * Alcohol UseQuestionAnswerDate of AssessmentAuthorQ1: How often do you have a drink containing alcohol?Never08/28/2025 10:45 AM Mely Morrison RN documented as of this encounter Mental Status * Hand Industrial Aerial Installer/Ankle StrengthQuestionAnswerEntry DateAuthorHand Industrial Aerial Installer, Rightabsent 08/29/2025 1:58 PM Kailey Bobby RN * Cognitive/NeuroQuestionAnswerEntry DateAuthorLevel of Consciousnessalert 08/29/2025 1:27 PM Kailey Bobby RN documented in this encounter Discharge Instructions * Discharge Instructions* Bernard Lee MD - 08/29/2025 1:14 PM REPEATER OPERATOR Expectations after surgery: Pain, swelling, and bruising [...] of daily living are encouraged. Avoid heavy storm window installer and grasp activities and do not lift [...] Lee MD Hand & Upper Extremity Surgeon Cellular Tower Climber: Please call [phone] for all surgery scheduling and administrative questions Hand Nurse: Please contact nurse triage for all medical related questions at [phone] ATER OPERATOR * Discharge Instr - Non RX Meds* Kailey Dang RN - 08/29/2025 1:39 PM REPEATER OPERATOR Discharge Information The following was provided to the patient - Instruction sets: Caring for yourself after surgery Collateral information: How to prevent and treat constipation after surgery Prescription Opioid Pain Medication Recover Well Understanding Pain Patient take-homes: Ice pack(s) Sling ATER OPERATOR documented in this encounter Medications at Time [...] 12:00 AM CST NAME: FLACA PALACIO CSN: [id number] OPERATIVE REPORT DATE OF SURGERY: 08/29/2025 : 1965 SURGEON: BERNARD LEE MD PREOPERATIVE DIAGNOSES: 1. Right distal ulnar shaft fracture. 2. Right forearm mass. POSTOPERATIVE DIAGNOSES: 1. Right distal ulnar shaft fracture. 2. Right forearm mass. PROCEDURES PERFORMED: 1. Right ulnar open reduction and internal fixation. 2. Right forearm mass excisional biopsy. COOKING CASING AND DRYING SUPERVISOR: JOHNATHAN Gupta. ANESTHETIC: Block. ESTIMATED BLOOD LOSS: [...] disimpacted. Interposed soft tissue was removed. A Gilboa was brought in to use as a [...] in stable condition. BERNARD LEE MD YG/AQS /[id number] ATER OPERATOR documented in this encounter Plan of Treatment DateTypeDepartmentCare Team (Latest Contact Info)Ucpoarwflcj20/20/2026 8:30 AM CSTAppointment [facility] [address] [place] [address] Bernard Lee MD [address] [place] [address] documented as of this encounter Procedures Procedure NamePriorityDate/TimeAssociated DiagnosisCommentsSURGICAL PATHOLOGY Kgbgrmi8908/29/2025 1:08 PM REPEATER OPERATOR Other closed fracture of distal end of right ulna, initial encounter Exc Arm/Elbow Les Sc = 3 Cm08/29/2025 12:01 PM REPEATER OPERATOR Other closed fracture of distal end of right ulna, initial encounter Open Tx Ulnar Shaft Fx W/Wo Fix08/29/2025 12:01 PM REPEATER OPERATOR Other closed fracture of distal end of right ulna, initial encounter Exc Raul Les Trnk Arm/Leg;2.1-3.0 Cm08/29/2025 12:01 PM REPEATER OPERATOR Other closed fracture of distal end of right ulna, initial encounter US ANESTHESIA GUIDED UALGBYcxqlen95/09/2025 10:34 AM REPEATER OPERATOR documented in this encounter Results * Surgical Path (08/29/2025 1:08 PM REPEATER OPERATOR)ComponentValueRef RangeTest Method Analysis TimePerformed AtPathologist SignatureCase ReportSurgical Pathology ?Case: [id number] ? Authorizing Provider: ??Bernard Lee MD ? Collected: ? 08/29/2025 1308 ? Ordering Location: ? [facility] ?Received: ?08/29/2025 1318 ? Pathologist: ? Sven Millan MBBS ? Specimen: ?Forearm, right, right forearm mass ? 09/01/2025 12:45 PM [facility] LABORATORYFINAL DIAGNOSISSoft tissue, forearm, right, excision: - Organizing fhtsmbip02/12/2025 12:45 PM [facility] at 1245 CSTClinical InformationOther closed fracture of distal end of right ulna, initial encounter 09/01/2025 12:45 PM [facility] LABORATORYMicroscopic Description Microscopic examination is performed.09/01/2025 12:45 PM [facility] LABORATORYGross DescriptionA: The specimen is received in formalin and labeled with the patient's name and Forearm, right, rightforearm mass. The specimen consists of a 0.8 x 0.5 x 0.5 cm portion of mcmahan-yellow, focally hemorrhagic soft tissue. The specimen is bisected and entirely submitted in 1 block. AW 09/01/2025 12:45 PM [facility] LABORATORYEmbedded Dgphyd4509/01/2025 12:45 PM [facility] LABORATORYSpecimen (Source)Anatomical Location / LateralityCollection Method / VolumeCollection TimeReceived TimeTissueENTIRE RIGHT FOREARM / Jrhlrvo2008/29/2025 1:08 PM CST08/29/2025 1:18 PM REPEATER OPERATOR Narrative Authorizing ProviderResult TypeResult StatusBernard STAPLETON PATHOLOGYFinal ResultPerforming OrganizationAddressCity/State/ZIP CodePhone Number [facility] CLIA: [id number] [address] * [place] Anesthesia Guided Block (08/29/2025 10:34 AM REPEATER OPERATOR)Anatomical Region LateralityModalityUltrasoundSpecimen (Source)Anatomical Location / Laterality Collection Method / VolumeCollection TimeReceived Time Narrative 08/29/2025 10:34 AM REPEATER OPERATOR If an Anesthesia block was performed [...] mL = 3.75 mL/kg ?? 50.1 kg Lutts weight), Intravenous, at 751.6 mL/hr, Q15MIN PRN, Administer over 15 Minutes, Other, Lipid Rescue for Local Anesthetic Systemic Toxicity (LAST): Start infusion doses after push bolus dose(s) given. Administer each infusion dose over 15minutes as directed by Attending or SCALE ATTENDANT/Code team for ongoing hemodynamic instability., Starting onTue [...] -give ONLY if directed by Attending or SCALE ATTENDANT/Code team., Pre-op fat emulsion 20 % infusion 75.2 mL 75.2 mL (rounded from 75.15 mL = 1.5 mL/kg ?? 50.1 kg Lutts weight), Intravenous, at 4,512 mL/hr, [id number], Administer over 1 Minutes, Other, Lipid rescue boluses for Local Anesthetic Systemic Toxicity (LAST): may repeat dose 5 minutes after initial bolus as directed by Attending or SCALE ATTENDANT/Code team for hemodynamic instability., Starting on Thu08/29/25 at 1034, Until Thu08/29/25 at 1606, For 2 doses, Lipid rescue boluses, may repeat dose 5 minutes after initial bolus as directed by Attending or SCALE ATTENDANT/Code team for hemodynamic instability. Draw up dose in 50 mL syringes and administer STAT. 1.5 mL/kg (IBW) IV x1 over 1 minute, may repeat x1 as directed. Max dose: 100 mL, Pre-op fentaNYL (SUBLIMAZE) injection 25-50 mcg 25-50 mcg, Intravenous, [id number], Pain, the immediate postop period when longer [...] (SUBLIMAZE) injection 25-50 mcg 25-50 mcg, Intravenous, [id number], Pain, Procedure, Starting on Thu08/29/25 at 1034, [...] Starting on Thu08/29/25 at 1100, Pre-op Rate/Dose Lpuqau9908/29/2025 1:25 PM MZIQliprbp12/09/2025 12:12 PM CSTStarted 08/29/2025 10:47 AM CST30 mL/hr meperidine (DEMEROL) injection 12.5 mg 12.5 mg, Intravenous, O2BKHSWN, Shivering, Starting on Thu08/29/25 at 1032, Until Thu08/29/25 at 1606, For 2 doses, Maximum cumulative dose is 25 mg. Do not give to patients receiving MAO inhibitors (e.g. phenelzine (NARDIL), tranylcypromine (PARNATE), selegiline (ELDEPRYL))., PACU/Recovery midazolam (VERSED) injection 1-2 mg 1-2 mg, Intravenous, [id number], Sedation, Anxiety, Procedure, Starting on Thu08/29/25 at 1034, UntilTue 08/29/25 at 1606, As directed by anesthesiologist MAX Dose 2mg, Pre-op Given08/29/2025 11:10 AM CST1 mg ondansetron (ZOFRAN) injection 4 mg 4 mg, Intravenous, Q4H PRN, Nausea, Vomiting, Starting on Thu08/29/25 at 1032, Until Thu08/29/25 [id number], If multiple medications are ordered for nausea [...] over 3 days., PACU & Post-op Patch Jkgulra0808/29/2025 11:09 AM CST1 PatchRight Elbowdocumented in this encounter Active and Recently Administered Medications Times are shown in REPEATER OPERATOR.Medication Order ceFAZolin (ANCEF) 2 g in sodium [...] 1219 (Started - Provider: Lexis Mujica APRN, WEB RETAILER) scopolamine (TRANSDERM-SCOP) 1 mg/72 hours 1 Patch [...] mL = 3.75 mL/kg ?? 50.1 kg Lutts weight), Intravenous, at 751.6 mL/hr, Q15MIN PRN, Administer over 15 Minutes, Other, Lipid Rescue for Local Anesthetic Systemic Toxicity (LAST): Start infusion doses after push bolus dose(s) given. Administer each infusion dose over 15minutes as directed by Attending or SCALE ATTENDANT/Code team for ongoing hemodynamic instability., Starting onTue [...] -give ONLY if directed by Attending or SCALE ATTENDANT/Code team., Pre-op fat emulsion 20 % infusion 75.2 mL(Linked Group 1) 75.2 mL (rounded from 75.15 mL = 1.5 mL/kg ?? 50.1 kg Lutts weight), Intravenous, at 4,512 mL/hr, [id number], Administer over 1 Minutes, Other, Lipid rescue boluses for Local Anesthetic Systemic Toxicity (LAST): may repeat dose 5 minutes after initial bolus as directed by Attending or SCALE ATTENDANT/Code team for hemodynamic instability., Starting on Thu08/29/25 at 1034, Until Thu08/29/25 at 1606, For 2 doses, Lipid rescue boluses, may repeat dose 5 minutes after initial bolus as directed by Attending or SCALE ATTENDANT/Code team for hemodynamic instability. Draw up dose in 50 mL syringes and administer STAT. 1.5 mL/kg (IBW) IV x1 over 1 minute, may repeat x1 as directed. Max dose: 100 mL, Pre-op fentaNYL (SUBLIMAZE) injection 25-50 mcg 25-50 mcg, Intravenous, [id number], Pain, the immediate postop period when longer [...] (SUBLIMAZE) injection 25-50 mcg 25-50 mcg, Intravenous, [id number], Pain, Procedure, Starting on Thu08/29/25 at 1034, Until Thu08/29/25 at 1606, For 2 doses, As directed by anesthesiologist, Pre-op * 1110 (Given - Provider: Rajni Ovalel RN) HYDROmorphone (DILAUDID) injection 0.25 mg 0.25 [...] (DEMEROL) injection 12.5 mg 12.5 mg, Intravenous, [id number], Shivering, Starting on Thu08/29/25 at 1032, Until Thu08/29/25 at 1606, For 2 doses, Maximum cumulative dose is 25 mg. Do not give to patients receiving MAO inhibitors (e.g. phenelzine (NARDIL), tranylcypromine (PARNATE), selegiline (ELDEPRYL))., PACU/Recovery midazolam (VERSED) injection 1-2 mg 1-2 mg, Intravenous, [id number], Sedation, Anxiety, Procedure, Starting on Thu08/29/25 at 1034, UntilThu08/29/25 at 1606, As directed by anesthesiologist MAX Dose 2mg, Pre-op * 1110 (Given - Provider: Rajni Ovalle RN) ondansetron (ZOFRAN) injection 4 mg 4 mg, Intravenous, Q4H PRN, Nausea, Vomiting, Starting on Thu08/29/25 at 1032, Until Thu08/29/25 [id number], If multiple medications are ordered for nausea or vomiting - administer in the following priority based on medications ordered, effectiveness and availability: ondansetron (ZOFRAN) > prochlorperazine (COMPAZINE) > diphenhydrAMINE (BENADRYL) > hydrOXYzine HCl (VISTARIL)> ePHEDrine > scopolamine (TRANSDERM-SCOP)., PACU/Recovery Order Group 1: fat emulsion 20 % infusion 75.2 mLJump to med 75.2 mL (rounded from 75.15 mL = 1.5 mL/kg ?? 50.1 kg Lutts weight), Intravenous, at 4,512 mL/hr, [id number], Administer over 1 Minutes, Other, Lipid rescue boluses for Local Anesthetic Systemic Toxicity (LAST): may repeat dose 5 minutes after initial bolus as directed by Attending or SCALE ATTENDANT/Code team for hemodynamic instability., Starting on Thu08/29/25 at 1034, Until Thu08/29/25 at 1606, For 2 doses, Lipid rescue boluses, may repeat dose 5 minutes after initial bolus as directed by Attending or SCALE ATTENDANT/Code team for hemodynamic instability. Draw up dose in 50 mL syringes and administer STAT. 1.5 mL/kg (IBW) IV x1 over 1 minute, may repeat x1 as directed. Max dose: 100 mL, Pre-op And fat emulsion 20 % infusion 187.9 mLJump to med 187.9 mL (rounded from 187.875 mL = 3.75 mL/kg ?? 50.1 kg Lutts weight), Intravenous, at 751.6 mL/hr, Q15MIN PRN, Administer over 15 Minutes, Other, Lipid Rescue for Local Anesthetic Systemic Toxicity (LAST): Start infusion doses after push bolus dose(s) given. Administer each infusion dose over 15minutes as directed by Attending or SCALE ATTENDANT/Code team for ongoing hemodynamic instability., Starting onT08/29/25 [...] -give ONLY if directed by Attending or SCALE ATTENDANT/Code team., Pre-op documented in this encounter Care Teams Team MemberRelationshipSpecialtyStart DateEnd Date Deirdre Grant PA-C [id number] [facility] [address] [place] [address] PCP - GeneralPhysician Ygngxgjdx23/31/18documented as of this encounter
--- OUTSIDE RECORDS SUMMARY | 2025-08-29 12:12 | XMS_ITS | Encounter Summary ---
Author Organization [facility] Address [address] [place] [address] Care Team Providers Care Sand Miller Name Role Phone Deirdre Grant PA-C Primary Care Provider Encounter Details DateTypeDepartmentCare Team (Latest Contact Info)Ebaogzgtxtr06/09/2025 12:12 PM CSTAnesthesia Event [facility] [address] [place] [address] Fermin Baca MD [address] [place], [place] [address] Anesthesia Record Procedure NameResponsible AnesthesiologistAnesthesia Start TimeAnesthesia Stop TimeOpen reduction internal fixation distal ulna fracture (Right: Wrist)Fermin Baca MD08/29/25 [id number]/30/24 6702WrudHotdIxwquXsmebkb49/09/289344321078Zx Skxtp0706Cl Start Imkq4216Ui Oxygen MaskSpontaneous respirations with adequate air exchange.1220MD/DO Qszfloc9988Zm Tourn Aocnhnwz7469To Tourn Awzwrxnd4001 ANDRES Wltpuva4791ku stop bxwa2594Vcsf Handoff NoteI discussed with the receiving nurse and we: 1) Identified the patient, mahoney family member(s) or patient surrogate 2) Identified the responsible practitioner 3) Reviewed the pertinent medical history 4) Discussed the surgical/procedure course 5) Reviewed intra-op anesthesia management and issues during anesthesia 6) Set expectations for the post-procedure period 7) Allowed opportunity for questions and acknowledgement of understanding of report Electronically signed by Priscilla Zhang APRN, CR [id number] [facility].* NameTotalmidazolam 2 mg/2 mL injection (aka VERSED)2 mgFENTanyl injection (aka SUBLIMAZE)100 mcglidocaine 2% PF injection aka (XYLOCAINE)40 mgpropofol 10 mg/mL for procedural sedation (aka diPRIvan) 288.08 mgondansetron injection (aka ZOFRAN)4 mgdexamethasone 4 mg/mL injection (aka DECADRON)4 mgceFAZolin (ANCEF) 2 g in sodium chloride 0.9 % 50 mL IVPB2 g ROPivacaine (NAROPIN) 0.5% (5 mg/mL) ifyrkasef94 mLdexmedeTOMIDine (PRECEDEX) 20 mcg/5 mL (4 mcg/mL) sczqowvpq38 mcglactated ringers ckmbmequ479 mL * Agents Name 02 Delivery Device O2 N2O Air Nitrous Oxide () * Blood No blood administrations on file. TypeDetailsPlacementRemovalPeripheral IVPlacement Date: 08/29/25; Placement Time: 1047; Pre-existing: No; Inserted by?: RN; Size (Gauge): 20 G; Orientation: Left; Site Prep: Alcohol; Local Anesthetic: None; Insertion attempts: 1; Blood draw with insertion?: no; Patient Tolerance: Tolerated well; Removal Date: 09/12/25; Removal Time: 1047 by Yesy Painting??TIGRE Gibson09/12/25 1406 by Ever, DiscontinueIncision/Surgical Site08/29/25; 1227; #1; No; Wrist; Anterior, Right; 09/12/25; 1227 by Joceline Mcintyre RN09/12/25 1406 by Ever, DiscontinueIncision/Surgical Site08/29/25; 1304; #2; No; Forearm; Posterior, Right; 09/12/25; 1304 by Joceline Mcintyre RN09/12/25 1406 by Ever, Discontinuedocumented in this encounter Social History Tobacco UseTypesPacks/DayYears UsedDateSmoking Tobacco: NeverSmokeless Tobacco: NeverAlcohol UseStandard Drinks/WeekCommentsYes2 (1 standard drink = 0.6 oz pure alcohol)PHQ-2AnswerDate RecordedPHQ-2 Fqyut58110/27/2024UDIT-CAnswerDate Recorded Q1: How often do you have a drink containing alcohol?Never08/28/2025verage Number of DrinksNot on file08/28/2025Frequency of Binge DrinkingNot on file 08/28/2025CommentsNoSex and Gender InformationValueDate RecordedSex Assigned at BirthNot on fileLegal NwxUujnhn48/10/2012 4:56 AM CDTGender Identity Not on fileSexual OrientationNot on fileOccupationIndustryJob Start DateJob End DateVFWNot on fileNot on fileNot on filedocumented as of this encounter Progress Notes * Fermin Baca MD - 09/07/2025 12:10 PM CST Addendum created 09/07/25 1210 by Fermin Baca MD Clinical Note Signed, Diagnosis association updated, Intraprocedure Blocks edited, SmartForm saved OR PROJECT ENGINEER documented in this encounter Miscellaneous Notes * Anesthesia Postprocedure Evaluation - Fermin Baca MD - 08/29/2025 1:34 PM CST [facility] Post-op Note Patient: Michael Palacio Post-Op Diagnosis: Pre-Op Diagnosis Codes: * Other closed fracture of distal end of right ulna, initial encounter [S52.691A] Procedures performed: Open reduction internal fixation distal ulna fracture (Right: Wrist) Right wrist excision mass-forearm, right (Right: Arm Lower) Anesthesia Type: Regional Post-op vital signs: Vitals Value Taken Time BP 117/67 08/29/25 13:27 Temp 36.1 ??C (96.9 ??F) 08/29/25 13:27 Pulse 81 08/29/25 13:27 Resp 16 08/29/25 13:27 SpO2 95 % 08/29/25 13:27 Pain Assessment Preferred Pain Scale: number (Numeric Rating Pain Scale) Last recorded pain score: 0 Post-op assessment: Patient location: PACU Airway Status: Patent Cardiovascular function: Satisfactory Hydration status: Satisfactory PONV: None Level of Consciousness: Awake Fully Participates Postop Assessment: Patient tolerated procedure well. Electronically signed by: Fermin Baca MD 08/29/2025 1:34 PM OR PROJECT ENGINEER * Anesthesia Procedure Notes - Fermin Baca MD - 08/29/2025 12:18 PM SENIOR PROJECT ENGINEER Associated Order(s): Peripheral Block Peripheral Block Performed by: Fermin Baca MD Authorized by: Fermin Baca MD Patient Location: Preop Start Time: 08/29/2025 11:30 AM End Time: 08/29/2025 11:35 AM Performed by: Anesthesiologist Body area of block: Upper Extremity Upper Extremity Blocks: Supraclavicular Laterality: Right Correct Position: Yes Correct Patient: Yes Correct Site: Yes Correct Procedure: Yes Correct Laterality: Yes Site Marked: Yes Checklist: risks and benefits discussed, patient agrees to proceed, IV checked, anesthesia consent,monitors/equipment checked, surgical consent and at surgeon's request Prep: Chloraprep, Mask, Hat and Sterile gloves Monitoring: Blood pressure, plate developer and continuous pulse oximetry Patient Position: Supine Procedures: ultrasound guided Needle Type: Ultrasound needle Needle Length: 4 in Needle Gauge: 22 G Pain on Injection: No Blood aspirated?: No Bolus given as slow fractionated injection?: Yes Paresthesias?: No Bleeding at site?: No Ultrasound guided?: Yes Ultrasound image saved/archived?: Yes Ultrasound Interpretation: anatomic plane and expected location of nerve appear normal, local anesthetic visualized surrounding nerve, appropriate spread of the medication was noted in real time, no ultrasound evidence of intravascular and/or intraneural injection, needle tip was noted to be adjacent to the nerve/plexus identified and needle and nerve visualized Catheter placed?: No Complication: None Procedure Comments: The chart was reviewed, including past medical history, medications, allergies,and labs. After discussing the risks (including, but not limited to, bleeding, infection, nerve damage, intravascular injection, and local anesthetic systemic toxicity), benefits, and alternatives tothe procedure, the patient expressed understanding and wished to proceed. The informed consent formwas signed. There was a procedural time out to confirm correct patient, correct site, and correct procedure. The patient was sedated, but conversant throughout. Using ultrasound, all neurovascular structures were identified. The needle tip was visualized adjacent to the nerve(s) prior to injection. Incremental aspiration and injection was performed every 5 mL. Local anesthetic was visualized spreading appropriately to surround the nerve(s). There was no ultrasound evidence of intravascular or intraneural injection. The patient tolerated the procedure well. If the block is performed for post-op pain, then the surgeon has given a verbal order transferring care of this patient to me for the performance of a regional analgesia block for post-op pain control. It is requested of me because I am uniquely trained and qualified to perform this block and the surgeon is neither trained nor qualified to perform this procedure. Signed by Fermin Baca MD Ropivacaine administered: ROPivacaine (NAROPIN) 0.5% (5 mg/mL) injection - Regional Nerve Block 30 mL - 08/29/2025 11:35:00 AM OR PROJECT ENGINEER OR PROJECT ENGINEER * Anesthesia Preprocedure Evaluation - Fermin Baca MD - 08/29/2025 10:54 AM CST [facility] Pre-op Evaluation Procedure: Open reduction internal fixation distal ulna fracture, Right Right wrist Lipoma excision lateral dorsal forearm, right, Right HPI: 59 y.o. old female. Pre-Op Diagnosis Codes: * Other closed fracture of distal end of right ulna, initial encounter [S52.691A] Last Fluid Intake Time: 2199 Last Fluid Intake Date: 08/28/25 Last Food Intake Date: 08/28/25 Last Food Intake Time: 2199 No Known Allergies Past Medical History: Diagnosis Date [place]/17/2011 Eczema 07/17/2011 HTN ([place]ension) [place] 07/07/2011 Melanoma ([facility]) 1983 right religion Migraines 07/07/2011 Obesity 02/25/2003 Rhinitis Allergic 02/25/2003 Patient Active Problem List Diagnosis Allergic rhinitis Migraines HTN (hypertension) ([facility]) Melanoma ([facility]) Eczema Anxiety ([facility]) CTS (carpal tunnel syndrome) Right knee pain Pap smear of cervix shows high risk HPV present Colon polyp Closed fracture of lower end of right ulna 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 Past Surgical History: Procedure Laterality Date BLEPHAROPLASTY Bilateral 10/2014 BREAST REDUCTION BUNIONECTOMY Right CARPAL TUNNEL RELEASE Right 12/09/13 MOHS SURGERY 1983 right forehead - melanoma Outpatient Medications as of 08/29/2025 Medication Sig apixaban (ELIQUIS) 5 MG tablet Take 2 Tablets (10 mg) by mouth every morning. LORazepam (ATIVAN) 0.5 MG tablet Take 1 tablet by mouth every 8 hours as needed for Anxiety. (Patient not taking: Reported on 08/26/2025) methocarbamol (ROBAXIN) 750 MG tablet Take 1 Tablet (750 mg) by mouth. omeprazole (PRILOSEC) 40 MG capsule Take 1 capsule by mouth daily (every 24 hours). ondansetron (ZOFRAN-ODT) 4 MG disintegrating tablet Take 1 Tablet (4 mg) by mouth every 8 hours as needed. oxyCODONE-acetaminophen (PERCOCET) 5-325 MG tablet Take 2 Tablets by mouth daily. sertraline (ZOLOFT) 100 MG tablet Take 2 Tablets (200 mg) by mouth. SUMAtriptan (IMITREX) 100 MG tablet TAKE 1 TABLET BY MOUTH AT ONSET OF MIGRAINE. MAY REPEAT AFTER 2HOURS IF NEEDED. MAXIMUM OF 2 TABS/24 HOURS AND 9 DAYS/MONTH. triamcinolone acetonide (AKA KENALOG) 0.1 % cream Apply 1 Application topically 3 times daily. for eczema. valACYclovir (VALTREX) 1 G tablet Take 2 Tabs by mouth two times daily as needed. Facility-Administered Medications as of 08/29/2025 Medication Dose Route Frequency ceFAZolin (ANCEF) 2 g in sodium chloride 0.9 % 50 mL IVPB 2 g Intravenous Once dextrose 5 % infusion Intravenous ONCE PRN fat emulsion 20 % infusion 75.2 mL 1.5 mL/kg ([place]) Intravenous Q5MIN PRN And fat emulsion 20 % infusion 187.9 mL 3.75 mL/kg ([place]) Intravenous Q15MIN PRN fentaNYL (SUBLIMAZE) injection 25-50 mcg 25-50 mcg Intravenous Q5MIN PRN fentaNYL (SUBLIMAZE) injection 25-50 mcg 25-50 mcg Intravenous Q5MIN PRN HYDROmorphone (DILAUDID) injection 0.25 mg 0.25 mg Intravenous Q10MIN PRN lactated ringers infusion Intravenous Continuous meperidine (DEMEROL) injection 12.5 mg 12.5 mg Intravenous Q5MIN PRN midazolam (VERSED) injection 1-2 mg 1-2 mg Intravenous Q5MIN PRN ondansetron (ZOFRAN) injection 4 mg 4 mg Intravenous Q4H PRN Labs: Lab Results Component Value Date/Time SODIUM 139 05/03/2015 12:14 PM K 3.8 11/21/2015 09:04 AM CHLORIDE 107 05/03/2015 12:14 PM BUN 7 02/08/2002 09:23 AM CREATININE 0.76 04/11/2024 07:01 AM GLUCOSE 85 06/06/2015 12:15 PM Lab Results Component Value Date/Time WBC 8.5 08/26/2025 09:17 AM HGB 13.8 08/26/2025 09:17 AM HCT 41.3 08/26/2025 09:17 AM PLTS 300 08/26/2025 09:17 AM INR (no units) Date Value 08/14/2015 1.0 Blood Bank: No results found for: ABO, ABSCR EKG: No results found for this or any previous visit. Physical Exam: [facility] 03/16/2012 Assessment/Plan: Review of Systems Patient does not have GERD. Patient is not a current smoker. The patient reports alcohol use. Patient denies any recent URI. History of PONV: No. History of motion sickness: No. Patient denies any personal or family history of anesthesia complications. NPO Status: Acceptable. Exam Mental Status: Alert and oriented. Mallampati score: II (Two). Mouth opening: Normal Thyromental Distance: > 3 finger breadths and Normal Neck Extension: Full Neck Circumference > 40 cm?: No Airway assessment: Unknown. Current airway assessment:Normal Dentition: Age appropriate. Cardiac Exam: Regular rate and rhythm. Respiratory Exam: Breath sounds clear to auscultation Assessment ASA Status: 2 . Plan Anesthesia type: Regional Induction: Intravenous and Propofol Maintenance: TIVA Postoperative pain management: Plan for postoperative opioid use PONV Risk Score Adult: 3 PONV Prophylaxis (planned): Ondansetron and Decadron Anesthetic plan, risks, benefits and alternatives discussed with the patient who agrees to the anesthesia treatment plan. Discussed risks of nerve block including but not limited to pain, bleeding, infection, damage to surrounding structures, and block failure. H&P Reviewed and Patient examined, no change observed IV access Antibiotics per surgery Electronically signed by: Fermin Baca MD 08/29/2025 10:54 AM OR PROJECT ENGINEER documented in this encounter Plan of Treatment DateTypeDepartmentCare Team (Latest Contact Info)Ncxguapyfih87/20/2026 8:30 AM CSTAppointment [facility] [address] [place] [address] Nereida Butcher MD [address] [facility] [place] [address] documented as of this encounter Procedures Procedure NamePriorityDate/TimeAssociated DiagnosisCommentsPERIPHERAL BLOCK Mulqrxa7208/29/2025 12:18 PM SENIOR PROJECT ENGINEER documented in this encounter Results * PERIPHERAL BLOCK (08/29/2025 12:18 PM SENIOR PROJECT ENGINEER) Narrative [facility] - 08/29/2025 12:18 PM SENIOR PROJECT ENGINEER Fermin Baca MD 09/07/2025 12:10 PM Peripheral Block Performed by: Fermin Baca MD Authorized by: Fermin Baca MD ??Patient Location: ??Preop Start Time: ??08/29/2025 11:30 AM End Time: ??08/29/2025 11:35 AM Performed by: ??Anesthesiologist Body area of block: ??Upper Extremity Upper Extremity Blocks: Supraclavicular ?? Laterality: ??Right Correct Position: ??Yes Correct Patient: ??Yes Correct Site: ??Yes Correct Procedure: ??Yes Correct Laterality: ??Yes Site Marked: ??Yes Checklist: risks and benefits discussed, patient agrees to proceed, IV checked, anesthesia consent, monitors/equipment checked, surgical consent and at surgeon's request ?? Prep: ??Chloraprep, Mask, Hat and Sterile gloves Monitoring: ??Blood pressure, plate developer and continuous pulse oximetry Patient Position: ??Supine Procedures: ultrasound guided ?? Needle Type: ??Ultrasound needle Needle Length: ??4 in Needle Gauge: ??22 G Pain on Injection: No ?? Blood aspirated?: No ?? Bolus given as slow fractionated injection?: Yes ?? Paresthesias?: ??No Bleeding at site?: ??No Ultrasound guided?: Yes ?? Ultrasound image saved/archived?: Yes ?? Ultrasound Interpretation: anatomic plane and expected location of nerve appear normal, local anesthetic visualized surrounding nerve, appropriate spread of the medication was noted in real time, no ultrasound evidence of intravascular and/or intraneural injection, needle tip was noted to be adjacent to the nerve/plexus identified and needle and nerve visualized ?? Catheter placed?: No ?? Complication: ??None Procedure Comments: ??The chart was reviewed, including past medical history, medications, allergies, and labs. After discussing the risks (including, but not limited to, bleeding, infection, nerve damage, intravascular injection, and local anesthetic systemic toxicity), benefits, and alternatives to the procedure, the patient expressed understanding and wished to proceed. The informed consent form was signed. There was a procedural time out to confirm correct patient, correct site, and correct procedure. The patient was sedated, but conversant throughout. Using ultrasound, all neurovascular structures were identified. The needle tip was visualized adjacent to the nerve(s) prior to injection. Incremental aspiration and injection was performed every 5 mL. Local anesthetic was visualized spreading appropriately to surround the nerve(s). There was no ultrasound evidence of intravascular or intraneural injection. The patient tolerated the procedure well. If the block is performed for post-op pain, then the surgeon has given a verbal order transferring care of this patient to me for the performance of a regional analgesia block for post-op pain control. It is requested of me because I am uniquely trained and qualified to perform this block and the surgeon is neither trained nor qualified to perform this procedure. Signed by Fermin Baca MD Ropivacaine administered: ??ROPivacaine (NAROPIN) 0.5% (5 mg/mL) injection - Regional Nerve Block 30 mL - 08/29/2025 11:35:00 AM Authorizing ProviderResult TypeResult StatusMichaedawson Baca MDANESTHESIA/AR Edited Result - FinalPerforming OrganizationAddressCity/State/ZIP CodePhone Number [facility] CLIA: [id number] [address] [place] [address], [facility] documented in this encounter Visit Diagnoses Not on filedocumented in this encounter Administered Medications Medication OrderMAR ActionAction DateDoseRateSite ceFAZolin (ANCEF) 2 g in sodium chloride 0.9 % 50 mL IVPB 2 g, Intravenous, Administer over 30 Minutes, [...] after initial dose until incision closed., Pre-op Indications:Surgical GozizhcuaarMpbvpxn99/09/2025 12:19 PM CST2 g dexAMETHasone (DECADRON) injection Intravenous, Starting on Thu08/29/25 at 1226, Until Thu08/29/25 at 1328 Given08/29/2025 12:26 PM CST4 mg dexmedeTOMIDine (PRECEDEX) 20 mcg/5 mL (4 mcg/mL) injection Intravenous, Starting on Thu08/29/25 at 1226, Until Thu08/29/25 at 1328 Given08/29/2025 12:30 PM CST4 ovgGgqaw64/09/2025 12:26 PM CST8 mcg fentaNYL (SUBLIMAZE) injection Intravenous, Starting on Thu08/29/25 at 1227, Until Thu08/29/25 at 1328 Given08/29/2025 12:44 PM CST25 lzfUrztd64/09/2025 12:36 PM CST25 mcgGiven 08/29/2025 12:27 PM CST50 mcg lactated ringers infusion Intravenous, at 30 mL/hr, CONTINUOUS, Starting on Thu08/29/25 at 1100, Pre-op Rate/Dose Tthcve0508/29/2025 1:25 PM HDAGvjoics55/09/2025 12:12 PM CSTStarted 08/29/2025 10:47 AM CST30 mL/hr lidocaine PF (XYLOCAINE) 2 % injection Intravenous, Starting on Thu08/29/25 at 1219, Until Thu08/29/25 at 1328 Given08/29/2025 12:19 PM CST40 mg midazolam (VERSED) injection Intravenous, Starting on Thu08/29/25 at 1214, Until Thu08/29/25 at 1328 Given08/29/2025 12:14 PM CST2 mg ondansetron (ZOFRAN) injection Intravenous, Starting on Thu08/29/25 at 1226, Until Thu08/29/25 at 1328 Given08/29/2025 12:26 PM CST4 mg propofol (DIPRIVAN) 10 mg/mL injection Intravenous, Starting on Thu08/29/25 at 1219, Until Thu08/29/25 at 1328 Rate/Dose Vcajeg1508/29/2025 12:49 PM OSS688 mcg/kg/min33.066 mL/hrStarted 08/29/2025 12:19 PM IEY211 mcg/kg/min30.06 mL/hr ROPivacaine 0.5% (5 mg/mL) (NAROPIN) 5 MG/ML injection Regional Nerve Block, Starting on Thu08/29/25 at 1135, Until Thu08/29/25 at 1135 Given08/29/2025 11:35 AM CST30 mLdocumented in this encounter Care Teams Team MemberRelationshipSpecialtyStart DateEnd Date Deirdre Grant PA-C [address] [facility] [address] [place] [address] PCP - GeneralPhysician Iznpfzxtw87/31/18documented as of this encounter
--- OUTSIDE RECORDS SUMMARY | 2025-08-29 12:12 | XMS_ITS | Encounter Summary ---
Author Organization [facility] Address [address] [place] [address] Care Team Providers Care Balance Truing Inspector Name Role Phone Deirdre Grant PA-C Primary Care Provider Encounter Details DateTypeDepartmentCare Team (Latest Contact Info)Irrfoybiuto68/09/2025 12:12 PM CSTAnesthesia Event [facility] [address] [place] [address] Fermin Baca MD [address] [place], [place] [address] Anesthesia Record Procedure NameResponsible AnesthesiologistAnesthesia Start TimeAnesthesia Stop TimeOpen reduction internal fixation distal ulna fracture (Right: Wrist)Fermin Baca MD08/29/25 65033910/30/24 1931CoeuFbbsNxfxzBvvczqz67/09/410890423431Jv Ywcis5985Yj Start Fdwf7735Xt Oxygen MaskSpontaneous respirations with adequate air exchange.1220MD/DO Nwyjult6022Fw Tourn Rwjezqgu1577Rf Tourn Ehjilbap9382 ANDRES Ctrzofh9521eh stop geso6964Qmuq Handoff NoteI discussed with the receiving nurse [...] Electronically signed by Priscilla Zhang APRN, CR US0788Sm [facility].* NameTotalmidazolam 2 mg/2 mL injection (aka VERSED)2 mgFENTanyl injection (aka SUBLIMAZE)100 mcglidocaine 2% PF injection aka (XYLOCAINE)40 mgpropofol 10 mg/mL for procedural sedation (aka diPRIvan) 288.08 mgondansetron injection (aka ZOFRAN)4 mgdexamethasone 4 mg/mL injection (aka DECADRON)4 mgceFAZolin (ANCEF) 2 g in sodium chloride 0.9 % 50 mL IVPB2 g ROPivacaine (NAROPIN) 0.5% (5 mg/mL) smwyxwizj31 mLdexmedeTOMIDine (PRECEDEX) 20 mcg/5 mL (4 mcg/mL) xdzecxpbw33 mcglactated ringers bpdxmdin353 mL * Agents Name 02 Delivery Device [...] drink = 0.6 oz pure alcohol)PHQ-2AnswerDate RecordedPHQ-2 Lqyeb75410/27/2024UDIT-CAnswerDate Recorded Q1: How often do you have a drink containing alcohol?Never08/28/2025verage Number of DrinksNot on file08/28/2025Frequency of Binge DrinkingNot on file 08/28/2025CommentsNoSex and Gender InformationValueDate RecordedSex Assigned at BirthNot on fileLegal HouNzfxij25/10/2012 4:56 AM CDTGender Identity Not on fileSexual OrientationNot on fileOccupationIndustryJob Start DateJob End DateVFWNot on fileNot on fileNot on filedocumented as of this encounter Progress Notes * Fermin Baca MD - 09/07/2025 12:10 PM CST Addendum created 09/07/25 1210 by Fermin Baca MD Clinical Note Signed, Diagnosis association updated, Intraprocedure Blocks edited, SmartForm saved LE PATTERNMAKER documented in this encounter Miscellaneous Notes * [...] by: Fermin Baca MD 08/29/2025 1:34 PM LE PATTERNMAKER * Anesthesia Procedure Notes - Fermin Baca MD - 08/29/2025 12:18 PM SAMPLE PATTERNMAKER Associated Order(s): Peripheral Block Peripheral Block Performed [...] Hat and Sterile gloves Monitoring: Blood pressure, alarm security or surveillance monitor and continuous pulse oximetry Patient Position: Supine [...] Block 30 mL - 08/29/2025 11:35:00 AM LE PATTERNMAKER LE PATTERNMAKER * Anesthesia Preprocedure Evaluation - Fermin Baca [...] Allergies Past Medical History: Diagnosis Date Anxiety ([facility] 07/17/2011 Eczema 07/17/2011 HTN (hypertension) ([facility]) 07/07/2011 Melanoma ([facility]) 1983 right mormonism Migraines 07/07/2011 Obesity 02/25/2003 Rhinitis Allergic 02/25/2003 [...] 20 % infusion 75.2 mL 1.5 mL/kg ([place]) Intravenous Q5MIN PRN And fat emulsion 20 % infusion 187.9 mL 3.75 mL/kg ([place]) Intravenous Q15MIN PRN fentaNYL (SUBLIMAZE) injection 25-50 [...] this or any previous visit. Physical Exam: [facility] 03/16/2012 Assessment/Plan: Review of Systems Patient [...] by: Fermin Baca MD 08/29/2025 10:54 AM LE PATTERNMAKER documented in this encounter Plan of Treatment DateTypeDepartmentCare Team (Latest Contact Info)Udjntpvruqf57/20/2026 8:30 AM CSTAppointment [facility] [address] [place] [address] Nereida Butcher MD [address] [facility] [place] [address] documented as of this encounter Procedures Procedure NamePriorityDate/TimeAssociated DiagnosisCommentsPERIPHERAL BLOCK Ivvqhcw3908/29/2025 12:18 PM SAMPLE PATTERNMAKER documented in this encounter Results * PERIPHERAL BLOCK (08/29/2025 12:18 PM SAMPLE PATTERNMAKER) Narrative [facility] - 08/29/2025 12:18 PM SAMPLE PATTERNMAKER Fermin Baca MD 09/07/2025 12:10 PM Peripheral [...] Hat and Sterile gloves Monitoring: ??Blood pressure, alarm security or surveillance monitor and continuous pulse oximetry Patient Position: ??Supine [...] Edited Result - FinalPerforming OrganizationAddressCity/State/ZIP CodePhone Number [facility] CLIA: [id number] [address] [place] [address], [facility] documented in this encounter Visit Diagnoses Not [...] initial dose until incision closed., Pre-op Indications:Surgical YlbwirzphlyAmvrujc90/09/2025 12:19 PM CST2 g dexAMETHasone (DECADRON) injection Intravenous, Starting on Thu08/29/25 at 1226, Until Thu08/29/25 at 1328 Given08/29/2025 12:26 PM CST4 mg dexmedeTOMIDine (PRECEDEX) 20 mcg/5 mL (4 mcg/mL) injection Intravenous, Starting on Thu08/29/25 at 1226, Until Thu08/29/25 at 1328 Given08/29/2025 12:30 PM CST4 ixqNieng22/09/2025 12:26 PM CST8 mcg fentaNYL (SUBLIMAZE) injection Intravenous, Starting on Thu08/29/25 at 1227, Until Thu08/29/25 at 1328 Given08/29/2025 12:44 PM CST25 gnkXqlsn61/09/2025 12:36 PM CST25 mcgGiven 08/29/2025 12:27 PM CST50 mcg lactated ringers infusion Intravenous, at 30 mL/hr, CONTINUOUS, Starting on Thu08/29/25 at 1100, Pre-op Rate/Dose Qdwhwt3908/29/2025 1:25 PM HQRFnisvom14/09/2025 12:12 PM CSTStarted 08/29/2025 10:47 AM CST30 [...] at 1219, Until Thu08/29/25 at 1328 Rate/Dose Nycjao5308/29/2025 12:49 PM NUC656 mcg/kg/min33.066 mL/hrStarted 08/29/2025 12:19 PM SAM892 mcg/kg/min30.06 mL/hr ROPivacaine 0.5% (5 mg/mL) (NAROPIN) 5 MG/ML injection Regional Nerve Block, Starting on Thu08/29/25 at 1135, Until Thu08/29/25 at 1135 Given08/29/2025 11:35 AM CST30 mLdocumented in this encounter Care Teams Team MemberRelationshipSpecialtyStart DateEnd Date Deirdre Grant PA-C [address] [facility] [address] [place] [address] PCP - GeneralPhysician Nijkloaco83/31/18documented as of this encounter
--- OUTSIDE RECORDS SUMMARY | 2025-09-05 09:00 | XMS_ITS | Encounter Summary ---
Author Organization [facility] Address [address] [place] [address] Care Team Providers Care Commercial Solar Sales Consultant Name Role Phone Deirdre Grant PA-C Primary Care Provider Reason for Visit * ReasonCommentsWrist Problem Encounter Details DateTypeDepartmentCare Team (Latest Contact Info)Qtgrircpioq07/16/2025 9:00 AM CSTOffice Visit [facility] [address] [place] [address] Myriam Grajeda, OTR/L [address] [place] [address] Closed fracture of shaft of right ulna with routine healing, unspecified fracture morphology, subsequent encounter (Primary Dx) Social History Tobacco UseTypesPacks/DayYears UsedDateSmoking Tobacco: NeverSmokeless Tobacco: NeverAlcohol UseStandard Drinks/WeekCommentsYes2 (1 standard drink = 0.6 oz pure alcohol)PHQ-2AnswerDate RecordedPHQ-2 Lvsmg90710/27/2024UDIT-CAnswerDate Recorded Q1: How often do you have a drink containing alcohol?Never08/28/2025verage Number of DrinksNot on file08/28/2025Frequency of Binge DrinkingNot on file 08/28/2025CommentsNoSex and Gender InformationValueDate RecordedSex Assigned at BirthNot on fileLegal NnmZqzjgp75/10/2012 4:56 AM CDTGender Identity Not on fileSexual OrientationNot on fileOccupationIndustryJob Start DateJob End DateVFWNot on fileNot on fileNot on filedocumented as of this encounter Progress Notes * Myriam Grajeda, OTR/L - 09/05/2025 9:00 AM CST Hand Therapy Evaluation Payor: [facility] / Plan: UMR / Product Type: Commercial / Visit Number: 1 Referring Diagnosis: PREOPERATIVE DIAGNOSES: 1. Right distal ulnar shaft fracture. 2. Right forearm mass. POSTOPERATIVE DIAGNOSES: 1. Right distal ulnar shaft fracture. 2. Right forearm mass. PROCEDURES PERFORMED: 1. Right ulnar open reduction and internal fixation. 2. Right forearm mass excisional biopsy. Precautions/Barriers/Pertinent Medical History: none stated Orders: Eval and treat She will be switched to a short-arm volar splint. Flexion and extension encouraged. She should avoid any vigorous pronation and supination. New x-rays will be taken at 2 and 6 weeks postoperatively. 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 Patient reports Mom present Pain: . Pain at rest: 1/10, Pain with activity: 5/10, Pain at worst: 5/10 Outcome Measures: No outcome data collected. Past Medical History[1] Past Surgical History[2] OBJECTIVE Jiménez: Items left blank were deemed unnecessary, * indicates pain Sensation: The patient reports their sensation is intact. Edema: Circumferential measurements: NT due to acute status ROM: Deferred secondary to injury precautions. Strength: Deferred secondary to injury precautions. TREATMENT INTERVENTION: Occupational Therapy Evaluation The patient was educated on the condition, planned therapy intervention, and expectations from treatment. Goals were a collaborative effort between the patient and therapist. Risks, benefits, and alternatives to treatment were explained. The patient and/or guardian are in agreement with the care plan. Therapeutic Exercise Exercise: The patient was instructed in, performed, and provided with written handout for finger tendon gliding , thumb ROM and wrist flexion and extension Self-Care/Home Management Training Post op dressing removed and lightly cleaned with warm cloth non stick dressing applied and pt to keep sutures dry Once sutures are out complete scar massage Edema Management: Patient instructed to keep the affected extremity elevated about their heart as able. . Education: The patient was educated on the diagnosis and restrictions. Application of Custom Orthosis A custom thermoplastic volar wrist resting othosis was fabricated for the patient. Wear all times and remove for wrist flex and ext and hygiene Timed Charges (Minutes): 00098 Self Care/Home Management Trainin 07680 - Therapeutic Exercise: 10 Timed Code Treatment Minutes: 30 Total Treatment Minutes: 55 ASSESSMENT Therapist Impression/Summary: Patient demonstrates the following impairments: Pain, Fracture healing, Limited ROM, Weakness, and Post-op restrictions. Occupational therapy is medically necessary to address the above listed deficits to return the patient to prior level of function. Prognosis: Good Complexity: Based on the following:?moderate complexity (expanded review of medical and or therapy records and additional review of physical, cognitive or psychosocial history related to current functional performance ) occupational profile and history, moderate: 3-5 performance deficits examination/assessment, and moderate: several treatment options, co-morbidities may be present, minimal to moderate modifications clinical decision making, this is a moderate complexity evaluation. Goals/Functional Outcomes (to be met by end of therapy, noted in PLAN below): 09/05/2025: The patient will be able to manage self-care ADLs with minimal to no difficulty in 2 weeks. 09/05/2025: The patient will be able to complete all daily life tasks with minimal to no difficultyin 6 weeks. PLAN Recommendations/Protocol/Plan for Next Visit: scar tx check splint and advance ROM per MD Frequency/Duration: 1 to 6 visits. for 6 weeks Planned Intervention/Education: Manual Therapy (24395), Therapeutic Exercise (14366), Therapeutic Activities (08510), Neuromuscular Re-Education (89053), Self-Care/Home Management (88610), Paraffin (04297 - untimed), Fluidotherapy (31019 - untimed), Ultrasound (66976), and Application of Hand/ShortArm Splint (79591) Informed Consent: Risks, benefits and alternatives to treatment have been explained. Patient and/orfamily in agreement with care plan. The clinician's signature certifies medical necessity for the treatment plan above. [1] Past Medical History: Diagnosis Date Anxiety ([facility]) 07/17/2011 Eczema 07/17/2011 HTN (hypertension) ([facility]) 07/07/2011 Melanoma ([facility]) 1983 right orthodox Migraines 07/07/2011 Obesity 02/25/2003 Rhinitis Allergic 02/25/2003 [2] Past Surgical History: Procedure Laterality Date BLEPHAROPLASTY Bilateral 10/2014 BREAST REDUCTION BUNIONECTOMY Right CARPAL TUNNEL RELEASE Right 12/09/13 EXC ARM/ELBOW LES SC = 3 CM Right 08/29/2025 Procedure: Right wrist excision mass-forearm, right; Surgeon: Nereida Butcher MD; Location: [facility]; Service: ORTHO EXC NAOMI LES TRNK ARM/LEG;2.1-3.0 CM Right 08/29/2025 Procedure: Open reduction internal fixation distal ulna fracture; Surgeon: Nereida Butcher MD; Location: [facility]; Service: ORTHO MOHS SURGERY 1982 right forehead - melanoma OPEN TX ULNAR SHAFT FX W/WO FIX Right 08/29/2025 Procedure: Open reduction internal fixation distal ulna fracture; Surgeon: Nereida Butcher MD; Location: [facility]; Service: ORTHO RUCTOR NURSE documented in this encounter Plan of Treatment DateTypeDepartmentCare Team (Latest Contact Info)Amdjzieecfm61/20/2026 8:30 AM CSTAppointment [facility] [address] [place] [address] Nereida Butcher MD [address] [place] [address] [place] [address] documented as of this encounter Visit Diagnoses Diagnosis Closed fracture of shaft of right ulna with routine healing, unspecified fracture morphology, subsequent encounter- Primary documented in this encounter Care Teams Team MemberRelationshipSpecialtyStart DateEnd Date Deirdre Grant PA-C [address] [place] [address] [place] [address] PCP - GeneralPhysician Mmsshygih48/31/18documented as of this encounter
--- OUTSIDE RECORDS SUMMARY | 2025-09-05 09:00 | XMS_ITS | Encounter Summary ---
Author Organization [facility] Address [address] [place] [address] Care Team Providers Care Senior Medical Billing Specialist Name Role Phone Deirdre Grant PA-C Primary Care Provider Reason for Visit * ReasonCommentsWrist Problem Encounter Details DateTypeDepartmentCare Team (Latest Contact Info)Mpmoaggwbit46/16/2025 9:00 AM CSTOffice Visit [facility] [address] [place] [address] Myriam Grajeda, OTR/L [address] [place] [address] Closed fracture of shaft of right ulna with routine healing, unspecified fracture morphology, subsequent encounter (Primary Dx) Social History Tobacco UseTypesPacks/DayYears UsedDateSmoking Tobacco: NeverSmokeless Tobacco: NeverAlcohol UseStandard Drinks/WeekCommentsYes2 (1 standard drink = 0.6 oz pure alcohol)PHQ-2AnswerDate RecordedPHQ-2 Gxxie10210/27/2024UDIT-CAnswerDate Recorded Q1: How often do you have a drink containing alcohol?Never08/28/2025verage Number of DrinksNot on file08/28/2025Frequency of Binge DrinkingNot on file 08/28/2025CommentsNoSex and Gender InformationValueDate RecordedSex Assigned at BirthNot on fileLegal OwtTxyves66/10/2012 4:56 AM CDTGender Identity Not on fileSexual OrientationNot on fileOccupationIndustryJob Start DateJob End DateVFWNot on fileNot on fileNot on filedocumented as of this encounter Progress Notes * Myriam Grajeda, OTR/L - 09/05/2025 9:00 AM CST Hand Therapy Evaluation Payor: [facility] / Plan: UMR / Product Type: [...] and ext and hygiene Timed Charges (Minutes): 27246 Self Care/Home Management Trainin 20299 - Therapeutic Exercise: 10 Timed Code Treatment [...] for 6 weeks Planned Intervention/Education: Manual Therapy (01053), Therapeutic Exercise (32705), Therapeutic Activities (24874), Neuromuscular Re-Education (76708), Self-Care/Home Management (22779), Paraffin (43466 - untimed), Fluidotherapy (76352 - untimed), Ultrasound (40292), and Application of Hand/ShortArm Splint (48119) Informed Consent: Risks, benefits and alternatives to treatment have been explained. Patient and/orfamily in agreement with care plan. The clinician's signature certifies medical necessity for the treatment plan above. [1] Past Medical History: Diagnosis Date Anxiety (ACG) 07/17/2011 Eczema 07/17/2011 HTN (hypertension) (ACG) 07/07/2011 Melanoma (HRC) 1983 right yazdanism Migraines 07/07/2011 Obesity 02/25/2003 Rhinitis Allergic 02/25/2003 [2] Past Surgical History: Procedure Laterality Date BLEPHAROPLASTY Bilateral 10/2014 BREAST REDUCTION BUNIONECTOMY Right CARPAL TUNNEL RELEASE Right 12/09/13 EXC ARM/ELBOW LES SC = 3 CM Right 08/29/2025 Procedure: Right wrist excision mass-forearm, right; Surgeon: Nereida Butcher MD; Location: [facility]; Service: ORTHO EXC NAOMI LES TRNK ARM/LEG;2.1-3.0 CM Right 08/29/2025 Procedure: Open reduction internal fixation distal ulna fracture; Surgeon: Nereida Butcher MD; Location: [facility]; Service: ORTHO MOHS SURGERY 1982 right forehead - melanoma OPEN TX ULNAR SHAFT FX W/WO FIX Right 08/29/2025 Procedure: Open reduction internal fixation distal ulna fracture; Surgeon: Nereida Butcher MD; Location: [facility]; Service: ORTHO GER VALIDATION documented in this encounter Plan of Treatment DateTypeDepartmentCare Team (Latest Contact Info)Rpcwcdpqyyg08/20/2026 8:30 AM CSTAppointment [facility] [address] [place] [address] Nereida Butcher MD [address] [place] [address] [place] [address] documented as of this encounter Visit Diagnoses Diagnosis Closed fracture of shaft of right ulna with routine healing, unspecified fracture morphology, subsequent encounter- Primary documented in this encounter Care Teams Team MemberRelationshipSpecialtyStart DateEnd Date Deirdre Grant PA-C [address] [place] [address] [place] [address] PCP - GeneralPhysician Adqvbgksw06/31/18documented as of this encounter
--- OUTSIDE RECORDS SUMMARY | 2025-09-12 09:20 | XMS_ITS | Encounter Summary ---
Author Organization [facility] Address [address] [place] [address] Care Team Providers Care Material Handling Warehouse Supervisor Name Role Phone Deirdre Grant PA-C Primary Care Provider Reason for Visit * Procedure/Equipment (Routine) - IncompleteSpecialtyDiagnoses / Procedures Referred By ContactReferred To Contact Diagnoses Postop check Procedures XR Forearm Rt 2 Views Nereida Butcher MD [address] [facility] [place] [address] Phone: tel: fax: Referral IDStatusReasonStart DateExpiration DateVisits RequestedVisits [id number]/23/20253/ Encounter Details DateTypeDepartmentCare Team (Latest Contact Info)Sehrfmmcxlu73/23/2025 9:20 AM CSTAncillary Procedure [facility] [address] [place] [address] Nereida Butcher MD [address] [facility] [place] [id number] Postop check Social History Tobacco UseTypesPacks/DayYears UsedDateSmoking Tobacco: NeverSmokeless Tobacco: NeverAlcohol UseStandard Drinks/WeekCommentsYes2 (1 standard drink = 0.6 oz pure alcohol)PHQ-2AnswerDate RecordedPHQ-2 Ojtxa166/2025AUDIT-CAnswerDate Recorded Q1: How often do you have a drink containing alcohol?Never08/28/2025verage Number of DrinksNot on file08/28/2025Frequency of Binge DrinkingNot on file 08/28/2025CommentsNoSex and Gender InformationValueDate RecordedSex Assigned at BirthNot on fileLegal VdlQfezmz76/10/2012 4:56 AM CDTGender Identity Not on fileSexual OrientationNot on fileOccupationIndustryJob Start DateJob End DateVFWNot on fileNot on fileNot on filedocumented as of this encounter Plan of Treatment DateTypeDepartmentCare Team (Latest Contact Info)Yrnpqveoswk80/20/2026 8:30 AM CSTAppointment [facility] Orth[facility] [address] [place] [address] [place] [address] Nereida Butcher MD [address] [facility] [place] [address] NameTypePriorityAssociated DiagnosesDate/TimeXR Forearm Rt 2 ViewsImaging New Routine Postop check 09/12/2025 9:19 AM CSTdocumented as of this encounter Visit Diagnoses Diagnosis Postop check Follow-up examination, following unspecified surgery documented in this encounter Care Teams Team MemberRelationshipSpecialtyStart DateEnd Deirdre Grant PA-C [address] [place] [address] [place] [address] PCP - GeneralPhysician Zzltgwlmh73/31/18documented as of this encounter
--- OUTSIDE RECORDS SUMMARY | 2025-09-12 09:20 | XMS_ITS | Encounter Summary ---
Author Organization [facility] Address [address] [place] [address] Care Team Providers Care Nutrition Internship Name Role Phone Deirdre Grant PA-C Primary Care Provider Reason for Visit * Procedure/Equipment (Routine) - IncompleteSpecialtyDiagnoses / Procedures Referred By ContactReferred To Contact Diagnoses Postop check Procedures XR Forearm Rt 2 Views Neredia Butcher MD [address] [facility] [place] [address] Phone: tel: fax: Referral IDStatusReasonStart DateExpiration DateVisits RequestedVisits [id number]/23/20253/ Encounter Details DateTypeDepartmentCare Team (Latest Contact Info)Tvrkysvvozu44/23/2025 9:20 AM CSTAncillary Procedure [facility] [address] [place] [address] Nereida Butcher MD [address] [facility] [place] [phone] Postop check Social History Tobacco UseTypesPacks/DayYears UsedDateSmoking Tobacco: NeverSmokeless Tobacco: NeverAlcohol UseStandard Drinks/WeekCommentsYes2 (1 standard drink = 0.6 oz pure alcohol)PHQ-2AnswerDate RecordedPHQ-2 Gfgdp724/2025AUDIT-CAnswerDate Recorded Q1: How often do you have a drink containing alcohol?Never08/28/2025verage Number of DrinksNot on file08/28/2025Frequency of Binge DrinkingNot on file 08/28/2025CommentsNoSex and Gender InformationValueDate RecordedSex Assigned at BirthNot on fileLegal IwfCfkocd57/10/2012 4:56 AM CDTGender Identity Not on fileSexual OrientationNot on fileOccupationIndustryJob Start DateJob End DateVFWNot on fileNot on fileNot on filedocumented as of this encounter Plan of Treatment DateTypeDepartmentCare Team (Latest Contact Info)Rlhcksnyeqd66/20/2026 8:30 AM CSTAppointment [facility] Orthopedic [facility] [address] [place] [address] [place] [address] Nereida Butcher MD [address] [facility] [place] [address] NameTypePriorityAssociated DiagnosesDate/TimeXR Forearm Rt 2 ViewsImaging New Routine Postop check 09/12/2025 9:19 AM CSTdocumented as of this encounter Visit Diagnoses Diagnosis Postop check Follow-up examination, following unspecified surgery documented in this encounter Care Teams Team MemberRelationshipSpecialtyStart DateEnd Deirdre Grant PA-C [address] [place] [address] [place] [address] PCP - GeneralPhysician Eipatlsrk21/31/18documented as of this encounter
--- OUTSIDE RECORDS SUMMARY | 2025-09-12 09:30 | XMS_ITS | Encounter Summary ---
Author Organization [facility] Address [address] [place] [address] Care Team Providers Care Ammonia Box Operator Name Role Phone Deirdre Grant PA-C Primary Care Provider Reason for Referral * Procedure/Equipment (Routine) - IncompleteSpecialtyDiagnoses / Procedures Referred By ContactReferred To Contact Diagnoses Postop check Procedures XR Forearm Rt 2 Views Nereida Butcher MD [address] [facility] [place] [address] Phone: tel: fax: Referral IDStatusReasonStart DateExpiration DateVisits RequestedVisits [id number]/23/20253/ CTOR MBA Reason for Visit * ReasonCommentsPost-Op CheckRight ulna fracture Encounter Details DateTypeDepartmentCare Team (Latest Contact Info)Rpnbrzcopcv82/23/2025 9:30 AM CSTOffice Visit [facility] [address] [facility] [place], [place] [address] Corazon Alcantara, JOHNATHAN-C [address] [facility] [place] [phone] Postop check (Primary Dx) Social History Tobacco UseTypesPacks/DayYears UsedDateSmoking Tobacco: NeverSmokeless Tobacco: NeverAlcohol UseStandard Drinks/WeekCommentsYes2 (1 standard drink = 0.6 oz pure alcohol)PHQ-2AnswerDate RecordedPHQ-2 Farof31610/27/2024UDIT-CAnswerDate Recorded Q1: How often do you have a drink containing alcohol?Never08/28/2025verage Number of DrinksNot on file08/28/2025Frequency of Binge DrinkingNot on file 08/28/2025CommentsNoSex and Gender InformationValueDate RecordedSex Assigned at BirthNot on fileLegal NrrTitvea53/10/2012 4:56 AM CDTGender Identity Not on fileSexual OrientationNot on fileOccupationIndustryJob Start DateJob End DateVFWNot on fileNot on fileNot on filedocumented as of this encounter Patient Instructions * Patient Instructions* Corazon Alcantara, OA-José - 09/12/2025 9:30 AM DIRECTOR MBA Thank you for Choosing [facility] for your health care visit today. Follow up as scheduled Dr. Nereida Butcher MD Hand & Upper Extremity Surgeon Sales Teacher: [phone] Medication Requests: Prescriptions are not filled on weekends or on weekdays after 3:00 PM. For all medication refills: Request a refill using [employer] or contact your pharmacy. What is Know Your Cost? Know Your Cost is a service for patients and patient/members to call and receive personalized cost information and estimates across our care group. The phone number is (COST) Thursday - Thursday 8 AM to 5 PM Advanced Imaging Scheduling: To schedule an MRI, Ultrasound, or Image guided injection at [facility] please call [phone]. To schedule an MRI or CT at a [facility] please call [phone]. [facility] Workers' Compensation [address] [place] [address] (Phone) Email: [email or web address] Release of Information: Radiology/Imaging [address] [place], [place] [address] (Phone) Health Information Management [address] [place] [address] (Phone) [employer] CTOR MBA documented in this encounter Progress Notes * Corazon Alcantara OA-C - 09/12/2025 9:30 AM CST [facility] Post-Operative Note Surgeon: Nereida Butcher MD Surgery: ORIF right distal ulna fracture. Right forearm mass excisional biopsy. Days Post-op: 14 ROM: Michael is working on her motion s directed by the hand therapist. Weight Bearing Status: NA Assistive Devices: None. Pain Location: None. Pain Scale: 0/10 Pain Medication: None Response to Medication: NA Post-Op Dressing: Dressing removed previously. Splint in place. Incision: Dry. Intact. Drainage: None. Wound Care: Steri strips removed. Suture tails clipped. Assessment: Normal. X rays were taken of the left forearm and reviewed. Michael has no concerns. Follow-up: MD scheduled CTOR MBA documented in this encounter Plan of Treatment DateTypeDepartmentCare Team (Latest Contact Info)Odjlefajatx82/20/2026 8:30 AM CSTAppointment [facility] Orthopedic [facility] [address] [place] [address] Nereida Butcher MD [address] [facility] [place] [address] NameTypePriorityAssociated DiagnosesDate/TimeXR Forearm Rt 2 ViewsImaging New Routine Postop check 09/12/2025 9:19 AM CSTNameTypePriorityAssociated DiagnosesOrder ScheduleXR Forearm Rt 2 ViewsImaging NewRoutine Postop check Expected: 09/12/2025 (Approximate), Expires: 09/12/2026documented as of this encounter Visit Diagnoses Diagnosis Postop check- Primary Follow-up examination, following unspecified surgery documented in this encounter Care Teams Team MemberRelationshipSpecialtyStart DateEnd Date Deirdre Grant PA-C [address] [place] [place] [address] [place] [address] PCP - GeneralPhysician Tlpqyliwp43/31/18documented as of this encounter
--- OUTSIDE RECORDS SUMMARY | 2025-09-12 09:30 | XMS_ITS | Encounter Summary ---
Author Organization [facility] Address [address] [place] [address] Care Team Providers Care Research Quality Assurance Specialist Name Role Phone Deirdre Grant PA-C Primary Care Provider Reason for Referral * Procedure/Equipment (Routine) - IncompleteSpecialtyDiagnoses / Procedures Referred By ContactReferred To Contact Diagnoses Postop check Procedures XR Forearm Rt 2 Views Nereida Butcher MD [address] [facility] [place] [address] Phone: tel: fax: Referral IDStatusReasonStart DateExpiration DateVisits RequestedVisits [id number]/23/20253/ TIME REPORTER Reason for Visit * ReasonCommentsPost-Op CheckRight ulna fracture Encounter Details DateTypeDepartmentCare Team (Latest Contact Info)Upgwikabzkk88/23/2025 9:30 AM CSTOffice Visit [facility] [place] [address] [facility] [place], [place] [address] Corazon Alcantara, JOHNATHAN-C [address] [facility] [place] [phone] Postop check (Primary Dx) Social History Tobacco UseTypesPacks/DayYears UsedDateSmoking Tobacco: NeverSmokeless Tobacco: NeverAlcohol UseStandard Drinks/WeekCommentsYes2 (1 standard drink = 0.6 oz pure alcohol)PHQ-2AnswerDate RecordedPHQ-2 Bcxgm19710/27/2024UDIT-CAnswerDate Recorded Q1: How often do you have a drink containing alcohol?Never08/28/2025verage Number of DrinksNot on file08/28/2025Frequency of Binge DrinkingNot on file 08/28/2025CommentsNoSex and Gender InformationValueDate RecordedSex Assigned at BirthNot on fileLegal WetMugftm79/10/2012 4:56 AM CDTGender Identity Not on fileSexual OrientationNot on fileOccupationIndustryJob Start DateJob End DateVFWNot on fileNot on fileNot on filedocumented as of this encounter Patient Instructions * Patient Instructions* Corazon Alcantara, OA-José - 09/12/2025 9:30 AM REALTIME REPORTER Thank you for Choosing [facility] for your health care visit today. Follow up as scheduled Dr. Nereida Butcher MD Hand & Upper Extremity Surgeon Platform Man: [phone] Medication Requests: Prescriptions are not filled on weekends or on weekdays after 3:00 PM. For all medication refills: Request a refill using exurbe cosmeticshart or contact your pharmacy. What is Know Your Cost? Know Your Cost is a service for patients and patient/members to call and receive personalized cost information and estimates across our care group. The phone number is (COST) Thursday - Thursday 8 AM to 5 PM Advanced Imaging Scheduling: To schedule an MRI, Ultrasound, or Image guided injection at [facility] please call [phone]. To schedule an MRI or CT at a [facility] please call [phone]. [facility] Workers' Compensation [address] [place] [address] (Phone) Email: [email or web address] Release of Information: Radiology/Imaging [address] [place], [place] [phone] (Phone) Health Information Management [address] [place] [address] (Phone) ApplyMap TIME REPORTER documented in this encounter Progress Notes * Corazon Alcantara OA-C - 09/12/2025 9:30 AM CST [facility] Post-Operative Note Surgeon: Nereida Butcher MD Surgery: [...] Michael has no concerns. Follow-up: MD scheduled TIME REPORTER documented in this encounter Plan of Treatment DateTypeDepartmentCare Team (Latest Contact Info)Lpdtwnvhlpy12/20/2026 8:30 AM CSTAppointment [facility] Orthopedic [facility] [address] [place] [address] Nereida Butcher MD [address] [facility] [place] [address] NameTypePriorityAssociated DiagnosesDate/TimeXR Forearm Rt 2 ViewsImaging New Routine Postop check 09/12/2025 9:19 AM CSTNameTypePriorityAssociated DiagnosesOrder ScheduleXR Forearm Rt 2 ViewsImaging NewRoutine Postop check Expected: 09/12/2025 (Approximate), Expires: 09/12/2026documented as of this encounter Visit Diagnoses Diagnosis Postop check- Primary Follow-up examination, following unspecified surgery documented in this encounter Care Teams Team MemberRelationshipSpecialtyStart DateEnd Date Deirdre Grant PA-C [address] [place] [address] [place] [address] PCP - GeneralPhysician Gufzewzeg92/31/18documented as of this encounter
--- OUTSIDE RECORDS SUMMARY | 2025-09-12 10:00 | XMS_ITS | Encounter Summary ---
Author Organization [facility] Address [address] [place] [address] Care Team Providers Care Orthopedic Nurse Name Role Phone Deirdre Grant PA-C Primary Care Provider Reason for Visit * ReasonCommentsWrist Problem Encounter Details DateTypeDepartmentCare Team (Latest Contact Info)Rtgizzggohv43/23/2025 10:00 AM CSTOffice Visit [facility] [address] [place] [address] Myriam Grajeda, OTR/L [address] [place] [address] Closed fracture of shaft of right ulna with routine healing, unspecified fracture morphology, subsequent encounter (Primary Dx) Social History Tobacco UseTypesPacks/DayYears UsedDateSmoking Tobacco: NeverSmokeless Tobacco: NeverAlcohol UseStandard Drinks/WeekCommentsYes2 (1 standard drink = 0.6 oz pure alcohol)PHQ-2AnswerDate RecordedPHQ-2 Ihpia57910/27/2024UDIT-CAnswerDate Recorded Q1: How often do you have a drink containing alcohol?Never08/28/2025verage Number of DrinksNot on file08/28/2025Frequency of Binge DrinkingNot on file 08/28/2025CommentsNoSex and Gender InformationValueDate RecordedSex Assigned at BirthNot on fileLegal BemGgguav10/10/2012 4:56 AM CDTGender Identity Not on fileSexual [...] Therapist Signature: MASON Burton 10:32 AM 09/12/2025 IFICATION OPERATOR documented in this encounter Plan of Treatment DateTypeDepartmentCare Team (Latest Contact Info)Hrzxqvyardz73/20/2026 8:30 AM CSTAppointment [facility] Orthopedic [facility] [address] [place] [address] Nereida Butcher MD [address] [facility] [place] [address] documented as of this encounter Visit Diagnoses Diagnosis Closed fracture of shaft of right ulna with routine healing, unspecified fracture morphology, subsequent encounter- Primary documented in this encounter Care Teams Team MemberRelationshipSpecialtyStart DateEnd Date Deirdre Grant PA-C [address] [place] [address] [place] [address] PCP - GeneralPhysician Rxbhgqkyq22/31/18documented as of this encounter
--- OUTSIDE RECORDS SUMMARY | 2025-09-12 10:00 | XMS_ITS | Encounter Summary ---
Author Organization [facility] Address [address] [place] [address] Care Team Providers Care Senior Mobile Web Developer Name Role Phone Deirdre Grant PA-C Primary Care Provider Reason for Visit * ReasonCommentsWrist Problem Encounter Details DateTypeDepartmentCare Team (Latest Contact Info)Gptdpjnkuvd85/23/2025 10:00 AM CSTOffice Visit [facility] [address] [place] [address] Myriam Grajeda, OTR/L [address] [place] [address] Closed fracture of shaft of right ulna with routine healing, unspecified fracture morphology, subsequent encounter (Primary Dx) Social History Tobacco UseTypesPacks/DayYears UsedDateSmoking Tobacco: NeverSmokeless Tobacco: NeverAlcohol UseStandard Drinks/WeekCommentsYes2 (1 standard drink = 0.6 oz pure alcohol)PHQ-2AnswerDate RecordedPHQ-2 Cxxoc23910/27/2024UDIT-CAnswerDate Recorded Q1: How often do you have a drink containing alcohol?Never08/28/2025verage Number of DrinksNot on file08/28/2025Frequency of Binge DrinkingNot on file 08/28/2025CommentsNoSex and Gender InformationValueDate RecordedSex Assigned at BirthNot on fileLegal FktWpiugq67/10/2012 4:56 AM CDTGender Identity Not on fileSexual [...] Therapist Signature: MASON Burton 10:32 AM 09/12/2025 RVISOR PREP documented in this encounter Plan of Treatment DateTypeDepartmentCare Team (Latest Contact Info)Wlrhfxjqnxi15/20/2026 8:30 AM CSTAppointment [facility] Orthopedic [facility] [address] [place] [address] Nereida Butcher MD [address] [facility] [place] [address] documented as of this encounter Visit Diagnoses Diagnosis Closed fracture of shaft of right ulna with routine healing, unspecified fracture morphology, subsequent encounter- Primary documented in this encounter Care Teams Team MemberRelationshipSpecialtyStart DateEnd Date Deirdre Grant PA-C [address] [place] [address] [place] [address] PCP - GeneralPhysician Vbovcsmhp08/31/18documented as of this encounter
--- OUTSIDE RECORDS SUMMARY | 2025-09-18 23:29 | XMS_ITS | Encounter Summary ---
Author Organization [facility] Address [address] [place] [address] Care Team Providers Care Air Conditioning Mechanic Name Role Phone Deirdre Grant PA-C Primary Care Provider Encounter Details DateTypeDepartmentCare Team (Latest Contact Info)Vlhsohinays05/08/2025 Notes/Orders [facility] Orthopedic [facility] [address] [place] [address] Nereida Butcher MD [address] [place] [phone] Surgery, elective (Primary Dx) Social History Tobacco UseTypesPacks/DayYears UsedDateSmoking Tobacco: NeverSmokeless Tobacco: NeverAlcohol UseStandard Drinks/WeekCommentsYes2 (1 standard drink = 0.6 oz pure alcohol)PHQ-2AnswerDate RecordedPHQ-2 Ezmpe47910/27/2024UDIT-CAnswerDate Recorded Q1: How often do you have a drink containing alcohol?Never08/28/2025verage Number of DrinksNot on file08/28/2025Frequency of Binge DrinkingNot on file 08/28/2025CommentsNoSex and Gender InformationValueDate RecordedSex Assigned at BirthNot on fileLegal SovHrrpai21/10/2012 4:56 AM CDTGender Identity Not on fileSexual OrientationNot on fileOccupationIndustryJob Start DateJob End DateVFWNot on fileNot on fileNot on filedocumented as of this encounter Plan of Treatment DateTypeDepartmentCare Team (Latest Contact Info)Tqcjirrgula55/20/2026 8:30 AM CSTAppointment [facility] [address] [facility] [place] [address] Nereida Butcher MD [address] [facility] [place] [address] documented as of this encounter Results * [place] Fluoroscopy Up To 1 Hour (08/29/2025 1:13 PM CLARITY DEVELOPER)Anatomical Region LateralityModalityRadiographic ImagingSpecimen (Source)Anatomical Location / LateralityCollection Method / VolumeCollection TimeReceived Time Narrative 08/29/2025 1:14 PM CLARITY DEVELOPER These images were obtained during a surgical procedure. Authorizing ProviderResult TypeResult StatusYvonndora Butcher MDRAD NON-REPORTABLESFinal Result documented in this encounter Visit Diagnoses Diagnosis Surgery, elective- Primary Unspecified elective surgery for purposes other than remedying health states Surgery, elective Unspecified elective surgery for purposes other than remedying health states documented in this encounter Care Teams Team MemberRelationshipSpecialtyStart DateEnd Date Deirdre Grant PA-C [address] [facility] [address] [place] [address] PCP - GeneralPhysician Jfcjtivzx82/31/18documented as of this encounter
--- OUTSIDE RECORDS SUMMARY | 2025-09-18 23:29 | XMS_ITS ---
Author Organization [facility] Address [address] [place] [address] Care Team Providers Care Patient Services Assistant Name Role Phone Deirdre Grant PA-C Primary Care Provider Active Problems ProblemNoted DateDiagnosed DateClosed fracture of lower end of right ulna 08/25/2025History of venous qyouxlkxinmejml11/20/2022Colon polyp11/08/2015 Overview (04/24/2016): [place] - multiple polyps. erosions in the terminal ileum Pap smear of cervix shows high risk HPV dzkllis5206/06/2015 Overview (04/24/2016): Redo Pap in 05/2016; patient refuses colposcopy Right knee pain08/18/2014CTS (carpal tunnel syndrome)11/28/2013Melanoma 07/17/20118283Bzxmlz81/27/3129Prwwofx33/27/2056Dwpvfkiqx62/17/2011HTN (hypertension) 07/07/2011llergic tobhtfta65/07/2003 Overview (05/13/2017): Rhinitis Allergic NOS Current Treatment and Therapy Plans No current plan information found. Past Treatment and Therapy Plans No past plan information found. Lifetime Dose Tracking * ChemicalLifetime DoseAutomatic EntryManual EntryFluoro Time0.002 minutes0.002 minutes0 minutesTotal Air Kerma0.146 mGy0.146 mGy0 mGy Resolved Problems ProblemNoted DateDiagnosed DateResolved DateYeast infection of the skin Major depressive disorder, single ifhneru6408/18/2008 04/05/2012 Overview (05/13/2017): Depression Major NOS Herpes simplex virus (HSV) nkldovnws11 Overview (05/13/2017): Herpes Simplex Labialis Mgsinll21/07/
--- OUTSIDE RECORDS SUMMARY | 2025-09-18 23:29 | XMS_ITS | Encounter Summary ---
Author Organization [facility] Address [address] [place] [address] Care Team Providers Care Valve Technician Name Role Phone Deirdre Grant PA-C Primary Care Provider Encounter Details DateTypeDepartmentCare Team (Latest Contact Info)Xwrmuhlflji21/16/2025Results Follow-Up [facility] Orthopedic [facility] [address] [place] [address] Nereida Butcher MD [address] [place] [address] Social History Tobacco UseTypesPacks/DayYears UsedDateSmoking Tobacco: NeverSmokeless Tobacco: NeverAlcohol UseStandard Drinks/WeekCommentsYes2 (1 standard drink = 0.6 oz pure alcohol)PHQ-2AnswerDate RecordedPHQ-2 Mawof47710/27/2024UDIT-CAnswerDate Recorded Q1: How often do you have a drink containing alcohol?Never08/28/2025verage Number of DrinksNot on file08/28/2025Frequency of Binge DrinkingNot on file 08/28/2025CommentsNoSex and Gender InformationValueDate RecordedSex Assigned at BirthNot on fileLegal PnuYesnzv38/10/2012 4:56 AM CDTGender Identity Not on fileSexual OrientationNot on fileOccupationIndustryJob Start DateJob End DateVFWNot on fileNot on fileNot on filedocumented as of this encounter Plan of Treatment DateTypeDepartmentCare Team (Latest Contact Info)Xiwsuklomon96/20/2026 8:30 AM CSTAppointment [facility] Orthopedic [facility] [address] [facility] [place] [address] Nereida Butcher MD [address] [facility] [place] [phone] documented as of this encounter Visit Diagnoses Not on filedocumented in this encounter Care Teams Team MemberRelationshipSpecialtyStart DateEnd Date Deirdre Grant PA-C [address] [place] [address] [place] [address] PCP - GeneralPhysician Xlwrafdty21/31/18documented as of this encounter
--- OUTSIDE RECORDS SUMMARY | 2025-09-18 23:29 | XMS_ITS | Encounter Summary ---
Author Organization [facility] Address [address] [place] [address] Care Team Providers Care Manager Content Name Role Phone Deirdre Grant PA-C Primary Care Provider Encounter Details DateTypeDepartmentCare Team (Latest Contact Info)Rbmpapehrwq32/08/2025Results [facility] [address] [address] Maddie Warren PA-C [address] [place] [address] Social History Tobacco UseTypesPacks/DayYears UsedDateSmoking Tobacco: NeverSmokeless Tobacco: NeverAlcohol UseStandard Drinks/WeekCommentsYes2 (1 standard drink = 0.6 oz pure alcohol)PHQ-2AnswerDate RecordedPHQ-2 Biocs01310/27/2024UDIT-CAnswerDate Recorded Q1: How often do you have a drink containing alcohol?Never08/28/2025verage Number of DrinksNot on file08/28/2025Frequency of Binge DrinkingNot on file 08/28/2025CommentsNoSex and Gender InformationValueDate RecordedSex Assigned at BirthNot on fileLegal MslIduozc06/10/2012 4:56 AM CDTGender Identity Not on fileSexual OrientationNot on fileOccupationIndustryJob Start DateJob End DateVFWNot on fileNot on fileNot on filedocumented as of this encounter Plan of Treatment DateTypeDepartmentCare Team (Latest Contact Info)Dcxfkgzegdj35/20/2026 8:30 AM CSTAppointment [facility] [place] [address] [facility] [place] [address] Nereida Butcher MD [address] [facility] [place] [phone] documented as of this encounter Visit Diagnoses Not on filedocumented in this encounter Care Teams Team MemberRelationshipSpecialtyStart DateEnd Date Deirdre Grant PA-C [address] [place] [address] [place] [address] PCP - GeneralPhysician Lsnouqdtt54/31/18documented as of this encounter
--- OUTSIDE RECORDS SUMMARY | 2025-09-18 23:29 | XMS_ITS | Clinical Summary ---
Author Organization [facility]ly [facility] Address [address] [place] [address] Care Team Providers Care Coil Rewind Machine Operator Name Role Phone Deirdre Grant PA-C Primary Care Provider Source Comments You are receiving this document as you are listed as the primary care provider,follow-up provider, or the patient has been referred to you for consultation.This is in compliance with the Medicare and[facility] Hospitalca[facility] EHR Incentive Program,which states Providers who transition their patient to another setting of careor provider of care or refers their patient to another provider of care shouldprovide summary care record for each transition of care or referral. [facility] Allergies No known active allergies Medications MedicationSigDispense QuantityRefillsLast FilledStart DateEnd DateStatus triamcinolone acetonide (AKA KENALOG) 0.1 % cream Apply 1 Application topically 3 times daily. for eczema. 80 g ctive Fexofenadine-Pseudoephedrine (FEXOFENADINE-PSEUDOEPHED ER OR) Indications:Other seasonal allergic rhinitisTake 1 tablet by mouth daily (every 24 hours). 100 tablet ctive omeprazole (PRILOSEC) 40 MG capsule Take 1 capsule by mouth daily (every 24 hours). 90 capsule Active LORazepam (ATIVAN) 0.5 MG tablet Indications:Situational anxiety (HRC)Take 1 tablet by mouth every 8 hours as needed for Anxiety. 20 tablet Active Additional Information Patient not taking.Reported on 08/26/2025 SUMAtriptan (IMITREX) 100 MG tablet TAKE 1 TABLET BY MOUTH AT ONSET OF MIGRAINE. MAY REPEAT AFTER 2 HOURS IF NEEDED. MAXIMUM OF 2 TABS/24 HOURS AND 9 DAYS/MONTH. 27 Tab Active valACYclovir (VALTREX) 1 G tablet Take 2 Tabs by mouth two times daily as needed. 12 Tab Active methocarbamol (ROBAXIN) 750 MG tablet Take 1 Tablet (750 mg) by mouth.2Active ondansetron (ZOFRAN-ODT) 4 MG disintegrating tablet Take 1 Tablet (4 mg) by mouth every 8 hours as needed.5Active sertraline (ZOLOFT) 100 MG tablet Take 2 Tablets (200 mg) by mouth.5Active apixaban (ELIQUIS) 5 MG tablet Take 2 Tablets (10 mg) by mouth every morning.4Active oxyCODONE-acetaminophen (PERCOCET) 5-325 MG tablet Indications:Other closed fracture of distal end of right ulna, initial encounter Take 2 Tablets by mouth every 4 hours as needed for Pain. 15 Tablet 5Active hydrochlorothiazide 12.5 MG capsule Indications:Essential hypertension (HRC)Take 1 capsule by mouth daily (every 24 hours). 90 capsule Discontinued naproxen (AKA NAPROSYN) 500 MG tablet Indications:Right knee painTake 1 tablet by mouth 2 times daily (with meals). 180 tablet 311Discontinued triamcinolone acetonide (AKA KENALOG) 0.1 % cream APPLY TO AFFECTED AREA(S) THREE TIMES A DAY FOR ECZEMA 80 g 303Discontinued ATENolol (TENORMIN) 100 MG tablet TAKE ONE TABLET BY MOUTH ONCE DAILY 90 tablet Discontinued hydroCHLOROthiazide (ORETIC) 12.5 MG tablet Take 1 Tab by mouth every morning. 30 Tab Discontinued morphine (MS IR) 15 MG tablet Take 15 mg by mouth daily as needed.Discontinued lisinopril (ZESTRIL) 10 MG tablet Take 10 mg by mouth daily./02/2025Discontinued anastrozole (ARIMIDEX) 1 MG tablet Take 1 mg by mouth daily./02/2025Discontinued oxyCODONE-acetaminophen (PERCOCET) 5-325 MG tablet Take 2 Tablets by mouth daily./05/2025Discontinued Active Problems ProblemNoted DateDiagnosed DateClosed fracture of lower end of right ulna 08/25/2025History of venous hfedxlwoiziqvwo05/20/2022olon polyp11/08/2015 Overview (04/24/2016): [place] - multiple polyps. erosions in the terminal ileum Pap smear of cervix shows high risk HPV szkyjwo3106/06/2015 Overview (04/24/2016): Redo Pap in 05/2016; patient refuses colposcopy Right knee pain08/18/2014CTS (carpal tunnel syndrome)11/28/2013Melanoma 07/17/20119268Wnvcbk43/27/2565Tgiqepz56/27/2430Nfankotoq59/17/2011HTN (hypertension) 07/07/2011llergic /07/2003 Overview (05/13/2017): Rhinitis Allergic NOS Resolved Problems ProblemNoted DateDiagnosed DateResolved DateYeast infection of the skin Major depressive disorder, single jtvmdsb3108/18/2008 04/05/2012 Overview (05/13/2017): Depression Major NOS Herpes simplex virus (HSV) hboswdqir08 Overview (05/13/2017): Herpes Simplex Labialis Gvpbjxn96 Encounters DateTypeDepartmentCare OhaxPynkcinrodm76/23/2025 10:00 AM CSTOffice Visit [facility] [address] [place] [address] Myriam Grajeda, OTR/L Closed fracture of shaft of right ulna with routine healing, unspecified fracture morphology, subsequent encounter (Primary Dx)09/12/2025 9:30 AM UNEMPLOYMENT INSURANCE HEARING OFFICER Office Visit [facility] Orthopedic [address] [address] Corazon Alcantara OA-C Postop check (Primary Dx)09/12/2025 9:20 AM CSTAncillary Procedure [facility] [address] [place] [address] Nereida Butcher MD Postop check09/05/2025 9:00 AM CSTOffice Visit [facility] [address] [place] [address] Myriam Grajeda, OTR/L Closed fracture of shaft of right ulna with routine healing, unspecified fracture morphology, subsequent encounter (Primary Dx)09/05/2025Results Follow-Up [address] [address] Nereida Butcher MD 08/29/2025 12:12 PM CSTAnesthesia Event [facility] [address] [address] Fermin Baca MD 08/29/2025 11:45 AM UNEMPLOYMENT INSURANCE HEARING OFFICER - 08/29/2025 1:25 PM CSTSurgery [facility] [address] [address] Nereida Butcher MD Open reduction internal fixation distal ulna /09/2025 10:35 AM UNEMPLOYMENT INSURANCE HEARING OFFICER Ancillary Procedure Radiology [facility] [address] [place] [address] 08/29/2025 10:15 AM UNEMPLOYMENT INSURANCE HEARING OFFICER - 08/29/2025 2:06 PM CSTHospital Encounter [facility] [address] [address] Nereida Butcher MD Other closed fracture of distal end of right ulna, initial encounter Discharge Disposition: Home08/29/2025 6:00 AM CSTAncillary Procedure [facility] [address] [place] [address] Nereida Butcher MD Surgery, ojnhlxaw33/08/2025Notes/Orders [facility] Orthopedic [facility] [place] [address] [place] [address] Nereida Butcher MD Surgery, elective (Primary Dx)08/28/2025Results [facility] [address] 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 use of anticoagulant; Hypertension, unspecified type (HRC)08/25/2025 10:00 AM CSTOffice Visit [address] [address] Mariya Retana, PALeandroC Other closed fracture of distal end of right ulna, initial encounter (Primary Dx); Lipoma of right upper zacrqlgdx59/03/2025 1:10 PM CSTOffice Visit [facility] [address] [address] [address] [place] [address] Arya Lloyd MD Dog bite, initial encounter (Primary Dx); Puncture wound of multiple sites of right upper extremity, initial encounter; Other closed fracture of distal end of right ulna, initial /03/2025 12:40 PM CSTAncillary Procedure [facility] [address] Radiology [address] [place] [phone] Eduarda Cristobal PA-C Pain of right upper zautdonuk87/03/2025 12:20 PM CSTOffice Visit [facility] [address] [place] [phone] Eduarda Cristobal PA-C Closed fracture of right forearm, initial encounter; Dog bite, initial encounterfrom Last 3 Months Immunizations ImmunizationAdministration DatesNext DueFlu Vac Preserv Free (3+yrs)06/25/2012, 07/03/2011,08/18/2008Influenza IIV4 (Quadrivalent) 0.5mL (02882)06/11/2015, 06/05/2014,07/01/2013TDAP (BOOSTRIX)07/01/2013Td05/13/2004 Family History * Patient is adopted Medical HistoryRelationNameCommentsDVT/PENegative Family HistoryRelationName StatusCommentsBirth FatheradoptiveBirth MotheradoptiveDaughterAliveSonAlive Social History Tobacco UseTypesPacks/DayYears UsedDateSmoking Tobacco: NeverSmokeless Tobacco: Never Tobacco Cessation:Counseling Given: Not Answered Alcohol UseStandard Drinks/WeekCommentsYes2 (1 standard drink = 0.6 oz pure alcohol)PHQ-2AnswerDate RecordedPHQ-2 Kukff35410/27/2024UDIT-CAnswerDate Recorded Q1: How often do you have a drink containing alcohol?Never08/28/2025verage Number of DrinksNot on file08/28/2025Frequency of Binge DrinkingNot on file 08/28/2025CommentsNoSex and Gender InformationValueDate RecordedSex Assigned at BirthNot on fileLegal LdgUbijot41/10/2012 4:56 AM CDTGender Identity Not on fileSexual OrientationNot on fileOccupationIndustryJob Start DateJob End DateVFWNot on fileNot on fileNot on file Last Filed Vital Signs Vital SignReadingTime TakenCommentsBlood Snyglfjp672/7508/29/2025 1:58 PM UNEMPLOYMENT INSURANCE HEARING OFFICER Daimo469308/29/2025 1:58 PM JHZFnbhavmydvy14.1 ??C (96.9 ??F)08/29/2025 1:27 PM CSTRespiratory Mpzu733910/30/2024 1:58 PM CSTOxygen Ixplppruok21%08/29/2025 1:58 PM CSTInhaled Oxygen Concentration--Ashvqt58 kg (150 lb)08/23/2025 1:12 PM UNEMPLOYMENT INSURANCE HEARING OFFICER Szvxrs744.5 cm (5' 2)08/26/2025 8:31 AM CSTBody Mass Index27.44110/24/2024 1:12 PM UNEMPLOYMENT INSURANCE HEARING OFFICER Plan of Treatment DateTypeDepartmentCare Team (Latest Contact Info)Sbfnmonudib20/20/2026 8:30 AM CSTAppointment [facility] Orth[facility] [address] [place] [address] Nereida Butcher MD [address] [facility] [place] [address] Health MaintenanceDue DateLast DoneCommentsHep C Screening (Preventive Services) 1964HIV Screening (Preventive Services)1980Adult Preventive Visit 1982Cervical Cancer Screening Due06/07/, 04/01/2012, 08/18/2008, Additional history sdgynfJywldreaihd93 (Completed) Fyceasrvddu54/16/, 07/17/2011, 08/18/2008, Additional history existsCOVID-19 Vaccine ( season)/08/2024, 08/26/2022, 03/06/2022, Additional history existsInfluenza Vaccine (#1)/08/2024, 08/26/2022, 08/06/2021, Additional history existsDiabetes Screening- (based on age and BMI)TaP/Tdap/Td Vaccine (3 - Tdap)09/01/2034 09/01/2024, 07/01/2013, 05/13/2004RSV Vaccine (1 - 1-dose 75+ series)2039 Zoster/Shingles SlfkjihFylksckkb93/01/2019, 09/16/2018Pneumococcal Vaccine 50+ NiaDkdztgdqa90/07/2025HepA VaccineAged OutNo longer eligible based on patient's age to complete this topicHepB VaccineAged OutNo longer eligible based on patient's age to complete this topicHib VaccineAged OutNo longer eligible based on patient's age to complete this topicIPV (Polio) VaccineAged OutNo longer eligible based on patient's age to complete this topicMCV4 VaccineAged OutNo longer eligible based on patient's age to complete this topicMeningococcal B VaccineAged OutNo longer eligible based on patient's age to complete this topic Medical Devices ImplantedTypeAreaManufacturerDevice IdentifierShelf Expiration DateModel / Serial / LotPlt Sm Frag Lk Hiflx Str - High Flex - Ea/1 - [id number] Implanted:Qty: 1 on 08/29/2025 by Nereida Butcher MD at [facility]: [employer] - [id number] / 0 / 000Scr Peg Nonlk 2.5x14 - [employer] - Ea/ - [id number] Implanted:Qty: 2 on 08/29/2025 by Nereida Butcher MD at [facility]: [employer] - [id number] / 0 / 000Scr Peg Nonlk 2.5x16 - [employer] - Ea/1 - [id number] Implanted:Qty: 1 on 08/29/2025 by Nereida Butcher MD at [facility]: [employer] - [id number] / 0 / 000Scr Peg Nonlk 2.5x12 - [employer] - Ea/1 - [id number] Implanted:Qty: 2 on 08/29/2025 by Nereida Butcher MD at [facility]: [employer] - [id number] / 0 / 000Peg 2.5x16 F-Thrd - [employer] - Ea/1 - [id number] Implanted:Qty: 1 on 08/29/2025 by Nereida Butcher MD at [facility]: [employer] - [id number] / 0 / 000 Procedures Procedure NamePriorityDate/TimeAssociated DiagnosisCommentsSUR FLUOROSCOPY UP TO 1 YHXUHfuwhet85/09/2025 1:13 PM UNEMPLOYMENT INSURANCE HEARING OFFICER Surgery, elective SURGICAL AKZCUUHMYBykacel97/09/2025 1:08 PM UNEMPLOYMENT INSURANCE HEARING OFFICER Other closed fracture of distal end of right ulna, initial encounter PERIPHERAL JCUUFMgtullr28/09/2025 12:18 PM UNEMPLOYMENT INSURANCE HEARING OFFICER Exc Arm/Elbow Les Sc = 3 Cm08/29/2025 12:01 PM UNEMPLOYMENT INSURANCE HEARING OFFICER Other closed fracture of distal end of right ulna, initial encounter Open Tx Ulnar Shaft Fx W/Wo Fix08/29/2025 12:01 PM UNEMPLOYMENT INSURANCE HEARING OFFICER Other closed fracture of distal end of right ulna, initial encounter Exc Raul Les Trnk Arm/Leg;2.1-3.0 Cm08/29/2025 12:01 PM UNEMPLOYMENT INSURANCE HEARING OFFICER Other closed fracture of distal end of right ulna, initial encounter US ANESTHESIA GUIDED ASWQEJeiivap44/09/2025 10:34 AM UNEMPLOYMENT INSURANCE HEARING OFFICER COMPLETE BLOOD COUNT-NO KJRGBzbvtfh86/06/2025 9:17 AM UNEMPLOYMENT INSURANCE HEARING OFFICER Preop examination ECG 12 LEAD UICPPABDDXGivpzsa67/06/2025 9:00 AM UNEMPLOYMENT INSURANCE HEARING OFFICER Preop examination XR FOREARM RT 2 KMMZQASVU48/03/2025 12:51 PM UNEMPLOYMENT INSURANCE HEARING OFFICER Pain of right upper extremity LIPID PANEL & DIRECT LDL (IF NEEDED)Wlkbhkl0306/06/2015 12:15 PM CDT Routine general medical examination at a health care facility ANATOMICAL PATH LIQUID DOOSLAmfrpzp18/16/2015 11:46 AM CDT from Last 3 Months or Most Recently Relevant to Health Maintenance Results * CHINO Fluoroscopy Up To 1 Hour (08/29/2025 1:13 PM UNEMPLOYMENT INSURANCE HEARING OFFICER)Anatomical Region LateralityModalityRadiographic ImagingSpecimen (Source)Anatomical Location / LateralityCollection Method / VolumeCollection TimeReceived Time Narrative 08/29/2025 1:14 PM UNEMPLOYMENT INSURANCE HEARING OFFICER These images were obtained during a surgical procedure. Authorizing ProviderResult TypeResult StatusYvonndora Butcher MDRAD NON-REPORTABLESFinal Result * Surgical Path (08/29/2025 1:08 PM UNEMPLOYMENT INSURANCE HEARING OFFICER)ComponentValueRef RangeTest Method Analysis TimePerformed AtPathologist SignatureCase ReportSurgical Pathology ?Case: [id number] ? Authorizing Provider: ??Nereida Butcher MD ? Collected: ? 08/29/2025 1308 ? Ordering Location: ? [facility] ?Received: ?08/29/2025 1318 ? Pathologist: ? Sven Millan MBBS ? Specimen: ?Forearm, right, right forearm mass ? 09/01/2025 12:[address] [facility] LABORATORYFINAL DIAGNOSISSoft tissue, forearm, right, excision: - Organizing gbrcoflw92/12/2025 12:[address] [facility] at 1245 CSTClinical InformationOther closed fracture of distal end of right ulna, initial encounter 09/01/2025 12:[address] [facility] LABORATORYMicroscopic Description Microscopic examination is performed.09/01/2025 12:[address] [facility] LABORATORYGross DescriptionA: The specimen is received in formalin and labeled with the patient's name and Forearm, right, rightforearm mass. The specimen consists of a 0.8 x 0.5 x 0.5 cm portion of mcmahan-yellow, focally hemorrhagic soft tissue. The specimen is bisected and entirely submitted in 1 block. AW 09/01/2025 12:[address] [facility] LABORATORYEmbedded Zvrfwd3109/01/2025 12:[address] [facility] LABORATORYSpecimen (Source)Anatomical Location / LateralityCollection Method / VolumeCollection TimeReceived TimeTissueENTIRE RIGHT FOREARM / Nebxuma9408/29/2025 1:08 PM CST08/29/2025 1:18 PM UNEMPLOYMENT INSURANCE HEARING OFFICER Narrative Authorizing ProviderResult TypeResult StatusNereida STAPLETON PATHOLOGYFinal ResultPerforming OrganizationAddressCity/State/ZIP CodePhone Number [facility] CLIA: [id number] [address] * PERIPHERAL BLOCK (08/29/2025 12:18 PM UNEMPLOYMENT INSURANCE HEARING OFFICER) Narrative [facility] - 08/29/2025 12:18 PM UNEMPLOYMENT INSURANCE HEARING OFFICER Fermin Baca MD 09/07/2025 12:10 PM Peripheral [...] Hat and Sterile gloves Monitoring: ??Blood pressure, ekg monitor and continuous pulse oximetry Patient Position: [...] Edited Result - FinalPerforming OrganizationAddressCity/State/ZIP CodePhone Number [facility] CLIA: [id number] [address] * [place] Anesthesia Guided Block (08/29/2025 10:34 AM UNEMPLOYMENT INSURANCE HEARING OFFICER)Anatomical Region LateralityModalityUltrasoundSpecimen (Source)Anatomical Location / Laterality Collection Method / VolumeCollection TimeReceived Time Narrative 08/29/2025 10:34 AM UNEMPLOYMENT INSURANCE HEARING OFFICER If an Anesthesia block was performed please see the Anesthesia encounter for documentation. ??This procedure was performed and interpreted by the performing provider. ?? Authorizing ProviderResult TypeResult StatusMickalia Baca MDRAD USFinal Result * Complete Blood Count-No Diff (08/26/2025 9:17 AM UNEMPLOYMENT INSURANCE HEARING OFFICER)ComponentValueRef Range Test MethodAnalysis TimePerformed AtPathologist SignatureWBC8.53.5 - 10.5 x10(9)/L110/27/2024 9:44 AM [facility] LABORATORYRBC4.533.90 - 5.03 x10(12)/L 08/26/2025 9:44 AM [facility] DLUVMLUSTIFjwtifomfr36.812.0 - 15.5 g/dL 08/26/2025 9:44 AM [facility] RCFSYDAWWQDLS56.334.9 - 44.5 %08/26/2025 9:44 AM [facility] MCTSDBMCHAXAF93.280.0 - 100.0 fL08/26/2025 9:44 AM [facility] TSSOSZZFPWDOR15.527.6 - 33.3 pg08/26/2025 9:44 AM [facility] ADFGYPNRVMLGNJ92.431.5 - 35.2 g/dL08/26/2025 9:44 AM [facility] RDW13.011.9 - 15.5 %08/26/2025 9:44 AM [facility] YFLHJDCVXSOgyvxlfag234112 - 450 x10(9)/L110/27/2024 9:44 AM [facility] LABORATORYSpecimen (Source) Anatomical Location / LateralityCollection Method / VolumeCollection Time Received TimeBloodVenipuncture / Oecjgmt0208/26/2025 9:17 AM CST08/26/2025 9:17 AM UNEMPLOYMENT INSURANCE HEARING OFFICER Narrative Authorizing ProviderResult TypeResult StatusYesy Solomon APRN, CNPLAB_1Final ResultPerforming OrganizationAddressCity/State/ZIP CodePhone Number [facility] CLIA: [id number] [address] [place] [address], [facility] * ECG 12 Lead (Clinical Data Compiler to perform) (08/26/2025 9:00 AM UNEMPLOYMENT INSURANCE HEARING OFFICER) ComponentValueRef RangeTest MethodAnalysis TimePerformed AtPathologist SignatureVentricular Cdui64PXMBDAZ GHPAtrial Mmpt18QWXTBFL GHPP-R Agrjexgg743 msMUSE GHPQRS Escmfkau03rbRQND BAZIO510xdTJXI RLSFTF228qeKAWQ GHPP Axis66 degreesMUSE GHPR Rrcs57lqefdcxHPSR GHPT Ljvo17ytatmqbBDYL GHPSpecimen (Source) Anatomical Location / LateralityCollection Method / VolumeCollection Time Received Time08/26/2025 9:00 AM UNEMPLOYMENT INSURANCE HEARING OFFICER Narrative [facility] - 08/26/2025 9:30 AM UNEMPLOYMENT INSURANCE HEARING OFFICER Sinus rhythm Normal ECG When compared with ECG of 21-Nov-2015 08:55, No significant change Confirmed by Pasquale Mahoney ([id number]) on 08/26/2025 9:30:50 AM Procedure Note Pasquale Mahoney MD - 08/26/2025 Sinus rhythm Normal ECG When compared with ECG of 21-Nov-2015 08:55, No significant change Confirmed by Pasquale Mahoney ([id number]) on 08/26/2025 9:30:50 AM Authorizing ProviderResult TypeResult StatusJennifer L Juanito JORDAN, CNPPN ECG ORDERABLESFinal ResultPerforming OrganizationAddressCity/State/ZIP CodePhone Number [facility] [address] [place] [address] * XR Forearm Rt 2 Views (08/23/2025 12:51 PM UNEMPLOYMENT INSURANCE HEARING OFFICER)Anatomical RegionLaterality ModalityUpper Extremity, Forearm, ArmDigital RadiographySpecimen (Source) Anatomical Location / LateralityCollection Method / VolumeCollection Time Received Time Narrative 08/23/2025 1:06 PM UNEMPLOYMENT INSURANCE HEARING OFFICER EXAM: XR FOREARM RT 2 VIEWS INDICATION: [...] Authorizing ProviderResult TypeResult StatusEduarda WHITTEN GDFinal Result * Lipid Panel and Direct LDL(If Needed) (06/06/2015 12:15 PM CDT)ComponentValue Ref RangeTest MethodAnalysis TimePerformed AtPathologist SignatureCholesterol 1640 - 200 mg/dLHP UXCPDTVHXQQyggejvcvkqkp0082 - 149 mg/dLHP CONVERSIONHDL Mnpbdornrbs94>39 mg/dLHP CONVERSIONCholesterol/HDL Ratio Screen3.3HP CONVERSIONLDL Gdemmeonjn6620 - 130 mg/dLHP CONVERSIONHours Bvkdnug22.0HP CONVERSIONSpecimen (Source)Anatomical Location / LateralityCollection Method / VolumeCollection TimeReceived Time06/06/2015 12:15 PM CDT06/06/2015 2:47 PM CDT Narrative [facility] CONVERSION - 06/06/2015 3:41 PM CDT Performed at [facility], [address] [place] [address] Authorizing ProviderResult TypeResult StatusJenny BRAUN_1Final ResultPerforming OrganizationAddressCity/State/ZIP CodePhone Number [facility] CONVERSION * Pap Smear (06/06/2015 11:46 AM CDT)Specimen (Source)Anatomical Location / LateralityCollection Method / VolumeCollection TimeReceived Time06/06/2015 11:46 AM CDT Narrative [facility] CONVERSION - 06/11/2015 2:47 [place] [address] FINAL GYNECOLOGICAL CYTOLOGY REPORT Pathology #: [id number] ?Date Obtained: 06/06/2015 ? Date Received: 06/07/2015 INTERPRETATION/RESULTS: Negative for Intraepithelial Lesion or Malignancy. SPECIMEN ADEQUACY: Satisfactory for Evaluation. ??Endocervical cells/transformation zone component present. Verified on 06/11/2015 ??by DILIA SINHA(ASCP) (electronic signature) CLINICAL NOTES: ?Abnormal bleeding: No, LMP: amenorrheic on , Menstrual status: ?None Apply, Current form of therapy: Hormone Therapy LIQUID BASED PAP SMEAR SPECIMEN TYPE: ?ROUTINE CERVICAL PAP TEST PLEASE NOTE: The pap smear is a screening test designed to aid in the detection of cervical cancer and its precursor lesions. It is not a diagnostic procedure and should not be used as the sole means of detecting cervical cancer. Both false-positive and false-negative reports may occur. ? End of Report Transcriptions 10/30/2016 3:18 AM CSTNotes Recorded by Patria Hoyos RN on 06/15/2015 at 10:05 AMPhone note started 06/15 Authorizing ProviderResult TypeResult StatusJenny Morin PA-CLAB_1Final ResultPerforming OrganizationAddressCity/State/ZIP CodePhone Number [facility] CONVERSION from Last 3 Months or Most Recently Relevant to Health Maintenance Insurance * Guarantor: Michael Palacio BAc TypeRelation to PatientDate of BirthPhone Billing AddressPersonal/UpzkjbPkpd92[birth year][address] [place] [address] * Guarantor: Michael Palacio TypeRelation to PatientDate of BirthPhone Billing AddressPersonal/SgapauLnju[birth year][address] [place] [address] Advance Directives * Full Code (Latest Code Status on File) Date ActivatedDate InactivatedComments12/09/2013 4:23 PM12/09/2013 8:27 PM Care Teams Team MemberRelationshipSpecialtyStart DateEnd Date Deirdre Grant PA-C [address] [place] [address] [place] [id number] PCP - GeneralPhysician Bcamgboyl59/31/18
--- OUTSIDE RECORDS SUMMARY | 2025-09-18 23:30 | XMS_ITS | Clinical Summary ---
Author Organization [place] Address [facility] [place] [address] Care Team Providers Care Movement Therapist Name Role Phone Tyesha Perez PA-C Unavailable Grace Jewell PA-C Primary Care Provid er Tyesha Perez PA-C Unavailable [phone] Allergies Active AllergyReactionsCriticalityNoted DvdsNqrulrxqMmjqopksqthSyztcow88/30/2015 NsaidsGI Xpqrnmjjxwo27/15/2017 Medications MedicationSigDispense QuantityRefillsLast FilledStart DateEnd DateStatus ValACYclovir HCl (VALTREX PO) Take 1,000 mg by mouth 2 times daily as needed (cold sores)Active triamcinolone (KENALOG) 0.1 % cream Apply topically 3 times daily as neededActive ATENOLOL PO Take 100 mg by mouth dailyActive HYDROCHLOROTHIAZIDE PO Take 12.5 mg by mouth dailyActive SUMAtriptan (IMITREX) 100 MG tablet Take 100 mg by mouth at onset of headache for migraineActive Cholecalciferol (VITAMIN D3 PO) Take 1 tablet by mouth dailyActive fexofenadine-pseudoePHEDrine (MIGUEL-D) 60-120 MG per 12 hr tablet Take 1 tablet by mouth daily as neededActive CYCLOBENZAPRINE HCL PO Take 10 mg by mouth nightly as needed for muscle spasmsActive LANSOPRAZOLE PO Take 30 mg by mouth dailyActive Ondansetron (ZOFRAN ODT PO) Take 4 mg by mouth every 8 hours as needed for nauseaActive SERTRALINE HCL PO Take 50 mg by mouth dailyActive Ferrous Sulfate (IRON SUPPLEMENT PO) Take 1 tablet by mouth dailyActive Ascorbic Acid (VITAMIN C PO) Take 1 tablet by mouth dailyActive oxyCODONE IR (ROXICODONE) 5 MG tablet Indications:Total knee replacement status, right1 every 4 Hrs 1 - 2 Every 6 Hrs prn 80 tablet 09/09/2017Active acetaminophen (TYLENOL) 325 MG tablet Indications:Total knee replacement status, rightTake 3 tablets (975 mg) by mouth every 8 hours 100 tablet 09/09/2017Active senna-docusate (SENOKOT-S;PERICOLACE) 8.6-50 MG per tablet Indications:Total knee replacement status, rightTake 1-2 tablets by mouth 2 times daily 100 tablet 09/09/2017Active cyclobenzaprine (FLEXERIL) 5 MG tablet Indications:Total knee replacement status, rightTake 1 tablet (5 mg) by mouth 2 times daily as needed for muscle spasms 30 tablet 09/09/2017Active potassium chloride SA (K-DUR/KLOR-CON M) 10 MEQ CR tablet Indications:HypokalemiaTake 1 tablet (10 mEq) by mouth daily 30 tablet Active warfarin (COUMADIN) 2.5 MG tablet Indications:Total knee replacement status, rightDose 5mg thu, And Thursday This nend , 2.5 Mg thu , thu Then Call office Thu For New dosing Based on inr 40 tablet 09/09/2017Active amLODIPine (NORVASC) 5 MG tablet Take 1 tablet by mouth daily07/13/2023ctive dicyclomine (BENTYL) 10 MG capsule Take 10 mg by mouth10/08/2023ctive apixaban ANTICOAGULANT (ELIQUIS) 5 MG tablet Take 5 mg by mouth10/28/2023ctive exemestane (AROMASIN) 25 MG tablet Take 25 mg by mouth03/10/2023ctive ketoconazole (NIZORAL) 2 % external shampoo Apply topically.09/04/2022ctive lisinopril (ZESTRIL) 40 MG tablet Take 1 tablet by mouth daily07/13/2023ctive methocarbamol (ROBAXIN) 500 MG tablet Take 1,000 mg by mouth09/10/2022ctive morphine (MSIR) 15 MG IR tablet Take 15 mg by mouth at bedtimeActive oxyCODONE-acetaminophen (PERCOCET) 5-325 MG tablet TAKE ONE TABLET BY MOUTH EVERY 4 TO 6 HOURS FOR CHRONIC PAIN. MAX 4 PER DAY. Active prochlorperazine (COMPAZINE) 10 MG tablet Take 10 mg by mouth07/13/2023ctive sertraline (ZOLOFT) 100 MG tablet 10/08/2023ctive ketoconazole (NIZORAL) 2 % external cream Indications:PerlecheApply to corners of mouth BID PRN 15 g ctive clobetasol propionate (CLOBEX) 0.05 % external shampoo Indications:PsoriasisUse 1-2 times weekly 118 mL ctive fluocinolone acetonide (DERMA SMOOTHE/FS BODY) 0.01 % external oil Indications:PsoriasisApply to scalp at bedtime x 1-2 weeks then PRN 118 mL ctive valACYclovir (VALTREX) 1000 mg tablet Indications:HSV infection2 tabs at sx onset; 2 more 12 hours later PRN cold sores 30 tablet ctive COMPOUNDED NON-CONTROLLED SUBSTANCE (CMPD RX) - PHARMACY TO MIX COMPOUNDED MEDICATION Indications:Verruca plantarisWart peel in remedium sig apply to warts at HS as tolerated 5 g ctive triamcinolone (KENALOG) 0.1 % external cream Indications:PsoriasisApply to AA BID x 1-2 week then PRN only 80 g 5Active Active Problems ProblemNoted DateDiagnosed DateTotal knee replacement status, right09/07/2017 Abdominal pain10/16/2015 Immunizations ImmunizationAdministration DatesNext DueCOVID-19 MONOVALENT 12+ (Pfizer) 06/27/2021,12/26/2020,12/05/2020 Family History Medical HistoryRelationCommentsUnknown/AdoptedBrotherUnknown/AdoptedDaughter Unknown/AdoptedFatherUnknown/AdoptedMaternal GrandfatherUnknown/AdoptedMaternal GrandmotherUnknown/AdoptedMaternal Half-BrotherUnknown/AdoptedMaternal Half-SisterUnknown/AdoptedMotherUnknown/AdoptedPaternal Grandfather Unknown/AdoptedPaternal GrandmotherUnknown/AdoptedPaternal Half-Brother Unknown/AdoptedSisterUnknown/AdoptedSonRelationStatusCommentsBrotherDaughter FatherMaternal GrandfatherMaternal GrandmotherMaternal Half-BrotherMaternal Half-SisterMotherPaternal GrandfatherPaternal GrandmotherPaternal Half-Brother SisterSon Social History Tobacco UseTypesPacks/DayYears UsedDateSmoking Tobacco: NeverSmokeless Tobacco: Never Tobacco Cessation:Counseling Given: Yes Alcohol UseStandard Drinks/WeekCommentsYes0 (1 standard drink = 0.6 oz pure alcohol)socially--3x weekPHQ-2AnswerDate RecordedPHQ-2 Gfapw365 Adolescent EducationAnswerDate RecordedGetting School Help NeededNot on file 3CommentsNoSex and Gender InformationValueDate RecordedSex Assigned at BirthNot on fileLegal IffIuvzsc85/04/2012 2:58 AM CSTGender Identity Not on fileSexual OrientationNot on file Last Filed Vital Signs Vital SignReadingTime TakenCommentsBlood Qtphyzcs919/7709/09/2017 11:00 AM PUBLIC WELFARE WORKER Oqupt879409/08/2017 11:28 PM LRPOfygcdqxlua96.7 ??C (98.1 ??F)09/09/2017 7:46 AM CSTRespiratory Gkrx260711/10/2016 7:46 AM CSTOxygen Ogoxchcafl30%09/09/2017 7:46 AM CSTInhaled Oxygen Concentration--Dqbqdi62.6 kg (202 lb)09/07/2017 9:04 AM PUBLIC WELFARE WORKER Cgljmo097.5 cm (5' 2)09/07/2017 9:20 AM CSTBody Mass Index36.9509/07/2017 9:04 AM PUBLIC WELFARE WORKER Plan of Treatment Health MaintenanceDue DateLast DoneCommentsADVANCE CARE LVWVZMUU07/03/1966ANNUAL REVIEW OF HM QIDXXX96 1965CT XPIHNTCPAGLO11/03/3194RTW86 1965FLEX SIG 1965sDNA (Cologuard)1965 5363IVUUP65/03/1638JLW25/24/ DIABETES YAHLRCJNL83, 09/08/2017, 10/18/2015, Additional history existsYEARLY PREVENTIVE VISIT/MAMMO SCREENING , 08/20/2020, 07/23/2019, Additional history existsCOVID-19 VACCINE ( season)/08/2024, 08/26/2022, 03/06/2022, Additional history existsINFLUENZA VACCINE (#1)/08/2024, 08/26/2022, 08/06/2021, Additional history nrjgleILNQENDUDQX10/18/95684211/08/2015, 11/08/2015, 11/08/2015COLORECTAL CANCER SXVVTGDQX83/18/2026DTAP/TDAP/TD VACCINE (3 - Td or Tdap), 07/01/2013, 05/13/2004HEPATITIS C MKVCDCPECAdcnuqtzg14/24/2016ZOSTER GWQBVRVEwjbikcjl69/01/2019, 09/16/2018HIV KJXHIKCICZgvflsmgk95/12/2024NEUMOCOCCAL VACCINE 50+ TGWJCWpbjdippo09/07/2025RSV EZSUPETHetppblno49/07/2025PHQ-2 (once per calendar year)Zsosauhie94/11/2025, 06/28/2024HPV VACCINE (No Doses Required)CompletedMENINGITIS VACCINEAged OutNo longer eligible based on patient's age to complete this topic Medical Devices ImplantedTypeAreaManufacturerDevice IdentifierShelf Expiration DateModel / Serial / LotBone Cement Simplex W/Gentamicin 6195-1-001 Implanted:Qty: 1 on 09/07/2017 [facility], BoneRight: KneeSTRYKER UCPJPMWJJMV64/[id number] / / [id number] Comp Tibial Knee Ascent 67mm [id number] Implanted:Qty: 1 on 09/07/2017 [facility] Component/InsertRight: KneeZIMMER [employer] [id number] / / [id number] Comp Femoral Vangard Biom Ps Rt 60mm [id number] Implanted:Qty: 1 on 09/07/2017 by Logan Viera MD at [facility] Joint Component/InsertRight: KneeZIMMER [employer] [id number] / / [id number] Comp Femoral Vangard Biom Fixation [id number] Implanted:Qty: 1 on 09/07/2017 by Logan Viera MD at [facility] Joint Component/InsertRight: KneeZIMMER [employer] [id number] / / [id number] Comp Patella Biom 3 Peg 31mm Std [id number] Implanted:Qty: 1 on 09/07/2017 by Logan Viera MD at [facility] Joint Component/InsertRight: KneeZIMMER [employer] [id number] / / [id number] Vanguard Tibial Bearing, 16mm Ps+ Implanted:Qty: 1 on 09/07/2017 by [facility]Right: Knee04/20/[id number] / / [id number] Procedures Procedure NamePriorityDate/TimeAssociated DiagnosisCommentsGLUCOSERoutine 09/09/2017 7:12 AM PUBLIC WELFARE WORKER Hypokalemia RTLOVRRICRGLdljeul29/18/2016 7:27 AM PUBLIC WELFARE WORKER from Last 3 Months or Most Recently Relevant to Health Maintenance Results * (ABNORMAL) Glucose (09/09/2017 7:12 AM PUBLIC WELFARE WORKER)ComponentValueRef RangeTest Method Analysis TimePerformed AtPathologist QhtnwgjjwXvtortu907(H)70 - 99 mg/dL 09/09/2017 7:47 AM CSTFAMERCY HOSPITALpecimen (Source)Anatomical Location / LateralityCollection Method / VolumeCollection TimeReceived Time Blood specimen (specimen)09/09/2017 7:12 AM CST09/09/2017 7:27 AM PUBLIC WELFARE WORKER Narrative Authorizing ProviderResult TypeResult StatusJochapincito Viera MDLAB - BLOOD ORDERABLESFinal ResultPerforming OrganizationAddressCity/State/ZIP CodePhone Number [facility] [address] [place] [address], [facility] [phone] * COLONOSCOPY (11/08/2015 7:27 AM PUBLIC WELFARE WORKER)ComponentValueRef RangeTest MethodAnalysis TimePerformed AtPathologist SignatureCOLONOSCOPYFairTracy Medical Center Patient Name: Michael Palacio ? Procedure Date: 11/08/2015 7:27 AM ? Date of : 1965 ? Admit Type: Outpatient Age: 50 ? Gender: Female Attending MD: Deshawn Mcallister MD Instrument Name: 121 Procedure: ?Colonoscopy Indications: ?Abnormal CT of the GI tract Providers: ?Deshawn Mcallister MD, Sebastien Cummins RN ?(Nurse) Referring MD: ? [facility] Medicines: ?Propofol per Anesthesia Complications: ?No immediate complications. Procedure: ?Pre-Anesthesia Assessment: ?- Prior to the procedure, a History and Physical ?was performed, and patient medications and ?allergies were reviewed. The patient is competent. ?The risks and benefits of the procedure and the ?sedation options and risks were discussed with the ?patient. All questions were answered and informed ?consent was obtained. Patient identification and ?proposed procedure were verified by the physician ?in the pre-procedure area. Mental Status ?Examination: alert and oriented. Airway ?Examination: normal oropharyngeal airway and neck ?mobility. Respiratory Examination: clear to ?auscultation. CV Examination: normal. Prophylactic ?Antibiotics: The patient does not require ?prophylactic antibiotics. Prior Anticoagulants: The ?patient has taken no previous anticoagulant or ?antiplatelet agents. ASA Grade Assessment: III - A ?patient with severe systemic disease. After ?reviewing the risks and benefits, the patient was ?deemed in satisfactory condition to undergo the ?procedure. The anesthesia plan was to use monitored ?anesthesia care (MAC). Immediately prior to ?administration of medications, the patient was ?re-assessed for adequacy to receive sedatives. The ?heart rate, respiratory rate, oxygen saturations, ?blood pressure, adequacy of pulmonary ventilation, ?and response to care were monitored throughout the ?procedure. The physical status of the patient was ?re-assessed after the procedure. ?After obtaining informed consent, the colonoscope ?was passed under direct vision. Throughout the ?procedure, the patient's blood pressure, pulse, and ?oxygen saturations were monitored continuously. The ?[id number] was introduced through the anus and ?advanced to the cecum, identified by appendiceal ?orifice and ileocecal valve. The colonoscopy was ?performed without difficulty. ? Findings: ? The perianal exam was abnormal. Findings include a skin tag. ? The terminal ileum contained a few scattered non-bleeding erosions. ? Biopsies were taken with a cold forceps for histology. ? The terminal ileum contained multiple diffuse pedunculated, non-bleeding ? polyps. The polyps were 3 to 8 mm in diameter. These polyps were removed ? with a hot snare. Resection and retrieval were complete. ? The terminal ileum contained multiple diffuse pedunculated polyps. ? Fulguration to stop the bleeding that was caused by the procedure by ? snare was successful. ? A sessile polyp was found in the descending colon. The polyp was 2 mm in ? size. The polyp was removed with a hot snare. Resection and retrieval ? were complete. ? A few small-mouthed diverticula were found in the sigmoid colon. ? The retroflexed view of the distal rectum and anal verge was normal and ? showed no anal or rectal abnormalities. ? Impression: ? - Perianal skin tag found on perianal exam. ?- A few erosions in the terminal ileum. Biopsied. ?- Multiple polyps in the terminal ileum. Resected ?and retrieved. ?- Multiple polyps in the terminal ileum. Treated by ?fulguration. ?- One 2 mm polyp in the descending colon. Resected ?and retrieved. ?- Diverticulosis in the sigmoid colon. ?- The distal rectum and anal verge are normal on ?retroflexion view. Recommendation: ? - Discharge patient to home (ambulatory). ?- Use fiber, for example Citrucel, Fibercon, Konsyl ?or Metamucil. ?- Await pathology results. ?- Repeat colonoscopy (date not yet determined) for ?surveillance based on pathology results. ? Procedure Code(s): ? --- Professional --- ? 55098, Colonoscopy, flexible, proximal to splenic flexure; with removal ? of tumor(s), polyp(s), or other lesion(s) by snare technique ? 65106, 59, Colonoscopy, flexible, proximal to splenic flexure; with ? biopsy, single or multiple CPT copyright 2013 [employer]. All rights reserved. The codes documented in this report are preliminary and upon certified coder review may be revised to meet current compliance requirements. Deshawn Mcallister MD 11/08/2015 8:37 AM I was physically present for the entire viewing portion of the exam. Number of Addenda: 0 Note Initiated On: 11/08/2015 7:27 AM MRN: ?[id number] Procedure Date: ? 11/08/2015 7:27:45 AM Scope Withdrawal Time: 0 hours 29 minutes 43 seconds Total Procedure Duration: 0 hours 35 minutes 27 seconds Estimated Blood Loss: ? Scope In: 7:51:32 AM Scope Out: 8:26:59 AMRADIOLOGY RESULTSSpecimen (Source)Anatomical Location / LateralityCollection Method / VolumeCollection TimeReceived Time11/08/2015 7:27 AM PUBLIC WELFARE WORKER Narrative Authorizing ProviderResult TypeResult StatusPartyesha Mahan [facility] PROCEDURESEdited Result - FinalPerforming OrganizationAddressCity/State/ZIP Code Phone Number RADIOLOGY RESULTS from Last 3 Months or Most Recently Relevant to Health Maintenance Insurance * Guarantor: Michael Palacio BAccount TypeRelation to PatientDate of BirthPhone Billing AddressPersonal/CsbujfHsuw[birth year][address] [place] [address] Advance Directives For more information, please contact: [phone] TypeDate RecordedPatient RepresentativeExplanationAdvance Directives and Living Will09/07/2017 4:49 PMHealth Care Directive 09/07/17 * Full Code (Latest Code Status on File) Date ActivatedDate NrvunljwjsqCgjfrkpu18/18/2017 4:13 PM09/09/2017 5:25 PM * Full Code Date ActivatedDate InactivatedComments10/19/2015 10:54 AM09/07/2017 4:13 PM * Full Code Date ActivatedDate InactivatedComments10/16/2015 4:41 PM10/19/2015 10:54 AM Care Teams Team MemberRelationshipSpecialtyStart DateEnd Date Grace Jewell PA-C [address] [address] PCP - General11/12/23 Tyesha Perez PA-C [address] [place] [address] Physician AssistantDermatology04/21/23 Tyesha Perez PA-C [address] [id number] Assigned Dermatology Alofbtcy35/23/25
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
[2025-09-19 00:21] VITALS: BP 169/113; PULSE 96; RESP 48; TEMP 36.3; O2SAT 100
--- NOTE | 2025-09-19 00:38 | ED.GENADULT ---
HPI - General Adult General Chief complaint: Nausea/Vomiting Stated complaint: cyclic vomiting Time Seen by Provider: 09/19/25 00:27 Source: patient and family Mode of arrival: ambulatory Limitations: no limitations History of Present Illness HPI narrative: 59-year-old female presents to the emergency department for evaluation of severe vomiting. Patient with prior diagnosis of cyclic vomiting syndrome, long-term chronic marijuana user. Has had to similar episodes within the last year and a half, please see previous documentation. Notes are reviewed. Patient reports that her symptoms started around 530, were not precipitated by any nausea. She tried taking 8 mg of oral Zofran which she has on hand for these episodes, symptoms did not improve. Presents to the ED now in the wee hours. No fever. No bloody stools. Does have chronic diarrhea. History of chronic pain disorder, denies recent changes in her medications. Did have a wrist surgery 4 weeks ago after fracture. No longer wearing a brace or other type of device. Denies any recent injury or trauma. Did not try other interventions besides the Zofran prior to ED arrival. Does report a history of Crohn's disease as well, reports prior bowel obstructions, does not believe her symptoms feel similar today. ROS is notable for the vomiting only, otherwise denies acutely times 12 systems. Chronic pain symptoms are ongoing and stable. Medications reviewed. Patient declines to list these for me but states that they are ?in her chart?. Patient gets her care through [facility]. It does look like she is prescribed SSRIs and other potentially QT prolonging agents. Related Data Home Medications ?Medication ?Instructions ?Recorded ?Confirmed amlodipine 5 mg tablet 5 mg PO DAILY 11/09/23 07/04/25 Held on 07/04/25. Instructions: Doctor's Order apixaban 5 mg tablet (Eliquis) 5 mg PO BID 11/09/23 11/09/23 atenolol 100 mg tablet 100 mg PO DAILY 11/09/23 07/04/25 Held on 07/04/25. Instructions: Doctor's Order dicyclomine 10 mg capsule 10 mg PO 3XD 11/09/23 07/04/25 Held on 07/04/25. Instructions: Doctor's Order exemestane 25 mg tablet 25 mg PO DAILY 11/09/23 11/09/23 gabapentin 300 mg capsule 600 mg PO 3XD 11/09/23 11/09/23 lansoprazole 30 mg capsule,delayed 30 mg PO DAILY 11/09/23 11/09/23 release lisinopril 40 mg tablet 40 mg PO DAILY 11/09/23 07/04/25 Held on 07/04/25. Instructions: Doctor's Order methocarbamol 500 mg tablet 500 mg PO Q6H 11/09/23 11/09/23 olanzapine 5 mg disintegrating PO 11/09/23 tablet oxycodone-acetaminophen 5 mg-325 1 tab PO Q4-6H chronic pain 11/09/23 11/09/23 mg tablet prochlorperazine maleate 10 mg PO 11/09/23 tablet sertraline 100 mg tablet 100 mg PO BID 11/09/23 11/09/23 sumatriptan succinate 100 mg tablet 100 mg PO Q2-4H PRN 11/09/23 11/09/23 valacyclovir 1 gram tablet PO 11/09/23 Previous Rx's ?Medication ?Instructions ?Recorded olanzapine 5 mg tablet 5 - 10 mg (1 - 2 x 5 mg) PO QHS 11/09/23 PRN #30 tabs prochlorperazine maleate 5 mg 5 mg PO TID PRN nausea #30 tabs 11/09/23 tablet (Compazine) ondansetron 4 mg disintegrating 4 mg PO Q8H PRN nausea and 07/04/25 tablet vomiting #10 tabs Allergies Allergy/AdvReac Type Severity Reaction Status Date / Time No Known Drug Allergies Allergy Verified 07/04/25 12:58 PFSH PFSH Social History Smoking Status: Current some day smoker How often do you have a drink containing alcohol: never AUDIT-C Alcohol total score: 0 Non-prescribed substance use: marijuana (any form) Exam Const: Vital Signs, click to edit/add: Vital Signs - 24 hr 09/19/25 00:21 09/19/25 01:51 Temperature 97.4 F L Pulse Rate [Left P ulse Oximeter] 96 Respiratory Rate 48 H Blood Pressure [Le ft Upper Arm] 169/113 H Pulse Oximetry 100 100 Oxygen Delivery Me thod Room Air Nasal Cannula Oxygen Flow Rate 2 Documenting provider has reviewed patient's vital signs: yes Common normals: alert Other: Mild distress. Evasive to my questions, insisting that her significant other answer. No signs of intoxication. HENMT: Common normals: normocephalic, moist oral mucous membranes and oropharynx normal Head and scalp: normocephalic Face and sinus: normal facial exam Eye: Common normals: conjunctivae normal General eye: normal appearance of both eyes Conjunctiva: conjunctiva(e) normal Neck & C-Spine: General: normal visual inspection Resp: Common normals: normal respiratory effort, no use of accessory muscles and clear to auscultation bilaterally Effort & inspection: able to speak in complete sentences Auscultation: clear to auscultation bilaterally Cardio: Common normals: regular rate, regular rhythm, S1 normal heart sound, S2 normal heart sound and no murmurs Rate: regular rate Rhythm: regular rhythm Heart sounds: S1 normal and S2 normal GI: Common normals: Normal to inspection, nondistended, normoactive bowel sounds present, soft to palpation, no hepatosplenomegaly and no masses Palpation: soft and no hepatosplenomegaly Other: Mild tenderness epigastrium only. No rebound tenderness or guarding observed Back & Pelvis: Common normals: thoracic and lumbar spine normal to inspection Extremity: Common normals: normal to inspection, normal capillary refill and no pedal edema Neuro: Common normals: moves all extremities Sensorium/orientation: alert Speech: speech normal Psych: Appearance: grossly normal Attitude: engaged Activity/motor behavior: appropriate eye contact Attention/concentration: attention grossly intact Skin: Common normals: no rashes or lesions noted General skin exam: no rashes or lesions noted Course Course ED Course: 59-year-old female with history of recurrent episodes of severe vomiting presenting with 6 hours of typical symptoms. Patient with no improvement on Zofran at home. Patient suspects her potassium may be low. Will place peripheral IV, give 1 L of LR, obtain CBC, basic metabolic panel, lipase, liver function tests. Will give 0.5 mg of lorazepam, 5 mg of olanzapine and then reassess. Reevaluation(s) Time of Reevaluation #1: 02:25 Reevaluation #1: Patient feeling better after fluids and medications. Is nearly finished with 2nd bag of fluids. She declines my recommendation for anti nausea medicines at home. I did encourage her to discontinue all marijuana usage. Alarm symptoms were reviewed that would warrant ED re-evaluation. Primary care follow-up for long-term management encouraged. All labs are reassuring today. Vital Signs Vital signs: Initial Vital Signs Temperature 97.4 F L 09/19/25 00:21 Temperature Source Temporal Artery Scan 09/19/25 00:21 Pulse Rate 96 09/19/25 00:21 Respiratory Rate 48 H 09/19/25 00:21 Blood Pressure 169/113 H 09/19/25 00:21 Blood Pressure Mean 131 H 09/19/25 00:21 Blood Pressure Position Sitting 09/19/25 00:21 Pulse Oximetry 100 09/19/25 00:21 Oxygen Delivery Method Room Air 09/19/25 00:21 Vital Signs Temperature 97.4 F L 09/19/25 00:21 Pulse Rate 96 09/19/25 00:21 Respiratory Rate 48 H 09/19/25 00:21 Blood Pressure 169/113 H 09/19/25 00:21 Pulse Oximetry 100 09/19/25 00:21 Oxygen Delivery Method Room Air 09/19/25 00:21 Temperature 97.4 F L 09/19/25 00:21 Pulse Rate 96 09/19/25 00:21 Respiratory Rate 48 H 09/19/25 00:21 Blood Pressure 169/113 H 09/19/25 00:21 Pulse Oximetry 100 09/19/25 01:51 Oxygen Delivery Method Nasal Cannula 09/19/25 01:51 Oxygen Flow Rate 2 09/19/25 01:51 Medications Administered Medications: Discontinued Medications Generic Name Dose Route Start Last Admin Trade Name Freq PRN Reason Stop Dose Admin Sodium Chloride 1,000 mls @ 1,000 mls/hr 09/19/25 00:04 09/19/25 00:30 0.9 % Sodium Chloride 1000 Ml IV 09/19/25 01:03 1,000 mls/hr .Q1H ONE Administration Lactated Ringer's 1,000 mls @ 1,000 mls/hr 09/19/25 00:29 09/19/25 01:50 Lactated Ringers 1000 Ml IV 09/19/25 01:28 1,000 mls/hr .Q1H ONE Administration Medical Decision Making Lab Data Lab results reviewed: Yes I reviewed the patient's lab results Lab results narrative: Labs reassuring. No significant anemia. LFTs look better than usual. No electrolyte abnormalities. CRP normal. No pancreatitis Labs: Lab Results 09/19/25 Range/Units 00:25 WBC 11.54 H (4.50-11.00) K/uL RBC 5.01 (4.00-5.20) m/uL Hgb 15.0 (12.0-16.0) gm/dL Hct 45.5 (33.0-51.0) % MCV 91 (80-100) fL MCH 30 (26-34) pg MCHC 33 (32-36) gm/dL RDW Coeff of Betsy 13.5 (11.5-15.5) % Plt Count 349 (140-440) K/uL Neut % (Auto) 93.8 H (42.0-72.0) % Lymph % (Auto) 4.7 L (20-44) % [place] % (Auto) 1.3 (0.0-11.0) % Eos % (Auto) 0.0 (0.0-7.0) % Baso % (Auto) 0.1 (0.0-3.0) % Neut # (Auto) 10.80 H (1.7-7.0) K/uL Lymph # (Auto) 0.50 L (0.90-2.90) K/uL [place] # (Auto) 0.20 (0.00-0.90) K/UL Eos # (Auto) 0.00 (0.00-0.50) K/uL Baso # (Auto) 0.00 (0.00-0.30) K/uL Abs Immat Gran (auto) 0.00 (0.00-0.30) K/uL Imm/Tot Granulo (auto) 0.1 % Sodium 147 (135-149) mmol/L Potassium 3.9 (3.6-5.1) mmol/L Chloride 111 (96-114) mmol/L Carbon Dioxide 15 L (20-32) mmol/L Anion Gap 21 H (7-15) mEq/L BUN 16 (7-30) mg/dL Creatinine 0.7 (0.5-1.5) mg/dL Estimated GFR 99 ml/min Glucose 96 (60-115) mg/dL Calcium 10.3 (8.4-10.6) mg/dL Magnesium 1.3 L (1.5-2.6) mg/dL Total Bilirubin 1.2 (0.1-1.5) mg/dL AST 39 H (12-35) U/L ALT 39 H (4-35) U/L Alkaline Phosphatase 91 (40-150) U/L C-Reactive Protein < 0.5 L (0.5-1.0) mg/dL Total Protein 7.8 (6.0-8.3) g/dL Albumin 4.7 (3.3-5.0) g/dL Lipase 99 (23-300) U/L Discharge Plan Discharge Clinical Impression: Cyclical vomiting Patient Disposition: Home w/ Parent or Adult Condition: Improved Instructions: Cyclic Vomiting Syndrome (ED) Additional Instructions: I am glad that the medicines and fluids are helping. These episodes can be quite frustrating. Unfortunately, no treatments that we given in emergency room will make them completely go away nor prevent them from coming back again. It is strongly recommended that anyone that has these types of episodes discontinue all marijuana use in any form, I will let you decide if that is appropriate for you. You have declined any additional medications to have at home. It is okay to continue use of Zofran if needed. These episodes will tend to last 3-4 days. The fluids that I have given you will help prevent dehydration in the meantime. There were no signs of dehydration or electrolyte abnormalities on your blood work. This is reassuring. Consider following up with your primary care provider or a GI specialist if you continue to have episodes. Activity Level: No Restrictions Discharge Diet: Regular Prescriptions: No Action ondansetron 4 mg tablet,disintegrating 4 mg PO Q8H PRN (Reason: nausea and vomiting) Qty: 10 0RF atenolol 100 mg tablet 100 mg PO DAILY valacyclovir 1 gram tablet PO sertraline 100 mg tablet 100 mg PO BID amlodipine 5 mg tablet 5 mg PO DAILY prochlorperazine maleate 10 mg tablet PO oxycodone-acetaminophen 5-325 mg tablet 1 tab PO Q4-6H exemestane 25 mg tablet 25 mg PO DAILY lansoprazole 30 mg capsule,delayed release(DR/EC) 30 mg PO DAILY lisinopril 40 mg tablet 40 mg PO DAILY olanzapine 5 mg tablet,disintegrating PO Eliquis 5 mg tablet 5 mg PO BID methocarbamol 500 mg tablet 500 mg PO Q6H sumatriptan succinate 100 mg tablet 100 mg PO Q2-4H PRN Rx Instructions: do not exceed 2 doses per 24 hrs dicyclomine 10 mg capsule 10 mg PO 3XD gabapentin 300 mg capsule 600 mg PO 3XD olanzapine 5 mg tablet 5 - 10 mg PO QHS PRNQty: 30 0RF prochlorperazine maleate [Compazine] 5 mg tablet 5 mg PO TID PRN (Reason: nausea) Qty: 30 0RF Follow Up/Referrals: Provider,Not a Local [Primary Care Provider, Family Practice] Stand Alone Forms: [employer] Info Instructions
[2025-09-19 00:40] LABS: Hematocrit* 45.5 % (33.0-51.0); Hemoglobin* 15.0 gm/dL (12.0-16.0); Immature Granulocytes Pct Auto 0.1 %; Mean Corpuscular HGB Conc 33 gm/dL (32-36); Mean Corpuscular Hemoglobin 30 pg (26-34); Mean Corpuscular Volume 91 fL (80-100); RDW Coefficient of Variation % 13.5 % (11.5-15.5); Red Blood Count* 5.01 m/uL (4.00-5.20); White Blood Count* 11.54 K/uL (4.50-11.00)
[2025-09-19 00:46] LABS: Immature Granulocytes Abs Auto 0.00 K/uL (0.00-0.30); Lymphocytes Absolute Auto 0.50 K/uL (0.90-2.90); Slide Review Reflex No
[2025-09-19 00:54] LABS: Albumin* 4.7 g/dL (3.3-5.0); Chloride* 111 mmol/L (96-114)
[2025-09-19 00:55] LABS: Potassium* 3.9 mmol/L (3.6-5.1); Sodium* 147 mmol/L (135-149)
[2025-09-19 00:57] LABS: Blood Urea Nitrogen* 16 mg/dL (7-30); Creatinine* 0.7 mg/dL (0.5-1.5); Estimated Glomerular Filt Rate 99 ml/min
[2025-09-19 00:58] LABS: Alanine Aminotransferase* 39 U/L (4-35); Alkaline Phosphatase* 91 U/L (40-150); Anion Gap 21 mEq/L (7-15); Aspartate Amino Transferase* 39 U/L (12-35); Bilirubin Total* 1.2 mg/dL (0.1-1.5); Calcium* 10.3 mg/dL (8.4-10.6); Carbon Dioxide* 15 mmol/L (20-32); Glucose* 96 mg/dL (60-115); Total Protein* 7.8 g/dL (6.0-8.3)
--- OUTSIDE RECORDS SUMMARY | 2025-09-19 01:01 | XMS_ITS | Encounter Summary ---
Author Organization [employer] Address [address] [place] [address] Care Team Providers Care Fish And Game Club Manager Name Role Phone Deirdre Grant PA-C Primary Care Provider Encounter Details DateTypeDepartmentCare Team (Latest Contact Info)Nmaeraukiek57/08/2025Results [facility] [address] [place] [address] Maddie Warren PA-C [address] [place] [address] Social History Tobacco UseTypesPacks/DayYears UsedDateSmoking Tobacco: NeverSmokeless Tobacco: NeverAlcohol UseStandard Drinks/WeekCommentsYes2 (1 standard drink = 0.6 oz pure alcohol)PHQ-2AnswerDate RecordedPHQ-2 Hpfwl02510/27/2024UDIT-CAnswerDate Recorded Q1: How often do you have a drink containing alcohol?Never08/28/2025verage Number of DrinksNot on file08/28/2025Frequency of Binge DrinkingNot on file 08/28/2025CommentsNoSex and Gender InformationValueDate RecordedSex Assigned at BirthNot on fileLegal PyvXivubo59/10/2012 4:56 AM CDTGender Identity Not on fileSexual OrientationNot on fileOccupationIndustryJob Start DateJob End DateVFWNot on fileNot on fileNot on filedocumented as of this encounter Plan of Treatment DateTypeDepartmentCare Team (Latest Contact Info)Bvhgsvsbpjw10/20/2026 8:30 AM CSTAppointment [facility] [place] [address] [facility] [place] [address] Nereida Butcher MD [address] [facility] [place] [id number] documented as of this encounter Visit Diagnoses Not on filedocumented in this encounter Care Teams Team MemberRelationshipSpecialtyStart DateEnd Date Deirdre Grant PA-C [address] [address] [place] [address] PCP - GeneralPhysician Azbbmnqlt29/31/18documented as of this encounter
--- OUTSIDE RECORDS SUMMARY | 2025-09-19 01:03 | XMS_ITS | Encounter Summary ---
Author Organization [facility] Address [address] [place] [address] Care Team Providers Care Customer Care Coordinator Name Role Phone Deirdre Grant PA-C Primary Care Provider Encounter Details DateTypeDepartmentCare Team (Latest Contact Info)Dwsrkuxmkjh29/16/2025Results Follow-Up [facility] [address] [place] [phone] Nereida Butcher MD [address] [place] [address] Social History Tobacco UseTypesPacks/DayYears UsedDateSmoking Tobacco: NeverSmokeless Tobacco: NeverAlcohol UseStandard Drinks/WeekCommentsYes2 (1 standard drink = 0.6 oz pure alcohol)PHQ-2AnswerDate RecordedPHQ-2 Agigo40510/27/2024UDIT-CAnswerDate Recorded Q1: How often do you have a drink containing alcohol?Never08/28/2025verage Number of DrinksNot on file08/28/2025Frequency of Binge DrinkingNot on file 08/28/2025CommentsNoSex and Gender InformationValueDate RecordedSex Assigned at BirthNot on fileLegal GpcXrpown61/10/2012 4:56 AM CDTGender Identity Not on fileSexual OrientationNot on fileOccupationIndustryJob Start DateJob End DateVFWNot on fileNot on fileNot on filedocumented as of this encounter Plan of Treatment DateTypeDepartmentCare Team (Latest Contact Info)Pjeylkzwheu05/20/2026 8:30 AM CSTAppointment [facility] [address] [facility] [place] [address] Nereida Butcher MD [address] [facility] [place] [phone] documented as of this encounter Visit Diagnoses Not on filedocumented in this encounter Care Teams Team MemberRelationshipSpecialtyStart DateEnd Date Deirdre Grant PA-C [address] [phone] [place] [address] PCP - GeneralPhysician Ceflddbmy30/31/18documented as of this encounter
--- OUTSIDE RECORDS SUMMARY | 2025-09-19 01:03 | XMS_ITS | Encounter Summary ---
Author Organization [facility] Address [address] [place] [address] Care Team Providers Care Cell Attendant Name Role Phone Deirdre Grant PA-C Primary Care Provider Encounter Details DateTypeDepartmentCare Team (Latest Contact Info)Awlasxltave15/08/2025 Notes/Orders [facility] [address] [place] [address] Nereida Butcher MD [address] [place] [phone] Surgery, elective (Primary Dx) Social History Tobacco UseTypesPacks/DayYears UsedDateSmoking Tobacco: NeverSmokeless Tobacco: NeverAlcohol UseStandard Drinks/WeekCommentsYes2 (1 standard drink = 0.6 oz pure alcohol)PHQ-2AnswerDate RecordedPHQ-2 Ogobh67910/27/2024UDIT-CAnswerDate Recorded Q1: How often do you have a drink containing alcohol?Never08/28/2025verage Number of DrinksNot on file08/28/2025Frequency of Binge DrinkingNot on file 08/28/2025CommentsNoSex and Gender InformationValueDate RecordedSex Assigned at BirthNot on fileLegal XywYvxkut30/10/2012 4:56 AM CDTGender Identity Not on fileSexual OrientationNot on fileOccupationIndustryJob Start DateJob End DateVFWNot on fileNot on fileNot on filedocumented as of this encounter Plan of Treatment DateTypeDepartmentCare Team (Latest Contact Info)Fhkyvxkjfvc83/20/2026 8:[address] [facility] [address] [facility] [place] [address] Nereida Butcher MD [address] [facility] [place] [address] documented as of this encounter Results * [place] Fluoroscopy Up To 1 Hour (08/29/2025 1:13 PM COMMISSARY PRODUCTION SUPERVISOR)Anatomical Region LateralityModalityRadiographic ImagingSpecimen (Source)Anatomical Location / LateralityCollection Method / VolumeCollection TimeReceived Time Narrative 08/29/2025 1:14 PM COMMISSARY PRODUCTION SUPERVISOR These images were obtained during a surgical procedure. Authorizing ProviderResult TypeResult StatusYvonndora Butcher MDRAD NON-REPORTABLESFinal Result documented in this encounter Visit Diagnoses Diagnosis Surgery, elective- Primary Unspecified elective surgery for purposes other than remedying health states Surgery, elective Unspecified elective surgery for purposes other than remedying health states documented in this encounter Care Teams Team MemberRelationshipSpecialtyStart DateEnd Date Deirdre Grant PA-C [address] [facility] [address] [place] [address] PCP - GeneralPhysician Hoqqanuhr21/31/18documented as of this encounter
--- OUTSIDE RECORDS SUMMARY | 2025-09-19 01:04 | XMS_ITS ---
Author Organization [employer] Address [address] [place] [address] Care Team Providers Care Live Games Dealer Name Role Phone Deirdre Grant PA-C Primary Care Provider Active Problems ProblemNoted DateDiagnosed DateClosed fracture of lower end of right ulna 08/25/2025History of venous zvptoxcenqaxvuv78/20/2022Colon polyp11/08/2015 Overview (04/24/2016): [place] - multiple polyps. erosions in the terminal ileum Pap smear of cervix shows high risk HPV xusymtk9706/06/2015 Overview (04/24/2016): Redo Pap in 05/2016; patient refuses colposcopy Right knee pain08/18/2014CTS (carpal tunnel syndrome)11/28/2013Melanoma 07/17/20110922Zougef54/27/5294Vjwneuu89/27/5617Apxktzxth04/17/2011HTN (hypertension) 07/07/2011llergic yvabfrlz94/07/2003 Overview (05/13/2017): Rhinitis Allergic NOS Current Treatment and Therapy Plans No current plan information found. Past Treatment and Therapy Plans No past plan information found. Lifetime Dose Tracking * ChemicalLifetime DoseAutomatic EntryManual EntryFluoro Time0.002 minutes0.002 minutes0 minutesTotal Air Kerma0.146 mGy0.146 mGy0 mGy Resolved Problems ProblemNoted DateDiagnosed DateResolved DateYeast infection of the skin Major depressive disorder, single vvosnrn1608/18/2008 04/05/2012 Overview (05/13/2017): Depression Major NOS Herpes simplex virus (HSV) Overview (05/13/2017): Herpes Simplex Labialis Dahayyn47/07/
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
--- OUTSIDE RECORDS SUMMARY | 2025-09-19 01:04 | XMS_ITS | Clinical Summary ---
Author Organization [facility] Address [address] [place] [address] Care Team Providers Care Wood Stock Blank Handler Name Role Phone Deirdre Grant PA-C Primary Care Provider Source Comments You are receiving this document as you are listed as the primary care provider,follow-up provider, or the patient has been referred to you for consultation.This is in compliance with the Medicare andSum[facility] Barber[facility] Campuscaid EHR Incentive Program,which states Providers who transition their patient to another setting of careor provider of care or refers their patient to another provider of care shouldprovide summary care record for each transition of care or referral. [facility] Allergies No known active allergies Medications [...] end of right ulna 08/25/2025History of venous eaoyeozveakwovy75/20/2022olon polyp11/08/2015 Overview (04/24/2016): [place] - multiple polyps. erosions in the terminal ileum Pap smear of cervix shows high risk HPV fcvzjlt8006/06/2015 Overview (04/24/2016): Redo Pap in 05/2016; patient refuses colposcopy Right knee pain08/18/2014CTS (carpal tunnel syndrome)11/28/2013Melanoma 07/17/20113737Eccqrh81/27/8120Ggbofhp61/27/8759Lnonbtkcj97/17/2011HTN (hypertension) 07/07/2011llergic hrturvri78/07/2003 Overview (05/13/2017): Rhinitis Allergic NOS Resolved Problems ProblemNoted DateDiagnosed DateResolved DateYeast infection of the skin Major depressive disorder, single xkzeouy0208/18/2008 04/05/2012 Overview (05/13/2017): Depression Major NOS Herpes simplex virus (HSV) ifdanvugk55 Overview (05/13/2017): Herpes Simplex Labialis Fdkergj39 Encounters DateTypeDepartmentCare WmacNqseepeeaxf01/23/2025 10:00 AM CSTOffice Visit [facility] [address] [place] [address] Myriam Grajeda, OTR/L Closed fracture of shaft of right ulna with routine healing, unspecified fracture morphology, subsequent encounter (Primary Dx)09/12/2025 9:30 AM CONTINUOUS MINING MACHINE LODE MINER Office Visit [facility] Orthopedic [address] [address] Corazon Alcantara OA-C Postop check (Primary Dx)09/12/2025 9:20 AM CSTAncillary Procedure [facility] [address] [place] [address] Nereida Butcher MD Postop check09/05/2025 9:00 AM CSTOffice Visit [facility] [address] [place] [address] Myriam Grajeda, OTR/L Closed fracture of shaft of right ulna with routine healing, unspecified fracture morphology, subsequent encounter (Primary Dx)09/05/2025Results Follow-Up [address] [address] Nereida Butcher MD 08/29/2025 12:12 PM CSTAnesthesia Event [facility] [address] [address] Fermin Baca MD 08/29/2025 11:45 AM CONTINUOUS MINING MACHINE LODE MINER - 08/29/2025 1:25 PM CSTSurgery [facility] [address] [address] Nereida Butcher MD Open reduction internal fixation distal ulna gemmmxte59/09/2025 10:35 AM CONTINUOUS MINING MACHINE LODE MINER Ancillary Procedure Radiology [facility] [address] [place] [address] 08/29/2025 10:15 AM CONTINUOUS MINING MACHINE LODE MINER - 08/29/2025 2:06 PM CSTHospital Encounter [facility] [address] [address] Nereida Butcher MD Other closed fracture of distal end of right ulna, initial encounter Discharge Disposition: Home08/29/2025 6:00 AM CSTAncillary Procedure [facility] [address] [place] [address] Nereida Butcher MD Surgery, mibdjmum00/08/2025Notes/Orders [facility] Orthopedic [facility] [address] [place] [address] Nereida Butcher MD Surgery, elective (Primary Dx)08/28/2025Results [facility] [address] [facility] 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 Other closed fracture of distal end of right ulna with delayed healing, subsequent encounter (Primary Dx); Preop examination; 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; watermaster current use of anticoagulant; Hypertension, unspecified type (HRC)08/25/2025 10:00 AM CSTOffice Visit [address] [address] Mariya Retana, PALeandroC Other closed fracture of distal end of right ulna, initial encounter (Primary Dx); Lipoma of right upper eusdzzjzn79/03/2025 1:10 PM CSTOffice Visit [facility] [address] [address] [address] [place] [address] Arya Lloyd MD Dog bite, initial encounter (Primary Dx); Puncture wound of multiple sites of right upper extremity, initial encounter; Other closed fracture of distal end of right ulna, initial kwaeukwcc83/03/2025 12:40 PM CSTAncillary Procedure [facility] [address] [address] [address] [place] [phone] Eduarda Cristobal PA-C Pain of right upper adnuxklrg57/03/2025 12:20 PM CSTOffice Visit [facility] [address] [place] [phone] Eduarda Cristobal PA-C Closed fracture of right forearm, initial encounter; Dog bite, initial encounterfrom Last 3 Months Immunizations ImmunizationAdministration DatesNext DueFlu Vac Preserv Free (3+yrs)06/25/2012, 07/03/2011,08/18/2008Influenza IIV4 (Quadrivalent) 0.5mL (02104)06/11/2015, 06/05/2014,07/01/2013TDAP (BOOSTRIX)07/01/2013Td05/13/2004 Family History * Patient is adopted Medical HistoryRelationNameCommentsDVT/PENegative Family HistoryRelationName StatusCommentsBirth FatheradoptiveBirth MotheradoptiveDaughterAliveSonAlive Social History Tobacco UseTypesPacks/DayYears UsedDateSmoking Tobacco: NeverSmokeless Tobacco: Never Tobacco Cessation:Counseling Given: Not Answered Alcohol UseStandard Drinks/WeekCommentsYes2 (1 standard drink = 0.6 oz pure alcohol)PHQ-2AnswerDate RecordedPHQ-2 Bbgkg96410/27/2024UDIT-CAnswerDate Recorded Q1: How often do you have a drink containing alcohol?Never08/28/2025verage Number of DrinksNot on file08/28/2025Frequency of Binge DrinkingNot on file 08/28/2025CommentsNoSex and Gender InformationValueDate RecordedSex Assigned at BirthNot on fileLegal XguPyqbrf37/10/2012 4:56 AM CDTGender Identity Not on fileSexual OrientationNot on fileOccupationIndustryJob Start DateJob End DateVFWNot on fileNot on fileNot on file Last Filed Vital Signs Vital SignReadingTime TakenCommentsBlood Sxzyfqze310/7508/29/2025 1:58 PM CONTINUOUS MINING MACHINE LODE MINER Yiwky229608/29/2025 1:58 PM GTVPffxhkacpgc17.1 ??C (96.9 ??F)08/29/2025 1:27 PM CSTRespiratory Bvnx479710/30/2024 1:58 PM CSTOxygen Zmcdlcsbuy04%08/29/2025 1:58 PM CSTInhaled Oxygen Concentration--Cxutnd18 kg (150 lb)08/23/2025 1:12 PM CONTINUOUS MINING MACHINE LODE MINER Rvneca203.5 cm (5' 2)08/26/2025 8:31 AM CSTBody Mass Index27.44110/24/2024 1:12 PM CONTINUOUS MINING MACHINE LODE MINER Plan of Treatment DateTypeDepartmentCare Team (Latest Contact Info)Lxyxtfnqlqj42/20/2026 8:30 AM CSTAppointment [facility] Orthopedic [facility] [address] [facility] [place] [address] Nereida Butcher MD [address] [facility] [place] [address] Health MaintenanceDue DateLast DoneCommentsHep C Screening (Preventive Services) 1964HIV Screening (Preventive Services)1980Adult Preventive Visit 1982Cervical Cancer Screening Due06/07/, 04/01/2012, 08/18/2008, Additional history zsjkjgIcmmvqblygw37 (Completed) Nmjpgkqgtff37/16/, 07/17/2011, 08/18/2008, Additional history existsCOVID-19 Vaccine ( season)/08/2024, 08/26/2022, 03/06/2022, Additional history existsInfluenza Vaccine (#1)/08/2024, 08/26/2022, 08/06/2021, Additional history existsDiabetes Screening- (based on age and BMI)TaP/Tdap/Td Vaccine (3 - Tdap)09/01/2034 09/01/2024, 07/01/2013, 05/13/2004RSV Vaccine (1 - 1-dose 75+ series)2039 Zoster/Shingles XnphvltOcxuccicl98/01/2019, 09/16/2018Pneumococcal Vaccine 50+ UuaZwmyccfpd24/07/2025HepA VaccineAged OutNo longer eligible based on patient's [...] Str - High Flex - Ea/1 - [id number] Implanted:Qty: 1 on 08/29/2025 by Nereida Butcher MD at [facility]: [employer] - [id number] / 0 / 000Scr Peg Nonlk 2.5x14 - Hand Innovations - Ea/ - [id number] Implanted:Qty: 2 on 08/29/2025 by Nereida Butcher MD at [facility]: [employer] - [id number] / 0 / 000Scr Peg Nonlk 2.5x16 - [employer] - Ea/1 - [id number] Implanted:Qty: 1 on 08/29/2025 by Nereida Butcher MD at [facility]: [employer] - [id number] / 0 / 000Scr Peg Nonlk 2.5x12 - [employer] - Ea/1 - [id number] Implanted:Qty: 2 on 08/29/2025 by Nereida Butcher MD at [facility]: [employer] - [id number] / 0 / 000Peg 2.5x16 F-Thrd - Hand [employer] - Ea/1 - [id number] Implanted:Qty: 1 on 08/29/2025 by Nereida Butcher MD at [facility]: [employer] - [id number] / 0 / 000 Procedures Procedure NamePriorityDate/TimeAssociated DiagnosisCommentsSUR FLUOROSCOPY UP TO 1 MISDTwzpygv91/09/2025 1:13 PM CONTINUOUS MINING MACHINE LODE MINER Surgery, elective SURGICAL CFOJMINFCQgxtiwa74/09/2025 1:08 PM CONTINUOUS MINING MACHINE LODE MINER Other closed fracture of distal end of right ulna, initial encounter PERIPHERAL ABSTTNnviaxc58/09/2025 12:18 PM CONTINUOUS MINING MACHINE LODE MINER Exc Arm/Elbow Les Sc = 3 Cm08/29/2025 12:01 PM CONTINUOUS MINING MACHINE LODE MINER Other closed fracture of distal end of right ulna, initial encounter Open Tx Ulnar Shaft Fx W/Wo Fix08/29/2025 12:01 PM CONTINUOUS MINING MACHINE LODE MINER Other closed fracture of distal end of right ulna, initial encounter Exc Raul Les Trnk Arm/Leg;2.1-3.0 Cm08/29/2025 12:01 PM CONTINUOUS MINING MACHINE LODE MINER Other closed fracture of distal end of right ulna, initial encounter US ANESTHESIA GUIDED VOHXYBccyhnb12/09/2025 10:34 AM CONTINUOUS MINING MACHINE LODE MINER COMPLETE BLOOD COUNT-NO XPKACaahion28/06/2025 9:17 AM CONTINUOUS MINING MACHINE LODE MINER Preop examination ECG 12 LEAD EMYTOZENALAjxpohl11/06/2025 9:00 AM CONTINUOUS MINING MACHINE LODE MINER Preop examination XR FOREARM RT 2 WYHLWXYRK56/03/2025 12:51 PM CONTINUOUS MINING MACHINE LODE MINER Pain of right upper extremity LIPID PANEL & DIRECT LDL (IF NEEDED)Lspkhqj8506/06/2015 12:15 PM CDT Routine general medical examination at a health care facility ANATOMICAL PATH LIQUID QJUUCVpdlvpz67/16/2015 11:46 AM CDT from Last 3 Months or Most Recently Relevant to Health Maintenance Results * [facility]INO Fluoroscopy Up To 1 Hour (08/29/2025 1:13 PM CONTINUOUS MINING MACHINE LODE MINER)Anatomical Region LateralityModalityRadiographic ImagingSpecimen (Source)Anatomical Location / LateralityCollection Method / VolumeCollection TimeReceived Time Narrative 08/29/2025 1:14 PM CONTINUOUS MINING MACHINE LODE MINER These images were obtained during a surgical procedure. Authorizing ProviderResult TypeResult StatusYvonndora Butcher MDRAD NON-REPORTABLESFinal Result * Surgical Path (08/29/2025 1:08 PM CONTINUOUS MINING MACHINE LODE MINER)ComponentValueRef RangeTest Method Analysis TimePerformed AtPathologist SignatureCase ReportSurgical Pathology ?Case: [id number] ? Authorizing Provider: ??Nereida Butcher MD ? Collected: ? 08/29/2025 1308 ? Ordering Location: ? [facility] ?Received: ?08/29/2025 1318 ? Pathologist: ? Sven Millan MBBS ? Specimen: ?Forearm, right, right forearm mass ? 09/01/2025 12:45 PM [facility] LABORATORYFINAL DIAGNOSISSoft tissue, forearm, right, excision: - Organizing orynemjz19/12/2025 12:45 PM [facility] at 1245 CSTClinical InformationOther closed fracture of distal end of right ulna, initial encounter 09/01/2025 12:45 PM [facility] LABORATORYMicroscopic Description Microscopic examination is performed.09/01/2025 12:45 PM [facility] LABORATORYGross DescriptionA: The specimen is received in formalin and labeled with the patient's name and Forearm, right, rightforearm mass. The specimen consists of a 0.8 x 0.5 x 0.5 cm portion of mcmahan-yellow, focally hemorrhagic soft tissue. The specimen is bisected and entirely submitted in 1 block. AW 09/01/2025 12:45 PM [facility] LABORATORYEmbedded Vxfdjx5309/01/2025 12:45 PM [facility] LABORATORYSpecimen (Source)Anatomical Location / LateralityCollection Method / VolumeCollection TimeReceived TimeTissueENTIRE RIGHT FOREARM / Ipgulju9208/29/2025 1:08 PM CST08/29/2025 1:18 PM CONTINUOUS MINING MACHINE LODE MINER Narrative Authorizing ProviderResult TypeResult StatusNereida STAPLETON PATHOLOGYFinal ResultPerforming OrganizationAddressCity/State/ZIP CodePhone Number [facility] CLIA: [id number] [address] * PERIPHERAL BLOCK (08/29/2025 12:18 PM CONTINUOUS MINING MACHINE LODE MINER) Narrative [facility] - 08/29/2025 12:18 PM CONTINUOUS MINING MACHINE LODE MINER Fermin Baca MD 09/07/2025 12:10 PM Peripheral [...] Hat and Sterile gloves Monitoring: ??Blood pressure, lunchroom monitor and continuous pulse oximetry Patient Position: [...] Edited Result - FinalPerforming OrganizationAddressCity/State/ZIP CodePhone Number [facility] CLIA: [id number] [address] * [place] Anesthesia Guided Block (08/29/2025 10:34 AM CONTINUOUS MINING MACHINE LODE MINER)Anatomical Region LateralityModalityUltrasoundSpecimen (Source)Anatomical Location / Laterality Collection Method / VolumeCollection TimeReceived Time Narrative 08/29/2025 10:34 AM CONTINUOUS MINING MACHINE LODE MINER If an Anesthesia block was performed please see the Anesthesia encounter for documentation. ??This procedure was performed and interpreted by the performing provider. ?? Authorizing ProviderResult TypeResult StatusMickalia Baca MDRAD USFinal Result * Complete Blood Count-No Diff (08/26/2025 9:17 AM CONTINUOUS MINING MACHINE LODE MINER)ComponentValueRef Range Test MethodAnalysis TimePerformed AtPathologist SignatureWBC8.53.5 - 10.5 x10(9)/L110/27/2024 9:44 AM [facility] LABORATORYRBC4.533.90 - 5.03 x10(12)/L 08/26/2025 9:44 AM [facility] MMMKDRLTNCPnxxynumsx24.812.0 - 15.5 g/dL 08/26/2025 9:44 AM [facility] XPXCADOZYXCNY11.334.9 - 44.5 %08/26/2025 9:44 AM [facility] QPOTCLMJGULKH39.280.0 - 100.0 fL08/26/2025 9:44 AM [facility] WNZPMMJLGGLGG72.527.6 - 33.3 pg08/26/2025 9:44 AM [facility] HVDHFGCJZZTRTP31.431.5 - 35.2 g/dL08/26/2025 9:44 AM [facility] RDW13.011.9 - 15.5 %08/26/2025 9:44 AM [facility] TBWYFHHTGUKcufqspgh247368 - 450 x10(9)/L110/27/2024 9:44 AM [facility] LABORATORYSpecimen (Source) Anatomical Location / LateralityCollection Method / VolumeCollection Time Received TimeBloodVenipuncture / Tcmhvcv4508/26/2025 9:17 AM CST08/26/2025 9:17 AM CONTINUOUS MINING MACHINE LODE MINER Narrative Authorizing ProviderResult TypeResult StatusYesy Solomon APRN, CNPLAB_1Final ResultPerforming OrganizationAddressCity/State/ZIP CodePhone Number [facility] CLIA: [id number] [place] [address], [facility] * ECG 12 Lead (Clinical Customer Success Director to perform) (08/26/2025 9:00 AM CONTINUOUS MINING MACHINE LODE MINER) ComponentValueRef RangeTest MethodAnalysis TimePerformed AtPathologist SignatureVentricular Rdjm43TQAZCHA GHPAtrial Oisl39QVGFRGE GHPP-R Stjsfcwu249 msMUSE GHPQRS Oojoggiv62twJVMP WATYF315ovMDDC LEYNKT420xrAAOF GHPP Axis66 degreesMUSE GHPR Hasr38kbujxukRCEA GHPT Jqbc11zdflxmcSYHK GHPSpecimen (Source) Anatomical Location / LateralityCollection Method / VolumeCollection Time Received Time08/26/2025 9:00 AM CONTINUOUS MINING MACHINE LODE MINER Narrative [facility] - 08/26/2025 9:30 AM CONTINUOUS MINING MACHINE LODE MINER Sinus rhythm Normal ECG When compared with [...] ECG ORDERABLESFinal ResultPerforming OrganizationAddressCity/State/ZIP CodePhone Number [facility] [address] [place] [address] * XR Forearm Rt 2 Views (08/23/2025 12:51 PM CONTINUOUS MINING MACHINE LODE MINER)Anatomical RegionLaterality ModalityUpper Extremity, Forearm, ArmDigital RadiographySpecimen (Source) Anatomical Location / LateralityCollection Method / VolumeCollection Time Received Time Narrative 08/23/2025 1:06 PM CONTINUOUS MINING MACHINE LODE MINER EXAM: XR FOREARM RT 2 VIEWS INDICATION: [...] TimePerformed AtPathologist SignatureCholesterol 1640 - 200 mg/dLHP LYXPJMAKREUhwpmwgnaswta6211 - 149 mg/dLHP CONVERSIONHDL Cjemvolsemo60>39 mg/dLHP CONVERSIONCholesterol/HDL Ratio Screen3.3HP CONVERSIONLDL Ilaqxswqmm4362 - 130 mg/dLHP CONVERSIONHours Wiioqrw75.0HP CONVERSIONSpecimen (Source)Anatomical Location / LateralityCollection Method / VolumeCollection TimeReceived Time06/06/2015 12:15 PM CDT06/06/2015 2:47 PM CDT Narrative [facility] - 06/06/2015 3:41 PM CDT Performed at [facility], [address] [place] [address] Authorizing ProviderResult TypeResult StatuseJnny BRAUN_1Final ResultPerforming OrganizationAddressCity/State/ZIP CodePhone Number [facility]VERSION * Pap Smear (06/06/2015 11:46 AM CDT)Specimen (Source)Anatomical Location / LateralityCollection Method / VolumeCollection TimeReceived Time06/06/2015 11:46 AM CDT Narrative [facility] CONVERSION - 06/11/2015 2:47 [place] [address] FINAL GYNECOLOGICAL CYTOLOGY REPORT Pathology #: [id number] ?Date Obtained: 06/06/2015 ? Date Received: 06/07/2015 [...] BAc TypeRelation to PatientDate of BirthPhone Billing AddressPersonal/TjlreiPjhd[birth year][address] [place] [address] * Guarantor: Michael Palacio TypeRelation to PatientDate of BirthPhone Billing AddressPersonal/SdgenmOwav[birth year][address] [place] [address] Advance Directives * Full Code (Latest Code Status on File) Date ActivatedDate InactivatedComments12/09/2013 4:23 PM12/09/2013 8:27 PM Care Teams Team MemberRelationshipSpecialtyStart DateEnd Date Deirdre Grant PA-C [address] [place] [address] [place] [address] PCP - GeneralPhysician Xrmzqnrom68/31/18
--- OUTSIDE RECORDS SUMMARY | 2025-09-19 01:05 | XMS_ITS | Clinical Summary ---
Author Organization [place] Address [facility] [place] [address] Care Team Providers Care German Instructor Name Role Phone Tyesha Perez PA-C Unavailable [phone] Grace Jewell PA-C Primary Care Provid er Tyesha Perez PA-C Unavailable [phone] Allergies Active AllergyReactionsCriticalityNoted DzjzSwgilusmDwkwzvageodEnxefcq46/30/2015 NsaidsGI Ubxxmlasyfj22/15/2017 Medications MedicationSigDispense QuantityRefillsLast FilledStart DateEnd DateStatus ValACYclovir [...] = 0.6 oz pure alcohol)socially--3x weekPHQ-2AnswerDate RecordedPHQ-2 Jziwb797 Adolescent EducationAnswerDate RecordedGetting School Help NeededNot on file 3CommentsNoSex and Gender InformationValueDate RecordedSex Assigned at BirthNot on fileLegal JdmGqlnoo09/04/2012 2:58 AM CSTGender Identity Not on fileSexual OrientationNot on file Last Filed Vital Signs Vital SignReadingTime TakenCommentsBlood Fyahvkun499/7709/09/2017 11:00 AM CYBER SYSTEMS OPERATIONS SPECIALIST Inyac782309/08/2017 11:28 PM LBQCypldcwmvdw60.7 ??C (98.1 ??F)09/09/2017 7:46 AM CSTRespiratory Puvt127411/10/2016 7:46 AM CSTOxygen Vcbzrywyxn14%09/09/2017 7:46 AM CSTInhaled Oxygen Concentration--Kfxuef37.6 kg (202 lb)09/07/2017 9:04 AM CYBER SYSTEMS OPERATIONS SPECIALIST Mgtria650.5 cm (5' 2)09/07/2017 9:20 AM CSTBody Mass Index36.9509/07/2017 9:04 AM CYBER SYSTEMS OPERATIONS SPECIALIST Plan of Treatment Health MaintenanceDue DateLast DoneCommentsADVANCE CARE BFYKYSAC62/03/1966ANNUAL REVIEW OF HM DCERUQ70 1965CT FAFGGEEXQZVX31/03/3721FTC53 1965FLEX SIG 1965sDNA (Cologuard)1965 2737JBNPP83/03/3742TIK04/24/ DIABETES USOZSQEKD80, 09/08/2017, 10/18/2015, Additional history existsYEARLY PREVENTIVE VISIT/MAMMO SCREENING , 08/20/2020, 07/23/2019, Additional history existsCOVID-19 VACCINE ( season)/08/2024, 08/26/2022, 03/06/2022, Additional history existsINFLUENZA VACCINE (#1)/08/2024, 08/26/2022, 08/06/2021, Additional history olaprcVTEUBJSAQWQ12/18/03817711/08/2015, 11/08/2015, 11/08/2015COLORECTAL CANCER QGSLXTVYU50/18/2026DTAP/TDAP/TD VACCINE (3 - Td or Tdap), 07/01/2013, 05/13/2004HEPATITIS C CVPHOYYENEofxtalei21/24/2016ZOSTER ENBUAQFLrgwaunmz09/01/2019, 09/16/2018HIV GOECQFEZTQbgxuxqia96/12/2024NEUMOCOCCAL VACCINE 50+ GGPAVOsutkhyhj44/07/2025RSV GXBGXIPFjgxaadzt45/07/2025PHQ-2 (once per calendar year)Zuobdnlbi86/11/2025, 06/28/2024HPV VACCINE (No Doses Required)CompletedMENINGITIS VACCINEAged OutNo longer eligible based on patient's age to complete this topic Medical Devices ImplantedTypeAreaManufacturerDevice IdentifierShelf Expiration DateModel / Serial / LotBone Cement Simplex W/Gentamicin [id number] Implanted:Qty: 1 on 09/07/2017 [facility], BoneRight: KneeSTRYKER CPXONTWVKMM62/31/[id number] / / [id number] Comp Tibial Knee Ascent 67mm [id number] Implanted:Qty: 1 on 09/07/2017 by [facility] Joint Component/InsertRight: KneeZIMMER U.[employer]. [employer] [id number] / / [id number] Comp Femoral Vangard Biom Ps Rt 60mm [id number] Implanted:Qty: 1 on 09/07/2017 by Logan Viera MD at [facility] Joint Component/InsertRight: KneeZIMMER [employer] [id number] / / [id number] Comp Femoral Vangard Biom Fixation [id number] Implanted:Qty: 1 on 09/07/2017 by Logan Viera MD at [facility] Joint Component/InsertRight: KneeZIMMER [employer] [id number] / / [id number] Comp Patella Biom 3 Peg 31mm Std [id number] Implanted:Qty: 1 on 09/07/2017 by Logan Viera MD at [facility] Joint Component/InsertRight: KneeZIMMER [employer] [id number] / / [id number] Vanguard Tibial Bearing, 16mm Ps+ Implanted:Qty: 1 on 09/07/2017 by [facility]Right: Knee04/20/[id number] / / [id number] Procedures Procedure NamePriorityDate/TimeAssociated DiagnosisCommentsGLUCOSERoutine 09/09/2017 7:12 AM CYBER SYSTEMS OPERATIONS SPECIALIST Hypokalemia NRENFCPEXVAIkrxzjb94/18/2016 7:27 AM CYBER SYSTEMS OPERATIONS SPECIALIST from Last 3 Months or Most Recently Relevant to Health Maintenance Results * (ABNORMAL) Glucose (09/09/2017 7:12 AM CYBER SYSTEMS OPERATIONS SPECIALIST)ComponentValueRef RangeTest Method Analysis TimePerformed AtPathologist ChyspmttyHhdgofd537(H)70 - 99 mg/dL 09/09/2017 7:47 AM CSTFAESSENTIA HEALTHpecimen (Source)Anatomical Location / LateralityCollection Method / VolumeCollection TimeReceived Time Blood specimen (specimen)09/09/2017 7:12 AM CST09/09/2017 7:27 AM CYBER SYSTEMS OPERATIONS SPECIALIST Narrative Authorizing ProviderResult TypeResult StatusJochapincito Viera MDLAB - BLOOD ORDERABLESFinal ResultPerforming OrganizationAddressCity/State/ZIP CodePhone Number [facility] [address] [place] [address], [facility] [phone] * COLONOSCOPY (11/08/2015 7:27 AM CYBER SYSTEMS OPERATIONS SPECIALIST)ComponentValueRef RangeTest MethodAnalysis TimePerformed AtPathologist SignatureCOLONOSCOPYFairChildren's [place] Patient Name: Michael Palacio ? Procedure Date: 11/08/2015 7:27 AM ? Date of : 1965 ? Admit Type: Outpatient Age: 50 ? Gender: Female Attending MD: Deshawn Mcallister MD Instrument Name: 121 Procedure: ?Colonoscopy Indications: ?Abnormal CT of the GI tract Providers: ?Deshawn Mcallister MD, Sebastien Cummins RN ?(Nurse) Referring MD: ? Elizabeth Mahan [facility] [address] Medicines: ?Propofol per Anesthesia Complications: ?No immediate [...] and ?oxygen saturations were monitored continuously. The ?[id number] was introduced through the anus and ?advanced [...] Procedure Code(s): ? --- Professional --- ? 29203, Colonoscopy, flexible, proximal to splenic flexure; with removal ? of tumor(s), polyp(s), or other lesion(s) by snare technique ? 22345, 59, Colonoscopy, flexible, proximal to splenic flexure; with ? biopsy, single or multiple CPT copyright 2013 [employer]. All rights reserved. The codes documented in this report are preliminary and upon manufacturing helper review may be revised to meet current compliance requirements. Deshawn Mcallister MD 11/08/2015 8:37 AM I was physically present for the entire viewing portion of the exam. Number of Addenda: 0 Note Initiated On: 11/08/2015 7:27 AM MRN: ?[id number] Procedure Date: ? 11/08/2015 7:27:45 AM Scope Withdrawal Time: 0 hours 29 minutes 43 seconds Total Procedure Duration: 0 hours 35 minutes 27 seconds Estimated Blood Loss: ? Scope In: 7:51:32 AM Scope Out: 8:26:59 AMRADIOLOGY RESULTSSpecimen (Source)Anatomical Location / LateralityCollection Method / VolumeCollection TimeReceived Time11/08/2015 7:27 AM CYBER SYSTEMS OPERATIONS SPECIALIST Narrative Authorizing ProviderResult TypeResult StatusPartyesha Mahan [facility] PROCEDURESEdited Result - FinalPerforming OrganizationAddressCity/State/ZIP Code Phone Number RADIOLOGY RESULTS from Last 3 Months or Most Recently Relevant to Health Maintenance Insurance * Guarantor: Michael Palacio BAccount TypeRelation to PatientDate of BirthPhone Billing AddressPersonal/HuyzgdSlin[birth year][address] [address] [place] [address] Advance Directives For more information, please contact: [phone] TypeDate RecordedPatient RepresentativeExplanationAdvance Directives and Living Will09/07/2017 4:49 PMHealth Care Directive 09/07/17 * Full Code (Latest Code Status on File) Date ActivatedDate YtklvrhbfiyPjkjwfdo54/18/2017 4:13 PM09/09/2017 5:25 PM * Full Code Date ActivatedDate InactivatedComments10/19/2015 10:54 AM09/07/2017 4:13 PM * Full Code Date ActivatedDate InactivatedComments10/16/2015 4:41 PM10/19/2015 10:54 AM Care Teams Team MemberRelationshipSpecialtyStart DateEnd Date Grace Jewell PA-C [address] [address] PCP - General11/12/23 Tyesha Perez PA-C [address] [place] [address] Physician AssistantDermatology04/21/23 Tyesha Perez PA-C [address] [id number] Assigned Dermatology Egrlkkiy57/23/25
[2025-09-19] MEDS: LACTATED RINGERS 1000 ML 1,000 ML IV (01:50)
[2025-09-19 01:51] VITALS: O2SAT 100
== END 2025-09-19 03:01 | disposition home or self-care (01) ==
PROVIDERS: Emergency Provider Family Medicine
DX: R11.15 Cyclical vomiting syndrome unrelated to migraine (principal); F17.210 Nicotine dependence, cigarettes, uncomplicated
CPT/HCPCS: 36415; 80053; 83690; 83735; 85025; 86140; 96360; 96361; 99284; J7030; J7120

== ENCOUNTER 2025-09-20 08:47 | Emergency (ER) | payer OTHER, SELFPAY ==
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
--- OUTSIDE RECORDS SUMMARY | 2025-08-23 12:40 | XMS_ITS | Encounter Summary ---
Author Organization [employer] Address [address] [place] [address] Care Team Providers Care Import/Export Clerk Name Role Phone Deirdre Grant PA-C Primary Care Provider Reason for Visit * Procedure/Equipment (Routine) - IncompleteSpecialtyDiagnoses / Procedures Referred By ContactReferred To Contact Diagnoses Pain of right upper extremity Procedures XR Forearm Rt 2 Views Eduarda Cristobal PA-C [address] [place] [address] Phone: tel: fax: Referral IDStatusReasonStart DateExpiration DateVisits RequestedVisits [id number]/3/20253/4/[id number] Encounter Details DateTypeDepartmentCare Team (Latest Contact Info)Rmdyfohewtv19/03/2025 12:40 PM CSTAncillary Procedure [facility] [address] Radiology [address] [place] [address] Eduarda Cristobal PA-C [address] [place] [address] Pain of right upper extremity Social History Tobacco UseTypesPacks/DayYears UsedDateSmoking Tobacco: NeverSmokeless Tobacco: NeverAlcohol UseStandard Drinks/WeekCommentsYes2 (1 standard drink = 0.6 oz pure alcohol)CommentsNoSex and Gender InformationValueDate RecordedSex Assigned at BirthNot on fileLegal MzdHvhqjv70/10/2012 4:56 AM CDTGender Identity Not on fileSexual OrientationNot on fileOccupationIndustryJob Start DateJob End DateVFWNot on fileNot on fileNot on filedocumented as of this encounter Plan of Treatment DateTypeDepartmentCare Team (Latest Contact Info)Nzmqvdybxgx53/20/2026 8:30 AM CSTAppointment [facility] Orthopedic [facility] [address] [place] [address] [place] [address] Nereida Butcher MD [address] [facility] [place] [address] documented as of this encounter Procedures Procedure NamePriorityDate/TimeAssociated DiagnosisCommentsXR FOREARM RT 2 VIEWS STAT110/24/2024 12:51 PM DEVULCANIZER CHARGER Pain of right upper extremity documented in this encounter Results * XR Forearm Rt 2 Views (08/23/2025 12:51 PM DEVULCANIZER CHARGER)Anatomical RegionLaterality ModalityUpper Extremity, Forearm, ArmDigital RadiographySpecimen (Source) Anatomical Location / LateralityCollection Method / VolumeCollection Time Received Time Narrative 08/23/2025 1:06 PM DEVULCANIZER CHARGER EXAM: XR FOREARM RT 2 VIEWS INDICATION: [...] DateEnd Date Deirdre Grant PA-C [address] [facility] [address] [place] [address] PCP - GeneralPhysician Lctlchlxd11/31/18documented as of this encounter
--- OUTSIDE RECORDS SUMMARY | 2025-08-23 13:10 | XMS_ITS | Encounter Summary ---
Author Organization [employer] Address [address] [place] [address] Care Team Providers Care Vascular Technician Name Role Phone Deirdre Grant PA-C Primary Care Provider Reason for Referral * Consult/Transfer Care (Routine) - New RequestSpecialtyDiagnoses / Procedures Referred By ContactReferred To Contact Diagnoses Dog bite, initial encounter Puncture wound of multiple sites of right upper extremity, initial encounter Other closed fracture of distal end of right ulna, initial encounter Arya Lloyd MD [address] [place] [address] Phone: tel: fax: Referral IDStatusReasonStart DateExpiration DateVisits RequestedVisits [id number] Scheduling Instructions Your clinician has recommended an appointment with [facility]. You can quickly schedule your appointment by signing in to your online account at [email or web address] or through the text message you may have received. You can also make an appointment by calling [phone]. We also suggest you call your health insurance provider about your benefits and coverage for this appointment. QuestionAnswer Appointment Urgency? Non-Urgent Reason for visit? Right hand - bit by dog The patient should be seen by: Orthopaedic Surgeon Comments Scheduled with Ba ASSISTANT Reason for Visit * ReasonCommentsARM PAINRight Arm FractureSeen at urgent care today 08/23/25DOI: 08/14/25MOI: Breaking up dogs fighting and got bit Encounter Details DateTypeDepartmentCare Team (Latest Contact Info)Rrtcnnqbfrn27/03/2025 1:10 PM CSTOffice Visit [facility] at [address] [address] [place] [phone] Arya Lloyd MD [address] [place] [address] Dog bite, initial encounter (Primary Dx); Puncture wound of multiple sites of right upper extremity, initial encounter; Other closed fracture of distal end of right ulna, initial encounter Social History Tobacco UseTypesPacks/DayYears UsedDateSmoking Tobacco: NeverSmokeless Tobacco: NeverAlcohol UseStandard Drinks/WeekCommentsYes2 (1 standard drink = 0.6 oz pure alcohol)CommentsNoSex and Gender InformationValueDate RecordedSex Assigned at BirthNot on fileLegal VdhXupiki77/10/2012 4:56 AM CDTGender Identity Not on fileSexual OrientationNot on fileOccupationIndustryJob Start DateJob End DateVFWNot on fileNot on fileNot on filedocumented as of this encounter Last Filed Vital Signs Vital SignReadingTime TakenCommentsBlood Pressure--Pulse--Zlouipbpuat99.8 ??C (98.2 ??F)08/23/2025 1:12 PM CSTRespiratory Rate--Oxygen Saturation--Inhaled Oxygen Concentration--Ryaawc39 kg (150 lb)08/23/2025 1:12 PM AVDHhgnhl743.5 cm (5' 2)08/23/2025 1:12 PM CSTBody Mass Index27.44110/24/2024 1:12 PM SEO ASSISTANT documented in this encounter Patient Instructions * Patient Instructions* Yissel Bullard RN - 08/23/2025 1:10 PM SEO ASSISTANT Thank you for choosing [facility] for your health care visit today. Arya [...] or next steps, please contact us at [phone]. ASSISTANT documented in this encounter Progress Notes * Arya Lloyd MD - 08/23/2025 1:10 PM CST [facility] 08/23/2025 Chief Complaint: Chief [...] Lloyd MD This note was transcribed using [employer], there might be some spelling errors or [...] notify the sender then delete this message. ASSISTANT ASSISTANT documented in this encounter Plan of Treatment DateTypeDepartmentCare Team (Latest Contact Info)Rverxaqjaib94/20/2026 8:30 AM CSTAppointment [facility] [address] [place] [address] Nereida Btucher MD [address] [place] [address] NameTypePriorityAssociated DiagnosesOrder ScheduleOrthopedic Consult-Adult/Peds ReferralRoutine Dog bite, [...] DateEnd Date Deirdre Grant PA-C [address] [place] [address] [place] [address] PCP - GeneralPhysician Qfjkpqydt73/31/18documented as of this encounter
--- OUTSIDE RECORDS SUMMARY | 2025-08-25 10:00 | XMS_ITS | Encounter Summary ---
Author Organization [facility] [employer] Address [address] [place] [address] Care Team Providers Care Pork Cutlet Maker Name Role Phone Deirdre Grant PA-C Primary [...] dorsal forearm, right Mariya Retana PA-C [address] [facility] [place] [address] Phone: tel: fax: Referral IDStatusReasonStart DateExpiration DateVisits RequestedVisits [id number]/5/20253/ NE AFFILIATE MARKETING MANAGER Reason for Visit * ReasonCommentsWrist/forearm Pain or Injury * Consult/Transfer Care (Routine) - New RequestSpecialtyDiagnoses / Procedures Referred By ContactReferred To Contact Diagnoses Dog bite, initial encounter Puncture wound of multiple sites of right upper extremity, initial encounter Other closed fracture of distal end of right ulna, initial encounter Arya Lloyd MD [address] [facility] [place] [address] Phone: tel: fax: Referral IDStatReneginSttaj DateExpiration DateVisits RequestedVisits [id number] [id number]/ Encounter Details DateTypeDepartmentCare Team (Latest Contact Info)Ghrcsgvyesp53/05/2025 10:00 AM CSTOffice Visit [facility] [address] [place] [address] Mariya Retana PA-C [address] [place] [address] Other closed fracture of distal end of right ulna, initial encounter (Primary Dx); Lipoma of right upper extremity Social History Tobacco UseTypesPacks/DayYears UsedDateSmoking Tobacco: NeverSmokeless Tobacco: NeverAlcohol UseStandard Drinks/WeekCommentsYes2 (1 standard drink = 0.6 oz pure alcohol)PHQ-2AnswerDate RecordedPHQ-2 Dstsl72910/27/2024UDIT-CAnswerDate Recorded Q1: How often do you have a drink containing alcohol?Never08/28/2025verage Number of DrinksNot on file08/28/2025Frequency of Binge DrinkingNot on file 08/28/2025CommentsNoSex and Gender InformationValueDate RecordedSex Assigned at BirthNot on fileLegal JonOjvtcc62/10/2012 4:56 AM CDTGender Identity Not on fileSexual OrientationNot on fileOccupationIndustryJob Start DateJob End DateVFWNot on fileNot on fileNot on filedocumented as of this encounter Patient Instructions * Patient Instructions* Paula Watts LPN - 08/25/2025 10:00 AM ONLINE AFFILIATE MARKETING MANAGER Thank you for Choosing [facility] for your health care visit today. Mariya Retana PA-C Hand and Upper Extremity Specialist Appt: [phone] Hand I Blocker [place] Cole: [phone] Medication Requests: Prescriptions are not filled on weekends or on weekdays after 3:00 PM. For all medication refills: Request a refill using [employer] or contact your pharmacy. What is Know Your Cost? Know Your Cost is a service for patients and patient/members to call and receive personalized cost information and estimates across our care group. The phone number is (COST) Thursday - Thursday 8 AM to 5 PM Advanced Imaging Scheduling: To schedule an MRI, Ultrasound, or Image guided injection at [facility] please call [phone]. To schedule an MRI or CT at a [facility] please call [phone]. [facility] Workers' Compensation [address] [place] [address] (Phone) Email: [email or web address] Release of Information: Radiology/Imaging [address] [place] [address] (Phone) Health Information Management [address] [place] [address] (Phone) [employer] NE AFFILIATE MARKETING MANAGER NE AFFILIATE MARKETING MANAGER documented in this encounter Progress Notes * Mariya Retana PA-C - 08/25/2025 10:[address] [facility] Orthopaedic [place] Orthopaedic Surgery Consultation 08/25/2025 Date of Service: [...] has a past medical history of Anxiety ([facility]) (07/17/2011), Eczema (07/17/2011), HTN (hypertension) ([facility]) (07/07/2011), Melanoma ([facility]) (1982), Migraines (07/07/2011), Obesity (02/25/2003), and [...] the patient; this islocated in ScanDoc in [facility]. Review of Systems: A complete 15-point review [...] appearedpleased with the visit. Mariya Retana PA-C NE AFFILIATE MARKETING MANAGER documented in this encounter Plan of Treatment DateTypeDepartmentCare Team (Latest Contact Info)Oxjdpvvjrba84/20/2026 [address] [facility] Orthopedic [facility] [address] [place] [address] Nereida Butcher MD [address] [facility] [place] [address] documented as of this encounter Visit Diagnoses Diagnosis Other closed fracture of distal end of right ulna, initial encounter- Primary Lipoma of right upper extremity documented in this encounter Care Teams Team MemberRelationshipSpecialtyStart DateEnd Date Deirdre Grant PA-C [address] [place] [address] [place] [address] PCP - GeneralPhysician Kzlvqxdon63/31/18documented as of this encounter
--- OUTSIDE RECORDS SUMMARY | 2025-08-26 09:00 | XMS_ITS | Encounter Summary ---
Author Organization [facility] Address [address] [place] [address] Care Team Providers Care Tinning Equipment Tender Name Role Phone Deirdre Grant PA-C Primary Care Provider Reason for Visit * ReasonCommentsPRE-OP EXAMDOS: 08/29/25 OPEN REDUCTION INTERNAL FIXATION DISTAL ULNA FRACTUREEXCISION, LESION, SOFT TISSUE, UPPER EXTREMITY with BERNARD LEE at [facility] Anesthesia: INTRASCALENE BLOCKINTRASCALENE BLOCK Encounter Details DateTypeDepartmentCare Team (Latest Contact Info)Rysituftpxh65/06/2025 9:00 AM CSTPre-Op Visit [place] [address] [place] [address] [place] [address] Yesy Solomon, SET DESIGNER, STRATEGIC ACCOUNT DIRECTOR [address] [place] [address] Other closed fracture of distal end of right ulna with delayed healing, subsequent encounter (Primary Dx); Preop examination; 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; 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; Hypertension, unspecified type (HRC) Social History Tobacco UseTypesPacks/DayYears UsedDateSmoking Tobacco: NeverSmokeless Tobacco: NeverAlcohol UseStandard Drinks/WeekCommentsYes2 (1 standard drink = 0.6 oz pure alcohol)PHQ-2AnswerDate RecordedPHQ-2 Ynltd01910/27/2024UDIT-CAnswerDate Recorded Q1: How often do you have a drink containing alcohol?Never08/28/2025verage Number of DrinksNot on file08/28/2025Frequency of Binge DrinkingNot on file 08/28/2025CommentsNoSex and Gender InformationValueDate RecordedSex Assigned at BirthNot on fileLegal YtsZjbmmz57/10/2012 4:56 AM CDTGender Identity Not on fileSexual OrientationNot on fileOccupationIndustryJob Start DateJob End DateVFWNot on fileNot on fileNot on filedocumented as of this encounter Last Filed Vital Signs Vital SignReadingTime TakenCommentsBlood Ngyzyike108/8708/26/2025 8:54 AM CENTER LINE CUTTER OPERATOR Kqprn728608/26/2025 8:42 AM CSTTemperature--Respiratory Rate--Oxygen Saturation-- Inhaled Oxygen Concentration--Weight--Nndhvi280.5 cm (5' 2)08/26/2025 8:31 AM CSTBody Mass Index--documented in this encounter Patient Instructions * Patient Instructions* Yesy Solomon APRN, STRATEGIC ACCOUNT DIRECTOR - 08/26/2025 9:00 AM CENTER LINE CUTTER OPERATOR apixaban (ELIQUIS) 5 MG tablet [[id number]] - Recommendations per ACC. LORazepam (ATIVAN) 0.5 MG tablet [[id number]], oxyCODONE-acetaminophen (PERCOCET) 5-325 MG tablet [[id number]] - Continue taking your usual dose of this medication. SUMAtriptan (IMITREX) 100 MG tablet [[id number]] - Do not take on the morning of procedure. Follow your individualized medication recommendations as described above. In addition, please stop all ghba-dcw-kedvjnn medications including aspirin, ibuprofen (Advil, Motrin), naproxen (Aleve, Naprosyn), herbal remedies and supplements one week prior to procedure unless directed otherwise by your care team. You may continue to take acetaminophen (Tylenol) up to the dayof your procedure. Continue all other medications as currently taking. Let your care team know if you have questions. On the day of your procedure, do not wear any hair product including hair sprays and gels and avoidusing body sprays and deodorants/antiperspirants. Bring with you to the site of the procedure: Any oral appliances or CPAP equipment related to sleep apnea Any other health-related equipment or devices you use daily ER LINE CUTTER OPERATOR documented in this encounter OR Notes * H&P - Yesy Solomon APRN, CNP - 08/26/2025 9:00 AM CST Pre-Operative Assessment 08/26/2025 Pre-Op Assessment Procedure Details Procedure OPEN REDUCTION INTERNAL FIXATION DISTAL ULNA FRACTUREEXCISION, LESION, SOFT TISSUE, UPPEREXTREMITY Surgeon BERNARD LEE Location (Internal) [facility] Procedure Date 08/29/2025 Anesthesia Type INTRASCALENE BLOCKINTRASCALENE BLOCK Evelyn Rodriguez is a 59 y.o. old female here for pre-operative evaluation for procedure noted above. Patient Active Problem List Diagnosis Date Noted Closed fracture of lower end of right ulna 08/25/2025 Colon polyp 11/08/2015 Overview Note: [place] - multiple polyps. erosions in the terminal ileum Pap smear of cervix shows high risk HPV present 06/06/2015 Overview Note: Redo Pap in 05/2016; patient refuses colposcopy Right knee pain 08/18/2014 CTS (carpal tunnel syndrome) 11/28/2013 Melanoma ([facility]) 07/17/2011 Eczema 07/17/2011 Anxiety ([facility]) 07/17/2011 Migraines 07/07/2011 HTN (hypertension) ([facility]) 07/07/2011 Allergic rhinitis 02/25/2003 Overview Note: Rhinitis Allergic NOS Past Medical History: Diagnosis Date Anxiety ([facility]) 07/17/2011 Eczema 07/17/2011 HTN (hypertension) ([facility]) 07/07/2011 Melanoma ([facility]) 1983 right sabianism Migraines 07/07/2011 Obesity 02/25/2003 Rhinitis Allergic 02/25/2003 Past Surgical History: Procedure Laterality Date BLEPHAROPLASTY Bilateral 10/2014 BREAST REDUCTION BUNIONECTOMY Right CARPAL TUNNEL RELEASE Right 12/09/13 MOHS SURGERY 1983 right forehead - melanoma Current Outpatient Medications Medication Instructions apixaban (ELIQUIS) 10 mg, MORNING Fexofenadine-Pseudoephedrine (FEXOFENADINE-PSEUDOEPHED ER OR) 1 Tablet, Oral, DAILY (NS) LORazepam (ATIVAN) 0.5 mg, Oral, Q8H PRN methocarbamol (ROBAXIN) 750 mg omeprazole (PRILOSEC) 40 mg, Oral, DAILY (NS) ondansetron (ZOFRAN-ODT) 4 mg, Q8H PRN oxyCODONE-acetaminophen (PERCOCET) 5-325 MG tablet 1 Tablet sertraline (ZOLOFT) 200 mg SUMAtriptan (IMITREX) 100 MG tablet TAKE 1 TABLET BY MOUTH AT ONSET OF MIGRAINE. MAY REPEAT AFTER 2HOURS IF NEEDED. MAXIMUM OF 2 TABS/24 HOURS AND 9 DAYS/MONTH. triamcinolone acetonide (AKA KENALOG) 0.1 % cream 1 Application , Topical, TID valACYclovir (VALTREX) 2,000 mg, Oral, BID PRN Allergies Allergen Reactions Hydrocodone Itching Social History Occupational History Occupation: [employer] Tobacco Use Smoking status: Never Smokeless tobacco: Never Vaping Use Vaping status: Never Used Substance and Sexual Activity Alcohol use: Yes Alcohol/week: 2.0 standard drinks of alcohol Types: 2 Cans of beer per week Drug use: No Sexual activity: Yes Partners: Male control/protection: Injection Comment: vasectomy Patient's last menstrual period was 03/16/2012. Family History Adopted: Yes Problem Relation Name Age of Onset DVT/PE Negative Family History Review of Systems: 08/26/2025 ET Amb PreOp Assessment Sx Have you had a heart attack in the last 30 days? No Have you experienced chest tightening or chest pressure with activity? No Do you wake at night with difficulty breathing? No Do you have swelling in your feet or ankles? No Do you get short of breath if lying flat at night? No Do you hear wheezing or whistling when you breathe? No Have you had a cough, runny nose, or cold symptoms in the last 2 weeks? No Have you tested positive for Covid in the last 6 months? No Do you have a long-standing cough? No Do you snore or are you sleepy during the day? No Do you have any symptoms due to a recent concussion? No Do you or close relatives have bleeding or clotting problems? Yes Have you taken Aspirin, Ibuprofen (Advil) or Naproxen (Aleve) in the last 7 days? No Do you or close relatives have a history of a severe or life-threatening reaction to anesthesia? No Explanation of positive responses: Patient takes eliquis daily - last dose was 08/20 Estimated Functional Capacity Can you climb one flight of stairs, or walk up a gradual uphill without stopping? yes, functional capacity is more than or equal to 4 METS Objective BP (!) 140/86 (BP Location: Left Arm, BP Cuff Size: Large) Comment: 1. 138/87 p. 69 2. 142/84 p. 69 Pulse (!) 59 Ht 5' 2 (1.575 m) LMP 03/16/2012 BMI 27.44 kg/m?? Physical Exam: General Appearance: alert, well appearing, and in no apparent distress Eyes: lids normal, sclera clear, and conjunctiva normal ENT: oropharynx clear Neck: no lymphadenopathy and no thyromegaly or nodules Heart: regular rate and rhythm and no murmurs, gallops or rubs Lungs: clear to auscultation and no wheezes, rales or rhonchi Abdomen: soft, nondistended, nontender, no palpable masses, and no organomegaly Extremities: no edema Skin: no rashes or worrisome lesions Neurologic: normal speech, no facial droop, alert and oriented x 3, and normal gait Data: Labs: Yes: Sodium Date Value Ref Range Status 05/03/2015 139 137 - 147 mEq/L Final Potassium Date Value Ref Range Status 11/21/2015 3.8 3.5 - 5.2 mmol/L Final CREATININE Date Value Ref Range Status 04/11/2024 0.76 0.50 - 0.90 mg/dL Final Hemoglobin Date Value Ref Range Status 08/26/2025 13.8 12.0 - 15.5 g/dL Final HEMOGLOBIN A1C SCREENING Date Value Ref Range Status 05/24/2024 4.8 <=6.4 % Final Lab Glucose Date Value Ref Range Status 06/06/2015 85 60 - 100 mg/dL Final ECG: Yes: date and results: Sinus rhythm Normal ECG When compared with ECG of 21-Nov-2015 08:55, No significant change Confirmed by Pasquale Mahoney ([id number]) on 08/26/2025 9:30:50 AM Assessment/Plan Patient is medically optimized for planned procedure(s). ICD-10-CM 1. Screening for cholesterol level Z13.220 2. Screening for colon cancer Z12.11 3. Encounter for screening mammogram for malignant neoplasm of breast Z12.31 4. Encounter for long-term (current) use of medications Z79.899 5. Other closed fracture of distal end of right ulna with delayed healing, subsequent encounter S52.691G 6. Preop examination Z01.818 Complete Blood Count-No Diff ECG 12 Lead (Clinical Manager [employer] Fund to perform) Special risks: Thromboembolism elevated risk, recommend post operative prophylaxis. Patient's cardiovascular condition is medically managed and stable. Stress testing not indicated. Medication recommendations: Patient Instructions apixaban (ELIQUIS) 5 MG tablet [[id number]] - Recommendations per ACC. LORazepam (ATIVAN) 0.5 MG tablet [[id number]], oxyCODONE-acetaminophen (PERCOCET) 5-325 MG tablet [[id number]] - Continue taking your usual dose of this medication. SUMAtriptan (IMITREX) 100 MG tablet [[id number]] - Do not take on the morning of procedure. Follow your individualized medication recommendations as described above. In addition, please stop all gbeh-bni-rlauepd medications including aspirin, ibuprofen (Advil, Motrin), naproxen (Aleve, Naprosyn), herbal remedies and supplements one week prior to procedure unless directed otherwise by your care team. You may continue to take acetaminophen (Tylenol) up to the dayof your procedure. Continue all other medications as currently taking. Let your care team know if you have questions. On the day of your procedure, do not wear any hair product including hair sprays and gels and avoidusing body sprays and deodorants/antiperspirants. Bring with you to the site of the procedure: Any oral appliances or CPAP equipment related to sleep apnea Any other health-related equipment or devices you use daily Electronically signed by: Yesy Solomon APRN, CNP 08/26/2025, 8:52 AM ER LINE CUTTER OPERATOR documented in this encounter Plan of Treatment DateTypeDepartmentCare Team (Latest Contact Info)Yanbrmbnsfr89/ 8:30 AM CSTAppointment [facility] Orthopedic [facility] [address] [place] [address] Bernard Lee MD [address] [facility] [place] [address] documented as of this encounter Procedures Procedure NamePriorityDate/TimeAssociated DiagnosisCommentsECG 12 LEAD MGHOBXSNWDMxblatq66/06/2025 9:00 AM CENTER LINE CUTTER OPERATOR Preop examination documented in this encounter Results * Complete Blood Count-No Diff (08/26/2025 9:17 AM CENTER LINE CUTTER OPERATOR)ComponentValueRef Range Test MethodAnalysis TimePerformed AtPathologist SignatureWBC8.53.5 - 10.5 x10(9)/L110/27/2024 9:44 AM [facility] LABORATORYRBC4.533.90 - 5.03 x10(12)/L 08/26/2025 9:44 AM [facility] FKJJLTYUIEPoscbhpoyx80.812.0 - 15.5 g/dL 08/26/2025 9:44 AM [facility] OYLKZOPBXMTSW50.334.9 - 44.5 %08/26/2025 9:44 AM [facility] IEIFAWASOZIYP59.280.0 - 100.0 fL08/26/2025 9:44 AM [facility] FGOTWXRYKPIAF20.527.6 - 33.3 pg08/26/2025 9:44 AM [facility] XSJHQUIWRIAQWE26.431.5 - 35.2 g/dL08/26/2025 9:44 AM [facility] LABORATORY RDW13.011.9 - 15.5 %08/26/2025 9:44 AM [facility] HZFRQZZVMWQlgmelqfc045823 - 450 x10(9)/L110/27/2024 9:44 AM [facility] LABORATORYSpecimen (Source) Anatomical Location / LateralityCollection Method / VolumeCollection Time Received TimeBloodVenipuncture / Hlxvojt1008/26/2025 9:17 AM CST08/26/2025 9:17 AM CENTER LINE CUTTER OPERATOR Narrative Authorizing ProviderResult TypeResult StatusJennifer L Juanito JORDAN CNPLAB_1Final ResultPerforming OrganizationAddressCity/State/ZIP CodePhone Number JOSÉ DELEON CLIA: [id number] [place] [address], [facility] * ECG 12 Lead (Clinical Manager [employer] to perform) (08/26/2025 9:00 AM CENTER LINE CUTTER OPERATOR) ComponentValueRef RangeTest MethodAnalysis TimePerformed AtPathologist SignatureVentricular Hfqr94PHTYDRN GHPAtrial Cqud75AMJXOTO GHPP-R Xykynkbo129 msMUSE GHPQRS Mnkwxqmh28txMPBR HNEFL628ydAAGE HXCOST177mePYMO GHPP Axis66 degreesMUSE GHPR Wvuy92lunxejlGSQV GHPT Gzbc58oqhplsqQBXU GHPSpecimen (Source) Anatomical Location / LateralityCollection Method / VolumeCollection Time Received Time08/26/2025 9:00 AM CENTER LINE CUTTER OPERATOR Narrative MUSE GHP - 08/26/2025 9:30 AM CENTER LINE CUTTER OPERATOR Sinus rhythm Normal ECG When compared with ECG of 21-Nov-2015 08:55, No significant change Confirmed by Pasquale Mahoney ([id number]) on 08/26/2025 9:30:50 AM Procedure Note Pasquale Mahoney MD - 08/26/2025 Sinus rhythm Normal ECG When compared with ECG of 21-Nov-2015 08:55, No significant change Confirmed by Pasquale Mahoney ([id number]) on 08/26/2025 9:30:50 AM Authorizing ProviderResult TypeResult StatusHandynnifer KALYN Luna APRN ECG ORDERABLESFinal ResultPerforming OrganizationAddressCity/State/ZIP CodePhone Number MUSE [facility] [address] [place] [address] documented in this encounter Visit Diagnoses Diagnosis Other closed fracture of distal end of right ulna with delayed healing, subsequent encounter- Primary Preop examination Preoperative examination, unspecified 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 Personal history of venous thrombosis and embolism [facility] current use of anticoagulant Encounter for long-term (current) use of anticoagulants Hypertension, unspecified type (HRC) documented in this encounter Care Teams Team MemberRelationshipSpecialtyStart DateEnd Date Deirdre Grant PA-C [address] [facility] [address] [place] [address] PCP - GeneralPhysician Jywvtcshi09/31/18documented as of this encounter
--- OUTSIDE RECORDS SUMMARY | 2025-08-26 09:40 | XMS_ITS | Encounter Summary ---
Author Organization [facility] Address [address] [place] [address] Care Team Providers Care Rotary Saw Operator Name Role Phone Deirdre Grant PA-C Primary Care Provider Encounter Details DateTypeDepartmentCare Team (Latest Contact Info)Cexiqgkwfox54/06/2025 9:40 AM CSTLab Visit [address] [address] Preop examination Social History Tobacco UseTypesPacks/DayYears UsedDateSmoking Tobacco: NeverSmokeless Tobacco: NeverAlcohol UseStandard Drinks/WeekCommentsYes2 (1 standard drink = 0.6 oz pure alcohol)PHQ-2AnswerDate RecordedPHQ-2 Yoveq47810/27/2024UDIT-CAnswerDate Recorded Q1: How often do you have a drink containing alcohol?Never08/28/2025verage Number of DrinksNot on file08/28/2025Frequency of Binge DrinkingNot on file 08/28/2025CommentsNoSex and Gender InformationValueDate RecordedSex Assigned at BirthNot on fileLegal BnvTgoftq41/10/2012 4:56 AM CDTGender Identity Not on fileSexual OrientationNot on fileOccupationIndustryJob Start DateJob End DateVFWNot on fileNot on fileNot on filedocumented as of this encounter Plan of Treatment DateTypeDepartmentCare Team (Latest Contact Info)Mnwtgjwlhpm61/20/2026 8:30 AM CSTAppointment [facility] [place] [address] [facility] [place] [address] Nereida Bucther MD [address] [facility] [place] [address] documented as of this encounter Procedures Procedure NamePriorityDate/TimeAssociated DiagnosisCommentsCOMPLETE BLOOD COUNT- NO TNPHYtbfcmu91/06/2025 9:17 AM RETORT SETTER Preop examination documented in this encounter Results * Complete Blood Count-No Diff (08/26/2025 9:17 AM RETORT SETTER)ComponentValueRef Range Test MethodAnalysis TimePerformed AtPathologist SignatureWBC8.53.5 - 10.5 x10(9)/L110/27/2024 9:44 AM [facility] LABORATORYRBC4.533.90 - 5.03 x10(12)/L 08/26/2025 9:44 AM [facility] GDTPEBAKYYNhmzqwmmjx66.812.0 - 15.5 g/dL 08/26/2025 9:44 AM [facility] IZARMLWQVYIQH24.334.9 - 44.5 %08/26/2025 9:44 AM [facility] TODUWEXFEHSLU39.280.0 - 100.0 fL08/26/2025 9:44 AM [facility] VJHRHRSVHIVFX97.527.6 - 33.3 pg08/26/2025 9:44 AM [facility] DHZBOCFDCGREGX80.431.5 - 35.2 g/dL08/26/2025 9:44 AM [facility]ORY RDW13.011.9 - 15.5 %08/26/2025 9:44 AM [facility] ZSGOAJFPEXVumsnexrd463532 - 450 x10(9)/L110/27/2024 9:44 AM [facility] LABORATORYSpecimen (Source) Anatomical Location / LateralityCollection Method / VolumeCollection Time Received TimeBloodVenipuncture / Lsrstkk8208/26/2025 9:17 AM CST08/26/2025 9:17 AM RETORT SETTER Narrative Authorizing ProviderResult TypeResult StatusJecheryl Solomon APRN, CNPLAB_1Final ResultPerforming OrganizationAddressCity/State/ZIP CodePhone Number [facility] CLIA: [id number] [place] [address], [facility] documented in this encounter Visit Diagnoses Diagnosis Preop examination Preoperative examination, unspecified documented in this encounter Care Teams Team MemberRelationshipSpecialtyStart DateEnd Date Deirdre Grant PA-C [address] [address] [place] [address] PCP - GeneralPhysician Bwuhanueq43/31/18documented as of this encounter
--- OUTSIDE RECORDS SUMMARY | 2025-08-29 06:00 | XMS_ITS | Encounter Summary ---
Author Organization [facility] Address [address] [place] [address] Care Team Providers Care Cnc Supervisor Name Role Phone Deirdre Grant PA-C Primary Care Provider Encounter Details DateTypeDepartmentCare Team (Latest Contact Info)Xsfmhbkamkq13/09/2025 6:00 AM CSTAncillary Procedure [facility] Amb[facility] Center [address] [place] [address] Nereida Butcher MD [address] [place] [address] Surgery, elective Social History Tobacco UseTypesPacks/DayYears UsedDateSmoking Tobacco: NeverSmokeless Tobacco: NeverAlcohol UseStandard Drinks/WeekCommentsYes2 (1 standard drink = 0.6 oz pure alcohol)PHQ-2AnswerDate RecordedPHQ-2 Fnpku39810/27/2024UDIT-CAnswerDate Recorded Q1: How often do you have a drink containing alcohol?Never08/28/2025verage Number of DrinksNot on file08/28/2025Frequency of Binge DrinkingNot on file 08/28/2025CommentsNoSex and Gender InformationValueDate RecordedSex Assigned at BirthNot on fileLegal HooJjhujw08/10/2012 4:56 AM CDTGender Identity Not on fileSexual OrientationNot on fileOccupationIndustryJob Start DateJob End DateVFWNot on fileNot on fileNot on filedocumented as of this encounter Plan of Treatment DateTypeDepartmentCare Team (Latest Contact Info)Kgebnmlukyn02/20/2026 8:30 AM CSTAppointment [facility] [address] [facility] [place] [address] Nereida Butcher MD [address] [facility] [place] [address] documented as of this encounter Procedures Procedure NamePriorityDate/TimeAssociated DiagnosisCommentsSUR FLUOROSCOPY UP TO 1 LGAKInmyjsx41/09/2025 1:13 PM CITY DIRECTOR Surgery, elective documented in this encounter Results * CHINO Fluoroscopy Up To 1 Hour (08/29/2025 1:13 PM CITY DIRECTOR)Anatomical Region LateralityModalityRadiographic ImagingSpecimen (Source)Anatomical Location / LateralityCollection Method / VolumeCollection TimeReceived Time Narrative 08/29/2025 1:14 PM CITY DIRECTOR These images were obtained during a surgical procedure. Authorizing ProviderResult TypeResult StatusYvonndora Butcher MDRAD NON-REPORTABLESFinal Result documented in this encounter Visit Diagnoses Diagnosis Surgery, elective Unspecified elective surgery for purposes other than remedying health states documented in this encounter Care Teams Team MemberRelationshipSpecialtyStart DateEnd Date Deirdre Grant PA-C [address] [place] [address] [place] [address] PCP - GeneralPhysician Dthbssgxx64/31/18documented as of this encounter
--- OUTSIDE RECORDS SUMMARY | 2025-08-29 10:15 | XMS_ITS | Encounter Summary ---
Author Organization [facility] Address [address] [place] [address] Care Team Providers Care Associate Manager Affiliate Marketing Name Role Phone Deirdre Grant PA-C Primary Care Provider Reason for Referral * (Routine) - IncompleteSpecialtyDiagnoses / ProceduresReferred By Contact Referred To Contact Procedures US Anesthesia Guided Block Fermin Baca MD [address] [place] [address] Phone: tel: fax: Referral IDStatusReasonStart DateExpiration DateVisits RequestedVisits [id number]/9/20253/ ECHNICIAN Reason for Visit * Auth/CertSpecialtyDiagnoses / ProceduresReferred [...] forearm, right Referral IDStatusReasonStart DateExpiration DateVisits RequestedVisits [id number] Encounter Details DateTypeDepartmentCare Team (Latest Contact Info)Mameapzwbdv71/05/2025 10:15 AM GEOTECHNICIAN - 08/29/2025 2:06 PM CSTHospital Encounter [facility] [address] [facility] [place] [address] Bernard Lee MD [address] [facility] [place] [address] Other closed fracture of distal end of right ulna, initial encounter Discharge Disposition: Home Social History Tobacco UseTypesPacks/DayYears UsedDateSmoking Tobacco: NeverSmokeless Tobacco: NeverAlcohol UseStandard Drinks/WeekCommentsYes2 (1 standard drink = 0.6 oz pure alcohol)PHQ-2AnswerDate RecordedPHQ-2 Dgpzx17110/27/2024UDIT-CAnswerDate Recorded Q1: How often do you have a drink containing alcohol?Never08/28/2025verage Number of DrinksNot on file08/28/2025Frequency of Binge DrinkingNot on file 08/28/2025CommentsNoSex and Gender InformationValueDate RecordedSex Assigned at BirthNot on fileLegal AwtMunczv19/10/2012 4:56 AM CDTGender Identity Not on fileSexual OrientationNot on fileOccupationIndustryJob Start DateJob End DateVFWNot on fileNot on fileNot on filedocumented as of this encounter Last Filed Vital Signs Vital SignReadingTime TakenCommentsBlood Ptdeoaeg939/7508/29/2025 1:58 PM GEOTECHNICIAN Chksd462008/29/2025 1:58 PM OXFEwnepavmjhv06.1 ??C (96.9 ??F)08/29/2025 1:27 PM CSTRespiratory Uykm048710/30/2024 1:58 PM CSTOxygen Gglzcvzdkh04%08/29/2025 1:58 PM CSTInhaled Oxygen Concentration--Weight--Height--Body Mass Index--documented in this encounter Functional Status * Alcohol UseQuestionAnswerDate of AssessmentAuthorQ1: How often do you have a drink containing alcohol?Never08/28/2025 10:45 AM Mely Morrison RN documented as of this encounter Mental Status * Hand Gathering Machine Setter/Ankle StrengthQuestionAnswerEntry DateAuthorHand Gathering Machine Setter, Rightabsent 08/29/2025 1:58 PM Kailey Bobby RN * Cognitive/NeuroQuestionAnswerEntry DateAuthorLevel of Consciousnessalert 08/29/2025 1:27 PM Kailey Bobby RN documented in this encounter Discharge Instructions * Discharge Instructions* Bernard Lee MD - 08/29/2025 1:14 PM GEOTECHNICIAN Expectations after surgery: Pain, swelling, and bruising [...] of daily living are encouraged. Avoid heavy gasoline engine inspector and grasp activities and do not lift [...] Lee MD Hand & Upper Extremity Surgeon Chief Green Officer: Please call [phone] for all surgery scheduling and administrative questions Hand Nurse: Please contact nurse triage for all medical related questions at [phone] ECHNICIAN * Discharge Instr - Non RX Meds* Kailey Dang RN - 08/29/2025 1:39 PM GEOTECHNICIAN Discharge Information The following was provided to the patient - Instruction sets: Caring for yourself after surgery Collateral information: How to prevent and treat constipation after surgery Prescription Opioid Pain Medication Recover Well Understanding Pain Patient take-homes: Ice pack(s) Sling ECHNICIAN documented in this encounter Medications at Time [...] 08/29/2025 12:00 AM CST NAME: FLACA PALACIO [facility]: [id number] OPERATIVE REPORT DATE OF SURGERY: 08/29/2025 : 1965 SURGEON: BERNARD LEE MD PREOPERATIVE DIAGNOSES: 1. Right distal ulnar shaft fracture. 2. Right forearm mass. POSTOPERATIVE DIAGNOSES: 1. Right distal ulnar shaft fracture. 2. Right forearm mass. PROCEDURES PERFORMED: 1. Right ulnar open reduction and internal fixation. 2. Right forearm mass excisional biopsy. FLAKER OPERATOR: JOHNATHAN Gupta. ANESTHETIC: Block. ESTIMATED BLOOD LOSS: [...] disimpacted. Interposed soft tissue was removed. A Daisy was brought in to use as a [...] room in stable condition. MD Peter FAYG/AQS /[id number] ECHNICIAN documented in this encounter Plan of Treatment DateTypeDepartmentCare Team (Latest Contact Info)Fhbhmnfcwbm07/20/2026 8:30 AM CSTAppointment [facility] [address] [place] [address] Bernard Lee MD [address] [place] [address] documented as of this encounter Procedures Procedure NamePriorityDate/TimeAssociated DiagnosisCommentsSURGICAL PATHOLOGY Qfkslug4508/29/2025 1:08 PM GEOTECHNICIAN Other closed fracture of distal end of right ulna, initial encounter Exc Arm/Elbow Les Sc = 3 Cm08/29/2025 12:01 PM GEOTECHNICIAN Other closed fracture of distal end of right ulna, initial encounter Open Tx Ulnar Shaft Fx W/Wo Fix08/29/2025 12:01 PM GEOTECHNICIAN Other closed fracture of distal end of right ulna, initial encounter Exc Raul Les Trnk Arm/Leg;2.1-3.0 Cm08/29/2025 12:01 PM GEOTECHNICIAN Other closed fracture of distal end of right ulna, initial encounter US ANESTHESIA GUIDED SFIYTRhsjred52/09/2025 10:34 AM GEOTECHNICIAN documented in this encounter Results * Surgical Path (08/29/2025 1:08 PM GEOTECHNICIAN)ComponentValueRef RangeTest Method Analysis TimePerformed AtPathologist SignatureCase ReportSurgical Pathology ?Case: [id number] ? Authorizing Provider: ??Bernard Lee MD ? Collected: ? 08/29/2025 1308 ? Ordering Location: ? [facility] ?Received: ?08/29/2025 1318 ? Pathologist: ? Sven Millan MBBS ? Specimen: ?Forearm, right, right forearm mass ? 09/01/2025 12:45 PM [facility]ORATORYFINAL DIAGNOSISSoft tissue, forearm, right, excision: - Organizing puzuhiqa22/12/2025 12:45 PM [facility] at 1245 CSTClinical InformationOther closed fracture of distal end of right ulna, initial encounter 09/01/2025 12:45 PM [facility] LABORATORYMicroscopic Description Microscopic examination is performed.09/01/2025 12:45 PM [facility] LABORATORYGross DescriptionA: The specimen is received in formalin and labeled with the patient's name and Forearm, right, rightforearm mass. The specimen consists of a 0.8 x 0.5 x 0.5 cm portion of mcmahan-yellow, focally hemorrhagic soft tissue. The specimen is bisected and entirely submitted in 1 block. AW 09/01/2025 12:45 PM [facility] LABORATORYEmbedded Ofdker0409/01/2025 12:45 PM [facility] LABORATORYSpecimen (Source)Anatomical Location / LateralityCollection Method / VolumeCollection TimeReceived TimeTissueENTIRE RIGHT FOREARM / Panqjdl7108/29/2025 1:08 PM CST08/29/2025 1:18 PM GEOTECHNICIAN Narrative Authorizing ProviderResult TypeResult StatusBernard STAPLETON PATHOLOGYFinal ResultPerforming OrganizationAddressCity/State/ZIP CodePhone Number [facility] CLIA: [id number] * US Anesthesia Guided Block (08/29/2025 10:34 AM GEOTECHNICIAN)Anatomical Region LateralityModalityUltrasoundSpecimen (Source)Anatomical Location / Laterality Collection Method / VolumeCollection TimeReceived Time Narrative 08/29/2025 10:34 AM GEOTECHNICIAN If an Anesthesia block was performed please [...] mL = 3.75 mL/kg ?? 50.1 kg [place] weight), Intravenous, at 751.6 mL/hr, Q15MIN PRN, Administer over 15 Minutes, Other, Lipid Rescue for Local Anesthetic Systemic Toxicity (LAST): Start infusion doses after push bolus dose(s) given. Administer each infusion dose over 15minutes as directed by Attending or BELLMAN/Code team for ongoing hemodynamic instability., Starting onTue [...] -give ONLY if directed by Attending or BELLMAN/Code team., Pre-op fat emulsion 20 % infusion 75.2 mL 75.2 mL (rounded from 75.15 mL = 1.5 mL/kg ?? 50.1 kg [place] weight), Intravenous, at 4,512 mL/hr, T1LEJRYF, Administer over 1 Minutes, Other, Lipid rescue boluses for Local Anesthetic Systemic Toxicity (LAST): may repeat dose 5 minutes after initial bolus as directed by Attending or BELLMAN/Code team for hemodynamic instability., Starting on Thu08/29/25 at 1034, Until Thu08/29/25 at 1606, For 2 doses, Lipid rescue boluses, may repeat dose 5 minutes after initial bolus as directed by Attending or BELLMAN/Code team for hemodynamic instability. Draw up dose in 50 mL syringes and administer STAT. 1.5 mL/kg (IBW) IV x1 over 1 minute, may repeat x1 as directed. Max dose: 100 mL, Pre-op fentaNYL (SUBLIMAZE) injection 25-50 mcg 25-50 mcg, Intravenous, H1MBJKPY, Pain, the immediate postop period when longer [...] (SUBLIMAZE) injection 25-50 mcg 25-50 mcg, Intravenous, Q9IJSVGR, Pain, Procedure, Starting on Thu08/29/25 at 1034, [...] Starting on Thu08/29/25 at 1100, Pre-op Rate/Dose Yblzyp0608/29/2025 1:25 PM KJHMwfvcmt18/09/2025 12:12 PM CSTStarted 08/29/2025 10:47 AM CST30 mL/hr meperidine (DEMEROL) injection 12.5 mg 12.5 mg, Intravenous, R2QYIMXB, Shivering, Starting on Thu08/29/25 at 1032, Until Thu08/29/25 at 1606, For 2 doses, Maximum cumulative dose is 25 mg. Do not give to patients receiving MAO inhibitors (e.g. phenelzine (NARDIL), tranylcypromine (PARNATE), selegiline (ELDEPRYL))., PACU/Recovery midazolam (VERSED) injection 1-2 mg 1-2 mg, Intravenous, G1HUSTFG, Sedation, Anxiety, Procedure, Starting on Thu08/29/25 at 1034, UntilTue 08/29/25 at 1606, As directed by anesthesiologist MAX Dose 2mg, Pre-op Given08/29/2025 11:10 AM CST1 mg ondansetron (ZOFRAN) injection 4 mg 4 mg, Intravenous, Q4H PRN, Nausea, Vomiting, Starting on Thu08/29/25 at 1032, Until Thu08/29/25 ct0779, If multiple medications are ordered for nausea [...] over 3 days., PACU & Post-op Patch Zwvgwlg9508/29/2025 11:09 AM CST1 PatchRight Elbowdocumented in this encounter Active and Recently Administered Medications Times are shown in GEOTECHNICIAN.Medication Order ceFAZolin (ANCEF) 2 g in sodium [...] mL = 3.75 mL/kg ?? 50.1 kg [place] weight), Intravenous, at 751.6 mL/hr, Q15MIN PRN, Administer over 15 Minutes, Other, Lipid Rescue for Local Anesthetic Systemic Toxicity (LAST): Start infusion doses after push bolus dose(s) given. Administer each infusion dose over 15minutes as directed by Attending or BELLMAN/Code team for ongoing hemodynamic instability., Starting onT08/29/25 [...] -give ONLY if directed by Attending or BELLMAN/Code team., Pre-op fat emulsion 20 % infusion 75.2 mL(Linked Group 1) 75.2 mL (rounded from 75.15 mL = 1.5 mL/kg ?? 50.1 kg [place] weight), Intravenous, at 4,512 mL/hr, R1JOIKTW, Administer over 1 Minutes, Other, Lipid rescue boluses for Local Anesthetic Systemic Toxicity (LAST): may repeat dose 5 minutes after initial bolus as directed by Attending or BELLMAN/Code team for hemodynamic instability., Starting on Thu08/29/25 at 1034, Until Thu08/29/25 at 1606, For 2 doses, Lipid rescue boluses, may repeat dose 5 minutes after initial bolus as directed by Attending or BELLMAN/Code team for hemodynamic instability. Draw up dose in 50 mL syringes and administer STAT. 1.5 mL/kg (IBW) IV x1 over 1 minute, may repeat x1 as directed. Max dose: 100 mL, Pre-op fentaNYL (SUBLIMAZE) injection 25-50 mcg 25-50 mcg, Intravenous, K4QBWCQZ, Pain, the immediate postop period when longer [...] (SUBLIMAZE) injection 25-50 mcg 25-50 mcg, Intravenous, L7UOONOF, Pain, Procedure, Starting on Thu08/29/25 at 1034, [...] (DEMEROL) injection 12.5 mg 12.5 mg, Intravenous, P8HXVQFS, Shivering, Starting on Thu08/29/25 at 1032, Until Thu08/29/25 at 1606, For 2 doses, Maximum cumulative dose is 25 mg. Do not give to patients receiving MAO inhibitors (e.g. phenelzine (NARDIL), tranylcypromine (PARNATE), selegiline (ELDEPRYL))., PACU/Recovery midazolam (VERSED) injection 1-2 mg 1-2 mg, Intravenous, X2UETGKN, Sedation, Anxiety, Procedure, Starting on Thu08/29/25 at 1034, UntilThu08/29/25 at 1606, As directed by anesthesiologist MAX Dose 2mg, Pre-op * 1110 (Given - Provider: Rajni Ovalle RN) ondansetron (ZOFRAN) injection 4 mg 4 mg, Intravenous, Q4H PRN, Nausea, Vomiting, Starting on Thu08/29/25 at 1032, Until Thu08/29/25 wh5976, If multiple medications are ordered for nausea or vomiting - administer in the following priority based on medications ordered, effectiveness and availability: ondansetron (ZOFRAN) > prochlorperazine (COMPAZINE) > diphenhydrAMINE (BENADRYL) > hydrOXYzine HCl (VISTARIL)> ePHEDrine > scopolamine (TRANSDERM-SCOP)., PACU/Recovery Order Group 1: fat emulsion 20 % infusion 75.2 mLJump to med 75.2 mL (rounded from 75.15 mL = 1.5 mL/kg ?? 50.1 kg [place] weight), Intravenous, at 4,512 mL/hr, R6PSGTIF, Administer over 1 Minutes, Other, Lipid rescue boluses for Local Anesthetic Systemic Toxicity (LAST): may repeat dose 5 minutes after initial bolus as directed by Attending or BELLMAN/Code team for hemodynamic instability., Starting on Thu08/29/25 at 1034, Until Thu08/29/25 at 1606, For 2 doses, Lipid rescue boluses, may repeat dose 5 minutes after initial bolus as directed by Attending or BELLMAN/Code team for hemodynamic instability. Draw up dose in 50 mL syringes and administer STAT. 1.5 mL/kg (IBW) IV x1 over 1 minute, may repeat x1 as directed. Max dose: 100 mL, Pre-op And fat emulsion 20 % infusion 187.9 mLJump to med 187.9 mL (rounded from 187.875 mL = 3.75 mL/kg ?? 50.1 kg [place] weight), Intravenous, at 751.6 mL/hr, Q15MIN PRN, Administer over 15 Minutes, Other, Lipid Rescue for Local Anesthetic Systemic Toxicity (LAST): Start infusion doses after push bolus dose(s) given. Administer each infusion dose over 15minutes as directed by Attending or BELLMAN/Code team for ongoing hemodynamic instability., Starting onT08/29/25 [...] -give ONLY if directed by Attending or BELLMAN/Code team., Pre-op documented in this encounter Care Teams Team MemberRelationshipSpecialtyStart DateEnd Date Deirdre Grant PA-C [address] [facility] [address] [place] [address] PCP - GeneralPhysician Xiwprtczj59/31/18documented as of this encounter
--- OUTSIDE RECORDS SUMMARY | 2025-08-29 10:35 | XMS_ITS | Encounter Summary ---
Author Organization [facility] Address [address] [place] [address] Care Team Providers Care Barrel Driller Name Role Phone Deirdre Grant PA-C Primary Care Provider Reason for Visit * (Routine) - IncompleteSpecialtyDiagnoses / ProceduresReferred By Contact Referred To Contact Procedures US Anesthesia Guided Fermin Jones MD [address] [place] [address] Phone: tel: fax: Referral IDStatusReasonStart DateExpiration DateVisits RequestedVisits [id number]/9/44483/ Encounter Details DateTypeDepartmentCare Team (Latest Contact Info)Abryjhheywr38/09/2025 10:35 AM CSTAncillary Procedure Radiology PACS [address] [place] [address] Social History Tobacco UseTypesPacks/DayYears UsedDateSmoking Tobacco: NeverSmokeless Tobacco: NeverAlcohol UseStandard Drinks/WeekCommentsYes2 (1 standard drink = 0.6 oz pure alcohol)PHQ-2AnswerDate RecordedPHQ-2 Zwoyy58410/27/2024UDIT-CAnswerDate Recorded Q1: How often do you have a drink containing alcohol?Never08/28/2025verage Number of DrinksNot on file08/28/2025Frequency of Binge DrinkingNot on file 08/28/2025CommentsNoSex and Gender InformationValueDate RecordedSex Assigned at BirthNot on fileLegal IokWgkocy94/10/2012 4:56 AM CDTGender Identity Not on fileSexual OrientationNot on fileOccupationIndustryJob Start DateJob End DateVFWNot on fileNot on fileNot on filedocumented as of this encounter Plan of Treatment DateTypeDepartmentCare Team (Latest Contact Info)Ycnwollvndd36/20/2026 8:[address] [facility] [address] [place] [address] [place] [address] Nereida Butcher MD [address] [facility] [place] [id number] documented as of this encounter Procedures Procedure NamePriorityDate/TimeAssociated DiagnosisCommentsUS ANESTHESIA GUIDED SKCUNWndyzth39/09/2025 10:34 AM SOFT WORK WRAPPER EXAMINER documented in this encounter Results * US Anesthesia Guided Block (08/29/2025 10:34 AM SOFT WORK WRAPPER EXAMINER)Anatomical Region LateralityModalityUltrasoundSpecimen (Source)Anatomical Location / Laterality Collection Method / VolumeCollection TimeReceived Time Narrative 08/29/2025 10:34 AM SOFT WORK WRAPPER EXAMINER If an Anesthesia block was performed please see the Anesthesia encounter for documentation. ??This procedure was performed and interpreted by the performing provider. ?? Authorizing ProviderResult TypeResult StatusMichael P Phuong MDRAD USFinal Result documented in this encounter Visit Diagnoses Not on filedocumented in this encounter Care Teams Team MemberRelationshipSpecialtyStart DateEnd Date Deirdre Grant PA-C [address] [facility] [address] [place] [address] PCP - GeneralPhysician Kiepwwech16/31/18documented as of this encounter
--- OUTSIDE RECORDS SUMMARY | 2025-08-29 11:45 | XMS_ITS | Encounter Summary ---
Author Organization [facility] Address [address] [place] [address] Care Team Providers Care Electronics Hardware Design Engineer Name Role Phone Deirdre Grant PA-C [...] forearm, right Referral IDStatusReasonStart DateExpiration DateVisits RequestedVisits [id number] Encounter Details DateTypeDepartmentCare Team (Latest Contact Info)Bdsdlrxkhmu72/09/2025 11:45 AM SECURITY INCIDENT RESPONSE ENGINEER - 08/29/2025 1:25 PM CSTSurgery [facility] [address] [facility] [place] [address] Bernard Lee MD [address] [facility] [place] [address] Open reduction internal fixation distal ulna fracture Social History Tobacco UseTypesPacks/DayYears UsedDateSmoking Tobacco: NeverSmokeless Tobacco: NeverAlcohol UseStandard Drinks/WeekCommentsYes2 (1 standard drink = 0.6 oz pure alcohol)PHQ-2AnswerDate RecordedPHQ-2 Waejx88710/27/2024UDIT-CAnswerDate Recorded Q1: How often do you have a drink containing alcohol?Never08/28/2025verage Number of DrinksNot on file08/28/2025Frequency of Binge DrinkingNot on file 08/28/2025CommentsNoSex and Gender InformationValueDate RecordedSex Assigned at BirthNot on fileLegal LxuGixryx91/10/2012 4:56 AM CDTGender Identity Not on fileSexual OrientationNot on fileOccupationIndustryJob Start DateJob End DateVFWNot on fileNot on fileNot on filedocumented as of this encounter Last Filed Vital Signs Vital SignReadingTime TakenCommentsBlood Aziifumm947/8208/29/2025 11:25 AM SECURITY INCIDENT RESPONSE ENGINEER Amfka392708/29/2025 11:25 AM SGNOijovxomewv28.8 ??C (98.2 ??F)08/29/2025 10:46 AM CSTRespiratory Kdhu696110/30/2024 11:25 AM CSTOxygen Skfzncxgvu99%08/29/2025 11:25 AM CSTInhaled Oxygen Concentration--Weight--Height--Body Mass Index--documented in this encounter Functional Status * Alcohol UseQuestionAnswerDate of AssessmentAuthorQ1: How often do you have a drink containing alcohol?Never08/28/2025 10:45 AM Mely Morrison RN documented as of this encounter Mental Status * Hand Ampoule Washing Machine Operator/Ankle StrengthQuestionAnswerEntry DateAuthorHand Ampoule Washing Machine Operator, Rightabsent 08/29/2025 1:58 PM Kailey Bobby RN * Cognitive/NeuroQuestionAnswerEntry DateAuthorLevel of Consciousnessalert 08/29/2025 1:27 PM Kailey Bobby RN documented in this encounter Discharge Instructions * Discharge Instructions* Bernard Lee MD - 08/29/2025 1:14 PM SECURITY INCIDENT RESPONSE ENGINEER Expectations after surgery: Pain, swelling, and bruising [...] of daily living are encouraged. Avoid heavy member service representative and grasp activities and do not lift [...] Lee MD Hand & Upper Extremity Surgeon Spooler: Please call [phone] for all surgery scheduling and administrative questions Hand Nurse: Please contact nurse triage for all medical related questions at [phone] RITY INCIDENT RESPONSE ENGINEER * Discharge Instr - Non RX Meds* Kailey Dang RN - 08/29/2025 1:39 PM SECURITY INCIDENT RESPONSE ENGINEER Discharge Information The following was provided to the patient - Instruction sets: Caring for yourself after surgery Collateral information: How to prevent and treat constipation after surgery Prescription Opioid Pain Medication Recover Well Understanding Pain Patient take-homes: Ice pack(s) Sling RITY INCIDENT RESPONSE ENGINEER documented in this encounter Medications at Time [...] 12:00 AM CST NAME: FLACA PALACIO CSN: [id number] OPERATIVE REPORT DATE OF SURGERY: 08/29/2025 : 1965 SURGEON: BERNARD LEE MD PREOPERATIVE DIAGNOSES: 1. Right distal ulnar shaft fracture. 2. Right forearm mass. POSTOPERATIVE DIAGNOSES: 1. Right distal ulnar shaft fracture. 2. Right forearm mass. PROCEDURES PERFORMED: 1. Right ulnar open reduction and internal fixation. 2. Right forearm mass excisional biopsy. IN HOME CAREGIVER: JOHNATHAN Gupta. ANESTHETIC: Block. ESTIMATED BLOOD LOSS: [...] disimpacted. Interposed soft tissue was removed. A [employer] was brought in to use as a [...] in stable condition. BERNARD LEE MD YG/AQS /[id number] RITY INCIDENT RESPONSE ENGINEER documented in this encounter Plan of Treatment DateTypeDepartmentCare Team (Latest Contact Info)Khekyhbmuws38/20/2026 8:30 AM CSTAppointment [facility] [address] [place] [id number] Bernard Lee MD [address] [place] [address] documented as of this encounter Procedures Procedure NamePriorityDate/TimeAssociated DiagnosisCommentsSURGICAL PATHOLOGY Dwliytk4108/29/2025 1:08 PM SECURITY INCIDENT RESPONSE ENGINEER Other closed fracture of distal end of right ulna, initial encounter Exc Arm/Elbow Les Sc = 3 Cm08/29/2025 12:01 PM SECURITY INCIDENT RESPONSE ENGINEER Other closed fracture of distal end of right ulna, initial encounter Open Tx Ulnar Shaft Fx W/Wo Fix08/29/2025 12:01 PM SECURITY INCIDENT RESPONSE ENGINEER Other closed fracture of distal end of right ulna, initial encounter Exc Raul Les Trnk Arm/Leg;2.1-3.0 Cm08/29/2025 12:01 PM SECURITY INCIDENT RESPONSE ENGINEER Other closed fracture of distal end of right ulna, initial encounter US ANESTHESIA GUIDED YHQSUMxmmpxb29/09/2025 10:34 AM SECURITY INCIDENT RESPONSE ENGINEER documented in this encounter Results * Surgical Path (08/29/2025 1:08 PM SECURITY INCIDENT RESPONSE ENGINEER)ComponentValueRef RangeTest Method Analysis TimePerformed AtPathologist SignatureCase ReportSurgical Pathology ?Case: [id number] ? Authorizing Provider: ??Bernard Lee MD ? Collected: ? 08/29/2025 1308 ? Ordering Location: ? [facility] ?Received: ?08/29/2025 1318 ? Pathologist: ? Sven Millan MBBS ? Specimen: ?Forearm, right, right forearm mass ? 09/01/2025 12:45 PM [facility]ORYFINAL DIAGNOSISSoft tissue, forearm, right, excision: - Organizing ydcvsdbc39/12/2025 12:45 PM [facility] at 1245 CSTClinical InformationOther closed fracture of distal end of right ulna, initial encounter 09/01/2025 12:45 PM [facility]ORYMicroscopic Description Microscopic examination is performed.09/01/2025 12:45 PM [facility]ATORYGross DescriptionA: The specimen is received in formalin and labeled with the patient's name and Forearm, right, rightforearm mass. The specimen consists of a 0.8 x 0.5 x 0.5 cm portion of mcmahan-yellow, focally hemorrhagic soft tissue. The specimen is bisected and entirely submitted in 1 block. AW 09/01/2025 12:45 PM [facility]ORATORYEmbedded Loxvto6009/01/2025 12:45 PM [facility]ORATORYSpecimen (Source)Anatomical Location / LateralityCollection Method / VolumeCollection TimeReceived TimeTissueENTIRE RIGHT FOREARM / Xbnjyqi6308/29/2025 1:08 PM CST08/29/2025 1:18 PM SECURITY INCIDENT RESPONSE ENGINEER Narrative Authorizing ProviderResult TypeResult StatusBernard STAPLETON PATHOLOGYFinal ResultPerforming OrganizationAddressCity/State/ZIP CodePhone Number [facility] CLIA: [id number] [address] * [place] Anesthesia Guided Block (08/29/2025 10:34 AM SECURITY INCIDENT RESPONSE ENGINEER)Anatomical Region LateralityModalityUltrasoundSpecimen (Source)Anatomical Location / Laterality Collection Method / VolumeCollection TimeReceived Time Narrative 08/29/2025 10:34 AM SECURITY INCIDENT RESPONSE ENGINEER If an Anesthesia block was performed [...] mL = 3.75 mL/kg ?? 50.1 kg [place] weight), Intravenous, at 751.6 mL/hr, Q15MIN PRN, Administer over 15 Minutes, Other, Lipid Rescue for Local Anesthetic Systemic Toxicity (LAST): Start infusion doses after push bolus dose(s) given. Administer each infusion dose over 15minutes as directed by Attending or EQUIPMENT OPERAT0R/Code team for ongoing hemodynamic instability., Starting onTue [...] -give ONLY if directed by Attending or EQUIPMENT OPERAT0R/Code team., Pre-op fat emulsion 20 % infusion 75.2 mL 75.2 mL (rounded from 75.15 mL = 1.5 mL/kg ?? 50.1 kg [place] weight), Intravenous, at 4,512 mL/hr, [id number], Administer over 1 Minutes, Other, Lipid rescue boluses for Local Anesthetic Systemic Toxicity (LAST): may repeat dose 5 minutes after initial bolus as directed by Attending or EQUIPMENT OPERAT0R/Code team for hemodynamic instability., Starting on Thu08/29/25 at 1034, Until Thu08/29/25 at 1606, For 2 doses, Lipid rescue boluses, may repeat dose 5 minutes after initial bolus as directed by Attending or EQUIPMENT OPERAT0R/Code team for hemodynamic instability. Draw up dose in 50 mL syringes and administer STAT. 1.5 mL/kg (IBW) IV x1 over 1 minute, may repeat x1 as directed. Max dose: 100 mL, Pre-op fentaNYL (SUBLIMAZE) injection 25-50 mcg 25-50 mcg, Intravenous, [id number], Pain, the immediate postop period when longer [...] (SUBLIMAZE) injection 25-50 mcg 25-50 mcg, Intravenous, K4ACZPTG, Pain, Procedure, Starting on Thu08/29/25 at 1034, [...] Starting on Thu08/29/25 at 1100, Pre-op Rate/Dose Wspyhl9108/29/2025 1:25 PM WPDBfuattd74/09/2025 12:12 PM CSTStarted 08/29/2025 10:47 AM CST30 mL/hr meperidine (DEMEROL) injection 12.5 mg 12.5 mg, Intravenous, C5IIJEAN, Shivering, Starting on Thu08/29/25 at 1032, Until Thu08/29/25 at 1606, For 2 doses, Maximum cumulative dose is 25 mg. Do not give to patients receiving MAO inhibitors (e.g. phenelzine (NARDIL), tranylcypromine (PARNATE), selegiline (ELDEPRYL))., PACU/Recovery midazolam (VERSED) injection 1-2 mg 1-2 mg, Intravenous, [id number], Sedation, Anxiety, Procedure, Starting on Thu08/29/25 at 1034, UntilTue 08/29/25 at 1606, As directed by anesthesiologist MAX Dose 2mg, Pre-op Given08/29/2025 11:10 AM CST1 mg ondansetron (ZOFRAN) injection 4 mg 4 mg, Intravenous, Q4H PRN, Nausea, Vomiting, Starting on Thu08/29/25 at 1032, Until Thu08/29/25 [id number], If multiple medications are ordered for nausea [...] over 3 days., PACU & Post-op Patch Nyjwarj4508/29/2025 11:09 AM CST1 PatchRight Elbowdocumented in this encounter Active and Recently Administered Medications Times are shown in SECURITY INCIDENT RESPONSE ENGINEER.Medication Order ceFAZolin (ANCEF) 2 g in sodium [...] 1219 (Started - Provider: Lexis Mujica APRN, GUITAR TEACHER) scopolamine (TRANSDERM-SCOP) 1 mg/72 hours 1 Patch [...] mL = 3.75 mL/kg ?? 50.1 kg [place] weight), Intravenous, at 751.6 mL/hr, Q15MIN PRN, Administer over 15 Minutes, Other, Lipid Rescue for Local Anesthetic Systemic Toxicity (LAST): Start infusion doses after push bolus dose(s) given. Administer each infusion dose over 15minutes as directed by Attending or EQUIPMENT OPERAT0R/Code team for ongoing hemodynamic instability., Starting onTue [...] -give ONLY if directed by Attending or EQUIPMENT OPERAT0R/Code team., Pre-op fat emulsion 20 % infusion 75.2 mL(Linked Group 1) 75.2 mL (rounded from 75.15 mL = 1.5 mL/kg ?? 50.1 kg [place] weight), Intravenous, at 4,512 mL/hr, [id number], Administer over 1 Minutes, Other, Lipid rescue boluses for Local Anesthetic Systemic Toxicity (LAST): may repeat dose 5 minutes after initial bolus as directed by Attending or EQUIPMENT OPERAT0R/Code team for hemodynamic instability., Starting on Thu08/29/25 at 1034, Until Thu08/29/25 at 1606, For 2 doses, Lipid rescue boluses, may repeat dose 5 minutes after initial bolus as directed by Attending or EQUIPMENT OPERAT0R/Code team for hemodynamic instability. Draw up dose in 50 mL syringes and administer STAT. 1.5 mL/kg (IBW) IV x1 over 1 minute, may repeat x1 as directed. Max dose: 100 mL, Pre-op fentaNYL (SUBLIMAZE) injection 25-50 mcg 25-50 mcg, Intravenous, [id number], Pain, the immediate postop period when longer [...] (SUBLIMAZE) injection 25-50 mcg 25-50 mcg, Intravenous, [id number], Pain, Procedure, Starting on Thu08/29/25 at 1034, [...] (DEMEROL) injection 12.5 mg 12.5 mg, Intravenous, R2PHLARW, Shivering, Starting on Thu08/29/25 at 1032, Until Thu08/29/25 at 1606, For 2 doses, Maximum cumulative dose is 25 mg. Do not give to patients receiving MAO inhibitors (e.g. phenelzine (NARDIL), tranylcypromine (PARNATE), selegiline (ELDEPRYL))., PACU/Recovery midazolam (VERSED) injection 1-2 mg 1-2 mg, Intravenous, T0PIIXVH, Sedation, Anxiety, Procedure, Starting on Thu08/29/25 at 1034, UntilThu08/29/25 at 1606, As directed by anesthesiologist MAX Dose 2mg, Pre-op * 1110 (Given - Provider: Rajni Ovalle RN) ondansetron (ZOFRAN) injection 4 mg 4 mg, Intravenous, Q4H PRN, Nausea, Vomiting, Starting on Thu08/29/25 at 1032, Until Thu08/29/25 [id number], If multiple medications are ordered for nausea or vomiting - administer in the following priority based on medications ordered, effectiveness and availability: ondansetron (ZOFRAN) > prochlorperazine (COMPAZINE) > diphenhydrAMINE (BENADRYL) > hydrOXYzine HCl (VISTARIL)> ePHEDrine > scopolamine (TRANSDERM-SCOP)., PACU/Recovery Order Group 1: fat emulsion 20 % infusion 75.2 mLJump to med 75.2 mL (rounded from 75.15 mL = 1.5 mL/kg ?? 50.1 kg [place] weight), Intravenous, at 4,512 mL/hr, [id number], Administer over 1 Minutes, Other, Lipid rescue boluses for Local Anesthetic Systemic Toxicity (LAST): may repeat dose 5 minutes after initial bolus as directed by Attending or EQUIPMENT OPERAT0R/Code team for hemodynamic instability., Starting on Thu08/29/25 at 1034, Until Thu08/29/25 at 1606, For 2 doses, Lipid rescue boluses, may repeat dose 5 minutes after initial bolus as directed by Attending or EQUIPMENT OPERAT0R/Code team for hemodynamic instability. Draw up dose in 50 mL syringes and administer STAT. 1.5 mL/kg (IBW) IV x1 over 1 minute, may repeat x1 as directed. Max dose: 100 mL, Pre-op And fat emulsion 20 % infusion 187.9 mLJump to med 187.9 mL (rounded from 187.875 mL = 3.75 mL/kg ?? 50.1 kg [place] weight), Intravenous, at 751.6 mL/hr, Q15MIN PRN, Administer over 15 Minutes, Other, Lipid Rescue for Local Anesthetic Systemic Toxicity (LAST): Start infusion doses after push bolus dose(s) given. Administer each infusion dose over 15minutes as directed by Attending or EQUIPMENT OPERAT0R/Code team for ongoing hemodynamic instability., Starting onT08/29/25 [...] -give ONLY if directed by Attending or EQUIPMENT OPERAT0R/Code team., Pre-op documented in this encounter Care Teams Team MemberRelationshipSpecialtyStart DateEnd Date Deirdre Grant PA-C [id number] [facility] [address] [place] [address] PCP - GeneralPhysician Wajizukpu72/31/18documented as of this encounter
--- OUTSIDE RECORDS SUMMARY | 2025-08-29 12:12 | XMS_ITS | Encounter Summary ---
Author Organization [facility] Address [address] [place] [address] Care Team Providers Care Lunchroom Attendant Name Role Phone Deirdre Grant PA-C Primary Care Provider Encounter Details DateTypeDepartmentCare Team (Latest Contact Info)Ddkoxhxsgbk27/09/2025 12:12 PM CSTAnesthesia Event [facility] [address] [place] [address] Fermin Baca MD [address] [place], [place] [address] Anesthesia Record Procedure NameResponsible AnesthesiologistAnesthesia Start TimeAnesthesia Stop TimeOpen reduction internal fixation distal ulna fracture (Right: Wrist)Fermin Baca MD08/29/25 79191610/30/24 5128RmgzNvijSfujnGlbnhoi04/09/012780205696Ro Efgqk9533Jl Start Uuqe9398Qh Oxygen MaskSpontaneous respirations with adequate air exchange.1220MD/DO Wdzfqca6475Tm Tourn Quljwala5619Zs Tourn Yzyhrfql4821 ANDRES Vneoovz5885wn stop rgga1216Tljc Handoff NoteI discussed with the receiving nurse [...] Electronically signed by Priscilla Zhang APRN, CR [id number] [facility].* NameTotalmidazolam 2 mg/2 mL injection (aka VERSED)2 mgFENTanyl injection (aka SUBLIMAZE)100 mcglidocaine 2% PF injection aka (XYLOCAINE)40 mgpropofol 10 mg/mL for procedural sedation (aka diPRIvan) 288.08 mgondansetron injection (aka ZOFRAN)4 mgdexamethasone 4 mg/mL injection (aka DECADRON)4 mgceFAZolin (ANCEF) 2 g in sodium chloride 0.9 % 50 mL IVPB2 g ROPivacaine (NAROPIN) 0.5% (5 mg/mL) yzjpabxhe06 mLdexmedeTOMIDine (PRECEDEX) 20 mcg/5 mL (4 mcg/mL) ecsxxgwxj19 mcglactated ringers pypwohrv722 mL * Agents Name 02 Delivery Device [...] drink = 0.6 oz pure alcohol)PHQ-2AnswerDate RecordedPHQ-2 Ilega57110/27/2024UDIT-CAnswerDate Recorded Q1: How often do you have a drink containing alcohol?Never08/28/2025verage Number of DrinksNot on file08/28/2025Frequency of Binge DrinkingNot on file 08/28/2025CommentsNoSex and Gender InformationValueDate RecordedSex Assigned at BirthNot on fileLegal NpcFcbysj98/10/2012 4:56 AM CDTGender Identity Not on fileSexual OrientationNot on fileOccupationIndustryJob Start DateJob End DateVFWNot on fileNot on fileNot on filedocumented as of this encounter Progress Notes * Fermin Baca MD - 09/07/2025 12:10 PM CST Addendum created 09/07/25 1210 by Fermin Baca MD Clinical Note Signed, Diagnosis association updated, Intraprocedure Blocks edited, SmartForm saved TENDER documented in this encounter Miscellaneous Notes * [...] by: Fermin Baca MD 08/29/2025 1:34 PM TENDER * Anesthesia Procedure Notes - Fermin Baca MD - 08/29/2025 12:18 PM GAS TENDER Associated Order(s): Peripheral Block Peripheral Block Performed [...] Hat and Sterile gloves Monitoring: Blood pressure, electrical electronics engineer and continuous pulse oximetry Patient Position: Supine [...] Block 30 mL - 08/29/2025 11:35:00 AM TENDER TENDER * Anesthesia Preprocedure Evaluation - Fermin Baca [...] Allergies Past Medical History: Diagnosis Date An[place] 07/17/2011 Eczema 07/17/2011 HTN (hypertension) ([facility] 07/07/2011 Melanoma ([facility]) 1983 right orthodox Migraines 07/07/2011 Obesity 02/25/2003 Rhinitis Allergic 02/25/2003 [...] 20 % infusion 75.2 mL 1.5 mL/kg ([place]) Intravenous Q5MIN PRN And fat emulsion 20 % infusion 187.9 mL 3.75 mL/kg ([place]) Intravenous Q15MIN PRN fentaNYL (SUBLIMAZE) injection 25-50 [...] this or any previous visit. Physical Exam: [facility] 03/16/2012 Assessment/Plan: Review of Systems Patient does [...] by: Fermin Baca MD 08/29/2025 10:54 AM TENDER documented in this encounter Plan of Treatment DateTypeDepartmentCare Team (Latest Contact Info)Nktnjwalmdz24/20/2026 8:30 AM CSTAppointment [facility] [address] [place] [address] Nereida Butcher MD [address] [facility] [place] [address] documented as of this encounter Procedures Procedure NamePriorityDate/TimeAssociated DiagnosisCommentsPERIPHERAL BLOCK Aanscys5808/29/2025 12:18 PM GAS TENDER documented in this encounter Results * PERIPHERAL BLOCK (08/29/2025 12:18 PM GAS TENDER) Narrative [facility] - 08/29/2025 12:18 PM GAS TENDER Fermin Baca MD 09/07/2025 12:10 PM Peripheral [...] Hat and Sterile gloves Monitoring: ??Blood pressure, electrical electronics engineer and continuous pulse oximetry Patient Position: ??Supine [...] Edited Result - FinalPerforming OrganizationAddressCity/State/ZIP CodePhone Number [facility] CLIA: [id number] [address] [place] [address], [facility] documented in this encounter Visit [...] initial dose until incision closed., Pre-op Indications:Surgical MvzeoxkcdrfHyvzuqb18/09/2025 12:19 PM CST2 g dexAMETHasone (DECADRON) injection Intravenous, Starting on Thu08/29/25 at 1226, Until Thu08/29/25 at 1328 Given08/29/2025 12:26 PM CST4 mg dexmedeTOMIDine (PRECEDEX) 20 mcg/5 mL (4 mcg/mL) injection Intravenous, Starting on Thu08/29/25 at 1226, Until Thu08/29/25 at 1328 Given08/29/2025 12:30 PM CST4 dkdXtyfk13/09/2025 12:26 PM CST8 mcg fentaNYL (SUBLIMAZE) injection Intravenous, Starting on Thu08/29/25 at 1227, Until Thu08/29/25 at 1328 Given08/29/2025 12:44 PM CST25 fxkVzviz92/09/2025 12:36 PM CST25 mcgGiven 08/29/2025 12:27 PM CST50 mcg lactated ringers infusion Intravenous, at 30 mL/hr, CONTINUOUS, Starting on Thu08/29/25 at 1100, Pre-op Rate/Dose Ngvpry7008/29/2025 1:25 PM XOXPcfwhhu26/09/2025 12:12 PM CSTStarted 08/29/2025 10:47 AM CST30 [...] at 1219, Until Thu08/29/25 at 1328 Rate/Dose Gudero0408/29/2025 12:49 PM GMH757 mcg/kg/min33.066 mL/hrStarted 08/29/2025 12:19 PM OSC670 mcg/kg/min30.06 mL/hr ROPivacaine 0.5% (5 mg/mL) (NAROPIN) 5 MG/ML injection Regional Nerve Block, Starting on Thu08/29/25 at 1135, Until Thu08/29/25 at 1135 Given08/29/2025 11:35 AM CST30 mLdocumented in this encounter Care Teams Team MemberRelationshipSpecialtyStart DateEnd Date Deirdre Grant PA-C [address] [facility] [address] [place] [address] PCP - GeneralPhysician Wxjfihwrx09/31/18documented as of this encounter
--- OUTSIDE RECORDS SUMMARY | 2025-09-05 09:00 | XMS_ITS | Encounter Summary ---
Author Organization [facility] Address [address] [place] [address] Care Team Providers Care Preprint Analyst Name Role Phone Deirdre Grant PA-C Primary Care Provider Reason for Visit * ReasonCommentsWrist Problem Encounter Details DateTypeDepartmentCare Team (Latest Contact Info)Oekiizvbjmf94/16/2025 9:00 AM CSTOffice Visit [facility] [address] [place] [address] Myriam Grajeda, OTR/L [address] [place] [address] Closed fracture of shaft of right ulna with routine healing, unspecified fracture morphology, subsequent encounter (Primary Dx) Social History Tobacco UseTypesPacks/DayYears UsedDateSmoking Tobacco: NeverSmokeless Tobacco: NeverAlcohol UseStandard Drinks/WeekCommentsYes2 (1 standard drink = 0.6 oz pure alcohol)PHQ-2AnswerDate RecordedPHQ-2 Nxnsf76610/27/2024UDIT-CAnswerDate Recorded Q1: How often do you have a drink containing alcohol?Never08/28/2025verage Number of DrinksNot on file08/28/2025Frequency of Binge DrinkingNot on file 08/28/2025CommentsNoSex and Gender InformationValueDate RecordedSex Assigned at BirthNot on fileLegal ZkhZfcbqq98/10/2012 4:56 AM CDTGender Identity Not on fileSexual OrientationNot on fileOccupationIndustryJob Start DateJob End DateVFWNot on fileNot on fileNot on filedocumented as of this encounter Progress Notes * Myriam Grajeda, OTR/L - 09/05/2025 9:00 AM CST Hand Therapy Evaluation Payor: [employer] / Plan: UMR / Product Type: Commercial [...] and ext and hygiene Timed Charges (Minutes): 77911 Self Care/Home Management Trainin 74174 - Therapeutic Exercise: 10 Timed Code Treatment [...] for 6 weeks Planned Intervention/Education: Manual Therapy (68475), Therapeutic Exercise (90732), Therapeutic Activities (74419), Neuromuscular Re-Education (67373), Self-Care/Home Management (99372), Paraffin (40491 - untimed), Fluidotherapy (42929 - untimed), Ultrasound (50266), and Application of Hand/ShortArm Splint (00512) Informed Consent: Risks, benefits and alternatives to treatment have been explained. Patient and/orfamily in agreement with care plan. The clinician's signature certifies medical necessity for the treatment plan above. [1] Past Medical History: Diagnosis Date Anxiety (ACG) 07/17/2011 Eczema 07/17/2011 HTN (hypertension) (ACG) 07/07/2011 Melanoma (HRC) 1983 right hindu Migraines 07/07/2011 Obesity 02/25/2003 Rhinitis Allergic 02/25/2003 [2] Past Surgical History: Procedure Laterality Date BLEPHAROPLASTY Bilateral 10/2014 BREAST REDUCTION BUNIONECTOMY Right CARPAL TUNNEL RELEASE Right 12/09/13 EXC ARM/ELBOW LES SC = 3 CM Right 08/29/2025 Procedure: Right wrist excision mass-forearm, right; Surgeon: Nereida Butcher MD; Location: [facility]; Service: ORTHO EXC NAOMI LES TRNK ARM/LEG;2.1-3.0 CM Right 08/29/2025 Procedure: Open reduction internal fixation distal ulna fracture; Surgeon: Nereida Butcher MD; Location: [facility]; Service: ORTHO MOHS SURGERY 1982 right forehead - melanoma OPEN TX ULNAR SHAFT FX W/WO FIX Right 08/29/2025 Procedure: Open reduction internal fixation distal ulna fracture; Surgeon: Nereida Butcher MD; Location: [facility]; Service: ORTHO OF TECHNOLOGY documented in this encounter Plan of Treatment DateTypeDepartmentCare Team (Latest Contact Info)Nyqtwkumrur12/20/2026 8:30 AM CSTAppointment [facility] [address] [place] [address] Nereida Butcher MD [address] [place] [address] [place] [address] documented as of this encounter Visit Diagnoses Diagnosis Closed fracture of shaft of right ulna with routine healing, unspecified fracture morphology, subsequent encounter- Primary documented in this encounter Care Teams Team MemberRelationshipSpecialtyStart DateEnd Date Deirdre Grant PA-C [address] [place] [address] [place] [address] PCP - GeneralPhysician Dtctgzhjm92/31/18documented as of this encounter
--- OUTSIDE RECORDS SUMMARY | 2025-09-12 09:20 | XMS_ITS | Encounter Summary ---
Author Organization [facility] Address [address] [place] [address] Care Team Providers Care Headlight Adjuster Name Role Phone Deirdre Grant PA-C Primary Care Provider Reason for Visit * Procedure/Equipment (Routine) - IncompleteSpecialtyDiagnoses / Procedures Referred By ContactReferred To Contact Diagnoses Postop check Procedures XR Forearm Rt 2 Views Nereida Butcher MD [address] [facility] [place] [address] Phone: tel: fax: Referral IDStatusReasonStart DateExpiration DateVisits RequestedVisits [id number]/23/20253/ Encounter Details DateTypeDepartmentCare Team (Latest Contact Info)Riaxsipaasz44/23/2025 9:20 AM CSTAncillary Procedure [facility] [address] [place] [address] Nereida Butcher MD [address] [facility] [place] [phone] Postop check Social History Tobacco UseTypesPacks/DayYears UsedDateSmoking Tobacco: NeverSmokeless Tobacco: NeverAlcohol UseStandard Drinks/WeekCommentsYes2 (1 standard drink = 0.6 oz pure alcohol)PHQ-2AnswerDate RecordedPHQ-2 Ceqas621/2025AUDIT-CAnswerDate Recorded Q1: How often do you have a drink containing alcohol?Never08/28/2025verage Number of DrinksNot on file08/28/2025Frequency of Binge DrinkingNot on file 08/28/2025CommentsNoSex and Gender InformationValueDate RecordedSex Assigned at BirthNot on fileLegal HikOsfyot84/10/2012 4:56 AM CDTGender Identity Not on fileSexual OrientationNot on fileOccupationIndustryJob Start DateJob End DateVFWNot on fileNot on fileNot on filedocumented as of this encounter Plan of Treatment DateTypeDepartmentCare Team (Latest Contact Info)Qcejwlymabn75/20/2026 8:30 AM CSTAppointment [facility] Orthopedic [facility] [address] [place] [address] [place] [address] Nereida Butcher MD [address] [facility] [place] [address] NameTypePriorityAssociated DiagnosesDate/TimeXR Forearm Rt 2 ViewsImaging New Routine Postop check 09/12/2025 9:19 AM CSTdocumented as of this encounter Visit Diagnoses Diagnosis Postop check Follow-up examination, following unspecified surgery documented in this encounter Care Teams Team MemberRelationshipSpecialtyStart DateEnd Deirdre Grant PA-C [address] [place] [address] [place] [address] PCP - GeneralPhysician Lrbdfdnmk77/31/18documented as of this encounter
--- OUTSIDE RECORDS SUMMARY | 2025-09-12 09:30 | XMS_ITS | Encounter Summary ---
Author Organization [facility] Address [address] [place] [address] Care Team Providers Care Material Handler Loader Name Role Phone Deirdre Grant PA-C Primary Care Provider Reason for Referral * Procedure/Equipment (Routine) - IncompleteSpecialtyDiagnoses / Procedures Referred By ContactReferred To Contact Diagnoses Postop check Procedures XR Forearm Rt 2 Views Nereida Butcher MD [address] [facility] [place] [address] Phone: tel: fax: Referral IDStatusReasonStart DateExpiration DateVisits RequestedVisits [id number]/23/20253/ PRINTER Reason for Visit * ReasonCommentsPost-Op CheckRight ulna fracture Encounter Details DateTypeDepartmentCare Team (Latest Contact Info)Gcxzihlassx22/23/2025 9:30 AM CSTOffice Visit [facility] [address] [facility] [place], [place] [phone] Corazon Alcantara, JOHNATHAN-C [address] [facility] [place] [address] Postop check (Primary Dx) Social History Tobacco UseTypesPacks/DayYears UsedDateSmoking Tobacco: NeverSmokeless Tobacco: NeverAlcohol UseStandard Drinks/WeekCommentsYes2 (1 standard drink = 0.6 oz pure alcohol)PHQ-2AnswerDate RecordedPHQ-2 Qnuvo11710/27/2024UDIT-CAnswerDate Recorded Q1: How often do you have a drink containing alcohol?Never08/28/2025verage Number of DrinksNot on file08/28/2025Frequency of Binge DrinkingNot on file 08/28/2025CommentsNoSex and Gender InformationValueDate RecordedSex Assigned at BirthNot on fileLegal BgsXzonca74/10/2012 4:56 AM CDTGender Identity Not on fileSexual OrientationNot on fileOccupationIndustryJob Start DateJob End DateVFWNot on fileNot on fileNot on filedocumented as of this encounter Patient Instructions * Patient Instructions* Corazon Alcantara, OA-José - 09/12/2025 9:30 AM BOX PRINTER Thank you for Choosing [facility] for your health care visit today. Follow up as scheduled Dr. Nereida Butcher MD Hand & Upper Extremity Surgeon Obstetric Assistant: [phone] Medication Requests: Prescriptions are not filled on weekends or on weekdays after 3:00 PM. For all medication refills: Request a refill using BoundaryMedicalhart or contact your pharmacy. What is Know Your Cost? Know Your Cost is a service for patients and patient/members to call and receive personalized cost information and estimates across our care group. The phone number is (COST) Thursday - Thursday 8 AM to 5 PM Advanced Imaging Scheduling: To schedule an MRI, Ultrasound, or Image guided injection at [facility] please call [phone]. To schedule an MRI or CT at a [facility] please call [phone]. [facility] Workers' Compensation [address] [place] [address] (Phone) Email: [email or web address] Release of Information: Radiology/Imaging [address] [place], [place] [phone] (Phone) Health Information Management [address] [place] [address] (Phone) [employer] PRINTER documented in this encounter Progress Notes * Corazon Alcantara OA-C - 09/12/2025 9:30 AM CST [facility] Post-Operative Note Surgeon: Nereida Butcher MD [...] Michael has no concerns. Follow-up: MD scheduled PRINTER documented in this encounter Plan of Treatment DateTypeDepartmentCare Team (Latest Contact Info)Spdtefnumuc04/20/2026 8:30 AM CSTAppointment [facility] Orthopedic [facility] [address] [place] [address] Nereida Butcher MD [address] [facility] [place] [address] NameTypePriorityAssociated DiagnosesDate/TimeXR Forearm Rt 2 ViewsImaging New Routine Postop check 09/12/2025 9:19 AM CSTNameTypePriorityAssociated DiagnosesOrder ScheduleXR Forearm Rt 2 ViewsImaging NewRoutine Postop check Expected: 09/12/2025 (Approximate), Expires: 09/12/2026documented as of this encounter Visit Diagnoses Diagnosis Postop check- Primary Follow-up examination, following unspecified surgery documented in this encounter Care Teams Team MemberRelationshipSpecialtyStart DateEnd Date Deirdre Grant PA-C [address] [place] [place] [address] [place] [address] PCP - GeneralPhysician Tpylpuhuy22/31/18documented as of this encounter
--- OUTSIDE RECORDS SUMMARY | 2025-09-12 10:00 | XMS_ITS | Encounter Summary ---
Author Organization [facility] Address [address] [place] [address] Care Team Providers Care Train Examiner Name Role Phone Deirdre Grant PA-C Primary Care Provider Reason for Visit * ReasonCommentsWrist Problem Encounter Details DateTypeDepartmentCare Team (Latest Contact Info)Mqamzxmybqw33/23/2025 10:00 AM CSTOffice Visit [facility] [address] [place] [address] Myriam Grajeda, OTR/L [address] [place] [address] Closed fracture of shaft of right ulna with routine healing, unspecified fracture morphology, subsequent encounter (Primary Dx) Social History Tobacco UseTypesPacks/DayYears UsedDateSmoking Tobacco: NeverSmokeless Tobacco: NeverAlcohol UseStandard Drinks/WeekCommentsYes2 (1 standard drink = 0.6 oz pure alcohol)PHQ-2AnswerDate RecordedPHQ-2 Csmlz40410/27/2024UDIT-CAnswerDate Recorded Q1: How often do you have a drink containing alcohol?Never08/28/2025verage Number of DrinksNot on file08/28/2025Frequency of Binge DrinkingNot on file 08/28/2025CommentsNoSex and Gender InformationValueDate RecordedSex Assigned at BirthNot on fileLegal PjeJvgxoo82/10/2012 4:56 AM CDTGender Identity Not on fileSexual OrientationNot on fileOccupationIndustryJob Start DateJob End DateVFWNot on fileNot on fileNot on filedocumented as of this encounter Progress Notes * Myriam Grajeda OTR/L - 09/12/2025 10:00 AM CST [facility] The patient was seen on the acute walk-in clinic for a splint adjustment. Mmetacarpal bar was re molded liftinh away fro IF MP head. Paading was applied, felt added to web space and liners with thumbwere given Also direction of strap was angled to avoid the bony prominence. No charge. Timed Charges (Minutes): Timed Code Treatment Minutes: Total Treatment Minutes: 20 Therapist Signature: MASON Burton 10:32 AM 09/12/2025 EATION FACILITY ATTENDANT documented in this encounter Plan of Treatment DateTypeDepartmentCare Team (Latest Contact Info)Ivayizuguza52/20/2026 8:30 AM CSTAppointment [facility] Orthopedic [facility] [address] [place] [address] Nereida Butcher MD [address] [facility] [place] [address] documented as of this encounter Visit Diagnoses Diagnosis Closed fracture of shaft of right ulna with routine healing, unspecified fracture morphology, subsequent encounter- Primary documented in this encounter Care Teams Team MemberRelationshipSpecialtyStart DateEnd Date Deirdre Grant PA-C [address] [place] [address] [place] [address] PCP - GeneralPhysician Emelpbrnd21/31/18documented as of this encounter
--- OUTSIDE RECORDS SUMMARY | 2025-09-20 08:50 | XMS_ITS | Encounter Summary ---
Author Organization [facility] Address [address] [place] [address] Care Team Providers Care Hair Or Beauty Salon Manager Name Role Phone Deirdre Grant PA-C Primary Care Provider Encounter Details DateTypeDepartmentCare Team (Latest Contact Info)Irotyshqgoo74/16/2025Results Follow-Up [facility] Orthopedic [facility] [address] [place] [address] Nereida Butcher MD [address] [place] [address] Social History Tobacco UseTypesPacks/DayYears UsedDateSmoking Tobacco: NeverSmokeless Tobacco: NeverAlcohol UseStandard Drinks/WeekCommentsYes2 (1 standard drink = 0.6 oz pure alcohol)PHQ-2AnswerDate RecordedPHQ-2 Rymaa09110/27/2024UDIT-CAnswerDate Recorded Q1: How often do you have a drink containing alcohol?Never08/28/2025verage Number of DrinksNot on file08/28/2025Frequency of Binge DrinkingNot on file 08/28/2025CommentsNoSex and Gender InformationValueDate RecordedSex Assigned at BirthNot on fileLegal LcvDgmcjr94/10/2012 4:56 AM CDTGender Identity Not on fileSexual OrientationNot on fileOccupationIndustryJob Start DateJob End DateVFWNot on fileNot on fileNot on filedocumented as of this encounter Plan of Treatment DateTypeDepartmentCare Team (Latest Contact Info)Tplraivlzkg30/20/2026 8:30 AM CSTAppointment [facility] [address] [facility] [place] [address] Nereida Butcher MD [address] [facility] [place] [phone] documented as of this encounter Visit Diagnoses Not on filedocumented in this encounter Care Teams Team MemberRelationshipSpecialtyStart DateEnd Date Deirdre Grant PA-C [address] [place] [address] [place] [address] PCP - GeneralPhysician Ycjxdkftv80/31/18documented as of this encounter
--- OUTSIDE RECORDS SUMMARY | 2025-09-20 08:50 | XMS_ITS | Encounter Summary ---
Author Organization [facility] Address [address] [place] [address] Care Team Providers Care Director Business Management Name Role Phone Deirdre Grant PA-C Primary Care Provider Encounter Details DateTypeDepartmentCare Team (Latest Contact Info)Pcbclhoqgvz93/08/2025Results [facility] [address] [place] [address] Maddie Warren PA-C [address] [place] [address] Social History Tobacco UseTypesPacks/DayYears UsedDateSmoking Tobacco: NeverSmokeless Tobacco: NeverAlcohol UseStandard Drinks/WeekCommentsYes2 (1 standard drink = 0.6 oz pure alcohol)PHQ-2AnswerDate RecordedPHQ-2 Nzqsk46810/27/2024UDIT-CAnswerDate Recorded Q1: How often do you have a drink containing alcohol?Never08/28/2025verage Number of DrinksNot on file08/28/2025Frequency of Binge DrinkingNot on file 08/28/2025CommentsNoSex and Gender InformationValueDate RecordedSex Assigned at BirthNot on fileLegal CinNhvhuw76/10/2012 4:56 AM CDTGender Identity Not on fileSexual OrientationNot on fileOccupationIndustryJob Start DateJob End DateVFWNot on fileNot on fileNot on filedocumented as of this encounter Plan of Treatment DateTypeDepartmentCare Team (Latest Contact Info)Xlcqajpgcwu92/20/2026 8:30 AM CSTAppointment [facility] [address] [facility] [place] [address] Nereida Butcher MD [address] [facility] [place] [phone] documented as of this encounter Visit Diagnoses Not on filedocumented in this encounter Care Teams Team MemberRelationshipSpecialtyStart DateEnd Date Deirdre Grant PA-C [address] [place] [address] [place] [address] PCP - GeneralPhysician Rcnnflevx56/31/18documented as of this encounter
--- OUTSIDE RECORDS SUMMARY | 2025-09-20 08:50 | XMS_ITS | Encounter Summary ---
Author Organization [facility] Address [address] [place] [address] Care Team Providers Care Child Care Coordinator Name Role Phone Deirdre Grant PA-C Primary Care Provider Encounter Details DateTypeDepartmentCare Team (Latest Contact Info)Wpastcfmblk06/08/2025 Notes/Orders [facility] Orthopedic [facility] [address] [place] [address] Nereida Butcher MD [address] [place] [phone] Surgery, elective (Primary Dx) Social History Tobacco UseTypesPacks/DayYears UsedDateSmoking Tobacco: NeverSmokeless Tobacco: NeverAlcohol UseStandard Drinks/WeekCommentsYes2 (1 standard drink = 0.6 oz pure alcohol)PHQ-2AnswerDate RecordedPHQ-2 Akezi73110/27/2024UDIT-CAnswerDate Recorded Q1: How often do you have a drink containing alcohol?Never08/28/2025verage Number of DrinksNot on file08/28/2025Frequency of Binge DrinkingNot on file 08/28/2025CommentsNoSex and Gender InformationValueDate RecordedSex Assigned at BirthNot on fileLegal LmfQisddg73/10/2012 4:56 AM CDTGender Identity Not on fileSexual OrientationNot on fileOccupationIndustryJob Start DateJob End DateVFWNot on fileNot on fileNot on filedocumented as of this encounter Plan of Treatment DateTypeDepartmentCare Team (Latest Contact Info)Wewfxobupoh18/20/2026 8:30 AM CSTAppointment [facility] [address] [facility] [place] [address] Nereida Butcher MD [address] [facility] [place] [address] documented as of this encounter Results * [place] Fluoroscopy Up To 1 Hour (08/29/2025 1:13 PM NON MORSE INTERCEPT TECHNICIAN)Anatomical Region LateralityModalityRadiographic ImagingSpecimen (Source)Anatomical Location / LateralityCollection Method / VolumeCollection TimeReceived Time Narrative 08/29/2025 1:14 PM NON MORSE INTERCEPT TECHNICIAN These images were obtained during a surgical [...] [facility] [address] [place] [address] PCP - GeneralPhysician Vwdttlivv48/31/18documented as of this encounter
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
--- OUTSIDE RECORDS SUMMARY | 2025-09-20 08:51 | XMS_ITS ---
Author Organization [facility] Address [address] [place] [address] Care Team Providers Care Advertising Account Manager Name Role Phone Deirdre Grant PA-C Primary Care Provider Active Problems ProblemNoted DateDiagnosed DateClosed fracture of lower end of right ulna 08/25/2025History of venous qssqkhxdcovttdv74/20/2022Colon polyp11/08/2015 Overview (04/24/2016): [place] - multiple polyps. erosions in the terminal ileum Pap smear of cervix shows high risk HPV mrnsktr9506/06/2015 Overview (04/24/2016): Redo Pap in 05/2016; patient refuses colposcopy Right knee pain08/18/2014CTS (carpal tunnel syndrome)11/28/2013Melanoma 07/17/20110565Gexcat51/27/9697Tunbtpa61/27/2433Ajkuhjhky52/17/2011HTN (hypertension) 07/07/2011llergic swvywkka42/07/2003 Overview (05/13/2017): Rhinitis Allergic NOS Current Treatment and Therapy Plans No current plan information found. Past Treatment and Therapy Plans No past plan information found. Lifetime Dose Tracking * ChemicalLifetime DoseAutomatic EntryManual EntryFluoro Time0.002 minutes0.002 minutes0 minutesTotal Air Kerma0.146 mGy0.146 mGy0 mGy Resolved Problems ProblemNoted DateDiagnosed DateResolved DateYeast infection of the skin Major depressive disorder, single ahsqnlj5208/18/2008 04/05/2012 Overview (05/13/2017): Depression Major NOS Herpes simplex virus (HSV) Overview (05/13/2017): Herpes Simplex Labialis Cdupzuq25/07/
--- OUTSIDE RECORDS SUMMARY | 2025-09-20 08:51 | XMS_ITS | Clinical Summary ---
Author Organization Formerly [facility] Address [address] [place] [address] Care Team Providers Care Soakers Supervisor Name Role Phone Deidrre Grant PA-C Primary Care Provider Source Comments You are receiving this document as you are listed as the primary care provider,follow-up provider, or the patient has been referred to you for consultation.This is in compliance with the Medicare and[facility] EHR Incentive Program,which states Providers who transition their patient to another setting of careor provider of care or refers their patient to another provider of care shouldprovide summary care record for each transition of care or referral. [facility] Allergies No known active allergies Medications MedicationSigDispense [...] end of right ulna 08/25/2025History of venous ftsljtjyxavsjcr89/20/2022olon polyp11/08/2015 Overview (04/24/2016): [place] - multiple polyps. erosions in the terminal ileum Pap smear of cervix shows high risk HPV wzqjxxv6006/06/2015 Overview (04/24/2016): Redo Pap in 05/2016; patient refuses colposcopy Right knee pain08/18/2014CTS (carpal tunnel syndrome)11/28/2013Melanoma 07/17/20119315Gxvdsz46/27/7412Xwffgzk51/27/3392Cwmlltxiw30/17/2011HTN (hypertension) 07/07/2011llergic ugqickbz68/07/2003 Overview (05/13/2017): Rhinitis Allergic NOS Resolved Problems ProblemNoted DateDiagnosed DateResolved DateYeast infection of the skin Major depressive disorder, single qjcszxu9708/18/2008 04/05/2012 Overview (05/13/2017): Depression Major NOS Herpes simplex virus (HSV) sjydvqgve45 Overview (05/13/2017): Herpes Simplex Labialis Zwlssdi58 Encounters DateTypeDepartmentCare UsjfMfvtrjhmghc34/23/2025 10:00 AM CSTOffice Visit [facility] [address] [place] [address] Myriam Grajeda, OTR/L Closed fracture of shaft of right ulna with routine healing, unspecified fracture morphology, subsequent encounter (Primary Dx)09/12/2025 9:30 AM SET UP MECH[employer]IC [employer] W[employer] MACHINES Office Visit [facility] Orthopedic [address] [address] Corazon Alcantara OA-C Postop check (Primary Dx)09/12/2025 9:20 AM CSTAncillary Procedure [facility] [address] [place] [address] Nereida Butcher MD Postop check09/05/2025 9:00 AM CSTOffice Visit [facility] [address] [place] [address] Myriam Grajeda, OTR/L Closed fracture of shaft of right ulna with routine healing, unspecified fracture morphology, subsequent encounter (Primary Dx)09/05/2025Results Follow-Up [address] [address] Nereida Butcher MD 08/29/2025 12:12 PM CSTAnesthesia Event [facility] [address] [address] Fermin Baca MD 08/29/2025 11:45 AM SET UP [employer]ES - 08/29/2025 1:25 PM CSTSurgery [facility] [address] [address] Neerida Butcher MD Open reduction internal fixation distal ulna svmgyiqc24/09/2025 10:35 AM SET UP ME[employer]ACHINES Ancillary Procedure Radiology [facility]ACS [address] [place] [address] 08/29/2025 10:15 AM SET UP [employer] - 08/29/2025 2:06 PM CSTHospital Encounter [facility] [address] [address] Nereida Butcher MD Other closed fracture of distal end of right ulna, initial encounter Discharge Disposition: Home08/29/2025 6:00 AM CSTAncillary Procedure [facility] [address] [place] [address] Nereida Butcher MD Surgery, qhcbunhf94/08/2025Notes/Orders [facility] Orthopedic [facility] [address] [place] [address] Nereida Butcher MD Surgery, elective (Primary Dx)08/28/2025Results [facility] [address] [facility] 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 [address] [address] [place] [address] Arya Lloyd MD Dog bite, initial encounter (Primary Dx); Puncture wound of multiple sites of right upper extremity, initial encounter; Other closed fracture of distal end of right ulna, initial qrwuxmxty96/03/2025 12:[address] [facility] [address] [address] [address] [place] [phone] Eduarda Cristobal PA-C Pain of right upper psmtellim36/03/2025 12:20 PM CSTOffice Visit [facility] [address] [place] [phone] Eduarda Cristobal PA-C Closed fracture of right forearm, initial encounter; Dog bite, initial encounterfrom Last 3 Months Immunizations ImmunizationAdministration DatesNext DueFlu Vac Preserv Free (3+yrs)06/25/2012, 07/03/2011,08/18/2008Influenza IIV4 (Quadrivalent) 0.5mL (79988)06/11/2015, 06/05/2014,07/01/2013TDAP (BOOSTRIX)07/01/2013Td05/13/2004 Family History * Patient is adopted Medical HistoryRelationNameCommentsDVT/PENegative Family HistoryRelationName StatusCommentsBirth FatheradoptiveBirth MotheradoptiveDaughterAliveSonAlive Social History Tobacco UseTypesPacks/DayYears UsedDateSmoking Tobacco: NeverSmokeless Tobacco: Never Tobacco Cessation:Counseling Given: Not Answered Alcohol UseStandard Drinks/WeekCommentsYes2 (1 standard drink = 0.6 oz pure alcohol)PHQ-2AnswerDate RecordedPHQ-2 Ywxoe61010/27/2024UDIT-CAnswerDate Recorded Q1: How often do you have a drink containing alcohol?Never08/28/2025verage Number of DrinksNot on file08/28/2025Frequency of Binge DrinkingNot on file 08/28/2025CommentsNoSex and Gender InformationValueDate RecordedSex Assigned at BirthNot on fileLegal GzoMfxgnl77/10/2012 4:56 AM CDTGender Identity Not on fileSexual OrientationNot on fileOccupationIndustryJob Start DateJob End DateVFWNot on fileNot on fileNot on file Last Filed Vital Signs Vital SignReadingTime TakenCommentsBlood Uqzhbwyb719/7508/29/2025 1:58 PM SET UP [employer]ES Gncgh019608/29/2025 1:58 PM KAVEwxslxtofzf80.1 ??C (96.9 ??F)08/29/2025 1:27 PM CSTRespiratory Jlkm230710/30/2024 1:58 PM CSTOxygen Kandixgvhl58%08/29/2025 1:58 PM CSTInhaled Oxygen Concentration--Fvmmtc07 kg (150 lb)08/23/2025 1:12 PM SET UP [employer]ACH[employer]ES Cwzusm748.5 cm (5' 2)08/26/2025 8:31 AM CSTBody Mass Index27.44110/24/2024 1:12 PM SET UP [employer] Plan of Treatment DateTypeDepartmentCare Team (Latest Contact Info)Afgyyiufkgn63/20/2026 8:30 AM CSTAppointment [facility] [address] [place] [address] Nereida Butcher MD [address] [facility] [place] [address] Health MaintenanceDue DateLast DoneCommentsHep C Screening (Preventive Services) 1964HIV Screening (Preventive Services)1980Adult Preventive Visit 1982Cervical Cancer Screening Due06/07/, 04/01/2012, 08/18/2008, Additional history jlajryKqwmmjoiwul31 (Completed) Rrtwsdyxaak76/16/, 07/17/2011, 08/18/2008, Additional history existsCOVID-19 Vaccine ( season)/08/2024, 08/26/2022, 03/06/2022, Additional history existsInfluenza Vaccine (#1)/08/2024, 08/26/2022, 08/06/2021, Additional history existsDiabetes Screening- (based on age and BMI)TaP/Tdap/Td Vaccine (3 - Tdap)09/01/2034 09/01/2024, 07/01/2013, 05/13/2004RSV Vaccine (1 - 1-dose 75+ series)2039 Zoster/Shingles XrsyszpXwvhkllxr06/01/2019, 09/16/2018Pneumococcal Vaccine 50+ HpvWxbgrrxnh90/07/2025HepA VaccineAged OutNo longer eligible based on patient's [...] Str - High Flex - Ea/1 - [id number] Implanted:Qty: 1 on 08/29/2025 by Nereida Butcher MD at [facility]: [employer] - [id number] / 0 / 000Scr Peg Nonlk 2.5x14 - [employer] - Ea/ - [id number] Implanted:Qty: 2 on 08/29/2025 by Nereida Butcher MD at [facility]: [employer] - [id number] / 0 / 000Scr Peg Nonlk 2.5x16 - [employer] - Ea/1 - [id number] Implanted:Qty: 1 on 08/29/2025 by Nereida Butcher MD at [facility]: [employer] - [id number] / 0 / 000Scr Peg Nonlk 2.5x12 - [employer] - Ea/1 - [id number] Implanted:Qty: 2 on 08/29/2025 by Nereida Butcher MD at [facility]: [employer] - [id number] / 0 / 000Peg 2.5x16 F-Thrd - [employer] - Ea/1 - [id number] Implanted:Qty: 1 on 08/29/2025 by Nereida Butcher MD at [facility]: [employer] - [id number] / 0 / 000 Procedures Procedure NamePriorityDate/TimeAssociated DiagnosisCommentsSUR FLUOROSCOPY UP TO 1 ETUSOnvvzgj37/09/2025 1:13 PM SET UP [employer] Surgery, elective SURGICAL NIXUBBYGAAxhuthi80/09/2025 1:08 PM SET UP [employer] Other closed fracture of distal end of right ulna, initial encounter PERIPHERAL WHGNGMuggddz37/09/2025 12:18 PM SET UP [employer] MACHINES Exc Arm/Elbow Les Sc = 3 Cm08/29/2025 12:01 PM SET UP [employer]ACHINES Other closed fracture of distal end of right ulna, initial encounter Open Tx Ulnar Shaft Fx W/Wo Fix08/29/2025 12:01 PM SET UP [employer] MACHINES Other closed fracture of distal end of right ulna, initial encounter Exc Raul Les Trnk Arm/Leg;2.1-3.0 Cm08/29/2025 12:01 PM SET UP [employer]ACHINES Other closed fracture of distal end of right ulna, initial encounter US ANESTHESIA GUIDED ACVVTCsyyrhf72/09/2025 10:34 AM SET UP [employer]ACH[employer]ES COMPLETE BLOOD COUNT-NO GERXOqlatrv58/06/2025 9:17 AM SET UP [employer] Preop examination ECG 12 LEAD FBXDJLCPTIJckvdaj28/06/2025 9:00 AM SET UP [employer] MACHINES Preop examination XR FOREARM RT 2 DXRCPTLDR54/03/2025 12:51 PM SET UP [employer]ACHIN[employer] Pain of right upper extremity LIPID PANEL & DIRECT LDL (IF NEEDED)Vgdsjuc3806/06/2015 12:15 PM CDT Routine general medical examination at a health care facility ANATOMICAL PATH LIQUID NNSVUJfcrplk64/16/2015 11:46 AM CDT from Last 3 Months or Most Recently Relevant to Health Maintenance Results * CHINO Fluoroscopy Up To 1 Hour (08/29/2025 1:13 PM SET UP ME[employer] MACHINES)Anatomical Region LateralityModalityRadiographic ImagingSpecimen (Source)Anatomical Location / LateralityCollection Method / VolumeCollection TimeReceived Time Narrative 08/29/2025 1:14 PM SET UP [employer]ACHINES These images were obtained during a surgical procedure. Authorizing ProviderResult TypeResult StatusYvonndora Butcher MDRAD NON-REPORTABLESFinal Result * Surgical Path (08/29/2025 1:08 PM SET UP MECH[employer] MACHINES)ComponentValueRef RangeTest Method Analysis TimePerformed AtPathologist SignatureCase ReportSurgical Pathology ?Case: [id number] ? Authorizing Provider: ??Nereida Butcher MD ? Collected: ? 08/29/2025 1308 ? Ordering Location: ? [facility] ?Received: ?08/29/2025 1318 ? Pathologist: ? Sven Millan MBBS ? Specimen: ?Forearm, right, right forearm mass ? 09/01/2025 12:45 PM [facility] LABORATORYFINAL DIAGNOSISSoft tissue, forearm, right, excision: - Organizing oupbhbrr89/12/2025 12:45 PM [facility] at [...] 09/01/2025 12:45 PM [facility] LABORATORYEmbedded Danarj2809/01/2025 12:45 PM [facility] LABORATORYSpecimen (Source)Anatomical Location / LateralityCollection Method / VolumeCollection TimeReceived TimeTissueENTIRE RIGHT FOREARM / Llmomgo0808/29/2025 1:08 PM CST08/29/2025 1:18 PM SET UP [employer]ACH[employer]ES Narrative Authorizing ProviderResult TypeResult StatusNereida STAPLETON PATHOLOGYFinal ResultPerforming OrganizationAddressCity/State/ZIP CodePhone Number [facility] CLIA: [id number] [address] * PERIPHERAL BLOCK (08/29/2025 12:18 PM SET UP MECHANIC CO[employer] W[employer]ING MACHINES) Narrative [facility] - 08/29/2025 12:18 PM SET UP ME[employer] MACHINES Fermin Baca MD 09/07/2025 12:10 PM Peripheral Block Performed by: Fermin Baca MD Authorized by: Fermin Baac MD ??Patient Location: ??Preop Start Time: ??08/29/2025 [...] Hat and Sterile gloves Monitoring: ??Blood pressure, surveillance monitor and continuous pulse oximetry Patient [...] Edited Result - FinalPerforming OrganizationAddressCity/State/ZIP CodePhone Number [facility] CLIA: [id number] [address] * [place] Anesthesia Guided Block (08/29/2025 10:34 AM SET UP MECH[employer] W[employer] MACHINES)Anatomical Region LateralityModalityUltrasoundSpecimen (Source)Anatomical Location / Laterality Collection Method / VolumeCollection TimeReceived Time Narrative 08/29/2025 10:34 AM SET UP ME[employer] MACHINES If an Anesthesia block was performed please see the Anesthesia encounter for documentation. ??This procedure was performed and interpreted by the performing provider. ?? Authorizing ProviderResult TypeResult StatusMickalia Baca MDRAD USFinal Result * Complete Blood Count-No Diff (08/26/2025 9:17 AM SET UP ME[employer] W[employer] MACHINES)ComponentValueRef Range Test MethodAnalysis TimePerformed AtPathologist SignatureWBC8.53.5 - 10.5 x10(9)/L110/27/2024 9:44 AM [facility] LABORATORYRBC4.533.90 - 5.03 x10(12)/L 08/26/2025 9:44 AM [facility] UTXZEKRFZXQgxbgtlije29.812.0 - 15.5 g/dL 08/26/2025 9:44 AM [facility] RUXTGELLKNVPL89.334.9 - 44.5 %08/26/2025 9:44 AM [facility] OEIXUUSPUZEGO47.280.0 - 100.0 fL08/26/2025 9:44 AM [facility] LKGUNVDNNCDSS81.527.6 - 33.3 pg08/26/2025 9:44 AM [facility] FCKNHXHLQPQOAI73.431.5 - 35.2 g/dL08/26/2025 9:44 AM [facility]ORY RDW13.011.9 - 15.5 %08/26/2025 9:44 AM [facility] BGJCXWMJORTaigptrch968584 - 450 x10(9)/L110/27/2024 9:44 AM [facility] LABORATORYSpecimen (Source) Anatomical Location / LateralityCollection Method / VolumeCollection Time Received TimeBloodVenipuncture / Mbvovvo0508/26/2025 9:17 AM CST08/26/2025 9:17 AM SET UP [employer] Narrative Authorizing ProviderResult TypeResult StatusYesy Solomon APRN, CNPLAB_1Final ResultPerforming OrganizationAddressCity/State/ZIP CodePhone Number [facility] CLIA: [id number] [address] [place] [address], [facility] * ECG 12 Lead (Clinical Accordion Tuner to perform) (08/26/2025 9:00 AM SET UP ME[employer]ACHINES) ComponentValueRef RangeTest MethodAnalysis TimePerformed AtPathologist SignatureVentricular Feto26RFRDXMP GHPAtrial Lnws24GEKNNPX GHPP-R Wesbbreu889 msMUSE GHPQRS Vgcpahqb91lvRSTL NRQVP586svFEAL RYPVSZ928okQXDK GHPP Axis66 degreesMUSE GHPR Vqhv38xtfvlueMMIM GHPT Mfuh73bezrtfwLSNF GHPSpecimen (Source) Anatomical Location / LateralityCollection Method / VolumeCollection Time Received Time08/26/2025 9:00 AM SET UP [employer]ACHINES Narrative [facility] - 08/26/2025 9:30 AM SET UP [employer] MACHINES Sinus rhythm Normal ECG When compared with [...] ECG ORDERABLESFinal ResultPerforming OrganizationAddressCity/State/ZIP CodePhone Number [facility] [address] [place] [address] * XR Forearm Rt 2 Views (08/23/2025 12:51 PM SET UP MECH[employer] W[employer] MACHINES)Anatomical RegionLaterality ModalityUpper Extremity, Forearm, ArmDigital RadiographySpecimen (Source) Anatomical Location / LateralityCollection Method / VolumeCollection Time Received Time Narrative 08/23/2025 1:06 PM SET UP [employer]ACHINES EXAM: XR FOREARM RT 2 VIEWS INDICATION: [...] TimePerformed AtPathologist SignatureCholesterol 1640 - 200 mg/dLHP IGMURFKSFKYcaurkjilarvp8878 - 149 mg/dLHP CONVERSIONHDL Ckzpsbevvdv25>39 mg/dLHP CONVERSIONCholesterol/HDL Ratio Screen3.3HP CONVERSIONLDL Aawggvzuly7174 - 130 mg/dLHP CONVERSIONHours Ewgtcvf44.0HP CONVERSIONSpecimen (Source)Anatomical Location / LateralityCollection Method / VolumeCollection TimeReceived Time06/06/2015 12:15 PM CDT06/06/2015 2:47 PM CDT Narrative [facility] CONVERSION - 06/06/2015 3:41 PM CDT Performed at [facility], [address] [place] [address] Authorizing ProviderResult TypeResult StatusJenny BRAUN_1Final ResultPerforming OrganizationAddressCity/State/ZIP CodePhone Number [facility] CONVERSION * Pap Smear (06/06/2015 11:46 AM CDT)Specimen (Source)Anatomical Location / LateralityCollection Method / VolumeCollection TimeReceived Time06/06/2015 11:46 AM CDT Narrative [facility] CONVERSION - 06/11/2015 2:47 PM [place] [address] FINAL GYNECOLOGICAL CYTOLOGY REPORT Pathology #: [id number] ?Date Obtained: 06/06/2015 ? Date Received: 06/07/2015 [...] BAc TypeRelation to PatientDate of BirthPhone Billing AddressPersonal/LfuirfQkep[birth year][address] [place] [address] * Guarantor: Michael Palacio TypeRelation to PatientDate of BirthPhone Billing AddressPersonal/VrzdauAepi[birth year][address] [place] [address] Advance Directives * Full Code (Latest Code Status on File) Date ActivatedDate InactivatedComments12/09/2013 4:23 PM12/09/2013 8:27 PM Care Teams Team MemberRelationshipSpecialtyStart DateEnd Date Deirdre Grant PA-C [address] [address] [place] [address] PCP - GeneralPhysician Lsgghllvv57/31/18
--- OUTSIDE RECORDS SUMMARY | 2025-09-20 08:51 | XMS_ITS | Clinical Summary ---
Author Organization [facility] Address [facility] [place] [address] Care Team Providers Care Auditor/Quality Name Role Phone Tyesha Perez PA-C Unavailable Grace Jewell PA-C Primary Care Provid er Tyesha Perez PA-C Unavailable Allergies Active AllergyReactionsCriticalityNoted EawkDkqkrggnKpoqbhteehrWjnbcpl25/30/2015 NsaidsGI Nqppydertly13/15/2017 Medications MedicationSigDispense QuantityRefillsLast FilledStart DateEnd DateStatus ValACYclovir [...] = 0.6 oz pure alcohol)socially--3x weekPHQ-2AnswerDate RecordedPHQ-2 Nabpw395 Adolescent EducationAnswerDate RecordedGetting School Help NeededNot on file 3CommentsNoSex and Gender InformationValueDate RecordedSex Assigned at BirthNot on fileLegal ApmQlajoz25/04/2012 2:58 AM CSTGender Identity Not on fileSexual OrientationNot on file Last Filed Vital Signs Vital SignReadingTime TakenCommentsBlood Diprnbmy940/7709/09/2017 11:00 AM MANAGER OF SCHOOL Yrfit924709/08/2017 11:28 PM SNFWvlwaizzoke30.7 ??C (98.1 ??F)09/09/2017 7:46 AM CSTRespiratory Rjsx779011/10/2016 7:46 AM CSTOxygen Sbedonprup05%09/09/2017 7:46 AM CSTInhaled Oxygen Concentration--Ktxtbt72.6 kg (202 lb)09/07/2017 9:04 AM MANAGER OF SCHOOL Mmpeuy099.5 cm (5' 2)09/07/2017 9:20 AM CSTBody Mass Index36.9509/07/2017 9:04 AM MANAGER OF SCHOOL Plan of Treatment Health MaintenanceDue DateLast DoneCommentsADVANCE CARE OQZXFKEH69/03/1966ANNUAL REVIEW OF HM UYQDSV16 1965CT UWKHAONAZZFJ14/03/0351TEE37 1965FLEX SIG 1965sDNA (Cologuard)1965 6645DJCOS74/03/2775GXR81/24/ DIABETES VHBTZRWVD64, 09/08/2017, 10/18/2015, Additional history existsYEARLY PREVENTIVE VISIT/MAMMO SCREENING , 08/20/2020, 07/23/2019, Additional history existsCOVID-19 VACCINE ( season)/08/2024, 08/26/2022, 03/06/2022, Additional history existsINFLUENZA VACCINE (#1)/08/2024, 08/26/2022, 08/06/2021, Additional history eraxgxMKXMOYSJWOQ87/18/91635011/08/2015, 11/08/2015, 11/08/2015COLORECTAL CANCER LBJRJAQHI52/18/2026DTAP/TDAP/TD VACCINE (3 - Td or Tdap), 07/01/2013, 05/13/2004HEPATITIS C MCEWNTUSQVcrwuttwd22/24/2016ZOSTER LAAECHYIabdfmqlw72/01/2019, 09/16/2018HIV CDWCGMRSPSiwbrctkb00/12/2024NEUMOCOCCAL VACCINE 50+ CXPSREjmbdrvfn88/07/2025RSV NAXKHNQXjqplpego93/07/2025PHQ-2 (once per calendar year)Aqiseabrl76/11/2025, 06/28/2024HPV VACCINE (No Doses Required)CompletedMENINGITIS VACCINEAged OutNo longer eligible based on patient's age to complete this topic Medical Devices ImplantedTypeAreaManufacturerDevice IdentifierShelf Expiration DateModel / Serial / LotBone Cement Simplex W/Gentamicin 6195-1-001 Implanted:Qty: 1 on 09/07/2017 [facility] BoneRight: KneeSTRYKER HONQMOJXAWV99/31/[id number] / / [id number] Comp Tibial Knee Ascent 67mm [id number] Implanted:Qty: 1 on 09/07/2017 [facility] Component/InsertRight: KneeZIM[employer] [id number] / / [id number] Comp Femoral Vangard Biom Ps Rt 60mm [id number] Implanted:Qty: 1 on 09/07/2017 by Logan Viera MD at [facility] Joint Component/InsertRight: Knee[employer] [id number] / / [id number] Comp Femoral Vangard Biom Fixation [id number] Implanted:Qty: 1 on 09/07/2017 by Logan Viera MD at [facility] Joint Component/InsertRight: KneeZ[employer] [id number] / / [id number] Comp Patella Biom 3 Peg 31mm Std [id number] Implanted:Qty: 1 on 09/07/2017 by Logan Viera MD at [facility] Joint Component/InsertRight: Knee[employer] [id number] / / [id number] Vanguard Tibial Bearing, 16mm Ps+ Implanted:Qty: 1 on 09/07/2017 by [facility]: Knee04/20/2019EP-[id number] / / [id number] Procedures Procedure NamePriorityDate/TimeAssociated DiagnosisCommentsGLUCOSERoutine 09/09/2017 7:12 AM MANAGER OF SCHOOL Hypokalemia SOSOCTPKEMHNmvwdhc27/18/2016 7:27 AM MANAGER OF SCHOOL from Last 3 Months or Most Recently Relevant to Health Maintenance Results * (ABNORMAL) Glucose (09/09/2017 7:12 AM MANAGER OF SCHOOL)ComponentValueRef RangeTest Method Analysis TimePerformed AtPathologist BirubowcgRoujans544(H)70 - 99 mg/dL 09/09/2017 7:47 AM CSTFARIDGEVIEW SIBLEY MEDICAL CENTERpecimen (Source)Anatomical Location / LateralityCollection Method / VolumeCollection TimeReceived Time Blood specimen (specimen)09/09/2017 7:12 AM CST09/09/2017 7:27 AM MANAGER OF SCHOOL Narrative Authorizing ProviderResult TypeResult StatusJochapincito Viera MDLAB - BLOOD ORDERABLESFinal ResultPerforming OrganizationAddressCity/State/ZIP CodePhone Number [facility] [address] [place] [address], [facility] [phone] * COLONOSCOPY (11/08/2015 7:27 AM MANAGER OF SCHOOL)ComponentValueRef RangeTest MethodAnalysis TimePerformed AtPathologist SignatureCOLONOSCOPYFairMeeker Memorial Hospital Patient Name: Michael Palacio ? Procedure Date: 11/08/2015 7:27 AM ? Date of : 1965 ? Admit Type: Outpatient Age: 50 ? Gender: Female Attending MD: Deshawn Mcallister MD Instrument Name: 121 Procedure: ?Colonoscopy Indications: ?Abnormal CT of the GI tract Providers: ?Deshawn Mcallister MD, Sebastien Cummins RN ?(Nurse) Referring MD: ? Elizabeth [facility] Medicines: ?Propofol per Anesthesia Complications: ?No immediate [...] and ?oxygen saturations were monitored continuously. The ?[id number] was introduced through the anus and ?advanced [...] Procedure Code(s): ? --- Professional --- ? 05321, Colonoscopy, flexible, proximal to splenic flexure; with removal ? of tumor(s), polyp(s), or other lesion(s) by snare technique ? 91441, 59, Colonoscopy, flexible, proximal to splenic flexure; with ? biopsy, single or multiple CPT copyright 2013 [employer]. All rights reserved. The codes documented in this report are preliminary and upon notcher review may be revised to meet current compliance requirements. Deshawn Mcallister MD 11/08/2015 8:37 AM I was physically present for the entire viewing portion of the exam. Number of Addenda: 0 Note Initiated On: 11/08/2015 7:27 AM MRN: ?[id number] Procedure Date: ? 11/08/2015 7:27:45 AM Scope Withdrawal Time: 0 hours 29 minutes 43 seconds Total Procedure Duration: 0 hours 35 minutes 27 seconds Estimated Blood Loss: ? Scope In: 7:51:32 AM Scope Out: 8:26:59 AMRADIOLOGY RESULTSSpecimen (Source)Anatomical Location / LateralityCollection Method / VolumeCollection TimeReceived Time11/08/2015 7:27 AM MANAGER OF SCHOOL Narrative Authorizing ProviderResult TypeResult StatusPartyesha [facility] PROCEDURESEdited Result - FinalPerforming OrganizationAddressCity/State/ZIP Code Phone Number RADIOLOGY RESULTS from Last 3 Months or Most Recently Relevant to Health Maintenance Insurance * Guarantor: Michael Palacio BAccount TypeRelation to PatientDate of BirthPhone Billing AddressPersonal/KxfewwLyjt83/[birth year][address] [address] Advance Directives For more information, please contact: [phone] TypeDate RecordedPatient RepresentativeExplanationAdvance Directives and Living Will09/07/2017 4:49 PMHealth Care Directive 09/07/17 * Full Code (Latest Code Status on File) Date ActivatedDate TbcpresyadyZeakfakv29/18/2017 4:13 PM09/09/2017 5:25 PM * Full Code Date ActivatedDate InactivatedComments10/19/2015 10:54 AM09/07/2017 4:13 PM * Full Code Date ActivatedDate InactivatedComments10/16/2015 4:41 PM10/19/2015 10:54 AM Care Teams Team MemberRelationshipSpecialtyStart DateEnd Date Grace Jewell PA-C [address] [address] PCP - General11/12/23 Tyesha Perez PA-C [address] [place] [address] Physician AssistantDermatology04/21/23 Tyesha Perez PA-C [address] [id number] Assigned Dermatology Sgwpoxxo40/23/25
[2025-09-20 09:00] VITALS: BP 173/89; PULSE 92; RESP 20; TEMP 37.1; O2SAT 96; BMI 29.3
--- NOTE | 2025-09-20 09:21 | ED.NAVMDI ---
HPI - Nausea/Vomiting/Diarrhea General Date Seen: 09/20/25 Chief complaint: Nausea/Vomiting Stated complaint: vomiting Time Seen by Provider: 09/20/25 08:55 Source: patient Mode of arrival: ambulatory Limitations: no limitations History of Present Illness HPI Narrative: Patient is a 59-year-old female with chronic marijuana smoking, history of blood clots on Eliquis, high blood pressure presenting to emergency department for nausea and vomiting. She states she has been previously diagnosed with cyclic vomiting. States she has not smoked marijuana for 3 days. Was seen here very early yesterday morning with same symptoms. Was discharged but declined nausea medication at that time. States symptoms have persisted. She states she has not been able to eat or drink quadrant past few days and is feeling dehydrated. States when she takes a hot shower she does have improvement in her symptoms. Has not had any fevers or chills. Denies any abdominal pain. No previous abdominal surgeries. Denies headache, lightheadedness, dizziness, weakness, numbness, chest pain, shortness of breath, diarrhea, constipation, dysuria. No other concerns noted at this time. Does states she feels like she has some mild heartburn. Related Data Home Medications ?Medication ?Instructions ?Recorded ?Confirmed amlodipine 5 mg tablet 5 mg PO DAILY 11/09/23 09/20/25 apixaban 5 mg tablet (Eliquis) 5 mg PO BID 11/09/23 09/20/25 atenolol 100 mg tablet 100 mg PO DAILY 11/09/23 09/20/25 dicyclomine 10 mg capsule 10 mg PO 3XD 11/09/23 07/04/25 Held on 07/04/25. Instructions: Doctor's Order exemestane 25 mg tablet 25 mg PO DAILY 11/09/23 11/09/23 gabapentin 300 mg capsule 600 mg PO 3XD 11/09/23 09/20/25 lansoprazole 30 mg capsule,delayed 30 mg PO DAILY 11/09/23 09/20/25 release lisinopril 40 mg tablet 40 mg PO DAILY 11/09/23 09/20/25 methocarbamol 500 mg tablet 500 mg PO Q6H 11/09/23 09/20/25 olanzapine 5 mg disintegrating PO 11/09/23 tablet oxycodone-acetaminophen 5 mg-325 1 tab PO Q4-6H chronic pain 11/09/23 09/20/25 mg tablet prochlorperazine maleate 10 mg PO 11/09/23 tablet sertraline 100 mg tablet 100 mg PO BID 11/09/23 09/20/25 sumatriptan succinate 100 mg tablet 100 mg PO Q2-4H PRN 11/09/23 09/20/25 valacyclovir 1 gram tablet PO 11/09/23 Previous Rx's ?Medication ?Instructions ?Recorded olanzapine 5 mg tablet 5 - 10 mg (1 - 2 x 5 mg) PO QHS 11/09/23 PRN #30 tabs prochlorperazine maleate 5 mg 5 mg PO TID PRN nausea #30 tabs 11/09/23 tablet (Compazine) ondansetron 4 mg disintegrating 4 mg PO Q8H PRN nausea and 07/04/25 tablet vomiting #10 tabs capsaicin 0.075 % topical cream 1 applic topical TID #60 grams 09/20/25 Allergies Allergy/AdvReac Type Severity Reaction Status Date / Time No Known Drug Allergies Allergy Verified 09/20/25 09:04 Review of Systems Status of ROS: Reports: 10 or more systems reviewed and unremarkable except as noted in History and below [facility] Social History Smoking Status: Current some day smoker Do you use any of these nicotine containing products: None Second hand tobacco smoke exposure: No How often do you have a drink containing alcohol: never AUDIT-C Alcohol total score: 0 Non-prescribed substance use: marijuana (any form) service: No Exam Narrative: Exam Narrative: Const: Well-nourished, Well-developed, in mild distress Eyes: PERRL, no conjunctival injection, and symmetrical lids HENT: Atraumatic external nose and ears. Moist mucous membranes. Neck: Symmetric, trachea midline, No thyromegaly. CVS: RRR, No murmurs or gallops. Peripheral pulses 2+ and equal in all extremities RESP: Unlabored respiratory effort. Clear to auscultation bilaterally. GI: Nontender/Nondistended, No rebound or guarding. MSK:Extremities w/o deformity, Normal Active ROM Skin: Warm, Dry. No rashes or lesions. Neuro: Normal Muscle tone, No focal neurological deficits. Psych: Awake, Alert, & Oriented x3. Appropriate mood and affect. Const: Vital Signs, click to edit/add: Vital Signs - 24 hr 09/20/25 09:00 Temperature 98.7 F Pulse Rate [Left P ulse Oximeter] 92 Respiratory Rate 20 Blood Pressure [Ri ght Upper Arm] 173/89 H Pulse Oximetry 96 Oxygen Delivery Me thod Room Air Course Vital Signs Vital signs: Initial Vital Signs Temperature 98.7 F 09/20/25 09:00 Temperature Source Temporal Artery Scan 09/20/25 09:00 Pulse Rate 92 09/20/25 09:00 Respiratory Rate 20 09/20/25 09:00 Blood Pressure 173/89 H 09/20/25 09:00 Blood Pressure Mean 117 H 09/20/25 09:00 Blood Pressure Position Sitting 09/20/25 09:00 Pulse Oximetry 96 09/20/25 09:00 Oxygen Delivery Method Room Air 09/20/25 09:00 Vital Signs Temperature 98.7 F 09/20/25 09:00 Pulse Rate 92 09/20/25 09:00 Respiratory Rate 20 09/20/25 09:00 Blood Pressure 173/89 H 09/20/25 09:00 Pulse Oximetry 96 09/20/25 09:00 Oxygen Delivery Method Room Air 09/20/25 09:00 Temperature 98.7 F 09/20/25 09:00 Pulse Rate 92 09/20/25 09:00 Respiratory Rate 20 09/20/25 09:00 Blood Pressure 173/89 H 09/20/25 09:00 Pulse Oximetry 96 09/20/25 09:00 Oxygen Delivery Method Room Air 09/20/25 09:00 Medications Administered Medications: Discontinued Medications Generic Name Dose Route Start Last Admin Trade Name Freq PRN Reason Stop Dose Admin Famotidine 20 mg 09/20/25 09:23 09/20/25 10:06 Famotidine 10 Mg/Ml Inj IVP 09/20/25 09:24 20 mg ONCE ONE Administration Haloperidol Lactate 5 mg 09/20/25 09:20 09/20/25 10:10 Haloperidol 5 Mg/Ml Inj IV 09/20/25 09:21 5 mg ONCE ONE Administration Lactated Ringer's 1,000 mls @ 1,000 mls/hr 09/20/25 09:20 09/20/25 11:21 Lactated Ringers 1000 Ml IV 09/20/25 10:19 Not Given .Q1H ONE Potassium Bicarbonate 50 meq 09/20/25 10:34 09/20/25 10:40 Potassium Bicarb 25 Meq Effervescent Tab PO 09/20/25 10:35 50 meq ONCE ONE Administration MDM - Nausea/Vomiting/Diarrhea MDM Narrative Medical decision making narrative: Patient is a 59-year-old female presenting to the emergency department for nausea and vomiting. Symptoms have been going on for few days and this is most likely cannabinoid hyperemesis syndrome. This is reaffirmed with the fact that hot showers makes her symptoms better. Will give her some fluids for nausea. Will also give her Haldol. Pepcid ordered for her heartburn. With the vomiting will recheck labs to make sure electrolytes are not have a concerning level. Patient's lab work returned with a potassium of 2.8. Oral potassium was ordered and she was able to tolerate this. Symptoms have improved with the medication. Rest for lab work shows no concerning abnormalities. She is feeling much better at this time. She is safe for discharge. Lab Data Labs: Lab Results 09/20/25 Range/Units 10:03 WBC 11.24 H (4.50-11.00) K/uL RBC 4.57 (4.00-5.20) m/uL Hgb 13.8 (12.0-16.0) gm/dL Hct 41.6 (33.0-51.0) % MCV 91 (80-100) fL MCH 30 (26-34) pg MCHC 33 (32-36) gm/dL RDW Coeff of Betsy 13.8 (11.5-15.5) % Plt Count 338 (140-440) K/uL Neut % (Auto) 83.7 H (42.0-72.0) % Lymph % (Auto) 9.3 L (20-44) % [place] % (Auto) 6.7 (0.0-11.0) % Eos % (Auto) 0.0 (0.0-7.0) % Baso % (Auto) 0.1 (0.0-3.0) % Neut # (Auto) 9.40 H (1.7-7.0) K/uL Lymph # (Auto) 1.00 (0.90-2.90) K/uL [place] # (Auto) 0.80 (0.00-0.90) K/UL Eos # (Auto) 0.00 (0.00-0.50) K/uL Baso # (Auto) 0.00 (0.00-0.30) K/uL Abs Immat Gran (auto) 0.00 (0.00-0.30) K/uL Imm/Tot Granulo (auto) 0.2 % Sodium 143 (135-149) mmol/L Potassium 2.8 L* (3.6-5.1) mmol/L Chloride 99 (96-114) mmol/L Carbon Dioxide 25 (20-32) mmol/L Anion Gap 19 H (7-15) mEq/L BUN 17 (7-30) mg/dL Creatinine 0.7 (0.5-1.5) mg/dL Estimated Creat Clear 67.60 Estimated GFR 99 ml/min Glucose 96 (60-115) mg/dL Calcium 10.0 (8.4-10.6) mg/dL Magnesium 1.6 (1.5-2.6) mg/dL Discharge Plan Discharge Clinical Impression: Cyclical vomiting, Acute hypokalemia Patient Disposition: Home, Self-Care Condition: Improved Instructions: Hypokalemia (ED), Cyclic Vomiting Syndrome (ED) Additional Instructions: Try using the topical capsaicin cream sent to your pharmacy. You can use it up to 3 times a day as needed for symptoms. Return to emergency department for new or worsening symptoms. Of note you also had a low potassium. Recommend following up with the primary care provider for recheck Prescriptions: New capsaicin 0.075 % cream 1 applic topical TID Qty: 60 0RF Rx Instructions: do not wash area for at least [address] over abdomen/arms/back No Action ondansetron 4 mg tablet,disintegrating 4 mg PO Q8H PRN (Reason: nausea and vomiting) Qty: 10 0RF atenolol 100 mg tablet 100 mg PO DAILY valacyclovir 1 gram tablet PO sertraline 100 mg tablet 100 mg PO BID amlodipine 5 mg tablet 5 mg PO DAILY prochlorperazine maleate 10 mg tablet PO oxycodone-acetaminophen 5-325 mg tablet 1 tab PO Q4-6H exemestane 25 mg tablet 25 mg PO DAILY lansoprazole 30 mg capsule,delayed release(DR/EC) 30 mg PO DAILY lisinopril 40 mg tablet 40 mg PO DAILY olanzapine 5 mg tablet,disintegrating PO Eliquis 5 mg tablet 5 mg PO BID methocarbamol 500 mg tablet 500 mg PO Q6H sumatriptan succinate 100 mg tablet 100 mg PO Q2-4H PRN Rx Instructions: do not exceed 2 doses per 24 hrs dicyclomine 10 mg capsule 10 mg PO 3XD gabapentin 300 mg capsule 600 mg PO 3XD olanzapine 5 mg tablet 5 - 10 mg PO QHS PRNQty: 30 0RF prochlorperazine maleate [Compazine] 5 mg tablet 5 mg PO TID PRN (Reason: nausea) Qty: 30 0RF Follow Up/Referrals: Provider,Not a Local [Primary Care Provider, Family Practice] Stand Alone Forms: MyHealth Info Instructions
[2025-09-20] MEDS: FAMOTIDINE 10 MG/ML inj 20 MG IVP (10:06)
[2025-09-20 10:15] LABS: Hematocrit* 41.6 % (33.0-51.0); Hemoglobin* 13.8 gm/dL (12.0-16.0); Immature Granulocytes Pct Auto 0.2 %; Mean Corpuscular HGB Conc 33 gm/dL (32-36); Mean Corpuscular Hemoglobin 30 pg (26-34); Mean Corpuscular Volume 91 fL (80-100); RDW Coefficient of Variation % 13.8 % (11.5-15.5); Red Blood Count* 4.57 m/uL (4.00-5.20); White Blood Count* 11.24 K/uL (4.50-11.00)
[2025-09-20 10:17] LABS: Immature Granulocytes Abs Auto 0.00 K/uL (0.00-0.30); Lymphocytes Absolute Auto 1.00 K/uL (0.90-2.90); Slide Review Reflex No
[2025-09-20 10:24] LABS: Chloride* 99 mmol/L (96-114); Sodium* 143 mmol/L (135-149)
[2025-09-20 10:27] LABS: Anion Gap 19 mEq/L (7-15); Blood Urea Nitrogen* 17 mg/dL (7-30); Calcium* 10.0 mg/dL (8.4-10.6); Carbon Dioxide* 25 mmol/L (20-32); Creatinine* 0.7 mg/dL (0.5-1.5); Est. Creatinine Clearance* 67.60; Estimated Glomerular Filt Rate 99 ml/min; Glucose* 96 mg/dL (60-115)
[2025-09-20 10:31] LABS: Potassium* 2.8 mmol/L (3.6-5.1)
[2025-09-20] MEDS: POTASSIUM BICARB 25 MEQ EFFERVESCENT TAB 50 MEQ PO (10:40)
[2025-09-20 11:45] VITALS: BP 151/99; PULSE 88; RESP 19; O2SAT 93
== END 2025-09-20 11:51 | disposition home or self-care (01) ==
PROVIDERS: Emergency Provider Student in an Organized Health Care Education/Training Program
DX: R11.15 Cyclical vomiting syndrome unrelated to migraine (principal); F17.210 Nicotine dependence, cigarettes, uncomplicated; E87.6 Hypokalemia
CPT/HCPCS: 36415; 80048; 83735; 85025; 96374; 96375; 99284; A9270; J1308; J1630; J7120